=== PATIENT | female | born 1950 | race African-American/Black ===

== ENCOUNTER 2016-05-15 09:20 | Emergency (ER) | payer MEDICARE, MEDICAID ==
[~2016-05-15] VITALS: Ht 162.6 cm; Wt 104.8 kg
[~2016-05-15 09:20] MED LIST: ALBU0.084 IN; ASPI-231 PO; BRIM0.2S17 EACHEYE; BUDE160A3 IN; FER325T PO; FURO40TA PO; LEVEMIR SC; LOVA40TA46 PO; MET50T PO; METF500T PO; MORP15TA43 PO; NOR10T PO; PANT40TA2 PO; PREG50CA PO; RANI-185 PO; TIOTCAP IN; TRAV0.00 OP
[2016-05-15 10:11] LABS: Basophils # (auto) 0 uL; Basophils % (auto) 0.2 % (0.0-2.0); Eosinophils # (auto) 0.2 uL; Eosinophils % (auto) 2.7 % (0.0-7.0); Hematocrit 40.1 % (36.0-46.0); Hemoglobin 12.8 g/dL (12.2-16.2); Lymphocytes # (auto) 2.9 uL; Lymphocytes % (auto) 40.4 % (10.0-50.0); Mean Corpuscular Hemoglobin 28.2 pg (28.0-32.0); Mean Corpuscular Volume 87.9 fL (80.0-100.0); Mean Platelet Volume 8.5 fL (7.4-10.4); Monocytes # (auto) 0.4 uL; Monocytes % (auto) 6.2 % (0.0-12.0); Neutrophils # (auto) 3.6 uL; Neutrophils % (auto) 50.5 % (37.0-80.0); Platelet Count (auto) 276 10^3/uL (140-450); Red Cell Distribution Width 15.2 % (11.6-16.0); White Blood Cell 7.1 10^3/uL (4.4-10.8)
[2016-05-15 10:23] LABS: Albumin 3.6 g/dL (3.4-5.0); BUN/Creatinine Ratio 15.1; Bilirubin, Total 0.5 mg/dL (0.2-1.0); Calcium 9.2 mg/dL (8.5-10.1); Magnesium 1.9 mg/dL (1.6-2.6); Total Protein 7.8 g/dL (6.4-8.2)
[2016-05-15] MEDS ORDERED: SODIUM CHLORIDE 0.9% 500 ML IVB ONE (10:25)
[2016-05-15] MEDS ORDERED: PANTOPRAZOLE SODIUM 40 MG/10 ML VIAL IV STA (10:25)
[2016-05-15] MEDS ORDERED: MORPHINE SULFATE 4 MG/ML SYRG IV ONE (10:30)
[2016-05-15] MEDS ORDERED: ONDANSETRON HCL 4 MG/2 ML VIAL IV ONE (10:30)
[2016-05-15 11:16] LABS: Amylase 69 U/L (25-115)
[2016-05-15] MEDS ORDERED: HYDROmorphone HCL 2 MG/ML VL IV ONE (11:45)
[2016-05-15 12:20] LABS: Urine Bilirubin Negative (Negative); Urine Blood Negative /uL (Negative); Urine Color Yellow (Yellow); Urine Glucose Normal (Normal); Urine Mucus FEW (None Seen); Urine Nitrite Negative (Negative); Urine RBC 11 /hpf (0 - 4); Urine Squamous Epithelial Cell MOD /hpf (<5); Urine pH 6.5 (5.0-8.0)
[2016-05-15 12:21] LABS: Urine Ketone 1+ (Negative)
[2016-05-15 12:35] VITALS: BP 123/67
== END 2016-05-15 13:41 | disposition home or self-care (01) ==
LOC: ER 09:27
DX: R10.13 Epigastric pain (principal); I25.2 Old myocardial infarction; J44.9 Chronic obstructive pulmonary disease, unspecified; I50.9 Heart failure, unspecified; I11.0 Hypertensive heart disease with heart failure; I48.91 Unspecified atrial fibrillation; I25.10 Atherosclerotic heart disease of native coronary artery without angina pectoris; E11.9 Type 2 diabetes mellitus without complications; Z79.4 Long term (current) use of insulin; Z79.82 Long term (current) use of aspirin; Z88.0 Allergy status to penicillin; Z90.49 Acquired absence of other specified parts of digestive tract; Z87.891 Personal history of nicotine dependence; Z86.73 Personal history of transient ischemic attack (TIA), and cerebral infarction without residual deficits; Z88.6 Allergy status to analgesic agent; Z79.899 Other long term (current) drug therapy
CPT/HCPCS: 36415; 74176; 76705; 80053; 81001; 82150; 82962; 83690; 83735; 84484; 85025; 93005; 94761; 96361; 96374; 96375; 99285; C9113; J1170; J2270; J2405; J7030

== ENCOUNTER 2018-12-09 13:13 | Inpatient (IN) | payer MEDICARE, MEDICAID ==
[~2018-12-09] VITALS: Ht 167.6 cm; Wt 116.5 kg
[~2018-12-09 13:13] MED LIST changes: -ALBU0.084 IN; -BUDE160A3 IN; -FER325T PO; +FURO1TAB33 PO; -FURO40TA PO; -LEVEMIR SC; -MORP15TA43 PO; +MORP1TAB12 PO; -NOR10T PO; -TIOTCAP IN
[2018-12-09] MEDS ORDERED: ALBUTEROL SULF 2.5 MG/0.5ML(0.5%) NEB SOLN NEB ONE (14:15)
[2018-12-09] MEDS ORDERED: IPRATROPIUM BROM 0.5 MG/2.5ML INH SOL NEB ONE (14:15)
[2018-12-09 14:47] LABS: Hematocrit 32.9 % (36.0-46.0); Hemoglobin 10.7 g/dL (12.2-16.2); Mean Corpuscular Hemoglobin 27.4 pg (28.0-32.0); Mean Corpuscular Hgb Conc. 32.5 g/dL (32.0-36.0); Mean Corpuscular Volume 84.2 fL (80.0-100.0); Platelet Count (auto) 250 10^3/uL (140-450); Red Cell Distribution Width 17.7 % (11.8-14.3); White Blood Cell 6.7 10^3/uL (4.4-10.8)
[2018-12-09 14:54] LABS: Basophils % (manual) 0 (0.0-2.0); Blast Cells 0; INR 1.06 (0.9-1.15); Metamyelocytes % 0; Myelocytes % 0; Partial Thromboplastin Time 28.8 sec (23.64-32.05); Promyelocytes % 0; Reactive Lymphocytes 0
[2018-12-09 15:02] LABS: Alanine Aminotransferase 12 U/L (13-56); Anion Gap 10 (5-15); Aspartate Aminotransferase 8 U/L (15-37); BUN/Creatinine Ratio 10.1; Blood Urea Nitrogen 10 mg/dL (7-18); Calcium 9.1 mg/dL (8.5-10.1); Carbon Dioxide 23 mmol/L (21-32); Chloride 109 mmol/L (98-107); GFR African American 72 mL/min; GFR Non-African American 60 mL/min; Glucose 173 mg/dL (74-106); Magnesium 1.7 mg/dL (1.6-2.6); Sodium 142 mmol/L (136-145)
[2018-12-09 15:06] LABS: Alkaline Phosphatase 97 U/L (45-117); Bilirubin, Total 0.4 mg/dL (0.2-1.0); Total Protein 7.8 g/dL (6.4-8.2)
[2018-12-09] MEDS ORDERED: LEVOFLOXACIN 500MG 100 ML IV ONE (16:30)
[2018-12-09 18:37] LABS: Band Neutrophils % (manual) 1; Eosinophils % (manual) 19 (0-7); Lymphocytes % (manual) 21 (10.0-50.0); Monocytes % (manual) 7 (0-12)
[2018-12-09] MEDS ORDERED: DEXTROSE (50%) 50ML SYRG IV PRN (18:45)
[2018-12-09] MEDS ORDERED: MORPHINE SULF INJ 2 MG/ML SYRINGE 1ML IV PRN (18:45)
[2018-12-09] MEDS ORDERED: ACETAMINOPHEN 500 MG TAB PO PRN (18:45)
[2018-12-09] MEDS ORDERED: NITROGLYCERIN 0.4 MG SL TAB SL PRN (18:45)
[2018-12-09] MEDS ORDERED: ASPirin-EC 81 mg tab PO ONE (18:45)
[2018-12-09] MEDS ORDERED: methylPREDNISolone SOD SUCC 125 MG/2 ML VL IV ONE (18:45)
[2018-12-09 20:55] LABS: Urine Bacteria MOD /hpf (None Seen); Urine Blood TRACE /uL (Negative); Urine Budding Yeast FEW /hpf (None Seen); Urine Hyaline Cast FEW /lpf (0 - 2); Urine Mucus FEW (None Seen); Urine Specific Gravity 1.021 (1.001-1.035); Urine WBC 78 /hpf (0 - 5)
[2018-12-09] MEDS: MORPHINE SULF INJ 2 MG/ML SYRINGE 1ML IV PRN (20:59)
[2018-12-09] MEDS: ONDANSETRON HCL 4 MG/2 ML VIAL IV PRN (20:59)
[2018-12-09 21:45] VITALS: BP 146/79
--- NOTE | 2018-12-09 21:45 | NUR ---
Telemetry admit from ER ELZBIETA TAYLOR admitted to Telemetry unit after hand off tool received. Patient oriented to primary RN, unit, room, bed, and unit policies regarding patient care and visiting hours. Patient now on continuous telemetry monitoring, tele box # 40 and telemetry reading on arrival to unit is Sinus rhythm at 82 . Patient placed on bedside oxygen, weighed by bedscale and encouraged to call if they need something. All questions and concerns addressed, patient verbalized understanding.
[2018-12-09] MEDS: ACCU-CHEK COMFORT CURVE STRIP VI SCH (22:00)
[2018-12-09] MEDS: BRIMONIDINE 0.2% OPTH Soln 5ml EACHEYE SCH (22:00)
[2018-12-09] MEDS: InsuLIN REG 1unit/0.01ml Soln (100units/ml) SC SCH (22:00)
[2018-12-09] MEDS: METOPROLOL TARTRATE 50 MG TAB PO SCH (22:41)
[2018-12-09] MEDS: PREGABALIN 25 MG CAP PO SCH (22:42)
[2018-12-09 22:45] VITALS: BP 146/79
[2018-12-09] MEDS: BUDESONIDE (INHALATION) 0.5 MG/2 ML NEB NEB SCH (22:52)
[2018-12-10] MEDS ORDERED: NAP500T PO (00:38)
--- NOTE | 2018-12-10 00:44 | NUR ---
Patient assisted to bedside commode, stated will call nurse when done.
--- NOTE | 2018-12-10 00:50 | NUR ---
Pt unable to self transfer. Assisted pt back to bed. Patient with moderate amount of clear yellow urine with strong odor. will continue to monitor.
[2018-12-10 00:55] VITALS: BP 146/79
[2018-12-10] MEDS: MORPHINE SULF INJ 2 MG/ML SYRINGE 1ML IV PRN ×4 (01:00→20:02)
[2018-12-10] MEDS: ONDANSETRON HCL 4 MG/2 ML VIAL IV PRN ×2 (01:00→06:44)
[2018-12-10 05:00] VITALS: BP 115/57
[2018-12-10] MEDS: PREGABALIN 25 MG CAP PO SCH ×3 (05:22→21:37)
[2018-12-10 05:24] LABS: Eosinophils # (auto) 0.3 uL; Eosinophils % (auto) 4.4 % (0.0-7.0); Hemoglobin 10.3 g/dL (12.2-16.2); Monocytes # (auto) 0.1 uL; White Blood Cell 6.9 10^3/uL (4.4-10.8)
[2018-12-10 05:27] LABS: Basophils # (auto) 0 uL; Basophils % (auto) 0.5 % (0.0-2.0); Hematocrit 32.3 % (36.0-46.0); Lymphocytes # (auto) 0.9 uL; Lymphocytes % (auto) 13.4 % (10.0-50.0); Mean Corpuscular Hemoglobin 26.9 pg (28.0-32.0); Mean Corpuscular Volume 83.8 fL (80.0-100.0); Neutrophils # (auto) 5.5 uL; Neutrophils % (auto) 79.7 % (37.0-80.0); Nucleated Red Blood Cells % 0.1 %; Platelet Count (auto) 238 10^3/uL (140-450); Red Blood Cells 3.85 10^6/uL (4.0-5.20)
[2018-12-10 05:48] LABS: Cholesterol 137 mg/dL (< 200)
[2018-12-10 05:49] LABS: BUN/Creatinine Ratio 15.7; Calcium 8.9 mg/dL (8.5-10.1); Potassium 4.5 mmol/L (3.5-5.1)
[2018-12-10 05:50] LABS: HDL Cholesterol 53 mg/dL (40-59); LDL Cholesterol 72 mg/dL (< 100); Triglycerides 67 mg/dL (< 150)
[2018-12-10] MEDS: BRIMONIDINE 0.2% OPTH Soln 5ml EACHEYE SCH ×3 (06:00→21:38)
[2018-12-10] MEDS: IPRATROPIUM BROM 0.5 MG/2.5ML INH SOL NEB SCH ×3 (06:00→18:46)
[2018-12-10] MEDS: BUDESONIDE (INHALATION) 0.5 MG/2 ML NEB NEB SCH ×2 (06:00→18:46)
[2018-12-10] MEDS: ALBUTEROL SULF 2.5 MG/0.5ML(0.5%) NEB SOLN NEB SCH ×3 (06:00→18:46)
[2018-12-10] MEDS: ACCU-CHEK COMFORT CURVE STRIP VI SCH ×4 (06:43→21:48)
[2018-12-10] MEDS: InsuLIN REG 1unit/0.01ml Soln (100units/ml) SC SCH ×3 (06:44→17:22)
[2018-12-10] MEDS: HYDROcodone-ACET 5/325MG TAB PO PRN (08:39)
[2018-12-10 09:00] VITALS: BP 129/65
[2018-12-10] MEDS: TRAVATAN Z 0.004% OP SCH (10:00)
[2018-12-10] MEDS: LEVOFLOXACIN 750MG 150 ML IV SCH (10:02)
[2018-12-10] MEDS: METOPROLOL TARTRATE 50 MG TAB PO SCH ×2 (10:03→21:38)
[2018-12-10] MEDS: ATORVASTATIN 20 MG TAB PO SCH (10:03)
[2018-12-10] MEDS: PANTOPRAZOLE 40 MG TAB PO SCH (10:03)
[2018-12-10] MEDS: ASPirin-EC 81 mg tab PO SCH (10:03)
--- NOTE | 2018-12-10 11:46 | NUR ---
Received referral to provide pt with a Power of Grinder Set Up Operator Gear Tool. Pt was given an explanation and she accepted it.
--- NOTE | 2018-12-10 12:15 | NUR ---
pt seen and examined by Dr. Ramirez
--- NOTE | 2018-12-10 12:17 | NUR ---
PT SEEN BY DR. SHAH MADE AWARE PT'S BLOOD SUGAR HAS BEEN HIGH, HE ORDERED TO INCREASE INSULIN TO AGGRESSIVE SLIDING SCALE.
[2018-12-10] MEDS ORDERED: FUROSEMIDE 40 MG/4 ML VIAL IV ONE (12:30)
[2018-12-10 13:00] VITALS: BP 135/69
[2018-12-10] MEDS: methylPREDNISolone SOD SUCC 125 MG/2 ML VL IV SCH ×2 (14:12→21:38)
[2018-12-10] MEDS ORDERED: METH4TAB PO (16:08)
[2018-12-10] MEDS ORDERED: LORA-622 PO (16:08)
[2018-12-10] MEDS ORDERED: PANT20TA59 PO (16:08)
[2018-12-10] MEDS ORDERED: ATO40T PO (16:08)
[2018-12-10] MEDS ORDERED: BRIM0.159 OP (16:08)
[2018-12-10] MEDS ORDERED: HYDR-4833 PO (16:08)
[2018-12-10] MEDS ORDERED: PRED1SUS4 OP (16:08)
[2018-12-10] MEDS ORDERED: TRAV0.00 EACHEYE (16:08)
[2018-12-10 17:19] VITALS: BP 125/63
--- NOTE | 2018-12-10 18:46 | NUR ---
Respiratory note: AT BEDSIDE SIDE FOR MED NEB TX. PT UPSET BECAUSE SHE THOUGHT I WAS BRINGING HER A LUNCH TRAY. PT HAS ALLERGY TO TOMATOES. DINNER TRAY AT BEDSIDE PER PT IT IS FULL OF TOMATO. SHE STARTED EATING IT EARLIER AND STATES ALL AROUND HER MOUTH SHE FEELS ITCHY AND HER THROAT FEELS A LITTLE SORE. AUSCULTATED THROAT I HEAR FINE IRRITATION WITH AIR MOVEMENT BUT PATIENT STATED IT FEELS LIKE IT IS GETTING WORSE. MED NEB TX PROVIDED AT THIS TIME. CHEST BS ARE FINE WHEEZE HERD IN TAYLA DIMINISHED T/O. POX96% ON 2LPM NC. HR61. JAN OSUNA NOTIFIED MADE AWARE OF POSSIBLE ALLERGY REACTION.
--- NOTE | 2018-12-10 19:08 | NUR ---
pt complaining of itching in her throat after she ate pasta with tomato, pt is allergic to tomato, lakisha hospitalist, SALEEM Granger called back and ordered diphenhydramine 50mg iv now and 25mg iv q6hrs prn.
[2018-12-10] MEDS ORDERED: diphenhdrAMINE HCL 50 MG/1 ML VL IV ONE (19:15)
[2018-12-10] MEDS ORDERED: diphenhdrAMINE HCL 50 MG/1 ML VL IV PRN (19:15)
--- NOTE | 2018-12-10 19:30 | NUR ---
Opening Shift Note Assumed care of patient, awake and alert. No S/S of distress/SOB or pain. Patient c/o allergic reaction to food earlier but states she feels better after the benadryl that was given by dayshift RN. Bed locked in lowest position, side rails upx2, call light within reach. Instructed on POC and to call for assist PRN, will continue to monitor for changes Q1hr and PRN.
--- NOTE | 2018-12-10 21:40 | NUR ---
BLOOD SUGAR 422. GIVEN 10 UNITS ORDERED. WILL REASSESS. Addendum: 12/10/18 at 2242 by SHANELL HOUSTON RN REASSESSED BLOOD SUGAR AND IT'S NOW 436, WILL NOTIFY HOSPITALIST.
[2018-12-10 22:00] VITALS: BP 117/60
[2018-12-10] MEDS ORDERED: InsuLIN REG 1unit/0.01ml Soln (100units/ml) SC SCH (22:00)
--- NOTE | 2018-12-10 22:50 | NUR ---
Spoke to Dr. Salinas regarding patient's high blood sugar and informed him that patient is already on an aggressive scale and that patient is also taking solumedrol. states "I will talk to Dr. Ramirez tomorrow."
[2018-12-11] MEDS: MORPHINE SULF INJ 2 MG/ML SYRINGE 1ML IV PRN ×3 (01:43→21:34)
[2018-12-11 05:00] VITALS: BP 121/62
[2018-12-11] MEDS: BRIMONIDINE 0.2% OPTH Soln 5ml EACHEYE SCH ×3 (06:00→21:24)
[2018-12-11] MEDS: PREGABALIN 25 MG CAP PO SCH ×3 (06:10→21:23)
[2018-12-11] MEDS: methylPREDNISolone SOD SUCC 125 MG/2 ML VL IV SCH (06:10)
[2018-12-11] MEDS: InsuLIN REG 1unit/0.01ml Soln (100units/ml) SC SCH ×5 (06:24→23:51)
[2018-12-11] MEDS: ACCU-CHEK COMFORT CURVE STRIP VI SCH ×5 (06:24→23:52)
[2018-12-11] MEDS: BUDESONIDE (INHALATION) 0.5 MG/2 ML NEB NEB SCH ×2 (06:30→18:39)
[2018-12-11] MEDS: IPRATROPIUM BROM 0.5 MG/2.5ML INH SOL NEB SCH ×3 (06:30→18:39)
[2018-12-11] MEDS: ALBUTEROL SULF 2.5 MG/0.5ML(0.5%) NEB SOLN NEB SCH ×3 (06:30→18:39)
[2018-12-11 09:00] VITALS: BP 126/71
[2018-12-11] MEDS: LEVOFLOXACIN 750MG 150 ML IV SCH (09:43)
[2018-12-11] MEDS: ATORVASTATIN 20 MG TAB PO SCH (09:43)
[2018-12-11] MEDS: PANTOPRAZOLE 40 MG TAB PO SCH (09:43)
[2018-12-11] MEDS: ASPirin-EC 81 mg tab PO SCH (09:43)
[2018-12-11] MEDS: METOPROLOL TARTRATE 50 MG TAB PO SCH ×2 (09:44→21:24)
[2018-12-11] MEDS: FUROSEMIDE 40 MG/4 ML VIAL IV SCH (09:44)
[2018-12-11] MEDS: TRAVATAN Z 0.004% OP SCH (09:44)
--- NOTE | 2018-12-11 10:41 | NUR ---
DR. SHAH AT BEDSIDE MADE AWARE OF PT'S HIGH BLOOD SUGAR, PER DR. SHAH HE WILL DC SOLUMEDROL AND ORDERED TO CHANGE SLIDING SCALE TO Q4HRS AGGRESSIVE.
[2018-12-11] MEDS ORDERED: DEXTROSE (50%) 50ML SYRG IV PRN (11:15)
--- NOTE | 2018-12-11 11:49 | NUR ---
high blood sugar blood sugar 464mg/dl, re checked 420mg/dl, Dr. Ramirez at nurses station made aware, no further order, pt on q4hrs sliding scale.
[2018-12-11 13:00] VITALS: BP 122/59
[2018-12-11 17:34] VITALS: BP 102/53
--- NOTE | 2018-12-11 18:49 | NUR ---
Respiratory note: PT C/O DRY NOSE, PT SPO2 100% ON 2L. TITRATED FIO2 TO 1L NC POST MED NEB TX. PT SPO2 99% ON 1L, NO RESPIRATORY DISTRESS NOTED. HUMIDIFIER ADDED FOR PT COMFORT. WILL CONTINUE TO MONITOR.
--- NOTE | 2018-12-11 19:30 | NUR ---
Opening Shift Note Assumed care of patient, awake and alert. No S/S of distress/SOB or pain. Bed locked in lowest position, side rails upx2, call light within reach. Instructed on POC and to call for assist PRN, will continue to monitor for changes Q1hr and PRN.
[2018-12-11 22:00] VITALS: BP 117/67
[2018-12-11] MEDS ORDERED: TRAVATAN Z 0.004% OP SCH (22:00)
[2018-12-12] MEDS: InsuLIN REG 1unit/0.01ml Soln (100units/ml) SC SCH ×3 (04:00→12:00)
[2018-12-12] MEDS: ACCU-CHEK COMFORT CURVE STRIP VI SCH ×3 (04:05→12:00)
[2018-12-12] MEDS: MORPHINE SULF INJ 2 MG/ML SYRINGE 1ML IV PRN (04:38)
[2018-12-12 05:00] VITALS: BP 115/71
[2018-12-12] MEDS ORDERED: THROAT LOZENGES(CEPASTAT) MT ONE (05:15)
[2018-12-12] MEDS: BRIMONIDINE 0.2% OPTH Soln 5ml EACHEYE SCH (05:55)
[2018-12-12] MEDS: PREGABALIN 25 MG CAP PO SCH (05:56)
[2018-12-12] MEDS: ALBUTEROL SULF 2.5 MG/0.5ML(0.5%) NEB SOLN NEB SCH ×2 (06:28→11:48)
[2018-12-12] MEDS: IPRATROPIUM BROM 0.5 MG/2.5ML INH SOL NEB SCH ×2 (06:28→11:48)
[2018-12-12] MEDS: BUDESONIDE (INHALATION) 0.5 MG/2 ML NEB NEB SCH (06:29)
[2018-12-12 09:00] VITALS: BP 138/50
[2018-12-12] MEDS: ASPirin-EC 81 mg tab PO SCH (09:43)
[2018-12-12] MEDS: PANTOPRAZOLE 40 MG TAB PO SCH (09:43)
[2018-12-12] MEDS: FUROSEMIDE 40 MG/4 ML VIAL IV SCH (09:43)
[2018-12-12] MEDS: LEVOFLOXACIN 750MG 150 ML IV SCH (09:43)
[2018-12-12] MEDS: METOPROLOL TARTRATE 50 MG TAB PO SCH (09:44)
[2018-12-12] MEDS: ATORVASTATIN 20 MG TAB PO SCH (09:44)
--- NOTE | 2018-12-12 10:29 | NUR ---
PT SEEN BY DR. SHAH PER DR. SHAH PT CAN GO HOME WITH NEW PRESCRIPTION OF ANTIBIOTIC.
[2018-12-12 11:23] VITALS: BP 124/65
[2018-12-12] MEDS: HYDROcodone-ACET 5/325MG TAB PO PRN (11:51)
--- NOTE | 2018-12-12 13:23 | NUR ---
Discharge instructions given as ordered. Encourage to follow up with DR. KNOX ON DECEMBER 18 AT 1:15PM as instructed. All questions and concerns addressed. Patient verbalized understanding. Medication reconciliation form completed and copy given to patient. IV removed with catheter intact, pressure dressing applied. Telemetry unit returned to ICU. Patient taken to vehicle via wheelchair with all personal belongings, accompanied by staff and family member. No distress noted at time of departure.
== END 2018-12-12 13:23 | disposition home or self-care (01) | DRG 291 ==
LOC: EDBD 13:13 → ER 13:14 → TELE 13:15 → TELE-WESTW 21:44
PROVIDERS: ADMIT Nurse Practitioner Acute Care; ATTEND Family Medicine
DX: I11.0 Hypertensive heart disease with heart failure (principal); J18.1 Lobar pneumonia, unspecified organism; J96.20 Acute and chronic respiratory failure, unspecified whether with hypoxia or hypercapnia; R65.10 Systemic inflammatory response syndrome (SIRS) of non-infectious origin without acute organ dysfunction; J44.1 Chronic obstructive pulmonary disease with (acute) exacerbation; E44.0 Moderate protein-calorie malnutrition; J44.0 Chronic obstructive pulmonary disease with (acute) lower respiratory infection; J45.901 Unspecified asthma with (acute) exacerbation; Z68.41 Body mass index [BMI] 40.0-44.9, adult; I50.43 Acute on chronic combined systolic (congestive) and diastolic (congestive) heart failure; E66.01 Morbid (severe) obesity due to excess calories; D64.9 Anemia, unspecified; E11.40 Type 2 diabetes mellitus with diabetic neuropathy, unspecified; E11.65 Type 2 diabetes mellitus with hyperglycemia; E78.00 Pure hypercholesterolemia, unspecified; E78.5 Hyperlipidemia, unspecified; F17.200 Nicotine dependence, unspecified, uncomplicated; G40.909 Epilepsy, unspecified, not intractable, without status epilepticus; I25.10 Atherosclerotic heart disease of native coronary artery without angina pectoris; I48.91 Unspecified atrial fibrillation; F41.9 Anxiety disorder, unspecified; T38.0X5A Adverse effect of glucocorticoids and synthetic analogues, initial encounter; E11.21 Type 2 diabetes mellitus with diabetic nephropathy; Z79.4 Long term (current) use of insulin; Z79.82 Long term (current) use of aspirin; Z79.899 Other long term (current) drug therapy; Z80.7 Family history of other malignant neoplasms of lymphoid, hematopoietic and related tissues; Z82.0 Family history of epilepsy and other diseases of the nervous system; Z82.49 Family history of ischemic heart disease and other diseases of the circulatory system; Z83.3 Family history of diabetes mellitus; Z86.73 Personal history of transient ischemic attack (TIA), and cerebral infarction without residual deficits; Z87.01 Personal history of pneumonia (recurrent); Z88.0 Allergy status to penicillin; Z88.8 Allergy status to other drugs, medicaments and biological substances; Z91.018 Allergy to other foods; Z71.6 Tobacco abuse counseling
CPT/HCPCS: 36415; 71045; 80048; 80053; 80061; 81001; 82962; 83036; 83735; 83880; 84484; 85007; 85025; 85027; 85610; 85730; 87040; 94640; 94761; 96365; 96375; G0378; J1815; J1956; J2405

== ENCOUNTER 2021-11-28 14:43 | Inpatient (IN) | payer MEDICARE, MEDICAID ==
[~2021-11-28] VITALS: Ht 162.6 cm; Wt 101.7 kg
[~2021-11-28 14:43] MED LIST changes: -ASPI-231 PO; +ASPI1TAB20 PO; +ATO40T PO; +BRIM0.159 OP; -BRIM0.2S17 EACHEYE; +HYDR-4833 PO; +LORA-622 PO; +METH4TAB PO; +NAP500T PO; +PANT20TA59 PO; -PANT40TA2 PO; +PRED1SUS4 OP; +TRAV0.00 EACHEYE; -TRAV0.00 OP
[2021-11-28 15:29] LABS: Basophils # (auto) 0.1 10 ^3/uL (0-0.2); Basophils % (auto) 1.1 % (0.0-2.0); Eosinophils # (auto) 0.2 10 ^3/uL (0-0.8); Eosinophils % (auto) 2.6 % (0.0-7.0); Hematocrit 32.9 % (36.0-46.0); Hemoglobin 10.7 g/dL (12.2-16.2); Lymphocytes # (auto) 3.6 10 ^3/uL (0.4-5.4); Lymphocytes % (auto) 46.9 % (10.0-50.0); Mean Corpuscular Hemoglobin 29.3 pg (28.0-32.0); Mean Corpuscular Hgb Conc. 32.7 g/dL (32.0-36.0); Mean Corpuscular Volume 89.6 fL (80.0-100.0); Monocytes # (auto) 0.5 10 ^3/uL (0-1.3); Monocytes % (auto) 6.4 % (0.0-12.0); Neutrophils # (auto) 3.3 10 ^3/uL (1.6-8.6); Red Blood Cells 3.67 10^6/uL (4.0-5.20); Red Cell Distribution Width 14.7 % (11.8-14.3); White Blood Cell 7.6 10^3/uL (4.4-10.8)
[2021-11-28 15:42] LABS: Albumin 2.7 g/dL (3.4-5.0); Calcium 8.6 mg/dL (8.5-10.1); Potassium 4.1 mmol/L (3.5-5.1)
[2021-11-28 15:45] LABS: BUN/Creatinine Ratio 19.6; Bilirubin, Total 0.1 mg/dL (0.2-1.0); Total Protein 7.4 g/dL (6.4-8.2)
[2021-11-28] MEDS ORDERED: HYDROcodone-ACET 5/325MG TAB PO PRN (18:00)
[2021-11-28] MEDS ORDERED: FUROSEMIDE 40 MG/4 ML VIAL IV ONE (18:00)
[2021-11-28] MEDS ORDERED: NITROGLYCERIN 0.4 MG SL TAB SL ONE (18:00)
[2021-11-28] MEDS ORDERED: ASPirin 81 mg TAB PO ONE (18:00)
[2021-11-28] MEDS ORDERED: ACETAMINOPHEN 325 MG TAB PO PRN (19:00)
[2021-11-28] MEDS: MORPHINE SULFATE INJ 2 MG/ml SYRG IV PRN (21:45)
[2021-11-28] MEDS ORDERED: METOPROLOL TARTRATE 50 MG TAB PO SCH (22:00)
[2021-11-29] MEDS: MORPHINE SULFATE INJ 2 MG/ml SYRG IV PRN ×4 (01:58→20:39)
[2021-11-29 05:00] VITALS: BP 135/80
[2021-11-29 06:28] LABS: Albumin 2.6 g/dL (3.4-5.0); Calcium 8.7 mg/dL (8.5-10.1); Potassium 3.8 mmol/L (3.5-5.1)
[2021-11-29 06:29] LABS: Basophils # (auto) 0 10 ^3/uL (0-0.2); Basophils % (auto) 0.4 % (0.0-2.0); Eosinophils # (auto) 0.2 10 ^3/uL (0-0.8); Eosinophils % (auto) 2.3 % (0.0-7.0); Hematocrit 31.9 % (36.0-46.0); Hemoglobin 10.6 g/dL (12.2-16.2); Lymphocytes # (auto) 3.3 10 ^3/uL (0.4-5.4); Lymphocytes % (auto) 44.8 % (10.0-50.0); Mean Corpuscular Hemoglobin 29.8 pg (28.0-32.0); Mean Corpuscular Hgb Conc. 33.3 g/dL (32.0-36.0); Mean Corpuscular Volume 89.5 fL (80.0-100.0); Monocytes # (auto) 0.5 10 ^3/uL (0-1.3); Monocytes % (auto) 7.2 % (0.0-12.0); Neutrophils # (auto) 3.3 10 ^3/uL (1.6-8.6); Neutrophils % (auto) 45.3 % (37.0-80.0); Red Blood Cells 3.57 10^6/uL (4.0-5.20); Red Cell Distribution Width 14.7 % (11.8-14.3); White Blood Cell 7.3 10^3/uL (4.4-10.8)
[2021-11-29 06:32] LABS: BUN/Creatinine Ratio 20.5; Bilirubin, Total 0.4 mg/dL (0.2-1.0); Total Protein 6.8 g/dL (6.4-8.2)
[2021-11-29 08:57] VITALS: BP 98/65
[2021-11-29] MEDS ORDERED: DEXTROSE (50%) 50ML SYRG IV PRN (09:15)
[2021-11-29] MEDS ORDERED: ENOXAPARIN SOD 40 MG/0.4 ML SYRINGE SC SCH (10:00)
[2021-11-29] MEDS: ASPirin 81 mg TAB PO SCH (10:55)
[2021-11-29] MEDS: METOPROLOL TARTRATE 50 MG TAB PO SCH ×2 (10:56→22:29)
[2021-11-29] MEDS: POTASSIUM CHL 20 Meq TABLET PO SCH (10:56)
[2021-11-29] MEDS: PREGABALIN 25 MG CAP PO SCH ×2 (10:56→22:28)
[2021-11-29] MEDS: PANTOPRAZOLE 40 MG TAB PO SCH (10:57)
[2021-11-29] MEDS: FUROSEMIDE 40 MG TAB PO SCH (10:57)
[2021-11-29] MEDS: ACCU-CHEK COMFORT CURVE STRIP VI SCH ×3 (12:09→22:30)
[2021-11-29] MEDS: InsuLIN REG 1unit/0.01ml Soln (100units/ml) SC SCH ×3 (12:11→22:31)
[2021-11-29 13:00] VITALS: BP_SYST 131; BP_SYST 98; BP_DIAS 56; BP_DIAS 80
[2021-11-29 16:48] VITALS: BP 137/69
[2021-11-29 22:00] VITALS: BP 150/78
[2021-11-29] MEDS ORDERED: ATORVASTATIN 20 MG TAB PO SCH (22:00)
[2021-11-30 05:00] VITALS: BP 115/67
[2021-11-30] MEDS: ACCU-CHEK COMFORT CURVE STRIP VI SCH ×2 (05:57→11:30)
[2021-11-30] MEDS: InsuLIN REG 1unit/0.01ml Soln (100units/ml) SC SCH ×2 (06:04→11:29)
[2021-11-30] MEDS: MORPHINE SULFATE INJ 2 MG/ml SYRG IV PRN (06:06)
[2021-11-30 06:20] LABS: BUN/Creatinine Ratio 20.4; Potassium 3.9 mmol/L (3.5-5.1)
[2021-11-30 07:30] VITALS: BP 124/61
[2021-11-30 08:20] VITALS: BP 124/61
[2021-11-30] MEDS: METOPROLOL TARTRATE 50 MG TAB PO SCH (10:00)
[2021-11-30] MEDS: FUROSEMIDE 40 MG TAB PO SCH (10:00)
[2021-11-30] MEDS: ASPirin 81 mg TAB PO SCH (10:12)
[2021-11-30] MEDS: POTASSIUM CHL 20 Meq TABLET PO SCH (10:12)
[2021-11-30] MEDS: PANTOPRAZOLE 40 MG TAB PO SCH (10:13)
[2021-11-30] MEDS: PREGABALIN 25 MG CAP PO SCH (10:13)
[2021-11-30] MEDS ORDERED: ONDANSETRON HCL 4 MG/2 ML VIAL IV PRN (10:15)
[2021-11-30] MEDS ORDERED: POTA-220 PO (10:15)
[2021-11-30] MEDS ORDERED: FURO40TA4 PO (10:15)
[2021-11-30 12:37] VITALS: BP 117/60
[2021-11-30 14:33] VITALS: BP 154/76
== END 2021-11-30 15:45 | disposition home health service (06) | DRG 291 ==
LOC: ER 14:43 → EDBD 14:43 → TELE 18:00 → TELE-CENTR 21:20
PROVIDERS: ADMIT Internal Medicine; ATTEND Internal Medicine
DX: I11.0 Hypertensive heart disease with heart failure (principal); I50.33 Acute on chronic diastolic (congestive) heart failure; E11.65 Type 2 diabetes mellitus with hyperglycemia; E66.01 Morbid (severe) obesity due to excess calories; E78.5 Hyperlipidemia, unspecified; E88.09 Other disorders of plasma-protein metabolism, not elsewhere classified; I48.91 Unspecified atrial fibrillation; J43.9 Emphysema, unspecified; Z20.822 Contact with and (suspected) exposure to COVID-19; I25.10 Atherosclerotic heart disease of native coronary artery without angina pectoris; F41.9 Anxiety disorder, unspecified; R56.9 Unspecified convulsions; M19.90 Unspecified osteoarthritis, unspecified site; R00.0 Tachycardia, unspecified; R07.89 Other chest pain; Z79.899 Other long term (current) drug therapy; Z86.73 Personal history of transient ischemic attack (TIA), and cerebral infarction without residual deficits; Z72.0 Tobacco use; Z80.7 Family history of other malignant neoplasms of lymphoid, hematopoietic and related tissues; Z82.0 Family history of epilepsy and other diseases of the nervous system; Z79.82 Long term (current) use of aspirin; Z82.49 Family history of ischemic heart disease and other diseases of the circulatory system; Z90.49 Acquired absence of other specified parts of digestive tract; Z83.3 Family history of diabetes mellitus; Z88.0 Allergy status to penicillin; Z88.8 Allergy status to other drugs, medicaments and biological substances; Z91.018 Allergy to other foods; Z68.38 Body mass index [BMI] 38.0-38.9, adult
CPT/HCPCS: 36415; 71045; 80048; 80053; 82962; 83880; 84484; 85025; 93005; 93306; 96374; 99291; G0378; J1815; J2405

== ENCOUNTER 2022-02-01 16:44 | Inpatient (IN) | payer MEDICARE, MEDICAID ==
[~2022-02-01] VITALS: Ht 160 cm; Wt 104.6 kg
[~2022-02-01 16:44] MED LIST changes: +ALBUAER3 IN; +ASCO10003 PO; +ASPI-378 PO; +BUDE2SUS3 IN; +CHOL1CAP47 PO; +DEX4T PO; +DOXY-286 PO; +FAMO20TA10 PO; +FURO40TA4 PO; +POTA-220 PO; +ZINC220T6 PO
[2022-02-01 17:39] LABS: Basophils # (auto) 0.1 10 ^3/uL (0-0.2); Basophils % (auto) 1.1 % (0.0-2.0); Eosinophils # (auto) 0.3 10 ^3/uL (0-0.8); Eosinophils % (auto) 2.7 % (0.0-7.0); Hematocrit 34.7 % (36.0-46.0); Hemoglobin 11.4 g/dL (12.2-16.2); Lymphocytes # (auto) 3.8 10 ^3/uL (0.4-5.4); Lymphocytes % (auto) 37.2 % (10.0-50.0); Mean Corpuscular Hemoglobin 29.3 pg (28.0-32.0); Mean Corpuscular Hgb Conc. 32.7 g/dL (32.0-36.0); Mean Corpuscular Volume 89.4 fL (80.0-100.0); Monocytes # (auto) 0.5 10 ^3/uL (0-1.3); Monocytes % (auto) 5.2 % (0.0-12.0); Neutrophils # (auto) 5.4 10 ^3/uL (1.6-8.6); Neutrophils % (auto) 53.8 % (37.0-80.0); Red Blood Cells 3.88 10^6/uL (4.0-5.20); Red Cell Distribution Width 15.3 % (11.8-14.3); White Blood Cell 10.1 10^3/uL (4.4-10.8)
[2022-02-01 18:19] LABS: Albumin 2.7 g/dL (3.4-5.0); Calcium 8.8 mg/dL (8.5-10.1); Potassium 4.3 mmol/L (3.5-5.1)
[2022-02-01 18:22] LABS: Bilirubin, Total 0.1 mg/dL (0.2-1.0); Total Protein 6.9 g/dL (6.4-8.2)
[2022-02-01 21:08] LABS: Urine Bacteria NONE SEEN /hpf (None Seen); Urine Blood 2+ /uL (Negative); Urine Specific Gravity 1.018 (1.001-1.035); Urine WBC 747 /hpf (0 - 5); Urine WBC Clumps PRESENT /hpf (None Seen)
[2022-02-01] MEDS ORDERED: HYDROcodone-ACET 5/325MG TAB PO ONE (22:00)
[2022-02-01] MEDS ORDERED: NITROGLYCERIN 0.4 MG SL TAB SL ONE (22:15)
[2022-02-01] MEDS ORDERED: cefTRIAXone 1GM/50ML D5W 50 ML IV ONE (22:15)
[2022-02-01] MEDS ORDERED: ASPirin 81 mg TAB PO ONE ×2 (22:15→23:00)
[2022-02-01] MEDS ORDERED: CIPROFLOXACIN 400MG/200ML 200 ML IV ONE (22:15)
[2022-02-01] MEDS ORDERED: ONDANSETRON HCL 4 MG/2 ML VIAL IV PRN (23:15)
[2022-02-01] MEDS ORDERED: DEXTROSE (50%) 50ML SYRG IV PRN (23:15)
[2022-02-01] MEDS ORDERED: ACETAMINOPHEN 325 MG TAB PO PRN (23:15)
[2022-02-01] MEDS ORDERED: FUROSEMIDE 20 MG/2 ML VIAL IV ONE (23:15)
[2022-02-01] MEDS ORDERED: DOCUSATE SOD 100 MG CAP PO PRN (23:15)
[2022-02-01] MEDS ORDERED: NITROGLYCERIN 0.4 MG SL TAB SL PRN (23:45)
[2022-02-02] MEDS: ACCU-CHEK COMFORT CURVE STRIP VI SCH ×4 (00:32→17:51)
[2022-02-02] MEDS: InsuLIN REG 1unit/0.01ml Soln (100units/ml) SC SCH ×4 (00:45→18:04)
[2022-02-02] MEDS: HYDROcodone-ACET 5/325MG TAB PO PRN ×2 (03:58→08:43)
[2022-02-02 06:30] LABS: Basophils # (auto) 0.1 10 ^3/uL (0-0.2); Eosinophils # (auto) 0.2 10 ^3/uL (0-0.8); Eosinophils % (auto) 2.9 % (0.0-7.0); Hematocrit 32.4 % (36.0-46.0); Hemoglobin 10.7 g/dL (12.2-16.2); Lymphocytes # (auto) 4.2 10 ^3/uL (0.4-5.4); Lymphocytes % (auto) 50.8 % (10.0-50.0); Mean Corpuscular Hemoglobin 29.7 pg (28.0-32.0); Mean Corpuscular Volume 89.8 fL (80.0-100.0); Monocytes # (auto) 0.6 10 ^3/uL (0-1.3); Neutrophils # (auto) 3.2 10 ^3/uL (1.6-8.6); Neutrophils % (auto) 38.3 % (37.0-80.0); Red Blood Cells 3.61 10^6/uL (4.0-5.20); Red Cell Distribution Width 14.9 % (11.8-14.3); White Blood Cell 8.3 10^3/uL (4.4-10.8)
[2022-02-02 06:36] LABS: Albumin 2.7 g/dL (3.4-5.0); BUN/Creatinine Ratio 17.2; Calcium 8.5 mg/dL (8.5-10.1); Potassium 3.9 mmol/L (3.5-5.1)
[2022-02-02 06:39] LABS: Bilirubin, Total 0.4 mg/dL (0.2-1.0); Total Protein 6.4 g/dL (6.4-8.2)
[2022-02-02] MEDS: SODIUM CHLOR 0.9% PF (SALINE LOCK) 10ML VIAL/SYR IV SCH ×3 (06:52→21:58)
[2022-02-02] MEDS: FUROSEMIDE 20 MG/2 ML VIAL IV SCH (09:52)
[2022-02-02] MEDS: CIPROFLOXACIN 400MG/200ML 200 ML IV SCH ×2 (09:52→21:57)
[2022-02-02] MEDS: ASPirin 81 mg TAB PO SCH (09:52)
[2022-02-02] MEDS: FAMOTIDINE (10MG/ML) 2ML VL IV SCH (09:52)
[2022-02-02] MEDS: CARVEDILOL 3.125 MG TAB PO SCH ×2 (10:00→22:07)
[2022-02-02 16:45] LABS: % Iron Saturation 23.5 % (15-50)
[2022-02-02] MEDS: MORPHINE SULFATE INJ 2 MG/ml SYRG IV PRN (17:52)
[2022-02-02 17:57] VITALS: BP 138/51
[2022-02-02 20:00] VITALS: BP 140/70
[2022-02-02 22:12] VITALS: BP 146/70
[2022-02-03] VITALS (7 sets, daily range): BP systolic 103–150; BP diastolic 54–86
[2022-02-03] MEDS: InsuLIN REG 1unit/0.01ml Soln (100units/ml) SC SCH ×4 (00:18→17:51)
[2022-02-03] MEDS: ACCU-CHEK COMFORT CURVE STRIP VI SCH ×4 (00:19→17:50)
[2022-02-03] MEDS: HYDROcodone-ACET 5/325MG TAB PO PRN ×3 (02:08→19:58)
[2022-02-03] MEDS: SODIUM CHLOR 0.9% PF (SALINE LOCK) 10ML VIAL/SYR IV SCH ×3 (05:26→21:09)
[2022-02-03] MEDS: CIPROFLOXACIN 400MG/200ML 200 ML IV SCH (10:42)
[2022-02-03] MEDS: CARVEDILOL 3.125 MG TAB PO SCH (10:43)
[2022-02-03] MEDS: FUROSEMIDE 20 MG/2 ML VIAL IV SCH (10:43)
[2022-02-03] MEDS: FAMOTIDINE (10MG/ML) 2ML VL IV SCH (10:43)
[2022-02-03] MEDS: ASPirin 81 mg TAB PO SCH (10:43)
[2022-02-03] MEDS: MORPHINE SULFATE INJ 2 MG/ml SYRG IV PRN (13:36)
[2022-02-03] MEDS ORDERED: cefTRIAXone 1GM/50ML D5W 50 ML IV ONE (14:00)
[2022-02-03] MEDS: ATORVASTATIN 20 MG TAB PO SCH (21:10)
[2022-02-03] MEDS: METOPROLOL TARTRATE 50 MG TAB PO SCH (21:17)
[2022-02-04] MEDS: ACCU-CHEK COMFORT CURVE STRIP VI SCH ×4 (00:17→18:41)
[2022-02-04] MEDS: InsuLIN REG 1unit/0.01ml Soln (100units/ml) SC SCH ×4 (00:18→18:41)
[2022-02-04 05:00] VITALS: BP_SYST 112; BP_SYST 125; BP_DIAS 52; BP_DIAS 67
[2022-02-04] MEDS: SODIUM CHLOR 0.9% PF (SALINE LOCK) 10ML VIAL/SYR IV SCH ×3 (06:04→22:04)
[2022-02-04] MEDS: METOPROLOL TARTRATE 50 MG TAB PO SCH ×3 (06:05→22:00)
[2022-02-04 08:00] VITALS: BP 124/63
[2022-02-04 09:00] VITALS: BP 124/63
[2022-02-04] MEDS ORDERED: cefTRIAXone 1GM/50ML D5W 50 ML IV SCH (09:00)
[2022-02-04] MEDS ORDERED: methylPREDNISolone SOD SUCC 40 MG/ML VL IV ONE (09:30)
[2022-02-04] MEDS: FUROSEMIDE 20 MG/2 ML VIAL IV SCH (10:53)
[2022-02-04] MEDS: cefTRIAXone 1GM/50ML D5W 50 ML IV SCH (10:53)
[2022-02-04] MEDS: FAMOTIDINE (10MG/ML) 2ML VL IV SCH (10:54)
[2022-02-04] MEDS: HYDROcodone-ACET 5/325MG TAB PO PRN ×2 (10:54→22:05)
[2022-02-04] MEDS: ASPirin 81 mg TAB PO SCH (10:54)
[2022-02-04 13:01] VITALS: BP 143/75
[2022-02-04 17:00] VITALS: BP 120/59
[2022-02-04 20:00] VITALS: BP 121/52
[2022-02-04] MEDS: ATORVASTATIN 20 MG TAB PO SCH (21:59)
[2022-02-05] MEDS: ACCU-CHEK COMFORT CURVE STRIP VI SCH ×3 (01:04→12:16)
[2022-02-05 05:00] VITALS: BP 112/56
[2022-02-05] MEDS: SODIUM CHLOR 0.9% PF (SALINE LOCK) 10ML VIAL/SYR IV SCH ×2 (05:34→14:36)
[2022-02-05] MEDS: METOPROLOL TARTRATE 50 MG TAB PO SCH ×2 (05:40→14:41)
[2022-02-05] MEDS: InsuLIN REG 1unit/0.01ml Soln (100units/ml) SC SCH ×3 (05:40→12:19)
[2022-02-05] MEDS: HYDROcodone-ACET 5/325MG TAB PO PRN (05:41)
[2022-02-05 09:00] VITALS: BP 127/67
[2022-02-05] MEDS: ASPirin 81 mg TAB PO SCH (12:15)
[2022-02-05 12:26] VITALS: BP 127/67
[2022-02-05 13:00] VITALS: BP 131/74
[2022-02-05] MEDS: cefTRIAXone 1GM/50ML D5W 50 ML IV SCH (13:31)
[2022-02-05] MEDS: FUROSEMIDE 20 MG/2 ML VIAL IV SCH (13:31)
[2022-02-05] MEDS: FAMOTIDINE (10MG/ML) 2ML VL IV SCH (13:31)
[2022-02-05 17:00] VITALS: BP 148/76
== END 2022-02-05 18:31 | disposition home health service (06) | DRG 205 ==
LOC: ER 16:44 → EDBD 16:44 → TELE 23:45 → TELE-EAST 02-02 16:01
PROVIDERS: ADMIT Nurse Practitioner Family; ATTEND Nurse Practitioner Acute Care
PROC: 05HF33Z Insertion of Infusion Device into Left Cephalic Vein, Percutaneous Approach (ICD-10-PCS; principal; 2022-02-05)
DX: M94.0 Chondrocostal junction syndrome [Tietze] (principal); I50.33 Acute on chronic diastolic (congestive) heart failure; I13.0 Hypertensive heart and chronic kidney disease with heart failure and stage 1 through stage 4 chronic kidney disease, or unspecified chronic kidney disease; I16.1 Hypertensive emergency; N30.01 Acute cystitis with hematuria; Z68.41 Body mass index [BMI] 40.0-44.9, adult; E83.42 Hypomagnesemia; K42.9 Umbilical hernia without obstruction or gangrene; E11.65 Type 2 diabetes mellitus with hyperglycemia; E66.01 Morbid (severe) obesity due to excess calories; E78.5 Hyperlipidemia, unspecified; E86.0 Dehydration; J84.10 Pulmonary fibrosis, unspecified; E11.22 Type 2 diabetes mellitus with diabetic chronic kidney disease; N18.2 Chronic kidney disease, stage 2 (mild); G40.909 Epilepsy, unspecified, not intractable, without status epilepticus; F17.210 Nicotine dependence, cigarettes, uncomplicated; B96.20 Unspecified Escherichia coli [E. coli] as the cause of diseases classified elsewhere; Z20.822 Contact with and (suspected) exposure to COVID-19; I48.91 Unspecified atrial fibrillation; D64.9 Anemia, unspecified; F41.9 Anxiety disorder, unspecified; J44.9 Chronic obstructive pulmonary disease, unspecified; Z86.73 Personal history of transient ischemic attack (TIA), and cerebral infarction without residual deficits; Z88.0 Allergy status to penicillin; Z88.8 Allergy status to other drugs, medicaments and biological substances; Z91.018 Allergy to other foods; Z90.49 Acquired absence of other specified parts of digestive tract; Z90.89 Acquired absence of other organs; Z83.3 Family history of diabetes mellitus; Z82.0 Family history of epilepsy and other diseases of the nervous system; Z82.49 Family history of ischemic heart disease and other diseases of the circulatory system; Z88.2 Allergy status to sulfonamides
CPT/HCPCS: 36415; 71045; 71250; 74176; 80053; 81001; 82962; 83036; 83540; 83550; 83690; 83735; 84439; 84443; 84484; 85025; 87086; 87088; 87186; 93005; 96365; 96375; G0378; J0696; J1815; J3490

== ENCOUNTER 2022-02-22 22:38 | Inpatient (IN) | payer MEDICARE, MEDICAID ==
[~2022-02-22] VITALS: Ht 160 cm; Wt 100.9 kg
[2022-02-23] MEDS ORDERED: KETOROLAC TROMETH 30 MG/ML 1ML VIAL IV ONE (01:30)
[2022-02-23] MEDS ORDERED: METHOCARBAMOL 500 MG TAB PO ONE (01:30)
[2022-02-23] MEDS ORDERED: LIDOCAINE 5% TOPICAL PATCH TOP ONE (01:30)
[2022-02-23 01:33] LABS: Basophils # (auto) 0.1 10 ^3/uL (0-0.2); Basophils % (auto) 1.4 % (0.0-2.0); Eosinophils # (auto) 0.2 10 ^3/uL (0-0.8); Eosinophils % (auto) 1.9 % (0.0-7.0); Hematocrit 33.1 % (36.0-46.0); Hemoglobin 10.9 g/dL (12.2-16.2); Lymphocytes # (auto) 3.4 10 ^3/uL (0.4-5.4); Lymphocytes % (auto) 35.8 % (10.0-50.0); Mean Corpuscular Hemoglobin 30.1 pg (28.0-32.0); Mean Corpuscular Volume 91.2 fL (80.0-100.0); Monocytes # (auto) 0.6 10 ^3/uL (0-1.3); Neutrophils # (auto) 5.1 10 ^3/uL (1.6-8.6); Neutrophils % (auto) 54.9 % (37.0-80.0); Nucleated Red Blood Cells % 0.1 %; Red Blood Cells 3.62 10^6/uL (4.0-5.20); Red Cell Distribution Width 15.2 % (11.8-14.3); White Blood Cell 9.4 10^3/uL (4.4-10.8)
[2022-02-23 01:53] LABS: Albumin 2.8 g/dL (3.4-5.0); BUN/Creatinine Ratio 19.7; Calcium 8.4 mg/dL (8.5-10.1); Potassium 4.5 mmol/L (3.5-5.1)
[2022-02-23 01:55] LABS: Bilirubin, Total 0.3 mg/dL (0.2-1.0); Total Protein 6.9 g/dL (6.4-8.2)
[2022-02-23] MEDS ORDERED: diazePAM 5 MG TAB PO ONE (03:45)
[2022-02-23] MEDS ORDERED: diphenhdrAMINE HCL 25 MG CAP PO ONE (04:00)
[2022-02-23] MEDS ORDERED: DOCUSATE SOD 100 MG CAP PO PRN (06:15)
[2022-02-23] MEDS ORDERED: ACETAMINOPHEN 325 MG TAB PO PRN (06:15)
[2022-02-23] MEDS ORDERED: DEXTROSE (50%) 50ML SYRG IV PRN (06:15)
[2022-02-23] MEDS ORDERED: HYDROcodone-ACET 5/325MG TAB PO PRN (06:15)
[2022-02-23 06:38] LABS: Basophils # (auto) 0.1 10 ^3/uL (0-0.2); Basophils % (auto) 0.7 % (0.0-2.0); Eosinophils # (auto) 0.2 10 ^3/uL (0-0.8); Hematocrit 33.5 % (36.0-46.0); Hemoglobin 10.9 g/dL (12.2-16.2); Lymphocytes # (auto) 3.5 10 ^3/uL (0.4-5.4); Lymphocytes % (auto) 45.3 % (10.0-50.0); Mean Corpuscular Hemoglobin 29.7 pg (28.0-32.0); Mean Corpuscular Hgb Conc. 32.6 g/dL (32.0-36.0); Mean Corpuscular Volume 91.2 fL (80.0-100.0); Monocytes # (auto) 0.5 10 ^3/uL (0-1.3); Neutrophils # (auto) 3.5 10 ^3/uL (1.6-8.6); Red Blood Cells 3.67 10^6/uL (4.0-5.20); White Blood Cell 7.8 10^3/uL (4.4-10.8)
[2022-02-23 06:58] LABS: Albumin 2.9 g/dL (3.4-5.0); Calcium 8.7 mg/dL (8.5-10.1); Potassium 4.3 mmol/L (3.5-5.1)
[2022-02-23] MEDS ORDERED: NITROGLYCERIN 0.4 MG SL TAB SL PRN (07:00)
[2022-02-23] MEDS: InsuLIN REG 1unit/0.01ml Soln (100units/ml) SC SCH ×2 (07:00→23:51)
[2022-02-23] MEDS: ACCU-CHEK COMFORT CURVE STRIP VI SCH ×3 (07:00→23:37)
[2022-02-23] MEDS ORDERED: MORPHINE SULFATE INJ 2 MG/ml SYRG IV PRN (07:00)
[2022-02-23 07:03] LABS: BUN/Creatinine Ratio 19.8; Bilirubin, Total 0.3 mg/dL (0.2-1.0)
[2022-02-23] MEDS: ASPirin 81 mg TAB PO SCH (10:22)
[2022-02-23] MEDS: ONDANSETRON HCL 4 MG/2 ML VIAL IV PRN ×2 (11:30→23:39)
[2022-02-23] MEDS: FAMOTIDINE (10MG/ML) 2ML VL IV SCH (11:30)
[2022-02-23] MEDS: SODIUM CHLOR 0.9% PF (SALINE LOCK) 10ML VIAL/SYR IV SCH ×2 (14:00→23:43)
[2022-02-23] MEDS: ATORVASTATIN 20 MG TAB PO SCH (23:38)
[2022-02-23] MEDS: MORPHINE SULFATE INJ 2 MG/ml SYRG IV PRN (23:40)
[2022-02-23 23:56] VITALS: BP 141/54
[2022-02-24] VITALS (7 sets, daily range): BP systolic 121–142; BP diastolic 53–69
[2022-02-24] MEDS: ONDANSETRON HCL 4 MG/2 ML VIAL IV PRN ×2 (04:19→18:45)
[2022-02-24] MEDS: MORPHINE SULFATE INJ 2 MG/ml SYRG IV PRN ×2 (04:24→18:46)
[2022-02-24] MEDS: SODIUM CHLOR 0.9% PF (SALINE LOCK) 10ML VIAL/SYR IV SCH ×3 (05:56→22:13)
[2022-02-24] MEDS: ACCU-CHEK COMFORT CURVE STRIP VI SCH ×4 (05:57→22:14)
[2022-02-24] MEDS: InsuLIN REG 1unit/0.01ml Soln (100units/ml) SC SCH ×5 (06:00→22:17)
[2022-02-24 06:56] LABS: Basophils # (auto) 0.1 10 ^3/uL (0-0.2); Basophils % (auto) 0.8 % (0.0-2.0); Eosinophils # (auto) 0.3 10 ^3/uL (0-0.8); Eosinophils % (auto) 4.2 % (0.0-7.0); Hematocrit 30.4 % (36.0-46.0); Hemoglobin 10.3 g/dL (12.2-16.2); Lymphocytes # (auto) 2.8 10 ^3/uL (0.4-5.4); Lymphocytes % (auto) 40.5 % (10.0-50.0); Mean Corpuscular Hemoglobin 30.6 pg (28.0-32.0); Mean Corpuscular Hgb Conc. 33.9 g/dL (32.0-36.0); Mean Corpuscular Volume 90.3 fL (80.0-100.0); Monocytes # (auto) 0.5 10 ^3/uL (0-1.3); Monocytes % (auto) 7.3 % (0.0-12.0); Neutrophils # (auto) 3.3 10 ^3/uL (1.6-8.6); Neutrophils % (auto) 47.2 % (37.0-80.0); Red Blood Cells 3.37 10^6/uL (4.0-5.20); Red Cell Distribution Width 14.8 % (11.8-14.3); White Blood Cell 6.9 10^3/uL (4.4-10.8)
[2022-02-24 07:07] LABS: Potassium 4.1 mmol/L (3.5-5.1)
[2022-02-24 07:12] LABS: Albumin 2.6 g/dL (3.4-5.0); BUN/Creatinine Ratio 21.8; Calcium 8.4 mg/dL (8.5-10.1)
[2022-02-24 07:15] LABS: Bilirubin, Total 0.2 mg/dL (0.2-1.0); Total Protein 6.7 g/dL (6.4-8.2)
[2022-02-24] MEDS: FAMOTIDINE (10MG/ML) 2ML VL IV SCH (08:50)
[2022-02-24] MEDS: ASPirin 81 mg TAB PO SCH (08:50)
[2022-02-24 10:37] LABS: Urine Bacteria NONE SEEN /hpf (None Seen); Urine Blood TRACE /uL (Negative); Urine Budding Yeast MODERATE /hpf (None Seen); Urine Specific Gravity 1.018 (1.001-1.035); Urine WBC 486 /hpf (0 - 5); Urine WBC Clumps PRESENT /hpf (None Seen)
[2022-02-24] MEDS: MEROPENEM 1GM IVPB 100 ML IV SCH ×2 (13:43→22:13)
[2022-02-24] MEDS: ALBUTEROL SULF 2.5 MG/0.5ML(0.5%) NEB SOLN NEB PRN (18:38)
[2022-02-24] MEDS: IPRATROPIUM BROM 0.5 MG/2.5ML INH SOL NEB SCH (18:38)
[2022-02-24] MEDS: ATORVASTATIN 20 MG TAB PO SCH (22:14)
[2022-02-25] VITALS (7 sets, daily range): BP systolic 115–139; BP diastolic 41–80
[2022-02-25] MEDS: IPRATROPIUM BROM 0.5 MG/2.5ML INH SOL NEB SCH ×4 (00:12→19:32)
[2022-02-25] MEDS: ALBUTEROL SULF 2.5 MG/0.5ML(0.5%) NEB SOLN NEB PRN ×3 (00:12→19:32)
[2022-02-25] MEDS: MEROPENEM 1GM IVPB 100 ML IV SCH ×3 (05:53→21:47)
[2022-02-25] MEDS: SODIUM CHLOR 0.9% PF (SALINE LOCK) 10ML VIAL/SYR IV SCH ×3 (06:07→21:48)
[2022-02-25] MEDS: MORPHINE SULFATE INJ 2 MG/ml SYRG IV PRN ×2 (06:30→16:23)
[2022-02-25] MEDS: ACCU-CHEK COMFORT CURVE STRIP VI SCH ×4 (06:36→21:48)
[2022-02-25] MEDS: InsuLIN REG 1unit/0.01ml Soln (100units/ml) SC SCH ×4 (06:36→21:46)
[2022-02-25] MEDS: ASPirin 81 mg TAB PO SCH (10:45)
[2022-02-25] MEDS: FAMOTIDINE (10MG/ML) 2ML VL IV SCH (10:45)
[2022-02-25] MEDS ORDERED: ONDANSETRON HCL 4 MG/2 ML VIAL ONE (16:25)
[2022-02-25] MEDS: ONDANSETRON HCL 4 MG/2 ML VIAL IV PRN (16:25)
[2022-02-25] MEDS: ATORVASTATIN 20 MG TAB PO SCH (21:47)
[2022-02-26] MEDS: ALBUTEROL SULF 2.5 MG/0.5ML(0.5%) NEB SOLN NEB PRN ×4 (00:17→20:02)
[2022-02-26] MEDS: IPRATROPIUM BROM 0.5 MG/2.5ML INH SOL NEB SCH ×4 (00:17→20:02)
[2022-02-26 05:00] VITALS: BP 133/58
[2022-02-26] MEDS: MEROPENEM 1GM IVPB 100 ML IV SCH ×2 (05:19→13:38)
[2022-02-26] MEDS: MORPHINE SULFATE INJ 2 MG/ml SYRG IV PRN ×2 (05:19→13:35)
[2022-02-26] MEDS: SODIUM CHLOR 0.9% PF (SALINE LOCK) 10ML VIAL/SYR IV SCH ×3 (06:01→21:37)
[2022-02-26] MEDS: ACCU-CHEK COMFORT CURVE STRIP VI SCH ×4 (06:07→21:02)
[2022-02-26] MEDS: InsuLIN REG 1unit/0.01ml Soln (100units/ml) SC SCH ×4 (06:07→21:03)
[2022-02-26 09:00] VITALS: BP 152/59
[2022-02-26] MEDS: FAMOTIDINE (10MG/ML) 2ML VL IV SCH (10:06)
[2022-02-26] MEDS: ASPirin 81 mg TAB PO SCH (10:06)
[2022-02-26] MEDS: METOPROLOL TARTRATE 50 MG TAB PO SCH ×2 (10:07→21:38)
[2022-02-26 13:03] VITALS: BP 142/61
[2022-02-26 17:00] VITALS: BP 152/54
[2022-02-26] MEDS ORDERED: CEFD300C2 PO (20:37)
[2022-02-26 22:00] VITALS: BP 145/51
[2022-02-26] MEDS ORDERED: ATORVASTATIN 20 MG TAB PO SCH (22:00)
[2022-02-26] MEDS: hydrALAZINE HCL 20 MG/ML VL IV PRN (23:01)
[2022-02-27] MEDS: ALBUTEROL SULF 2.5 MG/0.5ML(0.5%) NEB SOLN NEB PRN ×2 (00:44→06:33)
[2022-02-27] MEDS: IPRATROPIUM BROM 0.5 MG/2.5ML INH SOL NEB SCH ×2 (00:44→06:33)
[2022-02-27] MEDS: MORPHINE SULFATE INJ 2 MG/ml SYRG IV PRN ×2 (01:47→10:53)
[2022-02-27 05:00] VITALS: BP 148/67
[2022-02-27] MEDS: SODIUM CHLOR 0.9% PF (SALINE LOCK) 10ML VIAL/SYR IV SCH ×2 (05:02→14:05)
[2022-02-27] MEDS: InsuLIN REG 1unit/0.01ml Soln (100units/ml) SC SCH ×2 (05:57→12:25)
[2022-02-27] MEDS: ACCU-CHEK COMFORT CURVE STRIP VI SCH ×2 (05:57→12:25)
[2022-02-27 07:13] LABS: Basophils # (auto) 0 10 ^3/uL (0-0.2); Basophils % (auto) 0.5 % (0.0-2.0); Eosinophils # (auto) 0.3 10 ^3/uL (0-0.8); Eosinophils % (auto) 4.3 % (0.0-7.0); Hematocrit 30.3 % (36.0-46.0); Hemoglobin 10.3 g/dL (12.2-16.2); Lymphocytes # (auto) 3.3 10 ^3/uL (0.4-5.4); Lymphocytes % (auto) 45.3 % (10.0-50.0); Mean Corpuscular Hemoglobin 30.7 pg (28.0-32.0); Mean Corpuscular Hgb Conc. 34.1 g/dL (32.0-36.0); Mean Corpuscular Volume 89.8 fL (80.0-100.0); Monocytes # (auto) 0.5 10 ^3/uL (0-1.3); Neutrophils # (auto) 3.2 10 ^3/uL (1.6-8.6); Neutrophils % (auto) 42.9 % (37.0-80.0); Nucleated Red Blood Cells % 0.4 %; Red Blood Cells 3.38 10^6/uL (4.0-5.20); Red Cell Distribution Width 14.9 % (11.8-14.3); White Blood Cell 7.4 10^3/uL (4.4-10.8)
[2022-02-27 07:14] LABS: BUN/Creatinine Ratio 14.5; Calcium 8.6 mg/dL (8.5-10.1); Potassium 4.6 mmol/L (3.5-5.1)
[2022-02-27] MEDS ORDERED: IPRATROPIUM BROM 0.5 MG/2.5ML INH SOL NEB SCH (07:45)
[2022-02-27] MEDS: METOPROLOL TARTRATE 50 MG TAB PO SCH ×2 (07:45→10:49)
[2022-02-27 08:00] VITALS: BP 130/37
[2022-02-27 08:57] VITALS: BP 130/37
[2022-02-27] MEDS ORDERED: cefTRIAXone 1GM/50ML D5W 50 ML IV SCH (09:00)
[2022-02-27] MEDS: ASPirin 81 mg TAB PO SCH (10:50)
[2022-02-27 12:43] VITALS: BP 168/66
[2022-02-27] MEDS: hydrALAZINE HCL 20 MG/ML VL IV PRN (12:54)
[2022-02-27 13:10] VITALS: BP 168/66
== END 2022-02-27 14:05 | disposition home or self-care (01) | DRG 551 ==
LOC: ER 22:38 → EDBD 22:38 → TELE 02-23 06:49 → TELE-WESTW 02-23 23:05
PROVIDERS: ADMIT Nurse Practitioner Family; ATTEND Internal Medicine Geriatric Medicine
DX: M43.6 Torticollis (principal); J18.9 Pneumonia, unspecified organism; N39.0 Urinary tract infection, site not specified; I13.0 Hypertensive heart and chronic kidney disease with heart failure and stage 1 through stage 4 chronic kidney disease, or unspecified chronic kidney disease; J47.0 Bronchiectasis with acute lower respiratory infection; E11.65 Type 2 diabetes mellitus with hyperglycemia; F41.9 Anxiety disorder, unspecified; I25.10 Atherosclerotic heart disease of native coronary artery without angina pectoris; I48.91 Unspecified atrial fibrillation; G47.33 Obstructive sleep apnea (adult) (pediatric); E11.22 Type 2 diabetes mellitus with diabetic chronic kidney disease; E66.9 Obesity, unspecified; D64.9 Anemia, unspecified; G40.909 Epilepsy, unspecified, not intractable, without status epilepticus; E78.5 Hyperlipidemia, unspecified; F17.210 Nicotine dependence, cigarettes, uncomplicated; J43.9 Emphysema, unspecified; M19.90 Unspecified osteoarthritis, unspecified site; M79.601 Pain in right arm; I50.9 Heart failure, unspecified; N18.9 Chronic kidney disease, unspecified; Z79.82 Long term (current) use of aspirin; Z79.899 Other long term (current) drug therapy; Z82.0 Family history of epilepsy and other diseases of the nervous system; Z68.35 Body mass index [BMI] 35.0-35.9, adult; Z80.7 Family history of other malignant neoplasms of lymphoid, hematopoietic and related tissues; Z82.49 Family history of ischemic heart disease and other diseases of the circulatory system; Z83.3 Family history of diabetes mellitus; Z86.73 Personal history of transient ischemic attack (TIA), and cerebral infarction without residual deficits; Z87.440 Personal history of urinary (tract) infections; Z90.49 Acquired absence of other specified parts of digestive tract; Z98.1 Arthrodesis status; Z88.0 Allergy status to penicillin; Z88.8 Allergy status to other drugs, medicaments and biological substances; Z91.018 Allergy to other foods
CPT/HCPCS: 36415; 71045; 72125; 74176; 80048; 80053; 81001; 82962; 83880; 84484; 85025; 87070; 87081; 87086; 87205; 87426; 93005; 94640; 96374; 96375; G0378; J0696; J1815; J1885; J2185; J2405; J3490

== ENCOUNTER 2022-05-11 17:03 | Inpatient (IN) | payer MEDICARE, MEDICAID ==
[~2022-05-11] VITALS: Ht 162.6 cm; Wt 104.6 kg
[~2022-05-11 17:03] MED LIST changes: +BRIM0.159 EACHEYE; -BRIM0.159 OP; +CEFD300C2 PO; -DEX4T PO; -DOXY-286 PO
[2022-05-11 18:37] LABS: Basophils # (auto) 0.1 10 ^3/uL (0-0.2); Eosinophils # (auto) 0.2 10 ^3/uL (0-0.8); Eosinophils % (auto) 2.7 % (0.0-7.0); Hematocrit 34.3 % (36.0-46.0); Hemoglobin 11.7 g/dL (12.2-16.2); Lymphocytes # (auto) 3.6 10 ^3/uL (0.4-5.4); Mean Corpuscular Hemoglobin 30.3 pg (28.0-32.0); Mean Corpuscular Hgb Conc. 34.1 g/dL (32.0-36.0); Mean Corpuscular Volume 88.8 fL (80.0-100.0); Monocytes # (auto) 0.5 10 ^3/uL (0-1.3); Monocytes % (auto) 5.8 % (0.0-12.0); Neutrophils # (auto) 4.7 10 ^3/uL (1.6-8.6); Neutrophils % (auto) 51.5 % (37.0-80.0); Red Blood Cells 3.87 10^6/uL (4.0-5.20); Red Cell Distribution Width 14.7 % (11.8-14.3); White Blood Cell 9.1 10^3/uL (4.4-10.8)
[2022-05-11 18:52] LABS: Albumin 3.1 g/dL (3.4-5.0); BUN/Creatinine Ratio 19.8; Calcium 9.4 mg/dL (8.5-10.1)
[2022-05-11 18:55] LABS: Bilirubin, Total 0.2 mg/dL (0.2-1.0)
[2022-05-11] MEDS ORDERED: hydrALAZINE HCL 20 MG/ML VL IV ONE (21:15)
[2022-05-11] MEDS ORDERED: FUROSEMIDE 40 MG/4 ML VIAL IV ONE (21:15)
[2022-05-11] MEDS ORDERED: LORazepam 0.5 MG TAB PO PRN (22:45)
[2022-05-11] MEDS ORDERED: TEMAZEPAM 15 MG CAP PO PRN (22:45)
[2022-05-11] MEDS ORDERED: DOCUSATE SOD 100 MG CAP PO PRN (22:45)
[2022-05-11] MEDS ORDERED: HYDROcodone-ACET 5/325MG TAB PO PRN (22:45)
[2022-05-11] MEDS ORDERED: hydrALAZINE HCL 20 MG/ML VL IV PRN (22:45)
[2022-05-11] MEDS ORDERED: ACETAMINOPHEN 325 MG TAB PO PRN (22:45)
[2022-05-11] MEDS ORDERED: SODIUM CHLORIDE 0.9% 1,000 ML IV SCH (22:45)
[2022-05-11] MEDS ORDERED: ALBUTEROL SULF 2.5 MG/0.5ML(0.5%) NEB SOLN NEB PRN (22:45)
[2022-05-11 23:06] VITALS: BP 184/96
[2022-05-12 01:26] LABS: Urine Bacteria FEW /hpf (None Seen); Urine Blood 3+ /uL (Negative); Urine Mucus FEW (None Seen); Urine Specific Gravity 1.023 (1.001-1.035); Urine WBC 465 /hpf (0 - 5); Urine WBC Clumps PRESENT /hpf (None Seen)
[2022-05-12] MEDS: AZITHROMYCIN 500MG/ 250ML 250 ML IV SCH ×2 (04:07→21:27)
[2022-05-12] MEDS: cefTRIAXone 1GM/50ML D5W 50 ML IV SCH ×2 (04:07→21:27)
[2022-05-12] MEDS ORDERED: ALBUTEROL MEDNEB 2.5 mg/3ml NEB ONE ×3 (05:32→21:51)
[2022-05-12] MEDS: IPRATROPIUM BROM 0.5 MG/2.5ML INH SOL NEB PRN ×4 (05:38→22:27)
[2022-05-12] MEDS: ALBUTEROL SULF 2.5 MG/0.5ML(0.5%) NEB SOLN NEB SCH ×5 (05:38→22:27)
[2022-05-12] MEDS: MORPHINE SULFATE INJ 2 MG/ml SYRG IV PRN (06:14)
[2022-05-12 06:24] LABS: Basophils # (auto) 0.1 10 ^3/uL (0-0.2); Basophils % (auto) 1.3 % (0.0-2.0); Eosinophils # (auto) 0.2 10 ^3/uL (0-0.8); Eosinophils % (auto) 2.8 % (0.0-7.0); Hematocrit 34.4 % (36.0-46.0); Hemoglobin 11.9 g/dL (12.2-16.2); Lymphocytes # (auto) 3.6 10 ^3/uL (0.4-5.4); Lymphocytes % (auto) 43.5 % (10.0-50.0); Mean Corpuscular Hemoglobin 30.8 pg (28.0-32.0); Mean Corpuscular Hgb Conc. 34.7 g/dL (32.0-36.0); Mean Corpuscular Volume 88.9 fL (80.0-100.0); Monocytes # (auto) 0.5 10 ^3/uL (0-1.3); Monocytes % (auto) 6.6 % (0.0-12.0); Neutrophils # (auto) 3.8 10 ^3/uL (1.6-8.6); Neutrophils % (auto) 45.8 % (37.0-80.0); Red Blood Cells 3.86 10^6/uL (4.0-5.20); Red Cell Distribution Width 14.9 % (11.8-14.3); White Blood Cell 8.3 10^3/uL (4.4-10.8)
[2022-05-12 06:42] LABS: BUN/Creatinine Ratio 16.8; Calcium 9.1 mg/dL (8.5-10.1); Potassium 4.1 mmol/L (3.5-5.1)
[2022-05-12] MEDS: METOPROLOL TARTRATE 50 MG TAB PO SCH ×2 (10:00→21:24)
[2022-05-12] MEDS: FUROSEMIDE 40 MG/4 ML VIAL IV SCH (10:00)
[2022-05-12] MEDS: ATORVASTATIN 20 MG TAB PO SCH (10:00)
[2022-05-12] MEDS ORDERED: HYDROcodone-ACET 10/325MG TAB PO PRN (10:45)
[2022-05-12] MEDS: ASPirin 81 mg TAB PO SCH (11:58)
[2022-05-12] MEDS: MORPHINE SULF 15mg ER tab PO SCH ×2 (11:59→21:25)
[2022-05-12] MEDS: PANTOPRAZOLE 40 MG TAB PO SCH (11:59)
[2022-05-12] MEDS: ONDANSETRON HCL 4 MG/2 ML VIAL IV PRN (16:30)
[2022-05-12] MEDS ORDERED: COLC1CAP PO (20:10)
[2022-05-12] MEDS ORDERED: INSU1INJ14 SC (20:10)
[2022-05-12] MEDS ORDERED: NETA0.02 EACHEYE (20:10)
[2022-05-12] MEDS ORDERED: LOS25T PO (20:10)
[2022-05-12] MEDS ORDERED: EZET-10 PO (20:10)
[2022-05-12] MEDS ORDERED: ATOR20TA50 PO (20:10)
[2022-05-12 22:00] VITALS: BP 105/51
[2022-05-13 05:00] VITALS: BP 115/51
[2022-05-13] MEDS ORDERED: ALBUTEROL MEDNEB 2.5 mg/3ml NEB ONE ×5 (05:58→21:49)
[2022-05-13] MEDS: IPRATROPIUM BROM 0.5 MG/2.5ML INH SOL NEB PRN ×5 (06:59→21:53)
[2022-05-13] MEDS: ALBUTEROL SULF 2.5 MG/0.5ML(0.5%) NEB SOLN NEB SCH ×5 (06:59→21:53)
[2022-05-13 09:00] VITALS: BP 124/68
[2022-05-13] MEDS: FUROSEMIDE 40 MG/4 ML VIAL IV SCH (10:15)
[2022-05-13] MEDS: ASPirin 81 mg TAB PO SCH (10:15)
[2022-05-13] MEDS: MORPHINE SULF 15mg ER tab PO SCH ×2 (10:15→23:58)
[2022-05-13] MEDS: ATORVASTATIN 20 MG TAB PO SCH (10:16)
[2022-05-13] MEDS: PANTOPRAZOLE 40 MG TAB PO SCH (10:16)
[2022-05-13] MEDS: METOPROLOL TARTRATE 50 MG TAB PO SCH (10:16)
[2022-05-13 13:00] VITALS: BP 117/54
[2022-05-13] MEDS ORDERED: PNEUMOCOCCAL VACC POLYS 25 MCG/0.5 ML VIAL IM ONE (14:45)
[2022-05-13] MEDS ORDERED: INFLUENZA QUAD 2022-2023 0.5 ML SYRG IM ONE (14:45)
[2022-05-13 17:00] VITALS: BP 103/44
[2022-05-13] MEDS: ONDANSETRON HCL 4 MG/2 ML VIAL IV PRN (21:26)
[2022-05-13] MEDS: AZITHROMYCIN 500MG/ 250ML 250 ML IV SCH (21:26)
[2022-05-13 22:00] VITALS: BP 114/49
[2022-05-13] MEDS: cefTRIAXone 1GM/50ML D5W 50 ML IV SCH (23:57)
[2022-05-14] VITALS (7 sets, daily range): BP systolic 116–124; BP diastolic 45–63
[2022-05-14 06:12] LABS: Calcium 9.1 mg/dL (8.5-10.1); Potassium 4.2 mmol/L (3.5-5.1)
[2022-05-14 06:14] LABS: BUN/Creatinine Ratio 20.6
[2022-05-14] MEDS: IPRATROPIUM BROM 0.5 MG/2.5ML INH SOL NEB PRN ×4 (06:24→21:47)
[2022-05-14] MEDS: ALBUTEROL SULF 2.5 MG/0.5ML(0.5%) NEB SOLN NEB SCH ×4 (06:24→21:47)
[2022-05-14] MEDS: FUROSEMIDE 40 MG/4 ML VIAL IV SCH (10:02)
[2022-05-14] MEDS: ASPirin 81 mg TAB PO SCH (10:07)
[2022-05-14] MEDS: MORPHINE SULF 15mg ER tab PO SCH ×2 (10:08→21:44)
[2022-05-14] MEDS: ATORVASTATIN 20 MG TAB PO SCH (10:08)
[2022-05-14] MEDS: PANTOPRAZOLE 40 MG TAB PO SCH (10:08)
[2022-05-14] MEDS: METOPROLOL TARTRATE 50 MG TAB PO SCH ×3 (10:09→21:44)
[2022-05-14] MEDS: ONDANSETRON HCL 4 MG/2 ML VIAL IV PRN (14:23)
[2022-05-14] MEDS: PROMETHAZINE HCL 25 MG/ML 1ML IV PRN (18:48)
[2022-05-14] MEDS: cefTRIAXone 1GM/50ML D5W 50 ML IV SCH (21:52)
[2022-05-14] MEDS: AZITHROMYCIN 500MG/ 250ML 250 ML IV SCH (22:24)
[2022-05-15 05:28] VITALS: BP 130/58
[2022-05-15] MEDS ORDERED: ALBUTEROL MEDNEB 2.5 mg/3ml NEB ONE ×4 (05:38→21:59)
[2022-05-15 06:23] LABS: BUN/Creatinine Ratio 20.7; Calcium 9.1 mg/dL (8.5-10.1); Potassium 4.4 mmol/L (3.5-5.1)
[2022-05-15] MEDS: ALBUTEROL SULF 2.5 MG/0.5ML(0.5%) NEB SOLN NEB SCH ×5 (06:35→23:29)
[2022-05-15] MEDS: IPRATROPIUM BROM 0.5 MG/2.5ML INH SOL NEB PRN ×5 (06:35→23:30)
[2022-05-15] MEDS: MORPHINE SULFATE INJ 2 MG/ml SYRG IV PRN (07:02)
[2022-05-15 09:00] VITALS: BP 114/53
[2022-05-15] MEDS: ASPirin 81 mg TAB PO SCH (10:06)
[2022-05-15] MEDS: ATORVASTATIN 20 MG TAB PO SCH (10:07)
[2022-05-15] MEDS: PANTOPRAZOLE 40 MG TAB PO SCH (10:07)
[2022-05-15] MEDS: MORPHINE SULF 15mg ER tab PO SCH ×2 (10:07→22:37)
[2022-05-15] MEDS: METOPROLOL TARTRATE 50 MG TAB PO SCH ×2 (10:08→22:36)
[2022-05-15] MEDS ORDERED: POLYETHYLENE GLYCOL 17 GM PWDR PO PRN (11:00)
[2022-05-15] MEDS ORDERED: DOCUSATE SOD 100 MG CAP PO ONE (11:00)
[2022-05-15 13:00] VITALS: BP 105/46
[2022-05-15 17:00] VITALS: BP 124/60
[2022-05-15] MEDS: cefTRIAXone 1GM/50ML D5W 50 ML IV SCH (21:19)
[2022-05-15 22:00] VITALS: BP 115/57
[2022-05-15] MEDS: AZITHROMYCIN 500MG/ 250ML 250 ML IV SCH (22:33)
[2022-05-15] MEDS: DOCUSATE SOD 100 MG CAP PO SCH (22:35)
[2022-05-16 05:00] VITALS: BP 131/69
[2022-05-16] MEDS ORDERED: ALBUTEROL MEDNEB 2.5 mg/3ml NEB ONE ×5 (05:52→22:02)
[2022-05-16] MEDS: IPRATROPIUM BROM 0.5 MG/2.5ML INH SOL NEB PRN ×5 (06:02→22:06)
[2022-05-16] MEDS: ALBUTEROL SULF 2.5 MG/0.5ML(0.5%) NEB SOLN NEB SCH ×5 (06:02→22:05)
[2022-05-16 06:46] LABS: BUN/Creatinine Ratio 24.2; Calcium 8.9 mg/dL (8.5-10.1); Potassium 4.1 mmol/L (3.5-5.1)
[2022-05-16 06:58] LABS: Basophils # (auto) 0 10 ^3/uL (0-0.2); Basophils % (auto) 0.3 % (0.0-2.0); Eosinophils # (auto) 0.3 10 ^3/uL (0-0.8); Eosinophils % (auto) 4.2 % (0.0-7.0); Hematocrit 29.6 % (36.0-46.0); Hemoglobin 10.3 g/dL (12.2-16.2); Lymphocytes # (auto) 2.6 10 ^3/uL (0.4-5.4); Lymphocytes % (auto) 33.9 % (10.0-50.0); Mean Corpuscular Hemoglobin 30.8 pg (28.0-32.0); Monocytes # (auto) 0.6 10 ^3/uL (0-1.3); Monocytes % (auto) 8.2 % (0.0-12.0); Neutrophils # (auto) 4.1 10 ^3/uL (1.6-8.6); Neutrophils % (auto) 53.4 % (37.0-80.0); Red Blood Cells 3.36 10^6/uL (4.0-5.20); Red Cell Distribution Width 14.5 % (11.8-14.3); White Blood Cell 7.6 10^3/uL (4.4-10.8)
[2022-05-16] MEDS: DOCUSATE SOD 100 MG CAP PO SCH ×2 (08:45→21:43)
[2022-05-16] MEDS: ATORVASTATIN 20 MG TAB PO SCH (08:45)
[2022-05-16] MEDS: MORPHINE SULF 15mg ER tab PO SCH ×2 (08:45→21:44)
[2022-05-16] MEDS: ASPirin 81 mg TAB PO SCH (08:46)
[2022-05-16] MEDS: PANTOPRAZOLE 40 MG TAB PO SCH (08:46)
[2022-05-16] MEDS: METOPROLOL TARTRATE 50 MG TAB PO SCH ×2 (08:46→22:00)
[2022-05-16 09:00] VITALS: BP 111/55
[2022-05-16] MEDS ORDERED: LACTULOSE 20Gm/30ML SOLN PO ONE (10:45)
[2022-05-16 13:00] VITALS: BP 114/50
[2022-05-16] MEDS: PROMETHAZINE HCL 25 MG/ML 1ML IV PRN (15:11)
[2022-05-16] MEDS: MORPHINE SULFATE INJ 2 MG/ml SYRG IV PRN (15:14)
[2022-05-16 16:55] VITALS: BP 129/57
[2022-05-16] MEDS: cefTRIAXone 1GM/50ML D5W 50 ML IV SCH (21:07)
[2022-05-16 22:00] VITALS: BP 98/66
[2022-05-16] MEDS: AZITHROMYCIN 500MG/ 250ML 250 ML IV SCH (22:29)
[2022-05-17 05:00] VITALS: BP 119/66
[2022-05-17] MEDS: ALBUTEROL SULF 2.5 MG/0.5ML(0.5%) NEB SOLN NEB SCH ×5 (05:59→22:09)
[2022-05-17] MEDS: ASPirin 81 mg TAB PO SCH (08:31)
[2022-05-17] MEDS: DOCUSATE SOD 100 MG CAP PO SCH ×2 (08:31→22:36)
[2022-05-17] MEDS: PANTOPRAZOLE 40 MG TAB PO SCH (08:32)
[2022-05-17] MEDS: MORPHINE SULF 15mg ER tab PO SCH ×2 (08:32→22:36)
[2022-05-17] MEDS: METOPROLOL TARTRATE 50 MG TAB PO SCH ×2 (08:33→22:36)
[2022-05-17] MEDS: ATORVASTATIN 20 MG TAB PO SCH (08:33)
[2022-05-17 08:54] VITALS: BP 121/69
[2022-05-17] MEDS ORDERED: ALBUTEROL MEDNEB 2.5 mg/3ml NEB ONE ×4 (09:56→21:45)
[2022-05-17] MEDS: IPRATROPIUM BROM 0.5 MG/2.5ML INH SOL NEB PRN ×4 (10:14→22:09)
[2022-05-17] MEDS ORDERED: LACTULOSE 20Gm/30ML SOLN PO ONE (10:30)
[2022-05-17] MEDS: PROMETHAZINE HCL 25 MG/ML 1ML IV PRN (12:22)
[2022-05-17 13:00] VITALS: BP 117/59
[2022-05-17 17:00] VITALS: BP 124/69
[2022-05-17] MEDS: cefTRIAXone 1GM/50ML D5W 50 ML IV SCH (21:19)
[2022-05-17 22:00] VITALS: BP 111/56
[2022-05-17] MEDS: AZITHROMYCIN 500MG/ 250ML 250 ML IV SCH (22:35)
[2022-05-18] MEDS: IPRATROPIUM BROM 0.5 MG/2.5ML INH SOL NEB PRN ×6 (02:11→21:53)
[2022-05-18 05:00] VITALS: BP 153/70
[2022-05-18] MEDS ORDERED: ALBUTEROL MEDNEB 2.5 mg/3ml NEB ONE ×5 (06:20→21:52)
[2022-05-18] MEDS: ALBUTEROL SULF 2.5 MG/0.5ML(0.5%) NEB SOLN NEB SCH ×5 (07:06→21:53)
[2022-05-18 08:30] VITALS: BP 115/64
[2022-05-18] MEDS: DOCUSATE SOD 100 MG CAP PO SCH ×2 (09:19→22:24)
[2022-05-18] MEDS: ASPirin 81 mg TAB PO SCH (09:19)
[2022-05-18] MEDS: ATORVASTATIN 20 MG TAB PO SCH (09:19)
[2022-05-18] MEDS: PANTOPRAZOLE 40 MG TAB PO SCH (09:20)
[2022-05-18] MEDS: METOPROLOL TARTRATE 50 MG TAB PO SCH ×2 (09:21→22:27)
[2022-05-18] MEDS: MORPHINE SULF 15mg ER tab PO SCH ×2 (09:21→20:54)
[2022-05-18 17:02] VITALS: BP 100/53
[2022-05-18] MEDS: MAALOX PLUS or MAALOX 30 ML PO PRN (20:32)
[2022-05-18] MEDS: cefTRIAXone 1GM/50ML D5W 50 ML IV SCH (21:06)
[2022-05-18 21:45] VITALS: BP 119/65
[2022-05-18 22:10] VITALS: BP 119/65
[2022-05-18] MEDS: AZITHROMYCIN 500MG/ 250ML 250 ML IV SCH (22:24)
[2022-05-19 05:00] VITALS: BP 124/46
[2022-05-19] MEDS: MAALOX PLUS or MAALOX 30 ML PO PRN ×2 (05:50→22:06)
[2022-05-19] MEDS ORDERED: ALBUTEROL MEDNEB 2.5 mg/3ml NEB ONE ×5 (06:07→22:21)
[2022-05-19] MEDS: IPRATROPIUM BROM 0.5 MG/2.5ML INH SOL NEB PRN ×5 (07:11→23:04)
[2022-05-19] MEDS: ALBUTEROL SULF 2.5 MG/0.5ML(0.5%) NEB SOLN NEB SCH ×5 (07:11→23:05)
[2022-05-19 08:47] LABS: Potassium 4.3 mmol/L (3.5-5.1)
[2022-05-19 09:08] LABS: BUN/Creatinine Ratio 21.1; Calcium 8.3 mg/dL (8.5-10.1)
[2022-05-19 09:13] VITALS: BP 122/60
[2022-05-19] MEDS ORDERED: methylPREDNISolone SOD SUCC 125 MG/2 ML VL IV ONE (09:30)
[2022-05-19] MEDS: ASPirin 81 mg TAB PO SCH (09:40)
[2022-05-19] MEDS: PANTOPRAZOLE 40 MG TAB PO SCH (09:40)
[2022-05-19] MEDS: DOCUSATE SOD 100 MG CAP PO SCH ×2 (09:41→22:03)
[2022-05-19] MEDS: ATORVASTATIN 20 MG TAB PO SCH (09:41)
[2022-05-19] MEDS: MORPHINE SULF 15mg ER tab PO SCH ×2 (09:42→22:05)
[2022-05-19] MEDS: METOPROLOL TARTRATE 50 MG TAB PO SCH ×2 (09:43→22:05)
[2022-05-19 09:55] LABS: Basophils # (auto) 0 10 ^3/uL (0-0.2); Basophils % (auto) 0.1 % (0.0-2.0); Eosinophils # (auto) 0.4 10 ^3/uL (0-0.8); Eosinophils % (auto) 4.9 % (0.0-7.0); Hematocrit 28.6 % (36.0-46.0); Hemoglobin 9.4 g/dL (12.2-16.2); Lymphocytes # (auto) 2.9 10 ^3/uL (0.4-5.4); Lymphocytes % (auto) 39.6 % (10.0-50.0); Mean Corpuscular Hemoglobin 29.7 pg (28.0-32.0); Mean Corpuscular Hgb Conc. 32.8 g/dL (32.0-36.0); Mean Corpuscular Volume 90.7 fL (80.0-100.0); Monocytes # (auto) 0.6 10 ^3/uL (0-1.3); Monocytes % (auto) 8.5 % (0.0-12.0); Neutrophils # (auto) 3.5 10 ^3/uL (1.6-8.6); Neutrophils % (auto) 46.9 % (37.0-80.0); Red Blood Cells 3.16 10^6/uL (4.0-5.20); Red Cell Distribution Width 14.6 % (11.8-14.3); White Blood Cell 7.4 10^3/uL (4.4-10.8)
[2022-05-19] MEDS: DOXYCYCLINE 100MG/250ML 250 ML IV SCH ×2 (10:01→21:30)
[2022-05-19] MEDS: FUROSEMIDE 40 MG/4 ML VIAL IV SCH (10:01)
[2022-05-19 13:09] VITALS: BP 131/61
[2022-05-19] MEDS: PROMETHAZINE HCL 25 MG/ML 1ML IV PRN (13:30)
[2022-05-19 16:55] VITALS: BP 135/52
[2022-05-19] MEDS: cefTRIAXone 1GM/50ML D5W 50 ML IV SCH (21:20)
[2022-05-19 22:00] VITALS: BP 123/57
[2022-05-19] MEDS: methylPREDNISolone SOD SUCC 40 MG/ML VL IV SCH (22:00)
[2022-05-19] MEDS: guaiFENesin-DM 100/10mg/5ml SYR PO PRN (22:06)
[2022-05-20] VITALS (7 sets, daily range): BP systolic 102–146; BP diastolic 53–67
[2022-05-20] MEDS: guaiFENesin-DM 100/10mg/5ml SYR PO PRN ×3 (04:17→22:25)
[2022-05-20] MEDS ORDERED: ALBUTEROL MEDNEB 2.5 mg/3ml NEB ONE ×5 (05:56→21:53)
[2022-05-20] MEDS: MAALOX PLUS or MAALOX 30 ML PO PRN ×3 (06:27→22:24)
[2022-05-20 06:48] LABS: Calcium 9.2 mg/dL (8.5-10.1); Potassium 5.1 mmol/L (3.5-5.1)
[2022-05-20] MEDS: ALBUTEROL SULF 2.5 MG/0.5ML(0.5%) NEB SOLN NEB SCH ×5 (07:00→21:54)
[2022-05-20] MEDS: IPRATROPIUM BROM 0.5 MG/2.5ML INH SOL NEB PRN ×5 (07:00→21:54)
[2022-05-20] MEDS: DOXYCYCLINE 100MG/250ML 250 ML IV SCH ×2 (09:14→21:30)
[2022-05-20] MEDS: methylPREDNISolone SOD SUCC 40 MG/ML VL IV SCH ×2 (09:18→21:45)
[2022-05-20] MEDS: DOCUSATE SOD 100 MG CAP PO SCH ×2 (09:19→21:46)
[2022-05-20] MEDS: METOPROLOL TARTRATE 50 MG TAB PO SCH ×2 (09:19→21:47)
[2022-05-20] MEDS: FUROSEMIDE 40 MG/4 ML VIAL IV SCH (09:19)
[2022-05-20] MEDS: MORPHINE SULF 15mg ER tab PO SCH ×2 (09:19→21:46)
[2022-05-20] MEDS: PANTOPRAZOLE 40 MG TAB PO SCH (09:20)
[2022-05-20] MEDS: ATORVASTATIN 20 MG TAB PO SCH (09:20)
[2022-05-20] MEDS: ASPirin 81 mg TAB PO SCH (09:20)
[2022-05-20] MEDS: cefTRIAXone 1GM/50ML D5W 50 ML IV SCH (21:45)
[2022-05-21] MEDS: MAALOX PLUS or MAALOX 30 ML PO PRN (05:30)
[2022-05-21] MEDS: guaiFENesin-DM 100/10mg/5ml SYR PO PRN ×3 (05:30→22:17)
[2022-05-21 06:00] VITALS: BP 128/53
[2022-05-21] MEDS ORDERED: ALBUTEROL MEDNEB 2.5 mg/3ml NEB ONE ×5 (06:18→21:59)
[2022-05-21 08:30] VITALS: BP 144/57
[2022-05-21] MEDS: IPRATROPIUM BROM 0.5 MG/2.5ML INH SOL NEB PRN ×5 (08:43→22:58)
[2022-05-21] MEDS: ALBUTEROL SULF 2.5 MG/0.5ML(0.5%) NEB SOLN NEB SCH ×5 (08:43→22:58)
[2022-05-21] MEDS: DOXYCYCLINE 100MG/250ML 250 ML IV SCH (09:30)
[2022-05-21] MEDS: DOCUSATE SOD 100 MG CAP PO SCH ×2 (09:31→22:02)
[2022-05-21] MEDS: PANTOPRAZOLE 40 MG TAB PO SCH (09:31)
[2022-05-21] MEDS: ASPirin 81 mg TAB PO SCH (09:31)
[2022-05-21] MEDS: ATORVASTATIN 20 MG TAB PO SCH (09:31)
[2022-05-21] MEDS: MORPHINE SULF 15mg ER tab PO SCH ×2 (09:32→22:03)
[2022-05-21] MEDS: METOPROLOL TARTRATE 50 MG TAB PO SCH ×2 (09:32→22:03)
[2022-05-21] MEDS: FUROSEMIDE 40 MG/4 ML VIAL IV SCH (09:37)
[2022-05-21] MEDS: methylPREDNISolone SOD SUCC 40 MG/ML VL IV SCH (09:38)
[2022-05-21 11:06] LABS: Basophils # (auto) 0 10 ^3/uL (0-0.2); Basophils % (auto) 0.2 % (0.0-2.0); Eosinophils # (auto) 0 10 ^3/uL (0-0.8); Hematocrit 30.8 % (36.0-46.0); Hemoglobin 9.8 g/dL (12.2-16.2); Lymphocytes # (auto) 1.6 10 ^3/uL (0.4-5.4); Mean Corpuscular Hemoglobin 29.7 pg (28.0-32.0); Mean Corpuscular Hgb Conc. 31.9 g/dL (32.0-36.0); Mean Corpuscular Volume 93.1 fL (80.0-100.0); Monocytes # (auto) 0.7 10 ^3/uL (0-1.3); Monocytes % (auto) 6.3 % (0.0-12.0); Neutrophils # (auto) 8.6 10 ^3/uL (1.6-8.6); Neutrophils % (auto) 78.5 % (37.0-80.0); Red Blood Cells 3.31 10^6/uL (4.0-5.20); Red Cell Distribution Width 15.2 % (11.8-14.3); White Blood Cell 10.9 10^3/uL (4.4-10.8)
[2022-05-21 11:24] LABS: Calcium 9.2 mg/dL (8.5-10.1); Potassium 5.5 mmol/L (3.5-5.1)
[2022-05-21 12:30] VITALS: BP 117/51
[2022-05-21] MEDS: predniSONE 20 MG TAB PO SCH (12:46)
[2022-05-21] MEDS: FUROSEMIDE 20 MG TAB PO SCH (12:50)
[2022-05-21] MEDS: DOXYCYCLINE 100 MG TAB/CAP PO SCH ×2 (12:50→22:03)
[2022-05-21] MEDS ORDERED: DEXTROSE (50%) 50ML SYRG IV PRN (14:00)
[2022-05-21] MEDS ORDERED: INSULIN LANTUS (GLARGINE) 1 /0.01ml (100units/ml) SC ONE (14:00)
[2022-05-21 16:30] VITALS: BP 104/65
[2022-05-21] MEDS: ACCU-CHEK COMFORT CURVE STRIP VI SCH ×2 (16:49→22:03)
[2022-05-21] MEDS: InsuLIN REG 1unit/0.01ml Soln (100units/ml) SC SCH (16:58)
[2022-05-21] MEDS ORDERED: InsuLIN REG 1unit/0.01ml Soln (100units/ml) SC SCH (22:00)
[2022-05-21] MEDS: INSULIN LANTUS (GLARGINE) 1 /0.01ml (100units/ml) SC SCH (22:16)
[2022-05-21 22:35] VITALS: BP 138/57
[2022-05-22 05:05] VITALS: BP 152/66
[2022-05-22] MEDS ORDERED: ALBUTEROL MEDNEB 2.5 mg/3ml NEB ONE ×4 (05:47→17:54)
[2022-05-22 06:12] LABS: Basophils # (auto) 0 10 ^3/uL (0-0.2); Basophils % (auto) 0.1 % (0.0-2.0); Eosinophils # (auto) 0 10 ^3/uL (0-0.8); Eosinophils % (auto) 0.1 % (0.0-7.0); Hemoglobin 9.5 g/dL (12.2-16.2); Lymphocytes # (auto) 2.6 10 ^3/uL (0.4-5.4); Lymphocytes % (auto) 25.3 % (10.0-50.0); Mean Corpuscular Hemoglobin 29.2 pg (28.0-32.0); Mean Corpuscular Hgb Conc. 32.7 g/dL (32.0-36.0); Mean Corpuscular Volume 89.5 fL (80.0-100.0); Monocytes # (auto) 0.6 10 ^3/uL (0-1.3); Monocytes % (auto) 5.9 % (0.0-12.0); Neutrophils # (auto) 7.1 10 ^3/uL (1.6-8.6); Neutrophils % (auto) 68.6 % (37.0-80.0); Nucleated Red Blood Cells % 0.1 %; Red Blood Cells 3.24 10^6/uL (4.0-5.20); Red Cell Distribution Width 14.8 % (11.8-14.3); White Blood Cell 10.4 10^3/uL (4.4-10.8)
[2022-05-22] MEDS ORDERED: diphenhdrAMINE HCL 25 MG CAP PO PRN (06:15)
[2022-05-22] MEDS ORDERED: diphenhdrAMINE HCL 25 MG CAP PO ONE (06:15)
[2022-05-22] MEDS: ALBUTEROL SULF 2.5 MG/0.5ML(0.5%) NEB SOLN NEB SCH ×3 (06:33→13:51)
[2022-05-22] MEDS: IPRATROPIUM BROM 0.5 MG/2.5ML INH SOL NEB PRN ×3 (06:33→13:51)
[2022-05-22 06:35] LABS: Potassium 4.7 mmol/L (3.5-5.1)
[2022-05-22 06:43] LABS: Albumin 2.9 g/dL (3.4-5.0); BUN/Creatinine Ratio 31.2; Bilirubin, Total 0.2 mg/dL (0.2-1.0); Calcium 9.4 mg/dL (8.5-10.1); Total Protein 6.9 g/dL (6.4-8.2)
[2022-05-22] MEDS: ACCU-CHEK COMFORT CURVE STRIP VI SCH ×2 (06:57→11:32)
[2022-05-22] MEDS: INSULIN LANTUS (GLARGINE) 1 /0.01ml (100units/ml) SC SCH (07:01)
[2022-05-22] MEDS: InsuLIN REG 1unit/0.01ml Soln (100units/ml) SC SCH ×2 (07:01→11:30)
[2022-05-22 08:51] VITALS: BP 131/43
[2022-05-22] MEDS: DOCUSATE SOD 100 MG CAP PO SCH (09:09)
[2022-05-22] MEDS: predniSONE 20 MG TAB PO SCH (09:09)
[2022-05-22] MEDS: FUROSEMIDE 20 MG TAB PO SCH (09:09)
[2022-05-22] MEDS: ASPirin 81 mg TAB PO SCH (09:09)
[2022-05-22] MEDS: PANTOPRAZOLE 40 MG TAB PO SCH (09:10)
[2022-05-22] MEDS: ATORVASTATIN 20 MG TAB PO SCH (09:10)
[2022-05-22] MEDS: MORPHINE SULF 15mg ER tab PO SCH (09:10)
[2022-05-22] MEDS: METOPROLOL TARTRATE 50 MG TAB PO SCH (09:13)
[2022-05-22] MEDS: guaiFENesin-DM 100/10mg/5ml SYR PO PRN (09:27)
[2022-05-22] MEDS ORDERED: METH4PAK PO (10:32)
[2022-05-22] MEDS ORDERED: LEVO-28 PO (10:32)
[2022-05-22 13:00] VITALS: BP 138/62
[2022-05-22 17:21] VITALS: BP 150/72
== END 2022-05-22 17:45 | disposition home or self-care (01) | DRG 194 ==
LOC: EDBD 17:03 → ER 17:03 → OVERFLOW 22:44 → TELE-WESTW 05-12 18:38
PROVIDERS: ADMIT Hospitalist; ATTEND Internal Medicine Geriatric Medicine
PROC: 5A09357 Assistance with Respiratory Ventilation, Less than 24 Consecutive Hours, Continuous Positive Airway Pressure (ICD-10-PCS; principal; 2022-05-12)
PROC: 5A09357 Assistance with Respiratory Ventilation, Less than 24 Consecutive Hours, Continuous Positive Airway Pressure (ICD-10-PCS; 2022-05-13)
PROC: 5A09357 Assistance with Respiratory Ventilation, Less than 24 Consecutive Hours, Continuous Positive Airway Pressure (ICD-10-PCS; 2022-05-16)
PROC: 5A09357 Assistance with Respiratory Ventilation, Less than 24 Consecutive Hours, Continuous Positive Airway Pressure (ICD-10-PCS; 2022-05-17)
PROC: 5A09357 Assistance with Respiratory Ventilation, Less than 24 Consecutive Hours, Continuous Positive Airway Pressure (ICD-10-PCS; 2022-05-18)
PROC: 5A09357 Assistance with Respiratory Ventilation, Less than 24 Consecutive Hours, Continuous Positive Airway Pressure (ICD-10-PCS; 2022-05-19)
PROC: 5A09357 Assistance with Respiratory Ventilation, Less than 24 Consecutive Hours, Continuous Positive Airway Pressure (ICD-10-PCS; 2022-05-20)
PROC: 5A09357 Assistance with Respiratory Ventilation, Less than 24 Consecutive Hours, Continuous Positive Airway Pressure (ICD-10-PCS; 2022-05-21)
DX: J18.9 Pneumonia, unspecified organism (principal); E44.1 Mild protein-calorie malnutrition; J44.0 Chronic obstructive pulmonary disease with (acute) lower respiratory infection; N17.9 Acute kidney failure, unspecified; N39.0 Urinary tract infection, site not specified; I13.0 Hypertensive heart and chronic kidney disease with heart failure and stage 1 through stage 4 chronic kidney disease, or unspecified chronic kidney disease; R09.02 Hypoxemia; D64.9 Anemia, unspecified; E78.5 Hyperlipidemia, unspecified; F41.9 Anxiety disorder, unspecified; N18.9 Chronic kidney disease, unspecified; I50.9 Heart failure, unspecified; I25.10 Atherosclerotic heart disease of native coronary artery without angina pectoris; R56.9 Unspecified convulsions; G89.4 Chronic pain syndrome; I48.91 Unspecified atrial fibrillation; E11.22 Type 2 diabetes mellitus with diabetic chronic kidney disease; E66.01 Morbid (severe) obesity due to excess calories; K59.00 Constipation, unspecified; Z68.39 Body mass index [BMI] 39.0-39.9, adult; Z79.899 Other long term (current) drug therapy; Z80.7 Family history of other malignant neoplasms of lymphoid, hematopoietic and related tissues; Z82.0 Family history of epilepsy and other diseases of the nervous system; Z88.0 Allergy status to penicillin; Z88.8 Allergy status to other drugs, medicaments and biological substances; Z91.018 Allergy to other foods; Z82.49 Family history of ischemic heart disease and other diseases of the circulatory system; Z83.3 Family history of diabetes mellitus; Z86.73 Personal history of transient ischemic attack (TIA), and cerebral infarction without residual deficits; Z90.49 Acquired absence of other specified parts of digestive tract
CPT/HCPCS: 36415; 71045; 80048; 80053; 81001; 82962; 83880; 84484; 85025; 87040; 87086; 87426; 93005; 93306; 94640; 94660; 96374; 96375; 97110; 97116; 97163; G0378; J0696; J1815; J2405; J3490

== ENCOUNTER 2023-04-22 13:05 | Inpatient (IN) | payer MEDICARE, MEDICAID ==
[~2023-04-22] VITALS: Ht 162.6 cm; Wt 94.6 kg
[~2023-04-22 13:05] MED LIST changes: +ALBU0.084 IN; -ASPI1TAB20 PO; -ATO40T PO; +ATOR20TA50 PO; +ATOR40TA52 PO; +AZIT-74 PO; +BRIM0.2S17 OP; -CEFD300C2 PO; +COLC1CAP PO; +EZET-10 PO; +EZET10TA22 PO; +FER325T PO; +FERR324T4 PO; +HYDR-4072 PO; +HYDR-4798 PO; -HYDR-4833 PO; +INSLISPI SC; +INSU100I2 SC; +INSU100I33 SC; +INSU1INJ14 SC; +LOS25T PO; -METH4TAB PO; +METO1TAB77 PO; +MORP-109 PO; +MORP15TA PO; -NAP500T PO; +NETA0.02 EACHEYE; +NITR-87 PO; -PANT20TA59 PO; +PANT40TA2 PO; +SUCR1TAB22 PO; +TIOTCAP IN; +TRAV0.00 OP
[2023-04-22] MEDS ORDERED: FUROSEMIDE 40 MG/4 ML VIAL IV ONE (13:30)
[2023-04-22 13:50] LABS: Basophils # (auto) 0 10 ^3/uL (0-0.2); Basophils % (auto) 0.5 % (0.0-2.0); Eosinophils # (auto) 0 10 ^3/uL (0-0.8); Eosinophils % (auto) 1.1 % (0.0-7.0); Hemoglobin 10.5 g/dL (12.2-16.2); Lymphocytes # (auto) 2.2 10 ^3/uL (0.4-5.4); Lymphocytes % (auto) 51.2 % (10.0-50.0); Mean Corpuscular Hemoglobin 29.4 pg (28.0-32.0); Mean Corpuscular Hgb Conc. 32.7 g/dL (32.0-36.0); Mean Corpuscular Volume 89.8 fL (80.0-100.0); Monocytes # (auto) 0.6 10 ^3/uL (0-1.3); Monocytes % (auto) 14.4 % (0.0-12.0); Neutrophils # (auto) 1.4 10 ^3/uL (1.6-8.6); Neutrophils % (auto) 32.8 % (37.0-80.0); Nucleated Red Blood Cells % 0.1 %; Red Blood Cells 3.56 10^6/uL (4.0-5.20); Red Cell Distribution Width 15.2 % (11.8-14.3); White Blood Cell 4.2 10^3/uL (4.4-10.8)
[2023-04-22 14:09] LABS: Albumin 4.2 g/dL (3.2-4.8); Alkaline Phosphatase 81 U/L (46-116); Anion Gap 10 (5-15); Aspartate Aminotransferase 15 U/L (13-40); BUN/Creatinine Ratio 11.2 (10.0-20.0); Bilirubin, Total 0.2 mg/dL (0.2-1.0); Blood Urea Nitrogen 17 mg/dL (9-23); Calcium 9.5 mg/dL (8.5-10.1); Carbon Dioxide 21 mmol/L (20-30); Chloride 108 mmol/L (98-107); Glucose 157 mg/dL (74-106); Potassium 3.8 mmol/L (3.5-5.1); Sodium 139 mmol/L (136-145); Total Protein 7.2 g/dL (5.7-8.2)
[2023-04-22 14:10] LABS: Alanine Aminotransferase < 9 U/L (7-40); INR 1.02 (0.9-1.15); Partial Thromboplastin Time 30.9 SEC (24.5-34.5); Prothrombin Time 10.7 sec (9.3-11.8)
[2023-04-22 14:51] LABS: COVID19 ANTIGEN SOFIA FIA NEGATIVE (NEGATIVE)
[2023-04-22 14:53] LABS: Rapid Influenza A Negative (Negative); Rapid Influenza B Negative (Negative)
[2023-04-22] MEDS ORDERED: DEXTROSE (50%) 50ML SYRG IV PRN (15:15)
[2023-04-22] MEDS ORDERED: MORPHINE SULFATE INJ 2 MG/ml SYRG IV PRN (15:15)
[2023-04-22] MEDS ORDERED: NITROGLYCERIN 0.4 MG SL TAB SL PRN (15:15)
[2023-04-22] MEDS ORDERED: ACETAMINOPHEN 325 MG TAB PO PRN (15:15)
[2023-04-22] MEDS ORDERED: ALBUTEROL SULF 2.5 MG/0.5ML(0.5%) NEB SOLN NEB PRN (15:15)
[2023-04-22] MEDS ORDERED: ATOR20TA50 PO (16:38)
[2023-04-22] MEDS ORDERED: FURO20TA3 PO (16:42)
[2023-04-22] MEDS ORDERED: METF-371 PO (16:49)
[2023-04-22] MEDS: ACCU-CHEK COMFORT CURVE STRIP VI SCH ×2 (20:24→22:50)
[2023-04-22] MEDS: InsuLIN REG 1unit/0.01ml Soln (100units/ml) SC SCH ×2 (20:25→22:50)
[2023-04-22] MEDS ORDERED: METOPROLOL TARTRATE 50 MG TAB PO SCH (22:00)
[2023-04-22] MEDS: METOPROLOL TARTRATE 50 MG TAB PO SCH (22:56)
[2023-04-22] MEDS: HEPARIN SODIUM (PORCINE) 5000 UNITS/ML 1ML VIAL SC SCH (22:57)
[2023-04-22 23:40] VITALS: RESP 20; O2SAT 98
[2023-04-23] VITALS (11 sets, daily range): BP systolic 127–148; BP diastolic 66–80; PULSE 61–81; RESP 16–20; TEMP 97.7–98.4; O2SAT 94–100
[2023-04-23] MEDS: HYDROcodone-ACET 7.5/325MG TAB PO PRN ×2 (01:12→10:55)
[2023-04-23 02:06] LABS: Urine Bacteria FEW /hpf (None Seen); Urine Blood 1+ /uL (Negative); Urine Clarity HAZY (Clear); Urine Color Colorless (Yellow); Urine Hyaline Cast FEW /lpf (0 - 2); Urine Protein, UAD Negative (Negative); Urine Specific Gravity 1.008 (1.001-1.035); Urine Urobilinogen Normal (Negative); Urine WBC 154 /hpf (0 - 5); Urine WBC Clumps PRESENT /hpf (None Seen)
[2023-04-23] MEDS: ONDANSETRON HCL 4 MG/2 ML VIAL IV PRN ×2 (04:20→16:22)
[2023-04-23] MEDS: METOPROLOL TARTRATE 50 MG TAB PO SCH ×3 (06:17→21:43)
[2023-04-23 06:22] LABS: Hematocrit 30.3 % (36.0-46.0); Mean Corpuscular Hemoglobin 29.5 pg (28.0-32.0); Mean Corpuscular Volume 89.5 fL (80.0-100.0); Red Blood Cells 3.39 10^6/uL (4.0-5.20)
[2023-04-23 06:36] LABS: Albumin 4.1 g/dL (3.2-4.8); Alkaline Phosphatase 78 U/L (46-116); Anion Gap 9 (5-15); Aspartate Aminotransferase 15 U/L (13-40); BUN/Creatinine Ratio 13.1 (10.0-20.0); Blood Urea Nitrogen 21 mg/dL (9-23); Calcium 9.3 mg/dL (8.5-10.1); Carbon Dioxide 23 mmol/L (20-30); Chloride 107 mmol/L (98-107); Glucose 117 mg/dL (74-106); Sodium 139 mmol/L (136-145)
[2023-04-23 06:37] LABS: Bilirubin, Total 0.2 mg/dL (0.2-1.0); Total Protein 6.9 g/dL (5.7-8.2)
[2023-04-23 06:38] LABS: Band Neutrophils % (manual) 0; Basophils % (manual) 0 (0.0-2.0); Blast Cells 0; Metamyelocytes % 0; Myelocytes % 0; Promyelocytes % 0; Reactive Lymphocytes 0
[2023-04-23 06:41] LABS: Alanine Aminotransferase < 9 U/L (7-40)
[2023-04-23] MEDS: ACCU-CHEK COMFORT CURVE STRIP VI SCH ×4 (06:50→21:47)
[2023-04-23] MEDS: InsuLIN REG 1unit/0.01ml Soln (100units/ml) SC SCH ×4 (06:50→21:51)
[2023-04-23 08:26] LABS: Eosinophils % (manual) 1 (0-7); Lymphocytes % (manual) 62 (10.0-50.0); Monocytes % (manual) 8 (0-12); Platelet Estimate Adequate
[2023-04-23] MEDS ORDERED: METOPROLOL TARTRATE 50 MG TAB PO SCH (10:00)
[2023-04-23] MEDS ORDERED: ASPirin-EC 81 mg tab PO SCH (10:00)
[2023-04-23] MEDS ORDERED: FUROSEMIDE 20 MG/2 ML VIAL IV SCH (10:00)
[2023-04-23] MEDS: ATORVASTATIN 20 MG TAB PO SCH (10:55)
[2023-04-23] MEDS: FERROUS SULFATE 325mg EC TAB PO SCH (10:55)
[2023-04-23] MEDS: PANTOPRAZOLE 40 MG TAB PO SCH (10:55)
[2023-04-23] MEDS: LOSARTAN POTASSIUM 25 MG TAB PO SCH (10:56)
[2023-04-23] MEDS: COLCHICINE 0.6 MG CAP PO SCH (10:58)
[2023-04-23] MEDS: HEPARIN SODIUM (PORCINE) 5000 UNITS/ML 1ML VIAL SC SCH ×2 (10:58→21:47)
[2023-04-23] MEDS ORDERED: HEPARIN SODIUM (PORCINE) 5000 UNITS/ML 1ML VIAL ONE (21:37)
[2023-04-24] VITALS (12 sets, daily range): BP systolic 116–139; BP diastolic 54–66; PULSE 64–75; RESP 16–18; TEMP 96.8–98.6; O2SAT 95–100
[2023-04-24] MEDS: HYDROcodone-ACET 7.5/325MG TAB PO PRN (04:45)
[2023-04-24] MEDS: METOPROLOL TARTRATE 50 MG TAB PO SCH ×4 (05:06→22:02)
[2023-04-24] MEDS: InsuLIN REG 1unit/0.01ml Soln (100units/ml) SC SCH ×4 (06:30→22:12)
[2023-04-24] MEDS: ACCU-CHEK COMFORT CURVE STRIP VI SCH ×4 (06:31→22:02)
[2023-04-24] MEDS ORDERED: OPTISON 3ml Vial for INJ IV ONE (09:15)
[2023-04-24] MEDS: PANTOPRAZOLE 40 MG TAB PO SCH (09:28)
[2023-04-24] MEDS: COLCHICINE 0.6 MG CAP PO SCH (09:28)
[2023-04-24] MEDS: ATORVASTATIN 20 MG TAB PO SCH (09:29)
[2023-04-24] MEDS: FERROUS SULFATE 325mg EC TAB PO SCH (09:29)
[2023-04-24] MEDS: APIXABAN 5 MG TAB PO SCH ×2 (09:29→22:02)
[2023-04-24] MEDS: LOSARTAN POTASSIUM 25 MG TAB PO SCH (09:31)
[2023-04-24] MEDS: HEPARIN SODIUM (PORCINE) 5000 UNITS/ML 1ML VIAL SC SCH ×2 (09:36→22:13)
[2023-04-24] MEDS: levoFLOXacin 500MG 100 ML IV SCH (10:45)
[2023-04-24] MEDS: DOCUSATE SOD 100 MG CAP PO SCH ×2 (10:45→22:01)
[2023-04-24] MEDS ORDERED: methylPREDNISolone SOD SUCC 40 MG/ML VL IV ONE (16:30)
[2023-04-24] MEDS: FUROSEMIDE 40 MG/4 ML VIAL IV SCH (17:12)
[2023-04-25] VITALS (9 sets, daily range): BP systolic 128–151; BP diastolic 58–75; PULSE 49–75; RESP 16–19; TEMP 98–98.2; O2SAT 97–100
[2023-04-25] MEDS: ACCU-CHEK COMFORT CURVE STRIP VI SCH ×4 (05:51→22:00)
[2023-04-25] MEDS: METOPROLOL TARTRATE 50 MG TAB PO SCH ×3 (05:51→22:00)
[2023-04-25] MEDS: FUROSEMIDE 40 MG/4 ML VIAL IV SCH ×2 (05:51→17:31)
[2023-04-25] MEDS: InsuLIN REG 1unit/0.01ml Soln (100units/ml) SC SCH ×4 (05:52→22:06)
[2023-04-25] MEDS: PANTOPRAZOLE 40 MG TAB PO SCH (10:09)
[2023-04-25] MEDS: FERROUS SULFATE 325mg EC TAB PO SCH (10:09)
[2023-04-25] MEDS: ATORVASTATIN 20 MG TAB PO SCH (10:09)
[2023-04-25] MEDS: DOCUSATE SOD 100 MG CAP PO SCH ×2 (10:09→22:00)
[2023-04-25] MEDS: COLCHICINE 0.6 MG CAP PO SCH (10:09)
[2023-04-25] MEDS: APIXABAN 5 MG TAB PO SCH ×2 (10:09→22:00)
[2023-04-25] MEDS: methylPREDNISolone SOD SUCC 40 MG/ML VL IV SCH (10:10)
[2023-04-25] MEDS: levoFLOXacin 500MG 100 ML IV SCH (10:10)
[2023-04-25] MEDS: LOSARTAN POTASSIUM 25 MG TAB PO SCH (10:10)
[2023-04-25] MEDS: HEPARIN SODIUM (PORCINE) 5000 UNITS/ML 1ML VIAL SC SCH ×2 (10:21→22:05)
[2023-04-25 19:43] LABS: Albumin 4.3 g/dL (3.2-4.8); Alkaline Phosphatase 83 U/L (46-116); Anion Gap 11 (5-15); Aspartate Aminotransferase 14 U/L (13-40); Blood Urea Nitrogen 27 mg/dL (9-23); Carbon Dioxide 22 mmol/L (20-30); Chloride 104 mmol/L (98-107); Glucose 249 mg/dL (74-106); Magnesium 1.7 mg/dL (1.6-2.6); Sodium 137 mmol/L (136-145)
[2023-04-25 19:45] LABS: Bilirubin, Total 0.2 mg/dL (0.2-1.0); Total Protein 7.4 g/dL (5.7-8.2)
[2023-04-25] MEDS: HYDROcodone-ACET 7.5/325MG TAB PO PRN (20:42)
[2023-04-25 20:47] LABS: Alanine Aminotransferase < 9 U/L (7-40)
[2023-04-26] VITALS (9 sets, daily range): BP systolic 100–137; BP diastolic 54–69; PULSE 58–75; RESP 16–18; TEMP 97.6–98; O2SAT 96–100
[2023-04-26] MEDS: FUROSEMIDE 40 MG/4 ML VIAL IV SCH (05:56)
[2023-04-26] MEDS: InsuLIN REG 1unit/0.01ml Soln (100units/ml) SC SCH ×2 (05:57→11:30)
[2023-04-26] MEDS: METOPROLOL TARTRATE 50 MG TAB PO SCH ×2 (05:58→14:00)
[2023-04-26] MEDS: ACCU-CHEK COMFORT CURVE STRIP VI SCH ×2 (05:59→14:28)
[2023-04-26] MEDS ORDERED: APIX5TAB PO (09:36)
[2023-04-26] MEDS ORDERED: LEVO500T91 PO (09:36)
[2023-04-26] MEDS ORDERED: METO-158 PO (09:36)
[2023-04-26] MEDS: LOSARTAN POTASSIUM 25 MG TAB PO SCH (10:00)
[2023-04-26] MEDS: HEPARIN SODIUM (PORCINE) 5000 UNITS/ML 1ML VIAL SC SCH (10:00)
[2023-04-26] MEDS: levoFLOXacin 500MG 100 ML IV SCH (10:25)
[2023-04-26] MEDS: FERROUS SULFATE 325mg EC TAB PO SCH (10:26)
[2023-04-26] MEDS: ATORVASTATIN 20 MG TAB PO SCH (10:26)
[2023-04-26] MEDS: COLCHICINE 0.6 MG CAP PO SCH (10:26)
[2023-04-26] MEDS: APIXABAN 5 MG TAB PO SCH (10:26)
[2023-04-26] MEDS: PANTOPRAZOLE 40 MG TAB PO SCH (10:26)
[2023-04-26] MEDS: DOCUSATE SOD 100 MG CAP PO SCH (10:26)
[2023-04-26] MEDS: methylPREDNISolone SOD SUCC 40 MG/ML VL IV SCH (10:27)
== END 2023-04-26 15:44 | disposition home health service (06) | DRG 291 ==
LOC: ER 13:05 → TELE 15:30 → TELE-WESTW 04-23 08:17
PROVIDERS: ADMIT Nurse Practitioner Family; ATTEND Family Medicine
DX: I13.0 Hypertensive heart and chronic kidney disease with heart failure and stage 1 through stage 4 chronic kidney disease, or unspecified chronic kidney disease (principal); I50.43 Acute on chronic combined systolic (congestive) and diastolic (congestive) heart failure; J96.21 Acute and chronic respiratory failure with hypoxia; I48.20 Chronic atrial fibrillation, unspecified; N39.0 Urinary tract infection, site not specified; J98.11 Atelectasis; E66.01 Morbid (severe) obesity due to excess calories; E11.22 Type 2 diabetes mellitus with diabetic chronic kidney disease; N18.32 Chronic kidney disease, stage 3b; D63.8 Anemia in other chronic diseases classified elsewhere; E78.00 Pure hypercholesterolemia, unspecified; I25.10 Atherosclerotic heart disease of native coronary artery without angina pectoris; F41.9 Anxiety disorder, unspecified; F17.210 Nicotine dependence, cigarettes, uncomplicated; G40.909 Epilepsy, unspecified, not intractable, without status epilepticus; J43.9 Emphysema, unspecified; R19.7 Diarrhea, unspecified; Z20.822 Contact with and (suspected) exposure to COVID-19; Z79.899 Other long term (current) drug therapy; Z79.01 Long term (current) use of anticoagulants; Z79.82 Long term (current) use of aspirin; Z80.7 Family history of other malignant neoplasms of lymphoid, hematopoietic and related tissues; Z82.0 Family history of epilepsy and other diseases of the nervous system; Z82.49 Family history of ischemic heart disease and other diseases of the circulatory system; Z83.3 Family history of diabetes mellitus; Z86.73 Personal history of transient ischemic attack (TIA), and cerebral infarction without residual deficits; Z88.0 Allergy status to penicillin; Z88.3 Allergy status to other anti-infective agents; Z90.49 Acquired absence of other specified parts of digestive tract; Z71.3 Dietary counseling and surveillance
CPT/HCPCS: 36415; 71045; 78582; 80053; 81001; 82962; 83036; 83735; 83880; 84443; 84484; 85007; 85025; 85027; 85379; 85610; 85730; 87086; 87426; 87804; 93005; 93306; 93970; 94640; 99291; G0378; J1815; J1956; J2405; Q9956

== ENCOUNTER 2024-06-29 15:16 | Inpatient (IN) | payer MEDICARE, MEDICAID ==
[~2024-06-29] VITALS: Ht 167.6 cm; Wt 119.7 kg
[2024-06-29] MEDS: CEFEPIME 1GM/ 50ML 50 ML IV SCH (03:45)
[~2024-06-29 15:16] MED LIST changes: +ALBU0.084 NEB; +AML5T PO; +APIX5TAB PO; -ASCO10003 PO; +ATOR-507 PO; -ATOR40TA52 PO; -AZIT-74 PO; +AZIT500T66 PO; +BACL10TA PO; -BRIM0.159 EACHEYE; +BRIM0.2S17 EACHEYE; -BUDE2SUS3 IN; +CEFP200T15 PO; -CHOL1CAP47 PO; +DEXT1SYP9 PO; -EZET10TA22 PO; -FAMO20TA10 PO; +FERR-7 PO; -FERR324T4 PO; +FLEC100T PO; +FLUC200T PO; -FURO1TAB33 PO; +FURO20TA3 PO; +GLIP5TAB21 PO; -HYDR-4072 PO; -INSLISPI SC; -INSU100I33 SC; +LACT10SO3 PO; +LEVO500T91 PO; -LOVA40TA46 PO; +METF-371 PO; -METF500T PO; +METO-158 PO; -MORP1TAB12 PO; +NALO1TAB PO; -NITR-87 PO; +POLY335015 PO; -POTA-220 PO; -PRED1SUS4 OP; +PRED20TA2 PO; -RANI-185 PO; +SUCR1SUS26 PO; -SUCR1TAB22 PO; +SUCR1TAB31 PO; +TIOTCAP INH; +TRAZ-227 PO; -ZINC220T6 PO
--- NOTE | 2024-06-29 15:29 | ECG ---
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
[2024-06-29] MEDS: ALBUTEROL SULF 2.5 MG/0.5ML(0.5%) NEB SOLN NEB ONE (15:30)
[2024-06-29] MEDS: IPRATROPIUM BROM 0.5 MG/2.5ML INH SOL NEB ONE (15:30)
[2024-06-29 16:15] VITALS: PULSE 90; RESP 32; O2SAT 95
--- NOTE | 2024-06-29 16:48 | DVH ---
CHEST RADIOGRAPH Indication: sob Technique: Single frontal view of the chest was obtained Comparison: XY CHEST PORTABLE on DOS: 04/22/23, XY CHEST PORTABLE on DOS: 08/03/22, CXR1 on DOS: , CHEST XRAY 1 VIEW on DOS: 05/19/22, CXRP on DOS: 05/11/22 FINDINGS: Lines and Tubes: Right chest port tip in the cavoatrial junction Lungs: Extensive multifocal airspace disease. Metastases can not be excluded. CT recommended. Pleura: No effusion. No pneumothorax. Cardiomediastinal contours: Unremarkable Bones: No acute osseous abnormality. IMPRESSION: Extensive multifocal airspace disease. Metastases can not be excluded. CT recommended.
[2024-06-29] MEDS: methylPREDNISolone SOD SUCC 125 MG/2 ML VL IV ONE (16:50)
[2024-06-29 16:58] LABS: Basophils # (auto) 0.1 10 ^3/uL (0-0.2); Basophils % (auto) 0.8 % (0.0-2.0); Chloride 104 mmol/L (98-107); Eosinophils # (auto) 0.4 10 ^3/uL (0-0.8); Eosinophils % (auto) 2.5 % (0.0-7.0); Lymphocytes # (auto) 2.4 10 ^3/uL (0.4-5.4); Monocytes # (auto) 0.6 10 ^3/uL (0-1.3); Sodium 140 mmol/L (136-145); White Blood Cell 15.7 10^3/uL (4.4-10.8)
[2024-06-29 16:59] LABS: Anion Gap 9 (5-15); Carbon Dioxide 27 mmol/L (20-31)
[2024-06-29 17:00] LABS: Hematocrit 21.5 % (36.0-46.0); Lymphocytes % (auto) 15.5 % (10.0-50.0); Mean Corpuscular Hemoglobin 28.7 pg (28.0-32.0); Mean Corpuscular Hgb Conc. 31.9 g/dL (32.0-36.0); Mean Corpuscular Volume 90.1 fL (80.0-100.0); Monocytes % (auto) 3.5 % (0.0-12.0); Neutrophils # (auto) 12.2 10 ^3/uL (1.6-8.6); Neutrophils % (auto) 77.7 % (37.0-80.0); Platelet Count (auto) 213 10^3/uL (140-450); Red Blood Cells 2.39 10^6/uL (4.0-5.20); Red Cell Distribution Width 18.7 % (11.8-14.3)
[2024-06-29] MEDS: DOXYCYCLINE 100MG/100ML 100 ML IV ONE (17:00)
[2024-06-29 17:05] LABS: BUN/Creatinine Ratio 30.3 (10.0-20.0)
[2024-06-29 17:09] LABS: Rapid Influenza A Negative (Negative); Rapid Influenza B Negative (Negative)
[2024-06-29 17:10] LABS: COVID19 ANTIGEN SOFIA FIA NEGATIVE (NEGATIVE)
[2024-06-29 17:10] LABS: Blood Urea Nitrogen 53 mg/dL (9-23); Calcium 8.3 mg/dL (8.7-10.4)
[2024-06-29 17:11] LABS: Glucose 456 mg/dL (74-106)
[2024-06-29 17:31] LABS: Hemoglobin 6.9 g/dL (12.2-16.2)
--- NOTE | 2024-06-29 19:32 | ED.PDOC ---
SOB-HPI HPI Comments 74-year-old female with a history of AFib, anemia, CAD, COPD on home O2, hypertension, diabetes, CHF and breast cancer in remission brought in by EMS from home for evaluation of shortness of breath since 10:00 a.m.. Patient is on 2 L of oxygen at home for COPD. Family reports they have been giving her home nebulizer treatments every 4 hours, however the patient did not experience any relief. Patient denies any chest pain or fever. She was reportedly diagnosed with pneumonia on 06/24/2024 and is currently on Zithromax. History is limited, as patient is extremely short of breath and can only speak 2-3 word sentences. Chief Complaint: Shortness of Breath Time Seen by MD: 15:21 Primary Care Provider: unknown Reviewed notes: Nurses Notes, Overcoiler Notes Mode of Arrival: EMS Past Medical History PAST MEDICAL HISTORY: AFIB, Anemia, Anxiety, CAD, CHF, COPD, CVA, DM, High Lipids, HTN, Seizures Past Medical History (Other): Breast cancer in remission Surgical History: Cholecystectomy, , Tonsillectomy Surgical History (Other): Lymph node dissection and mastectomy INFORMATION SERVICES ASSISTANT History: No Pertinent INFORMATION SERVICES ASSISTANT History Family History Family History: No family hx of DM, No family hx of Heart lor, No family hx of HTN Social History Smoker: Non-Smoker Alcohol: Denies ETOH Use Drugs: Denies Drug Use Lives In: Home All Other Systems: Reviewed and Negative (Comprehensive systems review obtained and negative except for what is stated in the HPI.) Physical Exam General Appearance: Mild Distress, Obese HEENT: Other (Pupils and face symmetric. Moist mucous membranes.) Neck: Full Range of Motion, Normal Inspection Respiratory: Chest Non-Tender, Lungs Clear, No Accessory Muscle Use, Normal Breath Sounds, Respiratory Distress Cardiovascular: No Edema, No JVD, Regular Rate/Rhythm Breast Exam: Deferred Gastrointestinal: Non Tender, Soft Genitalia: Deferred Pelvic: Deferred Rectal: Deferred Extremities: Normal inspection, Normal range of motion, Non-tender, No pedal edema Neurologic: Alert (Oriented x4), Normal Affect, Normal Mood, Other (Moves all extremities. No gross focal deficit.) Cerebellar Function: NOT DONE Reflexes: NOT DONE Skin: Dry, Pallor, Warm Lymphatic: NOT DONE EKG EKG : Comments Sinus rhythm, rate 94, normal intervals, left axis deviation, normal QRS, lateral T inversion Was a procedure done? Was a procedure done?: No Differential Dx Differential Diagnosis: Asthma, Bronchitis, CHF, COPD, Hyperventilation, Myocardial infarction, Pneumonia, Pulmonary Embolism, URI, Other (anemia) X-Ray, Labs, Meds, VS Vital Signs Date Time Temp Pulse Resp B/P (MAP) Pulse Ox O2 Delivery O2 Flow Rate FiO2 06/29/24 20:00 86 06/29/24 19:50 86 24 96 Nasal Cannula* 4 36 06/29/24 19:50 98.1 85 24 149/64 (92) 96 98.1 06/29/24 18:40 Nasal Cannula* 5 40 06/29/24 18:13 85 34 156/64 (94) 97 06/29/24 16:15 94 32 122/48 (72) 91 06/29/24 16:15 90 32 95 Nasal Cannula* 5 40 06/29/24 16:10 96 06/29/24 15:45 20 94 Nasal Cannula* 4 36 06/29/24 15:26 100 Nasal Cannula* 4 36 06/29/24 15:25 26 100 Nasal Cannula* 4 36 06/29/24 15:22 100.4 100 26 121/70 (87) 100 06/29/24 15:22 94 Lab Test 06/29/24 17:29 06/29/24 16:02 06/29/24 15:30 Range/Units Magnesium Level 2.0 1.6-2.6 mg/dL Troponin I High Sensitivity 34 27 </=34 ng/L Beta-Hydroxybutyric Acid 0.123 < 0.4 mmol/L Thyroid Stimulating Hormone (TSH) 0.28 L 0.55-4.78 uIU/mL White Blood Count 15.7 H 4.4-10.8 10^3/uL Red Blood Count 2.39 L 4.0-5.20 10^6/uL Hemoglobin 6.9 *L 12.2-16.2 g/dL Hematocrit 21.5 L 36.0-46.0 % Mean Corpuscular Volume 90.1 80.0-100.0 fL Mean Corpuscular Hemoglobin 28.7 28.0-32.0 pg Mean Corpuscular Hemoglobin Concent 31.9 L 32.0-36.0 g/dL Red Cell Distribution Width 18.7 H 11.8-14.3 % Platelet Count 213 140-450 10^3/uL Mean Platelet Volume 7.3 6.9-10.8 fL Neutrophils (%) (Auto) 77.7 37.0-80.0 % Lymphocytes (%) (Auto) 15.5 10.0-50.0 % Monocytes (%) (Auto) 3.5 0.0-12.0 % Eosinophils (%) (Auto) 2.5 0.0-7.0 % Basophils (%) (Auto) 0.8 0.0-2.0 % Neutrophils # (Auto) 12.2 H 1.6-8.6 10 ^3/uL Lymphocytes # (Auto) 2.4 0.4-5.4 10 ^3/uL Monocytes # (Auto) 0.6 0-1.3 10 ^3/uL Eosinophils # (Auto) 0.4 0-0.8 10 ^3/uL Basophils # (Auto) 0.1 0-0.2 10 ^3/uL Nucleated Red Blood Cells 0.0 % Sodium Level 140 136-145 mmol/L Potassium Level 4.0 3.5-5.1 mmol/L Chloride Level 104 98-107 mmol/L Carbon Dioxide Level 27 20-31 mmol/L Anion Gap 9 5-15 Blood Urea Nitrogen 53 H 9-23 mg/dL Creatinine 1.75 H 0.550-1.02 mg/dL Glomerular Filtration Rate Calc 31 >90 mL/min BUN/Creatinine Ratio 30.3 H 10.0-20.0 Serum Glucose 456 *H 74-106 mg/dL Lactic Acid Level 1.8 0.4-2.0 mmol/L Calcium Level 8.3 L 8.7-10.4 mg/dL Iron Level 17 L 50-170 ug/dL Total Iron Binding Capacity 170 L 250-425 ug/dL Percent Iron Saturation 10.0 L 15-50 % Ferritin 610.9 H 10-291 ng/mL Lactate Dehydrogenase 436 H 120-246 U/L B-Type Natriuretic Peptide 308.32 0-100 pg/mL Vitamin B12 Level 739 211-911 pg/mL Folic Acid 13.86 >5.38 ng/mL Influenza Type A Antigen Negative Negative Influenza Type B Antigen Negative Negative SARS-CoV-2 Antigen (Rapid) Negative NEGATIVE Current Medications Medications (Trade) Dose Ordered Sig/Theresa Route Start Time Stop Time Status Last Admin Doxycycline Hyclate 100 ml @ 50 mls/hr ONCE ONCE IV 06/29/24 15:30 06/29/24 17:29 DC 06/29/24 17:00 Methylprednisolone Sodium Succinate (Solu Medrol) 125 mg ONCE ONCE IV 06/29/24 15:30 06/29/24 15:31 DC 06/29/24 16:50 Insulin Human Regular (InsuLIN R) 4 units ONCE ONCE IV 06/29/24 20:00 06/29/24 20:01 DC 06/29/24 21:53 PROCEDURE(s): CXRP - CHEST PORTABLE REASON: sob ORDER NUMBER(s): [id number], ACCESSION NUMBER(s): [id number] CHEST RADIOGRAPH Indication: sob Technique: Single frontal view of the chest was obtained Comparison: XY CHEST PORTABLE on DOS: 04/22/23, XY CHEST PORTABLE on DOS: 08/03/22, CXR1 on DOS: 05/19/22, CHEST XRAY 1 VIEW on DOS: 05/19/22, CXRP on DOS: 05/11/22 FINDINGS: Lines and Tubes: Right chest port tip in the cavoatrial junction Lungs: Extensive multifocal airspace disease. Metastases can not be excluded. CT recommended. Pleura: No effusion. No pneumothorax. Cardiomediastinal contours: Unremarkable Bones: No acute osseous abnormality. IMPRESSION: Extensive multifocal airspace disease. Metastases can not be excluded. CT recommended. X-Ray, Labs, Meds, VS Comment 74-year-old female with a history of AFib, anemia, CAD, COPD on home O2, hypertension, diabetes, CHF and breast cancer in remission brought in by EMS from home for evaluation of shortness of breath Vitals remarkable for respiratory rate 32, oxygen saturation 91% on 5 L nasal cannula Exam remarkable for diminished breath sounds, tachypnea and mild respiratory distress Rhythm strip independently interpreted by me: Sinus rhythm, rate 94, no ectopy. Chest x-ray IMPRESSION: Extensive multifocal airspace disease. Metastases can not be excluded. CT recommended. CT chest without contrast pending CBC remarkable for WBC 15.7, hemoglobin 6.9, hematocrit 21.5, metabolic panel remarkable for BUN 53, creatinine 1.75, glucose 456, calcium 8.3, normal anion gap, BNP 308.32, lactate normal, troponin negative x2, influenza and COVID negative Patient treated with the following in the ED: Albuterol 5 mg/Atrovent 0.5 mg nebulized, Solu-Medrol 125 mg IV, doxycycline 100 mg IV, regular insulin 4 units IV, typed and crossed for 2 units of packed red cells and transfusion ordered. On re-evaluation, patient is resting comfortably with stable vitals on 6 L nasal cannula. She is not in respiratory distress. Plan is to admit the patient for blood transfusion and respiratory support as needed. Time of 1ST Reevaluation: 19:30 Reevaluation 1ST: Improved Patient Education/Counseling: Diagnosis, Treatment, Need For Follow Up Family Education/Counseling: No Family Present Departure 1 Departure Time of Disposition: 19:30 Impression: Primary Impression: [id number] respiratory failure Qualified Codes: J96.20 - Acute and chronic respiratory failure, unspecified whether with hypoxia or hypercapnia Additional Impressions: Pneumonia Qualified Codes: J18.9 - Pneumonia, unspecified organism Severe anemia Hyperglycemia Disposition: ADMITTED INPATIENT Admit to: Tele Condition: Serious Critical Care Note Critical Care Time?: Yes (45 min-critical care time only) Critical care comment: Critical care time including multiple bedside re-evaluations, review of lab and imaging studies, and discussion of the case with the admitting provider. Patient is high risk for respiratory, hemodynamic and/or metabolic decompensation. Stability Stability form required: No Heart Score Heart Score: Heart Score Response (Comments) Value History N/A 0 EKG N/A 0 Age N/A 0 Risk Factors N/A 0 Troponin N/A 0 Total 0 MELINDA LAYNE MD Jun 29, 2024 19:32
[2024-06-29 19:50] VITALS: PULSE 86; RESP 24; O2SAT 96
--- NOTE | 2024-06-29 21:26 | DVH ---
Procedure: CT CHEST WITHOUT CONTRAST Reason for study/Clinical History: sob Comparison Study: August 05, 2022 Exam Date: 06/29/2024 08:53 PM TECHNIQUE: Multidetector CT of the chest was performed from the lung apices to the upper abdomen with out the use of intravenous contract. Axial, coronal and sagittal multiplanar reformats were performed . Radiation Dose Information: CT Dose: CTDI volume is 27.7 mGy. Dose-length product is 1125.46 mGy*cm The dose indicators for CT are the volume Computed Tomography (CT) Dose Index (CTDIvol) and the Dose Length Product (DLP), and are measured in units of mGy and mGy-cm, respectively. These indicators are not patient dose, but values generated from the CT scanner acquisition factors. The report includes radiation exposure data for exposures received during this examination. FINDINGS: Lower neck: Normal thyroid. Lungs: Multifocal pneumonia throughout both lungs, most prominent in the right upper lobe. Diffuse pe ripheral reticulation , traction bronchiectasis, and honeycombing in the bilateral upper lobes, sugge stive of chronic interstitial pulmonary fibrosis Heart/Vascular Structures: Normal heart size. No pericardial effusion. Lymph Nodes: Mediastinal lymphadenopathy, for example a right paratracheal lymph node measuring up to 2 cm in short dimension. Pleura: No pleural effusion or significant pneumothorax. Musculoskeletal: No acute osseous abnormality. Soft tissues: Normal. Upper abdomen: Limited portions of the upper abdomen are unremarkable. IMPRESSION: Multifocal pneumonia superimposed on chronic interstitial pulmonary fibrosis. Mediastinal lymphadenopathy, likely reactive Radiation optimization: All CT scans at this facility use at least one of these dose optimization prashant hniques: automated exposure control mA and/or kV adjustment per patient size (includes targeted exam s where dose is matched to clinical indication) or iterative reconstruction.
[2024-06-29] MEDS ORDERED: NITROGLYCERIN 0.4 MG SL TAB SL PRN (21:30)
[2024-06-29] MEDS ORDERED: ACETAMINOPHEN 325 MG TAB PO PRN (21:30)
[2024-06-29] MEDS: SODIUM CHLORIDE 0.9% 1,000 ML IV ONE (21:30)
[2024-06-29] MEDS: InsuLIN REG 1unit/0.01ml Soln (100units/ml) IV ONE (21:53)
[2024-06-29] MEDS ORDERED: DEXTROSE (50%) 50ML SYRG IV PRN (22:00)
[2024-06-29] MEDS ORDERED: METOPROLOL TARTRATE 50 MG TAB PO SCH (22:00)
[2024-06-29 22:04] LABS: Ferritin 610.9 ng/mL (10-291)
[2024-06-29] MEDS: SODIUM CHLOR 0.9% PF (SALINE LOCK) 10ML VIAL/SYR IV SCH (22:04)
[2024-06-29 22:05] LABS: Folate (Folic Acid) 13.86 ng/mL (>5.38)
[2024-06-29] MEDS ORDERED: VANCOMYCIN PER PHARMACY 0 MG IV SCH (22:15)
[2024-06-29] MEDS ORDERED: VANCOMYCIN 1GM/250ML KIT 250 ML IV SCH (22:30)
[2024-06-29] MEDS: ACCU-CHEK COMFORT CURVE STRIP VI SCH (22:58)
[2024-06-29] MEDS: InsuLIN REG 1unit/0.01ml Soln (100units/ml) SC SCH ×2 (23:12)
[2024-06-29] MEDS: INSULIN LANTUS (GLARGINE) 1 /0.01ml (100units/ml) SC SCH (23:13)
[2024-06-29] MEDS: VANCOMYCIN 1GM/250ML KIT 250 ML IV SCH (23:20)
[2024-06-29] MEDS: LOSARTAN POTASSIUM 25 MG TAB PO ONE (23:27)
[2024-06-29] MEDS: METOPROLOL TARTRATE 50 MG TAB PO SCH (23:27)
[2024-06-30] VITALS (28 sets, daily range): BP systolic 109–165; BP diastolic 46–62; PULSE 51–93; RESP 18–28; TEMP 97.6–98.4; O2SAT 90–100
[2024-06-30] MEDS ORDERED: INSULIN DRIP 100 UNIT/100ML 100 ML IV SCH (00:30)
[2024-06-30] MEDS ORDERED: DEXTROSE (50%) 50ML SYRG IV PRN ×3 (00:30→06:45)
--- NOTE | 2024-06-30 00:43 | DVHHPRES ---
History of Present Illness Resident Creating Document: SAAD MARTINEZ RESIDENT History of Present Illness ELZBIETA TAYLOR is a 74-year-old female with a PMH of AFib, anemia, CAD, COPD on home oxygen 2 L, HTN, type 2 DM, CHF, breast cancer in remission presented to the ED with the chief complaints of worsening of shortness of breath since morning. Patient reported she has been on home oxygen 2 L but today morning she felt severely shortness of breath, thought of asthma exacerbation, family given nebulizer treatment for 4 hours but did not give any relief, prompted him to visit ED. patient reported she has recently treated for acute respiratory distress due to pneumonia, discharged from this facility on 06/24/2024 with another MRN number and currently taking azithromycin. On my assessment patient is on 6 L O2 at [place], severely short of breath and speaks only few words but no use of accessory muscles noted. Patient denies fever, nausea, vomiting, chest pain, abdominal pain, diaphoresis, and other acute associated symptoms PMH: AFIB, Anemia, Anxiety, CAD, CHF, COPD, CVA, DM, High Lipids, HTN, Seizures, Breast cancer in remission PSH: Cholecystectomy, , Tonsillectomy,Lymph node dissection and mastectomy Family history: Reviewed, noncontributory Social history: Lives with family. Denies smoking, alcohol and other drug abuse Allergies: Lisinopril, penicillins, pentazocine, pineapple, strawberry, TMP SMX, [place], tomato Review of Systems Constitutional: Yes: Weakness, Malaise Eyes: No: Pain, Vision change, Conjunctivae inflammation, Eyelid inflammation, Other, Redness ENT: No: Ear pain, Ear discharge, Nose pain, Nose discharge, Nose congestion, Mouth pain, Mouth swelling, Throat pain, Throat swelling, Other Respiratory: Cough, Shortness of breath, SOB with excertion Cardiovascular: No: Chest Pain, Palpitations, Orthopnea, Paroxysmal Noc. Dyspnea, Edema, Lt Headedness, Other Gastrointestinal: No: Nausea, Vomiting, Abdominal Pain, Diarrhea, Constipation, Melena, Hematochezia, Other Genitourinary: No Dysuria, No Frequency, No Incontinence, No Hematuria, No Retention, No Other Musculoskeletal: No: other, neck pain, shoulder pain, arm pain, back pain, hand pain, leg pain, foot pain Skin: No: Rash, Lesions, Jaundice, Bruising, Other Neurological: No: Weakness, Numbness, Incoordination, Change in speech, Confusion, Seizures, Other Allergies: Coded Allergies: Penicillins (Verified Allergy, Intermediate, HIVES, 04/22/23) Pineapple (Verified Allergy, Intermediate, 04/22/23) [place] (Verified Allergy, Intermediate, 04/22/23) Tomato (Verified Allergy, Intermediate, 04/22/23) Lisinopril (Verified Allergy, Unknown, 04/22/23) Pentazocine (Verified Allergy, Unknown, 04/22/23) FROM TALWIN Sulfamethoxazole w/Trimethoprim (Verified Allergy, Unknown, 04/22/23) Uncoded Allergies: TALWIN (Allergy, Unknown, 03/06/23) Medications Current Medications Medications Dose Ordered Sig/Theresa Route Start Time Stop Time Status Last Admin Dose Admin Sodium Chloride 10 ml Q8HR IV 06/29/24 22:00 06/29/24 22:04 10 ML Acetaminophen 650 mg Q6HP PRN PO 06/29/24 21:30 Nitroglycerin 0.4 mg Q5MINP PRN SL 06/29/24 21:30 Morphine Sulfate 2 mg Q30M PRN IV 06/29/24 21:30 Diagnostic Test (Pha) 1 strip ACHS 06/29/24 22:00 06/29/24 22:58 1 STRIP Insulin Human Regular AC SC 06/29/24 22:00 Insulin Human Regular HS SC 06/29/24 22:00 06/29/24 23:12 10 UNITS Dextrose 50 ml UD PRN IV 06/29/24 22:00 Aspirin 81 mg DAILY PO 06/30/24 10:00 Atorvastatin Calcium 20 mg DAILY PO 06/30/24 10:00 Insulin Glargine 25 units QAM SC 06/29/24 22:15 06/29/24 23:13 25 UNITS Vancomycin HCl 0 ml @ 0 mls/hr UD IV 06/29/24 22:15 UNV Cefepime HCl 50 ml @ 12.5 mls/hr DAILY IV 06/29/24 22:15 Metoprolol Tartrate 25 mg BID PO 06/29/24 22:30 06/29/24 23:27 25 MG Losartan Potassium 25 mg DAILY PO 06/30/24 10:00 Vancomycin HCl 250 ml @ 150 mls/hr Q2H IV 06/29/24 23:00 06/30/24 02:39 06/29/24 23:20 150 MLS/HR Insulin Human (Reg)/Sodium Chloride 100 ml @ 0.5 mls/hr Q24H IV 06/30/24 00:30 Diagnostic Test (Pha) 1 strip Q90MIN 06/30/24 01:30 Dextrose 50 ml PRN PRN IV 06/30/24 00:30 Methylprednisolone Sodium Succinate 40 mg BID IV 06/30/24 10:00 UNV Ipratropium [place] 0.5 mg Q6HR NEB 06/30/24 00:45 UNV Levalbuterol HCl 1.25 mg Q6HR NEB 06/30/24 06:00 UNV Exam Vital Signs Vital Signs Date Time Temp Pulse Resp B/P (MAP) Pulse Ox O2 Delivery O2 Flow Rate FiO2 06/30/24 00:15 98.2 67 20 165/62 98.2 06/29/24 22:41 93 06/29/24 19:50 Nasal Cannula* 4 36 Exam Pt is lying on bed General Appearance: Alert, Oriented X3, Cooperative, severe distress HEENT: Atraumatic, Mucous membranes moist/pink Respiratory: Bilateral crackles, wheezing Clear to auscultation, Normal air movement Cardiovascular: Regular rate, Normal S1, Normal S2 Abdominal: Active bowel sounds, Soft, no distention, no tenderness Extremities: Trace edema BLE, Normal pulses, Skin: No Significant rash, except past surgical scars Neuro: Normal speech, Psych/Mental Status: Mental status NL, Mood NL Nurse was there as sharperone during examination Labs/Xrays Labs Test 06/29/24 23:21 06/29/24 23:03 06/29/24 22:26 06/29/24 17:29 Range/Units D-Dimer, Quantitative 0.80 H 0.0-0.49 mg/L FEU POC Glucose 545 *H 70-106 mg/dl Reticulocyte Count (auto) 3.37 H 0.5-1.5 % Serum Osmolality 330 H 278-298 mOsm/kg Lactic Acid Level 1.8 0.4-2.0 mmol/L Magnesium Level 2.0 1.6-2.6 mg/dL Troponin I High Sensitivity 34 </=34 ng/L Beta-Hydroxybutyric Acid 0.123 < 0.4 mmol/L Thyroid Stimulating Hormone (TSH) 0.28 L 0.55-4.78 uIU/mL Test 06/29/24 16:02 06/29/24 15:30 Range/Units White Blood Count 15.7 H 4.4-10.8 10^3/uL Red Blood Count 2.39 L 4.0-5.20 10^6/uL Hemoglobin 6.9 *L 12.2-16.2 g/dL Hematocrit 21.5 L 36.0-46.0 % Mean Corpuscular Volume 90.1 80.0-100.0 fL Mean Corpuscular Hemoglobin 28.7 28.0-32.0 pg Mean Corpuscular Hemoglobin Concent 31.9 L 32.0-36.0 g/dL Red Cell Distribution Width 18.7 H 11.8-14.3 % Platelet Count 213 140-450 10^3/uL Mean Platelet Volume 7.3 6.9-10.8 fL Neutrophils (%) (Auto) 77.7 37.0-80.0 % Lymphocytes (%) (Auto) 15.5 10.0-50.0 % Monocytes (%) (Auto) 3.5 0.0-12.0 % Eosinophils (%) (Auto) 2.5 0.0-7.0 % Basophils (%) (Auto) 0.8 0.0-2.0 % Neutrophils # (Auto) 12.2 H 1.6-8.6 10 ^3/uL Lymphocytes # (Auto) 2.4 0.4-5.4 10 ^3/uL Monocytes # (Auto) 0.6 0-1.3 10 ^3/uL Eosinophils # (Auto) 0.4 0-0.8 10 ^3/uL Basophils # (Auto) 0.1 0-0.2 10 ^3/uL Nucleated Red Blood Cells 0.0 % Sodium Level 140 136-145 mmol/L Potassium Level 4.0 3.5-5.1 mmol/L Chloride Level 104 98-107 mmol/L Carbon Dioxide Level 27 20-31 mmol/L Anion Gap 9 5-15 Blood Urea Nitrogen 53 H 9-23 mg/dL Creatinine 1.75 H 0.550-1.02 mg/dL Glomerular Filtration Rate Calc 31 >90 mL/min BUN/Creatinine Ratio 30.3 H 10.0-20.0 Serum Glucose 456 *H 74-106 mg/dL Calcium Level 8.3 L 8.7-10.4 mg/dL Iron Level 17 L 50-170 ug/dL Total Iron Binding Capacity 170 L 250-425 ug/dL Percent Iron Saturation 10.0 L 15-50 % Ferritin 610.9 H 10-291 ng/mL Lactate Dehydrogenase 436 H 120-246 U/L B-Type Natriuretic Peptide 308.32 0-100 pg/mL Vitamin B12 Level 739 211-911 pg/mL Folic Acid 13.86 >5.38 ng/mL Influenza Type A Antigen Negative Negative Influenza Type B Antigen Negative Negative SARS-CoV-2 Antigen (Rapid) Negative NEGATIVE Assessment/Plan Assessment/Plan # acute on chronic hypoxic or hypercapnic respiratory failure # multifocal pneumonia likely Gram-positive/negative # COPD exacerbation # ? Asthma exacerbation -CXR and chest CT showed multifocal pneumonia -currently giving vancomycin and cefepime -ordered pancultures -currently on NC 6 L -added breathing treatments -currently giving methylprednisolone 40 mg IV b.i.d. # ? HHS # uncontrolled type 2 DM with the hyperglycemia -insulin drip per protocol -closely monitor # history of AFib -metoprolol -hold Eliquis # ? Acute on chronic HFpEF -GDMT as tolerated -elevated BNP # severe chronic iron-deficiency anemia -transfusing 1 pack RBC # Uncontrolled hypertension -closely monitor -resume home meds PUD PPX: Protonix VTE PPX: Hold Diet: Swallow eval Goals of care discussed with the patient for more than 29 minutes: Full code status Case discussed with Dr. Thomas, patient and nurse. Plan discussed with: Patient My Orders Orders - SAAD MARTINEZ RESIDENT Procedure Category Date Status Time Admit ADMIT 06/29/24 Transmitted 21:25 Allergies PHILLIP 06/29/24 In Process 21:25 Code Status CODE 06/29/24 Transmitted 21:25 Sodium Chloride Lock PHA 06/29/24 In Process (Saline Lock Ns) 22:00 Oxygen Per Hour RT 06/29/24 Transmitted 21:25 Complete Blood Count LAB 06/30/24 Logged 04:00 Comprehensive LAB 06/30/24 Logged Metabolic Panel 04:00 Npo (Nothing By DIET 06/30/24 Transmitted Mouth) Diet Breakfast Condition: Unstable PHILLIP 06/29/24 In Process 21:25 Acetaminophen Tablet PHA 06/29/24 In Process (Tylenol Tablet) 21:30 Nitroglycerin PHA 06/29/24 In Process Sublingual (Ntrostat 21:30 Morphine Sulfate PHA 06/29/24 In Process Injection 21:30 Oxygen By Nasal RT 06/29/24 Transmitted Cannula 21:25 Stat Ekg For Chest PHILLIP 06/29/24 In Process Pain 21:25 Notify Of Changes PHILLIP 06/29/24 In Process From Base 21:25 Radiologic Tech For PHILLIP 06/29/24 In Process 24 Hours 21:25 Emergency Dysrhythmia PHILLIP 06/29/24 In Process Protocol 21:25 Rhythm Strips Once PHILLIP 06/29/24 In Process Every Shift 21:25 Sodium Chloride 0.9% PHA 06/29/24 In Process 21:30 Administer Blood PHILLIP 06/29/24 In Process Products 21:25 Urinalysis LAB 06/29/24 Logged 21:30 Glucose Blood PHA 06/29/24 In Process (Accu-Chek Comfort 22:00 Insulin R (Human) PHA 06/29/24 In Process (Insulin R) 22:00 Insulin R (Human) PHA 06/29/24 In Process (Insulin R) 22:00 Dextrose 50% Syringe PHA 06/29/24 In Process 22:00 Aspirin Enteric PHA 06/30/24 In Process Coated Tablet 10:00 Atorvastatin (Lipitor) PHA 06/30/24 In Process 10:00 Insulin Lantus PHA 06/29/24 In Process (Glargine) (Lantus) 22:15 Vancomycin Per PHA 06/29/24 Pending Pharmacy 22:15 Cefepime 1gm/ 50ml PHA 06/29/24 In Process (Maxipime 1gm/50ml) 22:15 Metoprolol Tartrate PHA 06/29/24 In Process Tablet (Lopressor Ta 22:30 Losartan Tablet PHA 06/30/24 In Process (Cozaar Tablet) 10:00 Vancomycin 1gm/250ml PHA 06/29/24 In Process Kit 23:00 Hemoglobin A1c LAB 06/30/24 Logged 00:33 Methylprednisolone PHA 06/30/24 Logged Sod Succ (Solu Medrol 10:00 Ipratropium Medneb PHA 06/30/24 Logged (Atrovent Medneb) 00:45 Levalbuterol Hcl PHA 06/30/24 Logged (Xopenex Medneb) 06:00 Stool Occult Blood LAB 06/30/24 Transmitted 00:38 Date of Service: Jun 29, 2024 Billing Provider: CODY THOMAS MD Common Visit Codes: [id number] INP/OBS CARE (HIGH) Secondary Visit Codes: [id number] CARE PLAN 30 MINUTES SAAD MARTINEZ RESIDENT Jun 30, 2024 00:43 CODY THOMAS MD Jun 30, 2024 19:57
[2024-06-30] MEDS: IPRATROPIUM BROM 0.5 MG/2.5ML INH SOL NEB SCH ×2 (00:53→13:10)
[2024-06-30] MEDS ORDERED: ACCU-CHEK COMFORT CURVE STRIP VI SCH (01:30)
[2024-06-30] MEDS: INSULIN DRIP 100 UNIT/100ML 100 ML IV SCH (02:56)
[2024-06-30 03:06] LABS: Base Excess -0.4 mmol/L (-2.0-3.0)
[2024-06-30] MEDS: ACCU-CHEK COMFORT CURVE STRIP VI SCH ×2 (03:06→07:47)
--- NOTE | 2024-06-30 03:49 | DVH ---
Bilateral lower extremity venous duplex Clinical History: VTE r/o Comparison: US BILAT LOWER DVT on DOS: 04/23/23, US BILAT LOWER DVT on DOS: 08/05/22 Technique: Duplex Doppler evaluation of the deep venous systems of both lower extremities from the common femora l veins to the popliteal veins including color Doppler and spectral/pulsed waveform analysis was perf ormed. Findings: RIGHT SIDE: The common femoral vein demonstrates appropriate compressibility and waveform variability. There is compressibility/patency of the great saphenous vein at the proximal thigh. The femoral vein demonstrates appropriate compressibility and waveform variability. The deep femoral vein demonstrates appropriate compressibility and waveform variability. The popliteal vein demonstrates appropriate compressibility and waveform variability. There is normal compressibility at the tibioperoneal trunk. LEFT SIDE: The common femoral vein demonstrates appropriate compressibility and waveform variability. There is compressibility/patency of the great saphenous vein at the proximal thigh. The femoral vein demonstrates appropriate compressibility and waveform variability. The deep femoral vein demonstrates appropriate compressibility and waveform variability. The popliteal vein demonstrates appropriate compressibility and waveform variability. There is normal compressibility at the tibioperoneal trunk. Impression: 1. No right or left femoropopliteal venous thrombosis.
[2024-06-30] MEDS: MORPHINE SULFATE INJ 2 MG/ml SYRG IV PRN (03:59)
[2024-06-30] MEDS: LEVALBUTEROL HCL 1.25 MG/3 ML NEB NEB SCH ×2 (06:01→13:10)
[2024-06-30 07:10] LABS: Eosinophils # (auto) 0 10 ^3/uL (0-0.8); Monocytes # (auto) 0.3 10 ^3/uL (0-1.3); Neutrophils # (auto) 7.6 10 ^3/uL (1.6-8.6)
[2024-06-30 07:13] LABS: Basophils # (auto) 0.1 10 ^3/uL (0-0.2); Basophils % (auto) 1.3 % (0.0-2.0); Hematocrit 23.9 % (36.0-46.0); Lymphocytes # (auto) 0.8 10 ^3/uL (0.4-5.4); Lymphocytes % (auto) 9.4 % (10.0-50.0); Mean Corpuscular Hgb Conc. 33.4 g/dL (32.0-36.0); Mean Corpuscular Volume 89.7 fL (80.0-100.0); Monocytes % (auto) 3.7 % (0.0-12.0); Neutrophils % (auto) 85.6 % (37.0-80.0); Nucleated Red Blood Cells % 0.1 %; Platelet Count (auto) 181 10^3/uL (140-450); Red Blood Cells 2.66 10^6/uL (4.0-5.20); Red Cell Distribution Width 17.3 % (11.8-14.3); White Blood Cell 8.8 10^3/uL (4.4-10.8)
[2024-06-30 07:14] LABS: Urine Bacteria None Seen /hpf (None Seen)
[2024-06-30 07:21] LABS: Alanine Aminotransferase 20 U/L (7-40); Alkaline Phosphatase 71 U/L (46-116); Anion Gap 12 (5-15); BUN/Creatinine Ratio 24.7 (10.0-20.0); Carbon Dioxide 23 mmol/L (20-31); Chloride 103 mmol/L (98-107); Magnesium 2.1 mg/dL (1.6-2.6); Potassium 3.8 mmol/L (3.5-5.1); Sodium 138 mmol/L (136-145)
[2024-06-30 07:22] LABS: Albumin 3.5 g/dL (3.2-4.8)
[2024-06-30 07:23] LABS: Bilirubin, Total 0.5 mg/dL (0.2-1.0); Total Protein 6.3 g/dL (5.7-8.2)
[2024-06-30 07:34] LABS: Urine Blood TRACE /uL (Negative); Urine Budding Yeast MANY /hpf (None Seen); Urine Clarity Turbid (Clear); Urine Color Colorless (Yellow); Urine Protein, UAD 1+ (Negative); Urine Specific Gravity 1.021 (1.001-1.035); Urine Squamous Epithelial Cell FEW /hpf (<5); Urine Urobilinogen Normal (Negative); Urine WBC 88 /HPF (0-5); Urine pH 5.5 (5.0-9.0)
[2024-06-30 07:36] LABS: Aspartate Aminotransferase 10 U/L (13-40); Blood Urea Nitrogen 44 mg/dL (9-23); Glucose 309 mg/dL (74-106); Phosphorus 2.3 mg/dL (2.4-5.1)
[2024-06-30 07:43] LABS: Opiate Scree,Urine Neg (NEGATIVE)
[2024-06-30 07:51] LABS: INR 1.05 (0.9-1.15); Prothrombin Time 11.1 sec (9.3-11.8)
[2024-06-30 07:55] LABS: Amphetamine Screen, Urine Neg (NEGATIVE); Barbiturate Scree,Urine Neg (NEGATIVE); Benzodiazephine Screen, Urine Neg (NEGATIVE); Cannabinoid Screen, Urine Neg (NEGATIVE); Cocaine Screen, Urine Neg (NEGATIVE); Phencyclidine Screen, Urine Neg (NEGATIVE)
[2024-06-30] MEDS: INSULIN LANTUS (GLARGINE) 1 /0.01ml (100units/ml) SC SCH (08:05)
[2024-06-30] MEDS: InsuLIN REG 1unit/0.01ml Soln (100units/ml) SC SCH (08:19)
[2024-06-30] MEDS ORDERED: ENOXAPARIN SOD 40 MG/0.4 ML SYRINGE SC SCH (10:00)
[2024-06-30] MEDS ORDERED: ASPirin-EC 81 mg tab PO SCH (10:00)
[2024-06-30] MEDS: LOSARTAN POTASSIUM 25 MG TAB PO SCH (10:25)
[2024-06-30] MEDS: ATORVASTATIN 20 MG TAB PO SCH (10:25)
[2024-06-30] MEDS: methylPREDNISolone SOD SUCC 40 MG/ML VL IV SCH (10:26)
--- NOTE | 2024-06-30 12:11 | DVH ---
INDICATION: ruq tenderness TECHNIQUE: Multiple real-time sonographic images were obtained of the right upper quadrant. COMPARISON: None FINDINGS: The liver demonstrates homogenous echotexture without focal mass lesions. The liver measure s 13 cm. There is no intrahepatic or extrahepatic ductal dilatation. The common duct measures 4 mm . Gallbladder is surgically absent. The right kidney measures 10 cm. The right kidney is normal in contour, size, and shape. The echog enicity is normal. There is no hydronephrosis. The pancreas is not well visualized due to overlying bowel gas. IMPRESSION: Gallbladder is surgically absent.
--- NOTE | 2024-06-30 16:22 | DVHPNRES ---
Progress Note Date Seen: Jun 30, 2024 Resident Creating Document: DRE HILL RESIDENT Medical Necessity Reason Pt with a Central, PICC or Fol: Yes The following are medically ne: Stallworth Catheter Reason for stallworth catheter: Total Immobilization Subjective Review of Systems Patient is a 74-year-old female with past medical history of COPD on home O2 2 L, history of pulmonary fibrosis with UIP pattern,, CHF, chronic atrial fibrillation, breast cancer s/p lumpectomy, diabetes with diabetic nephropathy, hypothyroidism, dyslipidemia, morbid obesity came to the ED due to shortness of breath. According to the patient, yesterday around 5:30 a.m. she started feeling severe shortness of breaths with coughing spells which she thought was her asthma attack, per patient she took her nebulizer treatment and her home oxygen, however symptoms progressively got worse which is what prompted this visit to the hospital. Of note, patient was admitted in the hospital for pneumonia from 06/20/2024 to 06/24/2024 and 4 respiratory failure from 05/17/2024 to 05/26/2024. Per patient she has been having multiple episodes of cough productive of phlegm with specks of blood. Past surgical history: Breast surgery , C3-7 fusion, L2-S1 fusion, Right kidney biopsy, Left lumpectomy Past Hospitalization: Discharged on 06/24/2024 for pneumonia Social & Personal history: Wheelchair-bound since 1998, quit smoking in April 2024, prior to that 2 cigarettes per day for the last 60 years. Denies using alcohol. Allergies: Lisinopril causes hives, penicillin causes angioedema, TMP SMX Patient seen and examined at bedside. Patient is alert and oriented to time, place person and responding to all questions. General: Fatigue, chills Eyes: No Pain, No Vision change, No Conjunctivae inflammation, No Eyelid inflammation, No Other, No Redness ENT: No Ear pain, No Ear discharge, No Nose pain, No Nose discharge, No Nose congestion, No Mouth pain, No Mouth swelling, No Throat pain, No Throat swelling, No Other Cardiovascular: No Chest Pain, Palpitations, No Orthopnea, No Paroxysmal No Dyspnea, No Edema, No Lt Headedness, No Other Respiratory: Cough, No Dry, Shortness of breath, SOB with exertion, No Wheezing, No Hemoptysis, No Pleuritic Pain, No Sputum, No Other Gastrointestinal: Nausea, No Vomiting, No Abdominal Pain, No Diarrhea, No Constipation, No Melena, No Hematochezia, No Other Genitourinary: No Dysuria, No Frequency, No Incontinence, No Hematuria, No Retention, No Other Musculoskeletal: No other, No neck pain, No shoulder pain, No arm pain, No back pain, No hand pain, No leg pain, No foot pain Skin: No Rash, No Lesions, No Jaundice, No Bruising, No Other Objective vital signs Vital Sign Date Time Temp Pulse Resp B/P (MAP) Pulse Ox O2 Delivery O2 Flow Rate FiO2 06/30/24 16:20 98.0 79 18 119/50 98.0 06/30/24 14:28 96 Nasal Cannula* 4 36 Total Intake and Output 06/29/24 06/29/24 06/30/24 15:00 23:00 07:00 Intake Total 125 ml 862 ml Balance 125 ml 862 ml medications Current Medications Medications Dose Ordered Sig/Theresa Route Start Time Stop Time Status Last Admin Dose Admin Sodium Chloride 10 ml Q8HR IV 06/29/24 22:00 06/30/24 12:15 10 ML Acetaminophen 650 mg Q6HP PRN PO 06/29/24 21:30 Nitroglycerin 0.4 mg Q5MINP PRN SL 06/29/24 21:30 Morphine Sulfate 2 mg Q30M PRN IV 06/29/24 21:30 06/30/24 03:59 2 MG Atorvastatin Calcium 20 mg DAILY PO 06/30/24 10:00 06/30/24 10:25 20 MG Vancomycin HCl 0 ml @ 0 mls/hr UD IV 06/29/24 22:15 Cefepime HCl 50 ml @ 12.5 mls/hr DAILY IV 06/29/24 22:15 06/30/24 10:24 12.5 MLS/HR Metoprolol Tartrate 25 mg BID PO 06/29/24 22:30 06/30/24 10:25 25 MG Losartan Potassium 25 mg DAILY PO 06/30/24 10:00 06/30/24 10:25 25 MG Methylprednisolone Sodium Succinate 40 mg BID IV 06/30/24 10:00 06/30/24 10:26 40 MG Insulin Glargine 30 units QAM SC 06/30/24 07:00 06/30/24 08:05 30 UNITS Diagnostic Test (Pha) 1 strip IQ4HR 06/30/24 08:00 06/30/24 16:11 1 STRIP Insulin Human Regular IQ4HR SC 06/30/24 08:00 06/30/24 16:15 16 UNITS Dextrose 50 ml UD PRN IV 06/30/24 06:45 Ipratropium [place] 0.5 mg Q4HR NEB 06/30/24 14:00 06/30/24 13:10 0.5 MG Levalbuterol HCl 1.25 mg Q4H NEB 06/30/24 11:15 06/30/24 13:10 1.25 MG Acetaminophen/ Hydrocodone Bitart 1 tab Q8HPRN PO 06/30/24 22:00 UNV Morphine Sulfate 15 mg BID PO 06/30/24 22:00 UNV Examination General Appearance: Cooperative. Well developed. Well nourished. In moderate distress, is able to only communicate in half sentences due to shortness of breaths Head Exam: Normal inspection Neck Exam: Normal inspection. Non-tender. Normal alignment Pulmonary/Respiratory: Chest non-tender. Clear bilateral breath sounds, no crackles, bilateral wheezing Cardiovascular/Chest: Regular rate and rhythm. No murmurs. No JVD. Peripheral Pulses: 2+ Radial (R). 2+ Radial (L). 2+ Pedal (R). 2+ Pedal (L) Abdominal Exam: Normal bowel sounds. Soft. normal abdomen, no visible veins, Nontender. No hepatospenomegaly. No masses Ankle Exam: 1+ ankle edema Lower extremities: Negative lower extremity edema Neuro/Mental Status: A&O x4. Coherent. Thoughts/Psych: Normal thought pattern. Appropriate mood and affect. Good judgement and insight Skin Exam: Normal inspection. Normal color. Warm. Dry laboratory and microbiology Laboratory Tests 06/30/24 06:11 Test 06/30/24 06:11 Range/Units Serum Glucose 309 H 74-106 mg/dL Labs and/or images reviewed: Labs reviewed by me, Image(s) reviewed by me Problem List/Assessment/Plan Problem List/Assessment/Plan Acute on chronic hypoxic respiratory failure Acute COPD exacerbation Acute asthma exacerbation Chronic interstitial pulmonary fibrosis - CXR: Extensive multifocal airspace disease. Metastasis can not be excluded. CT recommended - chest CT: Multifocal pneumonia superimposed on chronic interstitial pulmonary fibrosis. Mediastinal lymphadenopathy, likely reactive. - lower extremity Doppler: No right or left femoropopliteal venous thrombosis - IV cefepime, IV vancomycin - pulmonology consulted - ipratropium and levalbuterol med nebs - IV methylprednisolone 40 mg b.i.d. - Pulmicort 0.5 mg b.i.d. - throat lozenges WESLY, likely hemodynamically mediated/VMN on CKD 3b - monitor Chronic normocytic anemia - monitor Type 2 diabetes Diabetic nephropathy, biopsy-proven - insulin Lantus 30 units q.a.m. - aggressive sliding scale insulin Chronic systolic heart failure - metoprolol 25 mg b.i.d. - losartan 25 mg p.o. daily - atorvastatin 20 mg p.o. daily - holding aspirin as patient anemic, s/p 1 PRBC Chronic pain - acetaminophen 650 mg for mild pain - [place] 10 mg Q 8 as needed - morphine extended release 15 mg p.o. b.i.d. Morbid obesity Obstructive sleep apnea on CPAP - CPAP at night Myeloperoxidase antibody positive - patient follows with Rheumatology in the outpatient Moderate gastritis - IV Protonix 40 mg daily Goals of care: Full code, discussed for >16 minutes on 06/30/2024 Plan discussed with patient Plan discussed with Dr. Garcia Plan discussed with: Patient, Other (RN) My Orders My Orders Orders - DRE HILL Procedure Category Date Status Time Ipratropium Medneb PHA 06/30/24 In Process (Atrovent Medneb) 14:00 Levalbuterol Hcl PHA 06/30/24 In Process (Xopenex Medneb) 11:15 Abdomen Limited US 06/30/24 Resulted 11:14 BIPAP RT 06/30/24 Logged 14:29 CC Plasma Assessment Blood Product Administration S: 1400 Date of Service: Jun 30, 2024 Billing Provider: QUETA GARCIA MD Common Visit Codes: [id number] INP/OBS CARE(HIGH) DRE HILL Jun 30, 2024 16:22 QUETA GARCIA MD Jul 06, 2024 12:50
[2024-06-30] MEDS: HYDROcodone-ACET 10/325MG TAB PO PRN (17:59)
[2024-06-30] MEDS: MORPHINE SULF 15mg ER tab PO SCH (21:05)
--- NOTE | 2024-06-30 22:27 | DVHINCON2 ---
Date of service: Jun 30, 2024 Referring Physician Crystal Nick MD Reason for Consultation Acute on chronic hypoxic respiratory failure, multifocal pneumonia, COPD exacerbation History of Present Illness A 74-year-old woman with PMHx including COPD on home oxygen 2 L, AFib, anemia, CAD, hypertension, type 2 DM, CHF, and breast cancer in remission who presented to ED on 06/29/24 with the chief complaint of worsening shortness of breath since AM of presentation. Patient reported she has been on home oxygen 2 L but today morning she felt severely short of breath, thought she was having asthma exacerbation and family gave nebulizer treatment for 4 hours without relief, prompting visit to ED. Pt was recently treated for acute respiratory distress due to pneumonia, discharged from this facility on 06/24/2024 - currently taking azithromycin. On evaluation in ED, patient was on 6 L O2 at [place], severely short of breath and speaking only few words but no use of accessory muscles noted. Patient denied fever, nausea, vomiting, chest pain, abdominal pain, diaphoresis, or other acute complaints. Patient was admitted for further care and pulmonary consultation is requested for evaluation and management due to the above findings. Review of Systems: 14-point review of systems negative unless otherwise noted above. Past Medical History: AFIB, Anemia, Anxiety, CAD, CHF, COPD, CVA, diabetes mellitus, HLD, HTN, Seizures, Breast cancer in remission Past Surgical History: Cholecystectomy, , Tonsillectomy,Lymph node dissection and mastectomy Medications: Reviewed. Allergies: Lisinopril, penicillins, pentazocine, pineapple, strawberry, TMP SMX, Talwin, tomato. Family History: DM, Hodgkin's disease, heart disease, seizures Social History: Nonsmoker. No alcohol or illicit drug use. Family History: Diabetes mellitus G8 MOTHER G8 FATHER G8 FATHER Diabetes mellitus G8 MOTHER G8 FATHER G8 FATHER FH: Hodgkins disease G8 FATHER G8 FATHER FH: Hodgkins disease G8 FATHER G8 FATHER FH: heart disease G8 MOTHER G8 FATHER FHx: Hodgkin's disease G8 FATHER Family history: Cardiovascular disease G8 MOTHER G8 FATHER Family history: Diabetes mellitus G8 MOTHER G8 FATHER Seizure disorder (situation) G8 SISTER Allergies: Coded Allergies: Penicillins (Verified Allergy, Intermediate, HIVES, 04/22/23) Pineapple (Verified Allergy, Intermediate, 04/22/23) Gobler (Verified Allergy, Intermediate, 04/22/23) Tomato (Verified Allergy, Intermediate, 04/22/23) Lisinopril (Verified Allergy, Unknown, 04/22/23) Pentazocine (Verified Allergy, Unknown, 04/22/23) FROM [place]WIN Sulfamethoxazole w/Trimethoprim (Verified Allergy, Unknown, 04/22/23) Uncoded Allergies: TALWIN (Allergy, Unknown, 03/06/23) Home Meds Active Scripts Levofloxacin Hemihydrate (LEVAQUIN 500 MG) 500 Mg Tab, 1 TAB PO DAILY, #7 TAB Prov:MARA SHAH MD 04/26/23 Apixaban Base (ELIQUIS) 5 Mg Tab, 5 MG PO BID, #180 TAB Prov:MARA SHAH MD 04/26/23 Metoprolol Tartrate (Metoprolol Tartrate) 50 Mg Tab, 50 MG PO TID, #180 TAB Prov:MARA SHAH MD 04/26/23 Sucralfate (CARAFATE) 1 Gm Tab, 1 GM PO QID, #120 TAB 5 Refills Prov:CARINA HDEZ MD 01/30/23 Pantoprazole Sodium Sesquihydr (Protonix) 40 Mg Tab, 40 MG PO DAILY, #30 TAB 5 Refills Prov:CARINA HDEZ MD 01/30/23 Metoprolol Tartrate (LOPRESSOR TABLET) 50 Mg Tb, 50 MG PO TID, #90 TAB 5 Refills Prov:CARINA HDEZ MD 08/06/22 Aspirin (CLIF ASPIRIN EC LOW DOSE) 81 Mg Tab, 1 TAB PO DAILY, #30 TAB Prov:HOMER SAMUELS MD 05/25/20 Reported Medications Metformin Hydrochloride (Metformin Hcl) 850 Mg Tab, 850 MG PO BID 04/22/23 Furosemide (Furosemide) 20 Mg Tab, 20 MG PO DAILY, TAB 04/22/23 Atorvastatin Calcium (ATORVASTATIN CALCIUM) 20 Mg Tab, 20 MG PO DAILY, TAB 04/22/23 Hydrocodone-Acetaminophen (Hydrocodone Bitartrate/AC 10-325 mg) 1 Tab Tab, 1 TAB PO Q8HPRN 01/25/23 Insulin Lispro (Human) (Humalog) 100 Unit/Ml Inj, 10 UNIT SC DAILY, INJ Inject 10 units max subcutaneously daily per sliding scale 01/24/23 Ferrous Sulfate (FERROUS SULFATE) 325 Mg Tb, 325 MG PO DAILY, TAB 01/24/23 Brimonidine Tartrate (Brimonidine Tartrate) 0.2 % Rosaura, 1 DROP OP BID, ML 01/24/23 Albuterol Sulfate (Albuterol Sulfate) 0.083 % Neb, 0.083 % IN TID, INH 01/24/23 Pregabalin (Lyrica) 50 Mg Cap, 50 MG PO, CAP 01/24/23 Insulin Degludec (Tresiba Flextouch) 100 Unit/Ml Inj, 50 UNITS SC QPM 01/24/23 Travoprost (Travatan Z) 0.004 % Pelon, 0.004 % OP QPM, DROP Instill 1 drop to both eyes every evening 01/24/23 Tiotropium [place] Monohydrate (Spiriva Handihaler) 18 Mcg Cap, 18 MCG IN BID, CAP 01/24/23 Morphine Sulfate (Ms Contin) 15 Mg Tab, 1 TAB PO BID, #60 TAB 01/24/23 Colchicine (Colchicine) 0.6 Mg Cap, 1 CAP PO DAILY 05/12/22 Ezetimibe (Ezetimibe) 10 Mg Tab, 1 TAB PO DAILY 05/12/22 Losartan Potassium (Losartan Potassium) 25 Mg Tab, 0.5 TAB PO DAILY 05/12/22 Loratadine (Claritin) 10 Mg Tab, 1 TAB PO DAILY, #30 TAB 5 Refills 12/10/18 Current Medications Current Medications Medications (Trade) Dose Ordered Sig/Theresa Route PRN Reason Start Time Stop Time Status Last Admin Enoxaparin Sodium (Lovenox) 40 mg DAILY SC 06/30/24 10:00 06/29/24 22:21 DC Aspirin (Ecotrin Enteric Coated Tablet) 81 mg DAILY PO 06/30/24 10:00 06/30/24 06:44 DC Atorvastatin Calcium (Lipitor) 20 mg DAILY PO 06/30/24 10:00 06/30/24 10:25 Metoprolol Tartrate (Lopressor Tablet) 25 mg BID PO 06/29/24 22:30 06/30/24 21:05 Losartan Potassium (Cozaar Tablet) 25 mg DAILY PO 06/30/24 10:00 06/30/24 10:25 Vancomycin HCl 250 ml @ 150 mls/hr Q2H IV 06/29/24 22:30 06/29/24 22:28 DC Vancomycin HCl 250 ml @ 150 mls/hr Q2H IV 06/29/24 23:00 06/30/24 02:39 DC 06/30/24 02:56 Insulin Human (Reg)/Sodium Chloride 100 ml @ 0.5 mls/hr Q24H IV 06/30/24 00:30 06/30/24 00:41 DC Diagnostic Test (Pha) (Accu-Chek Comfort Curve T) 1 strip Q90MIN 06/30/24 01:30 06/30/24 02:17 DC Dextrose 50 ml PRN PRN IV BG LESS Than 70 AND CALL MD 06/30/24 00:30 06/30/24 02:12 DC Methylprednisolone Sodium Succinate (Solu Medrol) 40 mg BID IV 06/30/24 10:00 06/30/24 21:04 Ipratropium [place] (Atrovent Medneb) 0.5 mg Q6HR NEB 06/30/24 00:45 06/30/24 11:53 DC 06/30/24 06:01 Levalbuterol HCl (Xopenex Medneb) 1.25 mg Q6HR NEB 06/30/24 06:00 06/30/24 11:51 DC 06/30/24 06:01 Insulin Human (Reg)/Sodium Chloride 100 ml @ 0.5 mls/hr Q24H IV 06/30/24 02:15 06/30/24 06:25 DC 06/30/24 02:56 Diagnostic Test (Pha) (Accu-Chek Comfort Curve T) 1 strip Q90MIN 06/30/24 03:00 06/30/24 06:25 DC 06/30/24 06:05 Dextrose 50 ml PRN PRN IV BG LESS Than 70 AND CALL 06/30/24 02:15 06/30/24 06:25 DC Insulin Glargine (Lantus) 30 units QAM SC 06/30/24 07:00 06/30/24 08:05 Diagnostic Test (Pha) (Accu-Chek Comfort Curve T) 1 strip IQ4HR 06/30/24 08:00 06/30/24 19:54 Insulin Human Regular (InsuLIN R) IQ4HR SC 06/30/24 08:00 06/30/24 19:53 Dextrose 50 ml UD PRN IV Blood Sugar LESS THAN 60 06/30/24 06:45 Ipratropium [place] (Atrovent Medneb) 0.5 mg Q4HR NEB 06/30/24 14:00 06/30/24 19:06 Levalbuterol HCl (Xopenex Medneb) 1.25 mg Q4H NEB 06/30/24 11:15 06/30/24 19:06 Acetaminophen/ Hydrocodone Bitart (Falcon 10/325MG Tab) 1 tab Q8HPRN PRN PO 06/30/24 22:00 06/30/24 17:59 Morphine Sulfate (Oramorph Sustained Release Tab) 15 mg BID PO 06/30/24 22:00 06/30/24 21:05 Throat Lozenges (Cepastat Lozenges) 1 venkat Q2HP PRN MT FOR SORE THROAT 06/30/24 17:30 Pantoprazole Sodium (Protonix) 40 mg DAILY IV 07/01/24 10:00 Budesonide (Pulmicort) 0.5 mg BID NEB 06/30/24 22:00 Vital Signs Vital Signs Date Time Temp Pulse Resp B/P (MAP) Pulse Ox O2 Delivery O2 Flow Rate FiO2 06/30/24 21:05 81 135/46 06/30/24 20:00 97.9 19 91 97.9 06/30/24 18:50 Nasal Cannula 4.0 06/30/24 18:50 36 Physical Exam Gen.: Patient lying in bed in no apparent distress. On supplemental oxygen. Head: Normocephalic, atraumatic. Eyes: EOMI/PERRLA. Ears: Normal hearing. Normal anatomy. Neck/trachea: Trachea midline, supple. Nose: Normal external anatomy. Mouth: Moist mucous membranes. Chest: Decreased air entry bilaterally. No wheezing or rhonchi. Cardiovascular: Positive S1, positive S2. Regular rate and rhythm. Abdomen: Positive bowel sounds in all 4 quadrants. Soft, non-tender, non- distended. : Deferred. Rectal: Deferred. Skin: Warm, dry. Intact. Extremities: 2+ radial pulses bilaterally. No lower extremity edema. Neuro: Awake, alert, oriented x3. No gross motor or sensory deficits. Cranial nerves II through XII intact. Gait not assessed. Labs/Diagnostic Data Labs Test 06/30/24 19:41 06/30/24 08:40 06/30/24 06:45 06/30/24 06:11 Range/Units POC Glucose 270 H 70-106 mg/dl Ammonia < 10 L 11-32 umol/L Urine Color Colorless Yellow Urine Clarity Turbid H Clear Urine pH 5.5 5.0-9.0 Urine Specific Yoder 1.021 1.001-1.035 Urine Protein 1+ H Negative Urine Ketones Negative Negative Urine Blood Trace H Negative /uL Urine Nitrite Negative Negative Urine Bilirubin Negative Negative Urine Urobilinogen Normal Negative mg/dL Urine Leukocyte Esterase 2+ Negative /uL Urine RBC 11 0 - 4 /hpf Urine Microscopic WBC 88 H 0-5 /HPF Urine Squamous Epithelial Cells Few <5 /hpf Urine Bacteria None seen None Seen /hpf Urine Yeast (Budding) Many None Seen /hpf Urine Glucose 4+ H Normal mg/dL Urine Opiates Screen Neg NEGATIVE Urine Fentanyl Screen Neg NEGATIVE Urine Barbiturates Screen Neg NEGATIVE Urine Phencyclidine Screen Neg NEGATIVE Urine Amphetamines Screen Neg NEGATIVE Urine Benzodiazepines Screen Neg NEGATIVE Urine Cocaine Screen Neg NEGATIVE Urine Cannabinoids Screen Neg NEGATIVE White Blood Count 8.8 # 4.4-10.8 10^3/uL Red Blood Count 2.66 L 4.0-5.20 10^6/uL Hemoglobin 8.0 #L 12.2-16.2 g/dL Hematocrit 23.9 #L 36.0-46.0 % Mean Corpuscular Volume 89.7 80.0-100.0 fL Mean Corpuscular Hemoglobin 30.0 28.0-32.0 pg Mean Corpuscular Hemoglobin Concent 33.4 32.0-36.0 g/dL Red Cell Distribution Width 17.3 H 11.8-14.3 % Platelet Count 181 140-450 10^3/uL Mean Platelet Volume 7.2 6.9-10.8 fL Neutrophils (%) (Auto) 85.6 H 37.0-80.0 % Lymphocytes (%) (Auto) 9.4 L 10.0-50.0 % Monocytes (%) (Auto) 3.7 0.0-12.0 % Eosinophils (%) (Auto) 0.0 0.0-7.0 % Basophils (%) (Auto) 1.3 0.0-2.0 % Neutrophils # (Auto) 7.6 1.6-8.6 10 ^3/uL Lymphocytes # (Auto) 0.8 0.4-5.4 10 ^3/uL Monocytes # (Auto) 0.3 0-1.3 10 ^3/uL Eosinophils # (Auto) 0 0-0.8 10 ^3/uL Basophils # (Auto) 0.1 0-0.2 10 ^3/uL Nucleated Red Blood Cells 0.1 % Prothrombin Time 11.1 9.3-11.8 sec Prothrombin Time INR 1.05 0.9-1.15 Activated Partial Thromboplast Time 29.0 24.5-34.5 SEC Sodium Level 138 136-145 mmol/L Potassium Level 3.8 3.5-5.1 mmol/L Chloride Level 103 98-107 mmol/L Carbon Dioxide Level 23 20-31 mmol/L Anion Gap 12 5-15 Blood Urea Nitrogen 44 H 9-23 mg/dL Creatinine 1.78 H 0.550-1.02 mg/dL Glomerular Filtration Rate Calc 30 >90 mL/min BUN/Creatinine Ratio 24.7 H 10.0-20.0 Serum Glucose 309 H 74-106 mg/dL Hemoglobin A1c 7.7 H <5.7 % A1C Calcium Level 9.0 8.7-10.4 mg/dL Phosphorus Level 2.3 L 2.4-5.1 mg/dL Magnesium Level 2.1 1.6-2.6 mg/dL Total Bilirubin 0.5 0.2-1.0 mg/dL Aspartate Amino Transferase (AST) 10 L 13-40 U/L Alanine Aminotransferase (ALT) 20 7-40 U/L Alkaline Phosphatase 71 46-116 U/L Total Protein 6.3 5.7-8.2 g/dL Albumin 3.5 3.2-4.8 g/dL Random Vancomycin Level 24.9 H 5-10 ug/mL Test 06/30/24 02:47 06/29/24 23:21 06/29/24 22:26 06/29/24 17:29 Range/Units Blood Gas Specimen Type Arterial Blood Gas Sample Site Right radial Blood Gas Patient Temperature 37.0 Arterial Blood Date Drawn [id number] Arterial Blood pH 7.463 H 7.350-7.450 Arterial Blood Partial Pressure CO2 32.9 32.0-45.0 mmHg Arterial Blood Partial Pressure O2 60.8 L 83.0-108.0 mmHg Arterial Blood HCO3 23.0 21.0-28.0 mmol/L Arterial Blood Oxygen Saturation 90.9 L 94.0-98.0 % Arterial Blood Base Excess -0.4 -2.0-3.0 mmol/L Arterial Blood Oxyhemoglobin 89.4 L 94.0-98.0 % Arterial Blood Carboxyhemoglobin 1.1 0.5-1.5 % Arterial Blood Methemoglobin 0.6 0.0-1.5 % Juan Test Yes Blood Gas Total Hemoglobin 9.10 L 12.0-16.0 g/dL Blood Gas Liter Flow 4.00 Blood Gas Modality Nasal cannula Blood Gas Spontaneous Rate 22 FiO2 % 36.0 D-Dimer, Quantitative 0.80 H 0.0-0.49 mg/L FEU Reticulocyte Count (auto) 3.37 H 0.5-1.5 % Serum Osmolality 330 H 278-298 mOsm/kg Lactic Acid Level 1.8 0.4-2.0 mmol/L Troponin I High Sensitivity 34 </=34 ng/L Beta-Hydroxybutyric Acid 0.123 < 0.4 mmol/L Thyroid Stimulating Hormone (TSH) 0.28 L 0.55-4.78 uIU/mL Test 06/29/24 16:02 06/29/24 15:30 Range/Units Iron Level 17 L 50-170 ug/dL Total Iron Binding Capacity 170 L 250-425 ug/dL Percent Iron Saturation 10.0 L 15-50 % Ferritin 610.9 H 10-291 ng/mL Lactate Dehydrogenase 436 H 120-246 U/L B-Type Natriuretic Peptide 308.32 0-100 pg/mL Vitamin B12 Level 739 211-911 pg/mL Folic Acid 13.86 >5.38 ng/mL Influenza Type A Antigen Negative Negative Influenza Type B Antigen Negative Negative SARS-CoV-2 Antigen (Rapid) Negative NEGATIVE Microbiology Date/Time Source Procedure Growth Status 06/29/24 16:02 Blood Blood Culture - Preliminary NO GROWTH AFTER 24 HOURS OF INCUBATION. Resulted Assessment Impression: Acute on chronic hypoxic respiratory failure Dependence on supplemental oxygen Multifocal pneumonia, likely gram negative AE COPD Chronic interstitial lung disease Atrial fibrillation Anemia Morbid obesity Plan: Supplemental oxygen Titrate to keep O2 sats above 92%. Continue bronchodilators. Continue IV steroids Continue antibiotics Monitor hemoglobin S/p 2 units PRBC Monitor renal function. Monitor electrolytes. Supplement as necessary. Monitor ins and outs. Diet and lifestyle modifications for weight reduction Morbid obesity - complicates all care DVT prophylaxis. Prognosis: Poor given patient's multiple co-morbidities. Rest of plan per hospitalist and other consultants. Thank you Dr. Nick for allowing me to participate in this patient's care. Further recommendations will depend on the patient's clinical course. Please do not hesitate to contact me if you have any questions or concerns. This medical document was created using an electronic medical record system with [employer] dictation system. Although these documentations are being carefully reviewed, there may still be some phonetic and typographical changes. The errors are purely typographical, due to imperfection on the software program, and do not reflect any compromise in the patient's medical care. Plan discussed with: Patient, Other (RN/Dr. Nick) NICOLE EVANS MD Jun 30, 2024 22:27
[2024-06-30] MEDS: BUDESONIDE (INHALATION) 0.5 MG/2 ML NEB NEB SCH (22:43)
[2024-07-01] VITALS (19 sets, daily range): BP systolic 125–166; BP diastolic 59–84; PULSE 61–103; RESP 14–19; TEMP 97–98.3; O2SAT 82–100
[2024-07-01 07:13] LABS: Basophils # (auto) 0 10 ^3/uL (0-0.2); Basophils % (auto) 0.1 % (0.0-2.0); Eosinophils # (auto) 0 10 ^3/uL (0-0.8); Hematocrit 31.5 % (36.0-46.0); Hemoglobin 10.2 g/dL (12.2-16.2); Lymphocytes # (auto) 0.7 10 ^3/uL (0.4-5.4); Lymphocytes % (auto) 3.1 % (10.0-50.0); Mean Corpuscular Hemoglobin 28.7 pg (28.0-32.0); Mean Corpuscular Hgb Conc. 32.3 g/dL (32.0-36.0); Mean Corpuscular Volume 88.9 fL (80.0-100.0); Monocytes # (auto) 0.5 10 ^3/uL (0-1.3); Neutrophils # (auto) 21.6 10 ^3/uL (1.6-8.6); Neutrophils % (auto) 94.8 % (37.0-80.0); Platelet Count (auto) 189 10^3/uL (140-450); Red Blood Cells 3.55 10^6/uL (4.0-5.20); Red Cell Distribution Width 17.2 % (11.8-14.3); White Blood Cell 22.7 10^3/uL (4.4-10.8)
[2024-07-01 07:19] LABS: Anion Gap 14 (5-15); Carbon Dioxide 23 mmol/L (20-31); Chloride 103 mmol/L (98-107); Potassium 3.7 mmol/L (3.5-5.1); Sodium 140 mmol/L (136-145)
[2024-07-01 07:25] LABS: BUN/Creatinine Ratio 29.9 (10.0-20.0)
[2024-07-01 07:27] LABS: Blood Urea Nitrogen 53 mg/dL (9-23); Glucose 177 mg/dL (74-106)
[2024-07-01] MEDS: PANTOPRAZOLE 40 MG/10 ML VIAL INJ IV SCH (09:16)
[2024-07-01] MEDS: ACETYLCYSTEINE 10 %(100MG/ML) SOL 4ML NEB ONE (10:31)
[2024-07-01] MEDS: VANCOMYCIN 1GM/250ML KIT 250 ML IV ONE (13:18)
[2024-07-01] MEDS: methylPREDNISolone SOD SUCC 40 MG/ML VL IV SCH (17:34)
--- NOTE | 2024-07-01 19:10 | DVHPNRES ---
Progress Note Date Seen: Jul 01, 2024 Resident Creating Document: [facility]RE [facility] RESIDENT Medical Necessity Reason Pt with a Central, PICC or Fol: Yes The following are medically ne: Stallworth Catheter Reason for stallworth catheter: Total Immobilization Subjective Review of Systems Patient is a 74-year-old female with past medical history of COPD on home O2 2 L, history of pulmonary fibrosis with UIP pattern,, CHF, chronic atrial fibrillation, breast cancer s/p lumpectomy, diabetes with diabetic nephropathy, hypothyroidism, dyslipidemia, morbid obesity came to the ED due to shortness of breath. According to the patient, yesterday around 5:30 a.m. she started feeling severe shortness of breaths with coughing spells which she thought was her asthma attack, per patient she took her nebulizer treatment and her home oxygen, however symptoms progressively got worse which is what prompted this visit to the hospital. Of note, patient was admitted in the hospital for pneumonia from 06/20/2024 to 06/24/2024 and 4 respiratory failure from 05/17/2024 to 05/26/2024. Per patient she has been having multiple episodes of cough productive of phlegm with specks of blood. Past surgical history: Breast surgery , C3-7 fusion, L2-S1 fusion, Right kidney biopsy, Left lumpectomy Past Hospitalization: Discharged on 06/24/2024 for pneumonia Social & Personal history: Wheelchair-bound since 1998, quit smoking in April 2024, prior to that 2 cigarettes per day for the last 60 years. Denies using alcohol. Allergies: Lisinopril causes hives, penicillin causes angioedema, TMP SMX Patient seen and examined at bedside. Patient is alert and oriented to time, place person. improved sob, however, increased o2 requirement from 4L to 6L o2 via ns 44%fio2 Objective vital signs Vital Sign Date Time Temp Pulse Resp B/P (MAP) Pulse Ox O2 Delivery O2 Flow Rate FiO2 07/01/24 16:40 97.0 68 18 139/68 (91) 95 97.0 07/01/24 14:06 Nasal Cannula* 6 44 Total Intake and Output 06/30/24 06/30/24 07/01/24 15:00 23:00 07:00 Intake Total 600 ml 0 ml Output Total 600 ml 800 ml Balance 0 ml -800 ml medications Current Medications Medications Dose Ordered Sig/Theresa Route Start Time Stop Time Status Last Admin Dose Admin Sodium Chloride 10 ml Q8HR IV 06/29/24 22:00 07/01/24 14:00 10 ML Acetaminophen 650 mg Q6HP PRN PO 06/29/24 21:30 Nitroglycerin 0.4 mg Q5MINP PRN SL 06/29/24 21:30 Morphine Sulfate 2 mg Q30M PRN IV 06/29/24 21:30 06/30/24 03:59 2 MG Atorvastatin Calcium 20 mg DAILY PO 06/30/24 10:00 07/01/24 09:17 20 MG Vancomycin HCl 0 ml @ 0 mls/hr UD IV 06/29/24 22:15 Metoprolol Tartrate 25 mg BID PO 06/29/24 22:30 07/01/24 09:17 25 MG Losartan Potassium 25 mg DAILY PO 06/30/24 10:00 07/01/24 09:17 25 MG Insulin Glargine 30 units QAM SC 06/30/24 07:00 07/01/24 06:10 30 UNITS Diagnostic Test (Pha) 1 strip IQ4HR 06/30/24 08:00 07/01/24 17:33 1 STRIP Insulin Human Regular IQ4HR SC 06/30/24 08:00 07/01/24 17:54 2 UNITS Dextrose 50 ml UD PRN IV 06/30/24 06:45 Ipratropium Gould 0.5 mg Q4HR NEB 06/30/24 14:00 07/01/24 14:06 0.5 MG Levalbuterol HCl 1.25 mg Q4H NEB 06/30/24 11:15 07/01/24 14:06 1.25 MG Acetaminophen/ Hydrocodone Bitart 1 tab Q8HPRN PRN PO 06/30/24 22:00 06/30/24 17:59 1 TAB Morphine Sulfate 15 mg BID PO 06/30/24 22:00 07/01/24 09:18 15 MG Throat Lozenges 1 venkat Q2HP PRN MT 06/30/24 17:30 Pantoprazole Sodium 40 mg DAILY IV 07/01/24 10:00 07/01/24 09:16 40 MG Budesonide 0.5 mg BID NEB 06/30/24 22:00 07/01/24 06:46 0.5 MG Cefepime HCl 50 ml @ 12.5 mls/hr Q12HR IV 07/01/24 22:00 Diphenhydramine HCl 25 mg Q6HP PRN PO 07/01/24 15:45 Methylprednisolone Sodium Succinate 40 mg Q6HR IV 07/01/24 18:00 07/01/24 17:34 40 MG Mupirocin 1 applic BID EACHNOSTRI 07/01/24 22:00 07/06/24 21:59 Examination General Appearance: Cooperative. Well developed. Well nourished. In moderate distress, is able to only communicate in half sentences due to shortness of breaths Head Exam: Normal inspection Neck Exam: Normal inspection. Non-tender. Normal alignment Pulmonary/Respiratory: Chest non-tender. Clear bilateral breath sounds, no crackles, bilateral wheezing Cardiovascular/Chest: Regular rate and rhythm. No murmurs. No JVD. Peripheral Pulses: 2+ Radial (R). 2+ Radial (L). 2+ Pedal (R). 2+ Pedal (L) Abdominal Exam: Normal bowel sounds. Soft. normal abdomen, no visible veins, Nontender. No hepatospenomegaly. No masses Ankle Exam: 1+ ankle edema Lower extremities: Negative lower extremity edema Neuro/Mental Status: A&O x4. Coherent. Thoughts/Psych: Normal thought pattern. Appropriate mood and affect. Good judgement and insight Skin Exam: Normal inspection. Normal color. Warm. Dry laboratory and microbiology Laboratory Tests 07/01/24 05:53 Test 07/01/24 05:53 Range/Units Serum Glucose 177 H 74-106 mg/dL Microbiology Date/Time Source Procedure Growth Status 06/30/24 11:08 Nose MRSA Screen - Final Methicillin Resistant S.aureus Complete 06/29/24 16:02 Blood Blood Culture - Preliminary NO GROWTH AFTER 48 HOURS OF INCUBATION. Resulted Labs and/or images reviewed: Labs reviewed by me, Image(s) reviewed by me Problem List/Assessment/Plan Problem List/Assessment/Plan Acute on chronic hypoxic respiratory failure Acute COPD exacerbation Acute asthma exacerbation Chronic interstitial pulmonary fibrosis MRSA nares + - CXR: Extensive multifocal airspace disease. Metastasis can not be excluded. CT recommended - chest CT: Multifocal pneumonia superimposed on chronic interstitial pulmonary fibrosis. Mediastinal lymphadenopathy, likely reactive. - lower extremity Doppler: No right or left femoropopliteal venous thrombosis - IV cefepime, IV vancomycin - pulmonology consulted - ipratropium and levalbuterol med nebs - IV methylprednisolone 40 mg increased to q6hr - Pulmicort 0.5 mg b.i.d. - throat lozenges - mupirocin ointment nares WESLY, likely hemodynamically mediated/VMN on CKD 3b - monitor Chronic normocytic anemia - monitor Type 2 diabetes Diabetic nephropathy, biopsy-proven - insulin Lantus 30 units q.a.m. - aggressive sliding scale insulin Chronic systolic heart failure - metoprolol 25 mg b.i.d. - losartan 25 mg p.o. daily - atorvastatin 20 mg p.o. daily - holding aspirin as patient anemic, s/p 1 PRBC Chronic pain - acetaminophen 650 mg for mild pain - Gardner 10 mg Q 8 as needed - morphine extended release 15 mg p.o. b.i.d. Morbid obesity Obstructive sleep apnea on CPAP - CPAP at night Myeloperoxidase antibody positive - patient follows with Rheumatology in the outpatient Moderate gastritis - IV Protonix 40 mg daily Goals of care: Full code, discussed for >16 minutes on 06/30/2024 Plan discussed with patient Plan discussed with Dr. Garcia Plan discussed with: Patient, Other (RN) My Orders My Orders Orders - [facility] RESIDENT Procedure Category Date Status Time Consistent DIET 07/01/24 Transmitted Carb(Ccho)Diabetes Breakfast Diphenhdramine Liquid PHA 07/01/24 In Process (Benadryl Liquid) 15:45 Methylprednisolone PHA 07/01/24 In Process Sod Succ (Solu Medrol 18:00 Mupirocin 2% Oint PHA 07/01/24 In Process Mrsa Nares (Bactroban 22:00 Precautions: Contact PHILLIP 07/01/24 In Process 16:07 CC Plasma Assessment Blood Product Administration S: 1400 Date of Service: Jul 01, 2024 Billing Provider: QUETA GARCIA MD Common Visit Codes: [id number] INP/OBS CARE(HIGH) [facility] RESIDENT Jul 01, 2024 19:10 QUETA GARCIA MD Jul 06, 2024 12:54
[2024-07-01] MEDS: CEFEPIME 1GM/ 50ML 50 ML IV SCH (21:10)
[2024-07-01] MEDS: diphenhdrAMINE HCL 12.5 MG/5 ML UD PO PRN (22:05)
[2024-07-01] MEDS: MUPIROCIN 2% OINT 15gm or 22gm FOR MRSA NARES EACHNOSTRI SCH (22:05)
--- NOTE | 2024-07-01 22:56 | DVHPN2 ---
Progress Note - Dictate Date Seen: Jul 01, 2024 Medical Necessity Reason Pt with a Central, PICC or Fol: Yes The following are medically ne: Stallworth Catheter Reason for stallworth catheter: Strict I&O, Total Immobilization Subjective Patient seen and examined at bedside. Remains on supplemental oxygen Overnight events reviewed. vital signs Vital Sign Date Time Temp Pulse Resp B/P (MAP) Pulse Ox O2 Delivery O2 Flow Rate FiO2 07/01/24 22:30 92 16 98 07/01/24 22:20 Oxymizer 8.0 07/01/24 22:20 N/A 07/01/24 21:01 97.9 166/84 (111) 97.9 Total Intake and Output 06/30/24 06/30/24 07/01/24 15:00 23:00 07:00 Intake Total 600 ml 0 ml Output Total 600 ml 800 ml Balance 0 ml -800 ml medications Current Medications Medications Dose Ordered Sig/Theresa Route Start Time Stop Time Status Last Admin Dose Admin Sodium Chloride 10 ml Q8HR IV 06/29/24 22:00 07/01/24 22:05 10 ML Acetaminophen 650 mg Q6HP PRN PO 06/29/24 21:30 Nitroglycerin 0.4 mg Q5MINP PRN SL 06/29/24 21:30 Morphine Sulfate 2 mg Q30M PRN IV 06/29/24 21:30 06/30/24 03:59 2 MG Atorvastatin Calcium 20 mg DAILY PO 06/30/24 10:00 07/01/24 09:17 20 MG Vancomycin HCl 0 ml @ 0 mls/hr UD IV 06/29/24 22:15 Metoprolol Tartrate 25 mg BID PO 06/29/24 22:30 07/01/24 20:56 25 MG Losartan Potassium 25 mg DAILY PO 06/30/24 10:00 07/01/24 09:17 25 MG Insulin Glargine 30 units QAM SC 06/30/24 07:00 07/01/24 06:10 30 UNITS Diagnostic Test (Pha) 1 strip IQ4HR 06/30/24 08:00 07/01/24 19:50 1 STRIP Insulin Human Regular IQ4HR SC 06/30/24 08:00 07/01/24 19:52 2 UNITS Dextrose 50 ml UD PRN IV 06/30/24 06:45 Ipratropium [place] 0.5 mg Q4HR NEB 06/30/24 14:00 07/01/24 22:20 0.5 MG Levalbuterol HCl 1.25 mg Q4H NEB 06/30/24 11:15 07/01/24 22:21 1.25 MG Acetaminophen/ Hydrocodone Bitart 1 tab Q8HPRN PRN PO 06/30/24 22:00 06/30/24 17:59 1 TAB Morphine Sulfate 15 mg BID PO 06/30/24 22:00 07/01/24 09:18 15 MG Throat Lozenges 1 venkat Q2HP PRN MT 06/30/24 17:30 Pantoprazole Sodium 40 mg DAILY IV 07/01/24 10:00 07/01/24 09:16 40 MG Budesonide 0.5 mg BID NEB 06/30/24 22:00 07/01/24 22:20 0.5 MG Cefepime HCl 50 ml @ 12.5 mls/hr Q12HR IV 07/01/24 22:00 07/01/24 21:10 12.5 MLS/HR Diphenhydramine HCl 25 mg Q6HP PRN PO 07/01/24 15:45 07/01/24 22:05 25 MG Methylprednisolone Sodium Succinate 40 mg Q6HR IV 07/01/24 18:00 07/01/24 17:34 40 MG Mupirocin 1 applic BID EACHNOSTRI 07/01/24 22:00 07/06/24 21:59 07/01/24 22:05 1 APPLIC objective Gen.: Patient lying in bed in no apparent distress. On supplemental oxygen. Head: Normocephalic, atraumatic. Eyes: EOMI/PERRLA. Ears: Normal hearing. Normal anatomy. Neck/trachea: Trachea midline, supple. Nose: Normal external anatomy. Mouth: Moist mucous membranes. Chest: Decreased air entry bilaterally. No wheezing or rhonchi. Cardiovascular: Positive S1, positive S2. Regular rate and rhythm. Abdomen: Positive bowel sounds in all 4 quadrants. Soft, non-tender, non- distended. : Deferred. Rectal: Deferred. Skin: Warm, dry. Intact. Extremities: 2+ radial pulses bilaterally. No lower extremity edema. Neuro: Awake, alert, oriented x3. No gross motor or sensory deficits. Cranial nerves II through XII intact. Gait not assessed. laboratory and microbiology Laboratory Tests 07/01/24 05:53 Test 07/01/24 05:53 Range/Units Serum Glucose 177 H 74-106 mg/dL Assessment/Plan Impression: Acute on chronic hypoxic respiratory failure Dependence on supplemental oxygen Multifocal pneumonia, likely gram negative AE COPD Chronic interstitial lung disease Atrial fibrillation Anemia Morbid obesity Events: Remains on supplemental oxygen, 8 LPM Oxymizer Taper O2 as tolerated Increased O2 requirements Continue steroids - increased frequency to q.6 hours Continue antibiotics - started vancomycin Increased WBC, possibly reactive MRSA positive Labs and imaging reviewed. Rest of plan as noted below. Plan: Supplemental oxygen Titrate to keep O2 sats above 92%. Continue bronchodilators. Continue IV steroids Continue antibiotics Monitor hemoglobin Transfuse if less than 7.0 g/dL. Monitor renal function. Monitor electrolytes. Supplement as necessary. Monitor ins and outs. Diet and lifestyle modifications for weight reduction Morbid obesity - complicates all care DVT prophylaxis. Prognosis: Poor given patient's multiple co-morbidities. Rest of plan per hospitalist and other consultants. Thank you Dr. Nick for allowing me to participate in this patient's care. Further recommendations will depend on the patient's clinical course. Please do not hesitate to contact me if you have any questions or concerns. This medical document was created using an electronic medical record system with [employer] computerized dictation system. Although these documentations are being carefully reviewed, there may still be some phonetic and typographical changes. The errors are purely typographical, due to imperfection on the software program, and do not reflect any compromise in the patient's medical care. Plan discussed with: Patient, Other (JAN Torres) CC Plasma Assessment Blood Product Administration S: 1400 NICOLE EVANS MD Jul 01, 2024 22:56
[2024-07-02] VITALS (21 sets, daily range): BP systolic 123–146; BP diastolic 55–70; PULSE 67–98; RESP 14–21; TEMP 97.5–98.5; O2SAT 90–100
[2024-07-02 07:07] LABS: Hematocrit 32.5 % (36.0-46.0); Hemoglobin 10.4 g/dL (12.2-16.2); Mean Corpuscular Hemoglobin 28.6 pg (28.0-32.0); Mean Corpuscular Volume 89.3 fL (80.0-100.0); Platelet Count (auto) 197 10^3/uL (140-450); Red Blood Cells 3.64 10^6/uL (4.0-5.20); Red Cell Distribution Width 17.5 % (11.8-14.3); White Blood Cell 25.6 10^3/uL (4.4-10.8)
[2024-07-02 07:09] LABS: Basophils % (manual) 0 (0.0-2.0); Blast Cells 0; Eosinophils % (manual) 0 (0-7); Metamyelocytes % 0; Monocytes % (manual) 0 (0-12); Myelocytes % 0; Promyelocytes % 0; Reactive Lymphocytes 0
[2024-07-02 08:02] LABS: Anion Gap 12 (5-15); Carbon Dioxide 23 mmol/L (20-31)
[2024-07-02 08:03] LABS: Calcium 8.9 mg/dL (8.7-10.4)
[2024-07-02 08:08] LABS: BUN/Creatinine Ratio 30.1 (10.0-20.0)
[2024-07-02 08:11] LABS: Blood Urea Nitrogen 53 mg/dL (9-23); Chloride 102 mmol/L (98-107); Glucose 126 mg/dL (74-106); Potassium 4.3 mmol/L (3.5-5.1); Sodium 137 mmol/L (136-145)
[2024-07-02 08:59] LABS: Band Neutrophils % (manual) 1; Lymphocytes % (manual) 3 (10.0-50.0); Platelet Estimate Adequate
--- NOTE | 2024-07-02 09:18 | ECG ---
[facility] Test Date: 2024-07-01 Test Time: 21:28:14 Pat Name: ELZBIETA TAYLOR Department: Respiratoy Room: [facility] B Gender: F [employer] Supervisor: TAYLOR : 1950 Requested By: DRE HILL Order Number: [id number] Reading MD: Henok Alonso Measurements Intervals [place] Rate: 89 P: 63 ME: 139 QRS: -11 QRSD: 88 T: 68 QT: 329 QTc: 401 Interpretive Statements Sinus rhythm Ventricular premature complex Probable left atrial enlargement Minimal ST depression, lateral leads Minimal ST elevation, lateral leads Electronically Signed On 07-04-2024 15:58:21 PST by Henok Alonso Please click the below link to view image of tracing.
[2024-07-02] MEDS: THROAT LOZENGES(CEPASTAT) MT PRN (09:47)
--- NOTE | 2024-07-02 09:50 | DVHPNRES ---
Progress Note Date Seen: Jul 02, 2024 Resident Creating Document: DRE HILL RESIDENT Medical Necessity Reason Pt with a Central, PICC or Fol: Yes The following are medically ne: Stallworth Catheter Reason for stallworth catheter: Strict I&O, Total Immobilization Subjective Review of Systems Patient is a 74-year-old female with past medical history of COPD on home O2 2 L, history of pulmonary fibrosis with UIP pattern,, CHF, chronic atrial fibrillation, breast cancer s/p lumpectomy, diabetes with diabetic nephropathy, hypothyroidism, dyslipidemia, morbid obesity came to the ED due to shortness of breath. According to the patient, yesterday around 5:30 a.m. she started feeling severe shortness of breaths with coughing spells which she thought was her asthma attack, per patient she took her nebulizer treatment and her home oxygen, however symptoms progressively got worse which is what prompted this visit to the hospital. Of note, patient was admitted in the hospital for pneumonia from 06/20/2024 to 06/24/2024 and 4 respiratory failure from 05/17/2024 to 05/26/2024. Per patient she has been having multiple episodes of cough productive of phlegm with specks of blood. Past surgical history: Breast surgery , C3-7 fusion, L2-S1 fusion, Right kidney biopsy, Left lumpectomy Past Hospitalization: Discharged on 06/24/2024 for pneumonia Social & Personal history: Wheelchair-bound since 1998, quit smoking in April 2024, prior to that 2 cigarettes per day for the last 60 years. Denies using alcohol. Allergies: Lisinopril causes hives, penicillin causes angioedema, TMP SMX Patient seen and examined at bedside. Patient is alert and oriented to time, place person. improved sob, however, increased o2 requirement from 6L o2 via nc 44%fio2 to 8l oxymizer Objective vital signs Vital Sign Date Time Temp Pulse Resp B/P (MAP) Pulse Ox O2 Delivery O2 Flow Rate FiO2 07/02/24 09:46 130/64 07/02/24 09:46 90 07/02/24 09:00 98.4 21 90 98.4 07/02/24 06:45 Oxymizer 10 N/A Total Intake and Output 07/01/24 07/01/24 07/02/24 15:00 23:00 07:00 Intake Total 300 ml 1600 ml 1650 ml Output Total 800 ml 900 ml Balance 300 ml 800 ml 750 ml medications Current Medications Medications Dose Ordered Sig/Theresa Route Start Time Stop Time Status Last Admin Dose Admin Sodium Chloride 10 ml Q8HR IV 06/29/24 22:00 07/02/24 05:37 10 ML Acetaminophen 650 mg Q6HP PRN PO 06/29/24 21:30 Nitroglycerin 0.4 mg Q5MINP PRN SL 06/29/24 21:30 Morphine Sulfate 2 mg Q30M PRN IV 06/29/24 21:30 06/30/24 03:59 2 MG Atorvastatin Calcium 20 mg DAILY PO 06/30/24 10:00 07/02/24 09:46 20 MG Vancomycin HCl 0 ml @ 0 mls/hr UD IV 06/29/24 22:15 Metoprolol Tartrate 25 mg BID PO 06/29/24 22:30 07/02/24 09:46 25 MG Losartan Potassium 25 mg DAILY PO 06/30/24 10:00 07/02/24 09:46 25 MG Insulin Glargine 30 units QAM SC 06/30/24 07:00 07/02/24 06:52 30 UNITS Diagnostic Test (Pha) 1 strip IQ4HR 06/30/24 08:00 07/02/24 08:00 1 STRIP Insulin Human Regular IQ4HR SC 06/30/24 08:00 07/02/24 04:17 2 UNITS Dextrose 50 ml UD PRN IV 06/30/24 06:45 Ipratropium [place] 0.5 mg Q4HR NEB 06/30/24 14:00 07/02/24 06:45 0.5 MG Levalbuterol HCl 1.25 mg Q4H NEB 06/30/24 11:15 07/02/24 06:45 1.25 MG Acetaminophen/ Hydrocodone Bitart 1 tab Q8HPRN PRN PO 06/30/24 22:00 06/30/24 17:59 1 TAB Morphine Sulfate 15 mg BID PO 06/30/24 22:00 07/01/24 09:18 15 MG Throat Lozenges 1 emelina Q2HP PRN MT 06/30/24 17:30 07/02/24 09:47 1 EMELINA Pantoprazole Sodium 40 mg DAILY IV 07/01/24 10:00 07/02/24 09:46 40 MG Budesonide 0.5 mg BID NEB 06/30/24 22:00 07/02/24 06:45 0.5 MG Cefepime HCl 50 ml @ 12.5 mls/hr Q12HR IV 07/01/24 22:00 07/01/24 21:10 12.5 MLS/HR Diphenhydramine HCl 25 mg Q6HP PRN PO 07/01/24 15:45 07/01/24 22:05 25 MG Methylprednisolone Sodium Succinate 40 mg Q6HR IV 07/01/24 18:00 07/02/24 05:37 40 MG Mupirocin 1 applic BID EACHNOSTRI 07/01/24 22:00 07/06/24 21:59 07/01/24 22:05 1 APPLIC Examination General Appearance: Cooperative. Well developed. Well nourished. In moderate distress, is able to only communicate in half sentences due to shortness of breaths Head Exam: Normal inspection Neck Exam: Normal inspection. Non-tender. Normal alignment Pulmonary/Respiratory: Chest non-tender. Clear bilateral breath sounds, no crackles, bilateral wheezing Cardiovascular/Chest: Regular rate and rhythm. No murmurs. No JVD. Peripheral Pulses: 2+ Radial (R). 2+ Radial (L). 2+ Pedal (R). 2+ Pedal (L) Abdominal Exam: Normal bowel sounds. Soft. normal abdomen, no visible veins, Nontender. No hepatospenomegaly. No masses Ankle Exam: 1+ ankle edema Lower extremities: Negative lower extremity edema Neuro/Mental Status: A&O x4. Coherent. Thoughts/Psych: Normal thought pattern. Appropriate mood and affect. Good judgement and insight Skin Exam: Normal inspection. Normal color. Warm. Dry laboratory and microbiology Laboratory Tests 07/02/24 05:53 Test 07/02/24 05:53 Range/Units Serum Glucose 126 H 74-106 mg/dL Microbiology Date/Time Source Procedure Growth Status 06/30/24 11:08 Nose MRSA Screen - Final Methicillin Resistant S.aureus Complete 06/29/24 16:02 Blood Blood Culture - Preliminary NO GROWTH AFTER 48 HOURS OF INCUBATION. Resulted Labs and/or images reviewed: Labs reviewed by me, Image(s) reviewed by me Problem List/Assessment/Plan Problem List/Assessment/Plan Acute on chronic hypoxic respiratory failure Acute COPD exacerbation Acute asthma exacerbation Chronic interstitial pulmonary fibrosis MRSA nares + - CXR: Extensive multifocal airspace disease. Metastasis can not be excluded. CT recommended - chest CT: Multifocal pneumonia superimposed on chronic interstitial pulmonary fibrosis. Mediastinal lymphadenopathy, likely reactive. - lower extremity Doppler: No right or left femoropopliteal venous thrombosis - IV cefepime, IV vancomycin - pulmonology consulted - ipratropium and levalbuterol med nebs - IV methylprednisolone 40 mg increased to q6hr - Pulmicort 0.5 mg b.i.d. - throat lozenges - mupirocin ointment nares - ordered CTAP WESLY, likely hemodynamically mediated/VMN on CKD 3b - monitor Chronic normocytic anemia - monitor Type 2 diabetes Diabetic nephropathy, biopsy-proven - insulin Lantus 30 units q.a.m. - aggressive sliding scale insulin Chronic systolic heart failure - metoprolol 25 mg b.i.d. - losartan 25 mg p.o. daily - atorvastatin 20 mg p.o. daily - holding aspirin as patient anemic, s/p 1 PRBC Chronic pain - acetaminophen 650 mg for mild pain - [place] 10 mg Q 8 as needed - morphine extended release 15 mg p.o. b.i.d. Morbid obesity Obstructive sleep apnea on CPAP - CPAP at night Myeloperoxidase antibody positive - patient follows with Rheumatology in the outpatient Moderate gastritis - IV Protonix 40 mg daily Goals of care: Full code, discussed for >16 minutes on 06/30/2024 Plan discussed with patient Plan discussed with Dr. Garcia Plan discussed with: Patient, Other (RN) My Orders My Orders Orders - DRE HILL Procedure Category Date Status Time Diphenhdramine Liquid PHA 07/01/24 In Process (Benadryl Liquid) 15:45 Methylprednisolone PHA 07/01/24 In Process Sod Succ (Solu Medrol 18:00 Mupirocin 2% Oint PHA 07/01/24 In Process Mrsa Nares (Bactroban 22:00 Precautions: Contact PHILLIP 07/01/24 In Process 16:07 CC Plasma Assessment Blood Product Administration S: 1400 Date of Service: Jul 02, 2024 Billing Provider: QUETA GARCIA MD Common Visit Codes: [id number] INP/OBS CARE(HIGH) DRE HILL Jul 02, 2024 09:50 QUETA GARCIA MD Jul 06, 2024 12:55
--- NOTE | 2024-07-02 12:31 | DVH ---
CHEST RADIOGRAPH Indication: Increased SOB Technique: Single frontal view of the chest was obtained Comparison: XY CHEST PORTABLE on DOS: 06/29/24, XY CHEST PORTABLE on DOS: 04/22/23, XY CHEST PORTABLE on DOS: 08/03/22, CXR1 on DOS: 05/19/22, CHEST XRAY 1 VIEW on DOS: 05/19/22, XY CHEST PORTABLE on DOS: FINDINGS: Lines and Tubes: Right chest port tip in the cavoatrial junction Lungs: Extensive multifocal airspace disease. Pleura: No effusion. No pneumothorax. Cardiomediastinal contours: Unremarkable Bones: No acute osseous abnormality. IMPRESSION: Extensive multifocal airspace disease.
--- NOTE | 2024-07-02 17:16 | DVH ---
Exam: CT CT AB PEL WO CON-NO ORAL OR IV History: right sided abdominal pain Comparison Study: CT CT AB PEL WO CON-NO ORAL OR IV on DOS: 08/03/22, ECIDC on DOS: 05/21/22, CT ABD PE LVIS WO CONTRAST on DOS: 02/22/22 TECHNIQUE: Multidetector CT of the abdomen and pelvis was performed from lung bases to pubic symphysi s. Imaging was performed without IV contrast. Axial, coronal, and sagittal multiplanar reformats were obtained from the axial data set by the technologist. RADIATION DOSE: DLP 1256.11 mGy.cm; CTDI vol 25.44 mGy. Findings: Limited evaluation given noncontrast technique. Lungs: Centrilobular emphysema with multifocal consolidations. Heart: No cardiomegaly or pericardial effusion. Liver: Unremarkable. Gallbladder: Unremarkable. Spleen: Unremarkable Pancreas: Unremarkable Adrenals: Unremarkable Kidneys: Unremarkable GI tract: Unremarkable : The urinary bladder is decompressed via Acevedo catheter. Vasculature: Moderate aortoiliac atherosclerosis. Lymphadenopathy: Absent Peritoneum: No ascites Musculoskeletal: Severe multilevel degenerative changes of the thoracolumbar spine. Posterior fusion of L4 and L5. Soft tissues: Mild anasarca Impression: 1. Limited evaluation given noncontrast technique. 2. No definite acute abdominopelvic abnormalities. 3. Centrilobular emphysema with multifocal consolidations, favored an infectious/inflammatory etiolog y.
[2024-07-02] MEDS: LACTULOSE 20Gm/30ML SOLN PO ONE (18:50)
[2024-07-02] MEDS: VANCOMYCIN 750MG KIT 100 ML IV ONE (18:51)
--- NOTE | 2024-07-02 22:45 | DVHPN2 ---
Progress Note - Dictate Date Seen: Jul 02, 2024 Medical Necessity Reason Pt with a Central, PICC or Fol: Yes The following are medically ne: Stallworth Catheter Reason for stallworth catheter: Strict I&O, Total Immobilization Subjective Patient seen and examined at bedside. Remains on supplemental oxygen Overnight events reviewed. vital signs Vital Sign Date Time Temp Pulse Resp B/P (MAP) Pulse Ox O2 Delivery O2 Flow Rate FiO2 07/02/24 22:15 85 16 97 07/02/24 22:09 Oxymizer 8 N/A 07/02/24 21:53 123/60 07/02/24 21:00 97.5 97.5 Total Intake and Output 07/01/24 07/01/24 07/02/24 15:00 23:00 07:00 Intake Total 300 ml 1600 ml 1650 ml Output Total 800 ml 900 ml Balance 300 ml 800 ml 750 ml medications Current Medications Medications Dose Ordered Sig/Theresa Route Start Time Stop Time Status Last Admin Dose Admin Sodium Chloride 10 ml Q8HR IV 06/29/24 22:00 07/02/24 21:53 10 ML Acetaminophen 650 mg Q6HP PRN PO 06/29/24 21:30 Nitroglycerin 0.4 mg Q5MINP PRN SL 06/29/24 21:30 Morphine Sulfate 2 mg Q30M PRN IV 06/29/24 21:30 06/30/24 03:59 2 MG Atorvastatin Calcium 20 mg DAILY PO 06/30/24 10:00 07/02/24 09:46 20 MG Vancomycin HCl 0 ml @ 0 mls/hr UD IV 06/29/24 22:15 Metoprolol Tartrate 25 mg BID PO 06/29/24 22:30 07/02/24 21:53 25 MG Losartan Potassium 25 mg DAILY PO 06/30/24 10:00 07/02/24 09:46 25 MG Insulin Glargine 30 units QAM SC 06/30/24 07:00 07/02/24 06:52 30 UNITS Diagnostic Test (Pha) 1 strip IQ4HR 06/30/24 08:00 07/02/24 20:00 1 STRIP Insulin Human Regular IQ4HR SC 06/30/24 08:00 07/02/24 20:31 4 UNITS Dextrose 50 ml UD PRN IV 06/30/24 06:45 Ipratropium [place] 0.5 mg Q4HR NEB 06/30/24 14:00 07/02/24 22:09 0.5 MG Levalbuterol HCl 1.25 mg Q4H NEB 06/30/24 11:15 07/02/24 22:09 1.25 MG Acetaminophen/ Hydrocodone Bitart 1 tab Q8HPRN PRN PO 06/30/24 22:00 06/30/24 17:59 1 TAB Morphine Sulfate 15 mg BID PO 06/30/24 22:00 07/02/24 21:53 15 MG Pantoprazole Sodium 40 mg DAILY IV 07/01/24 10:00 07/02/24 09:46 40 MG Budesonide 0.5 mg BID NEB 06/30/24 22:00 07/02/24 19:28 0.5 MG Cefepime HCl 50 ml @ 12.5 mls/hr Q12HR IV 07/01/24 22:00 07/02/24 21:52 12.5 MLS/HR Diphenhydramine HCl 25 mg Q6HP PRN PO 07/01/24 15:45 07/02/24 21:52 25 MG Methylprednisolone Sodium Succinate 40 mg Q6HR IV 07/01/24 18:00 07/02/24 18:51 40 MG Mupirocin 1 applic BID EACHNOSTRI 07/01/24 22:00 07/06/24 21:59 07/02/24 21:51 1 APPLIC Throat Lozenges 1 venkat Q2HP PRN MT 07/02/24 12:00 objective Gen.: Patient lying in bed in no apparent distress. On supplemental oxygen. Head: Normocephalic, atraumatic. Eyes: EOMI/PERRLA. Ears: Normal hearing. Normal anatomy. Neck/trachea: Trachea midline, supple. Nose: Normal external anatomy. Mouth: Moist mucous membranes. Chest: Decreased air entry bilaterally. No wheezing or rhonchi. Cardiovascular: Positive S1, positive S2. Regular rate and rhythm. Abdomen: Positive bowel sounds in all 4 quadrants. Soft, non-tender, non- distended. : Deferred. Rectal: Deferred. Skin: Warm, dry. Intact. Extremities: 2+ radial pulses bilaterally. No lower extremity edema. Neuro: Awake, alert, oriented x3. No gross motor or sensory deficits. Cranial nerves II through XII intact. Gait not assessed. laboratory and microbiology Laboratory Tests 07/02/24 11:23 07/02/24 05:53 Test 07/02/24 05:53 Range/Units Serum Glucose 126 H 74-106 mg/dL Assessment/Plan Impression: Acute on chronic hypoxic respiratory failure Dependence on supplemental oxygen Multifocal pneumonia, likely gram negative AE COPD Chronic interstitial lung disease Atrial fibrillation Anemia Morbid obesity Events: Patient developed increased work of breathing/SOB during towel bath. Improved now on 8 LPM Oxymizer Taper O2 as tolerated Continue bronchodilators Continue steroids Continue antibiotics Increased WBC - 25.6 K, possibly reactive CXR reviewed, notable for extensive multifocal opacities and emphysema CT abdomen and pelvis shows multifocal consolidation Labs and imaging reviewed. Rest of plan as noted below. Plan: Supplemental oxygen Titrate to keep O2 sats above 92%. Continue bronchodilators. Continue IV steroids Continue antibiotics MRSA positive Monitor hemoglobin Transfuse if less than 7.0 g/dL. Monitor renal function. Monitor electrolytes. Supplement as necessary. Monitor ins and outs. Diet and lifestyle modifications for weight reduction Morbid obesity - complicates all care DVT prophylaxis. Prognosis: Guarded given patient's multiple co-morbidities. Rest of plan per hospitalist and other consultants. Thank you Dr. Nick for allowing me to participate in this patient's care. Further recommendations will depend on the patient's clinical course. Please do not hesitate to contact me if you have any questions or concerns. This medical document was created using an electronic medical record system with [employer] dictation system. Although these documentations are being carefully reviewed, there may still be some phonetic and typographical changes. The errors are purely typographical, due to imperfection on the software program, and do not reflect any compromise in the patient's medical care. Plan discussed with: Patient, Other (JAN Amaya) CC Plasma Assessment Blood Product Administration S: 1400 NICOLE EVANS MD Jul 02, 2024 22:45
[2024-07-03] VITALS (20 sets, daily range): BP systolic 110–146; BP diastolic 56–66; PULSE 67–101; RESP 16–30; TEMP 97.1–97.9; O2SAT 88–100
[2024-07-03 06:44] LABS: Hematocrit 30.9 % (36.0-46.0); Hemoglobin 9.9 g/dL (12.2-16.2); Mean Corpuscular Hemoglobin 28.5 pg (28.0-32.0); Mean Corpuscular Volume 89.2 fL (80.0-100.0); Platelet Count (auto) 154 10^3/uL (140-450); Red Blood Cells 3.47 10^6/uL (4.0-5.20); Red Cell Distribution Width 17.6 % (11.8-14.3); White Blood Cell 18.9 10^3/uL (4.4-10.8)
[2024-07-03 07:05] LABS: Band Neutrophils % (manual) 0; Basophils % (manual) 0 (0.0-2.0); Blast Cells 0; Eosinophils % (manual) 0 (0-7); Metamyelocytes % 0; Myelocytes % 0; Promyelocytes % 0; Reactive Lymphocytes 0
[2024-07-03 07:21] LABS: Anion Gap 11 (5-15); Calcium 8.9 mg/dL (8.7-10.4); Carbon Dioxide 24 mmol/L (20-31); Chloride 102 mmol/L (98-107); Potassium 4.4 mmol/L (3.5-5.1); Sodium 137 mmol/L (136-145)
[2024-07-03 07:27] LABS: BUN/Creatinine Ratio 31.9 (10.0-20.0); Glucose 105 mg/dL (74-106)
[2024-07-03 07:31] LABS: Blood Urea Nitrogen 58 mg/dL (9-23)
[2024-07-03 08:26] LABS: Lymphocytes % (manual) 2 (10.0-50.0); Monocytes % (manual) 2 (0-12); Platelet Estimate Adequate
[2024-07-03] MEDS: THROAT LOZENGES(CEPASTAT) MT PRN (12:28)
[2024-07-03] MEDS: ENOXAPARIN SOD 100 MG/1 ML SYRINGE SC ONE (13:34)
--- NOTE | 2024-07-03 13:51 | DVH ---
INDICATION: RESPIRATORY DISTRESS TECHNIQUE: Single frontal view of the chest was obtained COMPARISON: XY CHEST XRAY 1 VIEW on DOS: 07/02/24, XY CHEST PORTABLE on DOS: 06/29/24, XY CHEST PORTABL E on DOS: 04/22/23, XY CHEST PORTABLE on DOS: 08/03/22, CXR1 on DOS: 05/19/22, XY CHEST XRAY 1 VIEW on DOS: 07/02/24 FINDINGS: Lines and Tubes: Right chest port tip in the cavoatrial junction Lungs: Extensive multifocal airspace disease. Pleura: No effusion. No pneumothorax. Cardiomediastinal contours: Unremarkable Bones: No acute osseous abnormality. IMPRESSION: Extensive multifocal airspace disease.
--- NOTE | 2024-07-03 18:04 | DVHPNRES ---
Progress Note Date Seen: Jul 05, 2024 Resident Creating Document: DRE HILL RESIDENT Medical Necessity Reason Pt with a Central, PICC or Fol: Yes The following are medically ne: Stallworth Catheter Reason for stallworth catheter: Strict I&O, Total Immobilization Subjective Review of Systems Patient is a 74-year-old female with past medical history of COPD on home O2 2 L, history of pulmonary fibrosis with UIP pattern,, CHF, chronic atrial fibrillation, breast cancer s/p lumpectomy, diabetes with diabetic nephropathy, hypothyroidism, dyslipidemia, morbid obesity came to the ED due to shortness of breath. According to the patient, yesterday around 5:30 a.m. she started feeling severe shortness of breaths with coughing spells which she thought was her asthma attack, per patient she took her nebulizer treatment and her home oxygen, however symptoms progressively got worse which is what prompted this visit to the hospital. Of note, patient was admitted in the hospital for pneumonia from 06/20/2024 to 06/24/2024 and 4 respiratory failure from 05/17/2024 to 05/26/2024. Per patient she has been having multiple episodes of cough productive of phlegm with specks of blood. Past surgical history: Breast surgery , C3-7 fusion, L2-S1 fusion, Right kidney biopsy, Left lumpectomy Past Hospitalization: Discharged on 06/24/2024 for pneumonia Social & Personal history: Wheelchair-bound since 1998, quit smoking in April 2024, prior to that 2 cigarettes per day for the last 60 years. Denies using alcohol. Allergies: Lisinopril causes hives, penicillin causes angioedema, TMP SMX Patient seen and examined at bedside. Patient is alert and oriented to time, place person. improved sob, however, increased o2 requirement from 6L o2 via nc 44%fio2 to 8l oxymizer. Patient had a choking episode while eating rice, a code assist was called, however, patient recovered shortly thereafter. Objective vital signs Vital Sign Date Time Temp Pulse Resp B/P (MAP) Pulse Ox O2 Delivery O2 Flow Rate FiO2 07/03/24 17:00 97.1 78 24 110/56 (74) 90 97.1 07/03/24 14:03 Oxymizer 8 N/A Total Intake and Output 07/02/24 07/02/24 07/03/24 15:00 23:00 07:00 Intake Total 50 ml 520 ml 950 ml Output Total 550 ml 550 ml Balance 50 ml -30 ml 400 ml medications Current Medications Medications Dose Ordered Sig/Theresa Route Start Time Stop Time Status Last Admin Dose Admin Sodium Chloride 10 ml Q8HR IV 06/29/24 22:00 07/03/24 12:27 10 ML Acetaminophen 650 mg Q6HP PRN PO 06/29/24 21:30 Nitroglycerin 0.4 mg Q5MINP PRN SL 06/29/24 21:30 Morphine Sulfate 2 mg Q30M PRN IV 06/29/24 21:30 06/30/24 03:59 2 MG Atorvastatin Calcium 20 mg DAILY PO 06/30/24 10:00 07/03/24 09:39 20 MG Vancomycin HCl 0 ml @ 0 mls/hr UD IV 06/29/24 22:15 Metoprolol Tartrate 25 mg BID PO 06/29/24 22:30 07/03/24 09:40 25 MG Losartan Potassium 25 mg DAILY PO 06/30/24 10:00 07/03/24 09:39 25 MG Insulin Glargine 30 units QAM SC 06/30/24 07:00 07/03/24 06:07 30 UNITS Diagnostic Test (Pha) 1 strip IQ4HR 06/30/24 08:00 07/03/24 16:43 1 STRIP Insulin Human Regular IQ4HR SC 06/30/24 08:00 07/03/24 08:40 2 UNITS Dextrose 50 ml UD PRN IV 06/30/24 06:45 Ipratropium [place] 0.5 mg Q4HR NEB 06/30/24 14:00 07/03/24 14:03 0.5 MG Levalbuterol HCl 1.25 mg Q4H NEB 06/30/24 11:15 07/03/24 14:03 1.25 MG Acetaminophen/ Hydrocodone Bitart 1 tab Q8HPRN PRN PO 06/30/24 22:00 06/30/24 17:59 1 TAB Morphine Sulfate 15 mg BID PO 06/30/24 22:00 07/03/24 09:39 15 MG Pantoprazole Sodium 40 mg DAILY IV 07/01/24 10:00 07/03/24 09:38 40 MG Budesonide 0.5 mg BID NEB 06/30/24 22:00 07/03/24 06:54 0.5 MG Cefepime HCl 50 ml @ 12.5 mls/hr Q12HR IV 07/01/24 22:00 07/03/24 09:38 12.5 MLS/HR Diphenhydramine HCl 25 mg Q6HP PRN PO 07/01/24 15:45 07/03/24 09:46 25 MG Mupirocin 1 applic BID EACHNOSTRI 07/01/24 22:00 07/06/24 21:59 07/03/24 09:40 1 APPLIC Throat Lozenges 1 emelina Q2HP PRN MT 07/02/24 12:00 07/03/24 12:28 1 EMELINA Methylprednisolone Sodium Succinate 40 mg Q8HR IV 07/03/24 19:00 UNV Examination General Appearance: Cooperative. Well developed. Well nourished. In moderate distress, is able to only communicate in half sentences due to shortness of breaths Head Exam: Normal inspection Neck Exam: Normal inspection. Non-tender. Normal alignment Pulmonary/Respiratory: Chest non-tender. Clear bilateral breath sounds, no crackles, bilateral wheezing Cardiovascular/Chest: Regular rate and rhythm. No murmurs. No JVD. Peripheral Pulses: 2+ Radial (R). 2+ Radial (L). 2+ Pedal (R). 2+ Pedal (L) Abdominal Exam: Normal bowel sounds. Soft. normal abdomen, no visible veins, Nontender. No hepatospenomegaly. No masses Ankle Exam: 1+ ankle edema Lower extremities: Negative lower extremity edema Neuro/Mental Status: A&O x4. Coherent. Thoughts/Psych: Normal thought pattern. Appropriate mood and affect. Good judgement and insight Skin Exam: Normal inspection. Normal color. Warm. Dry laboratory and microbiology Laboratory Tests 07/03/24 06:15 Test 07/03/24 06:15 Range/Units Serum Glucose 105 74-106 mg/dL Microbiology Date/Time Source Procedure Growth Status 06/30/24 11:08 Nose MRSA Screen - Final Methicillin Resistant S.aureus Complete 06/29/24 16:02 Blood Blood Culture - Preliminary NO GROWTH AFTER 72 HOURS OF INCUBATION. Resulted Labs and/or images reviewed: Labs reviewed by me, Image(s) reviewed by me Problem List/Assessment/Plan Problem List/Assessment/Plan Acute on chronic hypoxic respiratory failure Acute COPD exacerbation Acute asthma exacerbation Chronic interstitial pulmonary fibrosis MRSA nares + - CXR: Extensive multifocal airspace disease. Metastasis can not be excluded. CT recommended - chest CT: Multifocal pneumonia superimposed on chronic interstitial pulmonary fibrosis. Mediastinal lymphadenopathy, likely reactive. - lower extremity Doppler: No right or left femoropopliteal venous thrombosis - IV cefepime, IV vancomycin - pulmonology consulted - ipratropium and levalbuterol med nebs - IV methylprednisolone 40 mg decreased to Q 8 hours - Pulmicort 0.5 mg b.i.d. - throat lozenges - mupirocin ointment nares - ordered CTAP WESLY, likely hemodynamically mediated/VMN on CKD 3b - monitor Chronic normocytic anemia - monitor Type 2 diabetes Diabetic nephropathy, biopsy-proven - insulin Lantus 30 units q.a.m. - aggressive sliding scale insulin Chronic systolic heart failure - metoprolol 25 mg b.i.d. - losartan 25 mg p.o. daily - atorvastatin 20 mg p.o. daily - holding aspirin as patient anemic, s/p 1 PRBC Chronic pain - acetaminophen 650 mg for mild pain - [place] 10 mg Q 8 as needed - morphine extended release 15 mg p.o. b.i.d. Morbid obesity Obstructive sleep apnea on CPAP - CPAP at night Myeloperoxidase antibody positive - patient follows with Rheumatology in the outpatient Moderate gastritis - IV Protonix 40 mg daily Goals of care: Full code, discussed for >16 minutes on 06/30/2024 Plan discussed with patient Plan discussed with Dr. Garcia Plan discussed with: Patient, Other (RN) My Orders My Orders Orders - DRE HILL RESIDENT Procedure Category Date Status Time Chest Portable XY 07/03/24 Resulted 12:45 Full Liq Diet DIET 07/03/24 Transmitted Dinner Methylprednisolone PHA 07/03/24 Logged Sod Succ (Solu Medrol 19:00 CC Plasma Assessment Blood Product Administration S: 1400 Date of Service: Jul 04, 2024 Billing Provider: QUETA GARCIA MD Common Visit Codes: [id number] INP/OBS CARE(HIGH) DRE HILL Jul 03, 2024 18:04 QUETA GARCIA MD Jul 06, 2024 12:58
[2024-07-03] MEDS ORDERED: methylPREDNISolone SOD SUCC 40 MG/ML VL IV SCH (19:00)
[2024-07-03] MEDS: methylPREDNISolone SOD SUCC 40 MG/ML VL IV SCH (20:07)
--- NOTE | 2024-07-03 23:14 | DVHPN2 ---
Progress Note - Dictate Date Seen: Jul 03, 2024 Medical Necessity Reason Pt with a Central, PICC or Fol: Yes The following are medically ne: Stallworth Catheter Reason for stallworth catheter: Strict I&O, Total Immobilization Subjective Patient seen and examined at bedside. Remains on supplemental oxygen Overnight events reviewed. vital signs Vital Sign Date Time Temp Pulse Resp B/P (MAP) Pulse Ox O2 Delivery O2 Flow Rate FiO2 07/03/24 22:32 95 18 89 07/03/24 22:22 Oxymizer 8 N/A 07/03/24 21:16 138/60 07/03/24 17:00 97.1 97.1 Total Intake and Output 07/02/24 07/02/24 07/03/24 15:00 23:00 07:00 Intake Total 50 ml 520 ml 950 ml Output Total 550 ml 550 ml Balance 50 ml -30 ml 400 ml medications Current Medications Medications Dose Ordered Sig/Theresa Route Start Time Stop Time Status Last Admin Dose Admin Sodium Chloride 10 ml Q8HR IV 06/29/24 22:00 07/03/24 21:16 10 ML Acetaminophen 650 mg Q6HP PRN PO 06/29/24 21:30 Nitroglycerin 0.4 mg Q5MINP PRN SL 06/29/24 21:30 Morphine Sulfate 2 mg Q30M PRN IV 06/29/24 21:30 06/30/24 03:59 2 MG Atorvastatin Calcium 20 mg DAILY PO 06/30/24 10:00 07/03/24 09:39 20 MG Vancomycin HCl 0 ml @ 0 mls/hr UD IV 06/29/24 22:15 Metoprolol Tartrate 25 mg BID PO 06/29/24 22:30 07/03/24 21:16 25 MG Losartan Potassium 25 mg DAILY PO 06/30/24 10:00 07/03/24 09:39 25 MG Insulin Glargine 30 units QAM SC 06/30/24 07:00 07/03/24 06:07 30 UNITS Diagnostic Test (Pha) 1 strip IQ4HR 06/30/24 08:00 07/03/24 20:08 1 STRIP Insulin Human Regular IQ4HR SC 06/30/24 08:00 07/03/24 20:07 2 UNITS Dextrose 50 ml UD PRN IV 06/30/24 06:45 Ipratropium [place] 0.5 mg Q4HR NEB 06/30/24 14:00 07/03/24 22:22 0.5 MG Levalbuterol HCl 1.25 mg Q4H NEB 06/30/24 11:15 07/03/24 22:22 1.25 MG Acetaminophen/ Hydrocodone Bitart 1 tab Q8HPRN PRN PO 06/30/24 22:00 06/30/24 17:59 1 TAB Morphine Sulfate 15 mg BID PO 06/30/24 22:00 07/03/24 21:15 15 MG Pantoprazole Sodium 40 mg DAILY IV 07/01/24 10:00 07/03/24 09:38 40 MG Budesonide 0.5 mg BID NEB 06/30/24 22:00 07/03/24 22:22 0.5 MG Cefepime HCl 50 ml @ 12.5 mls/hr Q12HR IV 07/01/24 22:00 07/03/24 21:16 12.5 MLS/HR Diphenhydramine HCl 25 mg Q6HP PRN PO 07/01/24 15:45 07/03/24 21:33 25 MG Mupirocin 1 applic BID EACHNOSTRI 07/01/24 22:00 07/06/24 21:59 07/03/24 21:16 1 APPLIC Throat Lozenges 1 emelina Q2HP PRN MT 07/02/24 12:00 07/03/24 12:28 1 EMELINA Methylprednisolone Sodium Succinate 40 mg Q8H IV 07/03/24 20:00 07/03/24 20:07 40 MG objective Gen.: Patient lying in bed in no apparent distress. On supplemental oxygen. Head: Normocephalic, atraumatic. Eyes: EOMI/PERRLA. Ears: Normal hearing. Normal anatomy. Neck/trachea: Trachea midline, supple. Nose: Normal external anatomy. Mouth: Moist mucous membranes. Chest: Decreased air entry bilaterally. No wheezing or rhonchi. Cardiovascular: Positive S1, positive S2. Regular rate and rhythm. Abdomen: Positive bowel sounds in all 4 quadrants. Soft, non-tender, non- distended. : Deferred. Rectal: Deferred. Skin: Warm, dry. Intact. Extremities: 2+ radial pulses bilaterally. No lower extremity edema. Neuro: Awake, alert, oriented x3. No gross motor or sensory deficits. Cranial nerves II through XII intact. Gait not assessed. laboratory and microbiology Laboratory Tests 07/03/24 06:15 Test 07/03/24 06:15 Range/Units Serum Glucose 105 74-106 mg/dL Assessment/Plan Impression: Acute on chronic hypoxic respiratory failure Dependence on supplemental oxygen Multifocal pneumonia, likely gram negative AE COPD Chronic interstitial lung disease Atrial fibrillation Anemia Morbid obesity Events: Remains on supplemental oxygen On 8 LPM Oxymizer Taper O2 as tolerated Continue bronchodilators Continue IV steroids Continue antibiotics WBC improved to 18.9 K Pain control Avoid oversedation Accu-Cheks, ISS PRN DVT prophylaxis Labs and imaging reviewed. Rest of plan as noted below. Plan: Supplemental oxygen Titrate to keep O2 sats above 92%. Continue bronchodilators. Continue IV steroids Continue antibiotics MRSA positive Monitor hemoglobin Transfuse if less than 7.0 g/dL. Monitor renal function. Monitor electrolytes. Supplement as necessary. Monitor ins and outs. Diet and lifestyle modifications for weight reduction Morbid obesity - complicates all care DVT prophylaxis. Prognosis: Guarded given patient's multiple co-morbidities. Rest of plan per hospitalist and other consultants. Thank you Dr. Nick for allowing me to participate in this patient's care. Further recommendations will depend on the patient's clinical course. Please do not hesitate to contact me if you have any questions or concerns. This medical document was created using an electronic medical record system with [employer] dictation system. Although these documentations are being carefully reviewed, there may still be some phonetic and typographical changes. The errors are purely typographical, due to imperfection on the software program, and do not reflect any compromise in the patient's medical care. Plan discussed with: Patient, Other (JAN Harkins) CC Plasma Assessment Blood Product Administration S: 1400 NICOLE EVANS MD Jul 03, 2024 23:14
[2024-07-04] VITALS (19 sets, daily range): BP systolic 127–157; BP diastolic 50–79; PULSE 80–108; RESP 18–30; TEMP 97.2–97.8; O2SAT 83–100
[2024-07-04] MEDS: LACTULOSE 20Gm/30ML SOLN PO PRN (03:25)
[2024-07-04 06:25] LABS: Basophils # (auto) 0.1 10 ^3/uL (0-0.2); Basophils % (auto) 0.2 % (0.0-2.0); Eosinophils # (auto) 0 10 ^3/uL (0-0.8); Hematocrit 30.2 % (36.0-46.0); Hemoglobin 10.1 g/dL (12.2-16.2); Lymphocytes # (auto) 0.5 10 ^3/uL (0.4-5.4); Mean Corpuscular Hemoglobin 29.5 pg (28.0-32.0); Mean Corpuscular Hgb Conc. 33.5 g/dL (32.0-36.0); Monocytes # (auto) 0.9 10 ^3/uL (0-1.3); Monocytes % (auto) 3.7 % (0.0-12.0); Neutrophils # (auto) 22.2 10 ^3/uL (1.6-8.6); Neutrophils % (auto) 94.1 % (37.0-80.0); Platelet Count (auto) 165 10^3/uL (140-450); Red Blood Cells 3.43 10^6/uL (4.0-5.20); Red Cell Distribution Width 17.9 % (11.8-14.3); White Blood Cell 23.6 10^3/uL (4.4-10.8)
[2024-07-04 06:41] LABS: Chloride 102 mmol/L (98-107); Potassium 4.4 mmol/L (3.5-5.1); Sodium 138 mmol/L (136-145)
[2024-07-04 06:42] LABS: Anion Gap 12 (5-15); Calcium 9.2 mg/dL (8.7-10.4); Carbon Dioxide 24 mmol/L (20-31)
[2024-07-04 06:47] LABS: BUN/Creatinine Ratio 26.5 (10.0-20.0)
[2024-07-04 06:51] LABS: Blood Urea Nitrogen 57 mg/dL (9-23); Glucose 73 mg/dL (74-106)
[2024-07-04] MEDS: FUROSEMIDE 40 MG/4 ML VIAL IV ONE (12:41)
[2024-07-04] MEDS: VANCOMYCIN 750mg/150ml 150 ML IV ONE (16:36)
--- NOTE | 2024-07-04 21:22 | DVHPNRES ---
Progress Note Date Seen: Jul 04, 2024 Resident Creating Document: DA MONTES RESIDENT Medical Necessity Reason Pt with a Central, PICC or Fol: Yes The following are medically ne: Stallworth Catheter Reason for stallworth catheter: Strict I&O, Total Immobilization Subjective Review of Systems Patient seen and examined at bedside. Patient currently feels better, can complete sentences without becoming short of breath. Continues with Oxymizer treatment at 6 liters/minute Objective vital signs Vital Sign Date Time Temp Pulse Resp B/P (MAP) Pulse Ox O2 Delivery O2 Flow Rate FiO2 07/04/24 15:01 88 20 100 07/04/24 14:53 Oxymizer 6.0 07/04/24 14:53 N/A 07/04/24 12:41 148/72 07/04/24 09:00 97.8 97.8 Total Intake and Output 07/03/24 07/03/24 07/04/24 15:00 23:00 07:00 Intake Total 300.0 ml 250 ml 684 ml Output Total 450 ml 300 ml Balance 300.0 ml -200 ml 384 ml medications Current Medications Medications Dose Ordered Sig/Theresa Route Start Time Stop Time Status Last Admin Dose Admin Sodium Chloride 10 ml Q8HR IV 06/29/24 22:00 07/04/24 13:56 10 ML Acetaminophen 650 mg Q6HP PRN PO 06/29/24 21:30 Nitroglycerin 0.4 mg Q5MINP PRN SL 06/29/24 21:30 Morphine Sulfate 2 mg Q30M PRN IV 06/29/24 21:30 06/30/24 03:59 2 MG Atorvastatin Calcium 20 mg DAILY PO 06/30/24 10:00 07/04/24 09:33 20 MG Vancomycin HCl 0 ml @ 0 mls/hr UD IV 06/29/24 22:15 Metoprolol Tartrate 25 mg BID PO 06/29/24 22:30 07/04/24 09:35 25 MG Losartan Potassium 25 mg DAILY PO 06/30/24 10:00 07/04/24 09:35 25 MG Insulin Glargine 30 units QAM SC 06/30/24 07:00 07/03/24 06:07 30 UNITS Diagnostic Test (Pha) 1 strip IQ4HR 06/30/24 08:00 07/04/24 20:17 1 STRIP Insulin Human Regular IQ4HR SC 06/30/24 08:00 07/04/24 20:17 4 UNITS Dextrose 50 ml UD PRN IV 06/30/24 06:45 Ipratropium [place] 0.5 mg Q4HR NEB 06/30/24 14:00 07/04/24 14:53 0.5 MG Levalbuterol HCl 1.25 mg Q4H NEB 06/30/24 11:15 07/04/24 14:53 1.25 MG Acetaminophen/ Hydrocodone Bitart 1 tab Q8HPRN PRN PO 06/30/24 22:00 06/30/24 17:59 1 TAB Morphine Sulfate 15 mg BID PO 06/30/24 22:00 07/03/24 21:15 15 MG Pantoprazole Sodium 40 mg DAILY IV 07/01/24 10:00 07/04/24 09:33 40 MG Budesonide 0.5 mg BID NEB 06/30/24 22:00 07/04/24 05:44 0.5 MG Cefepime HCl 50 ml @ 12.5 mls/hr Q12HR IV 07/01/24 22:00 07/04/24 10:00 12.5 MLS/HR Diphenhydramine HCl 25 mg Q6HP PRN PO 07/01/24 15:45 07/04/24 10:00 25 MG Mupirocin 1 applic BID EACHNOSTRI 07/01/24 22:00 07/06/24 21:59 07/04/24 09:33 1 APPLIC Throat Lozenges 1 emelina Q2HP PRN MT 07/02/24 12:00 07/03/24 12:28 1 EMELINA Methylprednisolone Sodium Succinate 40 mg Q8H IV 07/03/24 20:00 07/04/24 20:16 40 MG Lactulose 30 ml Q8HPRN PRN PO 07/04/24 03:00 07/04/24 03:25 30 ML Examination Patient lying in bed, in no acute distress General: Lucid, afebrile, mucosae are moist Cardiovascular: Normal S1 and S2. No murmurs, gallops or rubs Respiratory: Normal ventilation mechanics. Bilateral Velcro predominantly in basis, rest of lung auscultation is clear. On Oxymizer at 6 liters/minute Abdomen: Soft, nontender, no organomegaly, normal bowel sounds MSK/skin: Mobilizes 4 limbs. Skin is dry and warm. Bilateral perimalleolar pitting edema. Neurological: Oriented in 3 spheres. No motor no sensitive deficits. Pupils are isocoric and reactive laboratory and microbiology Laboratory Tests 07/04/24 05:51 Test 07/04/24 05:51 Range/Units Serum Glucose 73 L 74-106 mg/dL Microbiology Date/Time Source Procedure Growth Status 06/30/24 11:08 Nose MRSA Screen - Final Methicillin Resistant S.aureus Complete 06/29/24 16:02 Blood Blood Culture - Final NO GROWTH AFTER 5 DAYS OF INCUBATION. Complete Problem List/Assessment/Plan Problem List/Assessment/Plan Assessment: Acute on chronic hypoxic respiratory failure Multifocal pneumonia superimposed on chronic interstitial pulmonary fibrosis Acute COPD exacerbation Acute asthma exacerbation Chronic interstitial pulmonary fibrosis with UIP pattern MRSA nares + WESLY, likely hemodynamically mediated/VMN on CKD 3b Chronic normocytic anemia 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, LVEF 40-45%) Type 2 diabetes Diabetic nephropathy, biopsy-proven Paroxysmal atrial fibrillation (chads Vasc 6/has bled 3) secondary hypercoagulability state Hypothyroidism Chronic pain Morbid obesity Obstructive sleep apnea on CPAP Moderate gastritis Myeloperoxidase antibody positive Ruled out DVT Ruled out acute abdomen/pelvis pathology History of breast cancer status post lumpectomy Plan: Currently under empiric IV antibiotic (cefepime and vancomycin). Titrating down IV steroids. Is on oxygen therapy with Oxymizer 6 liters/minute (home oxygen is 2 liters/minute) Pulmonology consulted: Optimize medical treatment. Ipratropium and levalbuterol med nebs. IV methylprednisolone 40 mg increased to q8hr. Pulmicort 0.5 mg b.i.d., throat lozenges Mupirocin ointment nares Indicated one dose of IV furosemide Optimize pain management CPAP at night Continue diabetic treatment (Lantus 30 units and aggressive insulin sliding scale) Continue home medication except aspirin and apixaban (patient is anemic, status post one PRBC) Goals of care discussed with patient for over 18 minutes: Full code status Discussed plan with Dr. Garcia, patient and nurses: Patient responding to medical treatment for pneumonia versus COPD exacerbation versus CHF exacerbation. We will titrate down steroids tomorrow to Q 12 (may switch from IV to p.o.), gave one dose of IV diuretics today, and we will try to titrate down oxygen therapy. Patient has poor prognosis Plan discussed with: Patient, Other (Nurses) CC Plasma Assessment Blood Product Administration S: 1400 Date of Service: Jul 04, 2024 Billing Provider: QUETA GARCIA MD Common Visit Codes: [id number] INP/OBS CARE(HIGH) DA MONTES RESIDENT Jul 04, 2024 21:22 QUETA GARCIA MD Jul 06, 2024 12:56
--- NOTE | 2024-07-04 23:29 | DVHPN2 ---
Progress Note - Dictate Date Seen: Jul 04, 2024 Medical Necessity Reason Pt with a Central, PICC or Fol: Yes The following are medically ne: Stallworth Catheter Reason for stallworth catheter: Strict I&O, Total Immobilization Subjective Patient seen and examined at bedside. Remains on supplemental oxygen Overnight events reviewed. vital signs Vital Sign Date Time Temp Pulse Resp B/P (MAP) Pulse Ox O2 Delivery O2 Flow Rate FiO2 07/04/24 22:33 104 157/79 07/04/24 22:14 92 Oxymizer 8.0 07/04/24 22:14 22 07/04/24 22:14 N/A 07/04/24 09:00 97.8 97.8 Total Intake and Output 07/03/24 07/03/24 07/04/24 15:00 23:00 07:00 Intake Total 300.0 ml 250 ml 684 ml Output Total 450 ml 300 ml Balance 300.0 ml -200 ml 384 ml medications Current Medications Medications Dose Ordered Sig/Theresa Route Start Time Stop Time Status Last Admin Dose Admin Sodium Chloride 10 ml Q8HR IV 06/29/24 22:00 07/04/24 22:00 10 ML Acetaminophen 650 mg Q6HP PRN PO 06/29/24 21:30 Nitroglycerin 0.4 mg Q5MINP PRN SL 06/29/24 21:30 Morphine Sulfate 2 mg Q30M PRN IV 06/29/24 21:30 06/30/24 03:59 2 MG Atorvastatin Calcium 20 mg DAILY PO 06/30/24 10:00 07/04/24 09:33 20 MG Vancomycin HCl 0 ml @ 0 mls/hr UD IV 06/29/24 22:15 Metoprolol Tartrate 25 mg BID PO 06/29/24 22:30 07/04/24 22:33 25 MG Losartan Potassium 25 mg DAILY PO 06/30/24 10:00 07/04/24 09:35 25 MG Insulin Glargine 30 units QAM SC 06/30/24 07:00 07/03/24 06:07 30 UNITS Diagnostic Test (Pha) 1 strip IQ4HR 06/30/24 08:00 07/04/24 20:17 1 STRIP Insulin Human Regular IQ4HR SC 06/30/24 08:00 07/04/24 20:17 4 UNITS Dextrose 50 ml UD PRN IV 06/30/24 06:45 Ipratropium [place] 0.5 mg Q4HR NEB 06/30/24 14:00 07/04/24 22:14 0.5 MG Levalbuterol HCl 1.25 mg Q4H NEB 06/30/24 11:15 07/04/24 22:14 1.25 MG Acetaminophen/ Hydrocodone Bitart 1 tab Q8HPRN PRN PO 06/30/24 22:00 06/30/24 17:59 1 TAB Morphine Sulfate 15 mg BID PO 06/30/24 22:00 07/03/24 21:15 15 MG Pantoprazole Sodium 40 mg DAILY IV 07/01/24 10:00 07/04/24 09:33 40 MG Budesonide 0.5 mg BID NEB 06/30/24 22:00 07/04/24 22:14 0.5 MG Cefepime HCl 50 ml @ 12.5 mls/hr Q12HR IV 07/01/24 22:00 07/04/24 22:33 12.5 MLS/HR Diphenhydramine HCl 25 mg Q6HP PRN PO 07/01/24 15:45 07/04/24 23:06 25 MG Mupirocin 1 applic BID EACHNOSTRI 07/01/24 22:00 07/06/24 21:59 07/04/24 22:00 1 APPLIC Throat Lozenges 1 emelina Q2HP PRN MT 07/02/24 12:00 07/03/24 12:28 1 EMELINA Methylprednisolone Sodium Succinate 40 mg Q8H IV 07/03/24 20:00 07/04/24 20:16 40 MG Lactulose 30 ml Q8HPRN PRN PO 07/04/24 03:00 07/04/24 22:46 30 ML objective Gen.: Patient lying in bed in no apparent distress. On supplemental oxygen. Head: Normocephalic, atraumatic. Eyes: EOMI/PERRLA. Ears: Normal hearing. Normal anatomy. Neck/trachea: Trachea midline, supple. Nose: Normal external anatomy. Mouth: Moist mucous membranes. Chest: Decreased air entry bilaterally. No wheezing or rhonchi. Cardiovascular: Positive S1, positive S2. Regular rate and rhythm. Abdomen: Positive bowel sounds in all 4 quadrants. Soft, non-tender, non- distended. : Deferred. Rectal: Deferred. Skin: Warm, dry. Intact. Extremities: 2+ radial pulses bilaterally. No lower extremity edema. Neuro: Awake, alert, oriented x3. No gross motor or sensory deficits. Cranial nerves II through XII intact. Gait not assessed. laboratory and microbiology Laboratory Tests 07/04/24 05:51 Test 07/04/24 05:51 Range/Units Serum Glucose 73 L 74-106 mg/dL Assessment/Plan Impression: Acute on chronic hypoxic respiratory failure Dependence on supplemental oxygen Multifocal pneumonia, likely gram negative AE COPD Chronic interstitial lung disease Atrial fibrillation Anemia Morbid obesity Events: Remains on supplemental oxygen On 8 LPM Oxymizer Taper O2 as tolerated Continue bronchodilators Continue IV steroids Continue antibiotics WBC trending up to 23.6 K Diurese w/ Lasix Monitor renal function. Monitor electrolytes. Supplement as necessary. Accu-Cheks, ISS PRN DVT prophylaxis Labs and imaging reviewed. Rest of plan as noted below. Plan: Supplemental oxygen Titrate to keep O2 sats above 92%. Continue bronchodilators. Continue IV steroids Continue antibiotics MRSA positive Monitor hemoglobin Transfuse if less than 7.0 g/dL. Monitor renal function. Monitor electrolytes. Supplement as necessary. Monitor ins and outs. Diet and lifestyle modifications for weight reduction Morbid obesity - complicates all care DVT prophylaxis. Prognosis: Guarded given patient's multiple co-morbidities. Rest of plan per hospitalist and other consultants. Thank you Dr. Nick for allowing me to participate in this patient's care. Further recommendations will depend on the patient's clinical course. Please do not hesitate to contact me if you have any questions or concerns. This medical document was created using an electronic medical record system with [employer] dictation system. Although these documentations are being carefully reviewed, there may still be some phonetic and typographical changes. The errors are purely typographical, due to imperfection on the software program, and do not reflect any compromise in the patient's medical care. Plan discussed with: Patient, Other (JAN Stark) CC Plasma Assessment Blood Product Administration S: 1400 NICOLE EVANS MD Jul 04, 2024 23:29
[2024-07-05] VITALS (103 sets, daily range): BP systolic 83–222; BP diastolic 41–97; PULSE 75–124; RESP 8–50; TEMP 96.8–98.7; O2SAT 74–100
[2024-07-05] MEDS: LORazepam 2MG/ML-1ML VIAL ONE (02:41)
[2024-07-05] MEDS: LORazepam 2MG/ML-1ML VIAL IV PRN (02:45)
[2024-07-05] MEDS: ETOMIDATE (2MG/ML) 20ML VIAL IV ONE ×4 (02:50→03:31)
[2024-07-05] MEDS: ROCURONIUM 10MG/ML 10ML VIAL IV ONE ×6 (02:51→10:33)
--- NOTE | 2024-07-05 03:12 | DVH ---
CHEST RADIOGRAPH Indication: SOB Technique: Single frontal view of the chest was obtained COMPARISON: XY CHEST PORTABLE on DOS: 07/03/24, XY CHEST XRAY 1 VIEW on DOS: 07/02/24, XY CHEST PORTABL E on DOS: 06/29/24, XY CHEST PORTABLE on DOS: 04/22/23, XY CHEST PORTABLE on DOS: 08/03/22 FINDINGS: Lines and Tubes: Unchanged right internal jugular [id number]-P-[id number] catheter. Lungs: Unchanged diffuse lung disease, suggestive of pulmonary edema or multifocal pneumonia. Pleura: No effusion. No pneumothorax. Cardiomediastinal contours: Unchanged Bones: Unremarkable IMPRESSION: 1. Unchanged diffuse lung disease since July 03, 2024, suggestive of pulmonary edema or multifoca l pneumonia.
[2024-07-05] MEDS: MIDAZOLAM DRIP 50 mg/50mL 50 ML IV ONE (03:30)
[2024-07-05] MEDS: PROPOFOL 100 ML IV SCH (03:30)
[2024-07-05] MEDS: fentaNYL Drip 2500mCg/250mlNS 250 ML IV ONE (03:30)
[2024-07-05] MEDS: fentaNYL Drip 2500mCg/250mlNS 250 ML IV SCH (03:40)
[2024-07-05] MEDS: MIDAZOLAM DRIP 50 mg/50mL 50 ML IV SCH (03:40)
--- NOTE | 2024-07-05 03:43 | ED.PDOC ---
Was a procedure done? Was a procedure done?: Yes Sedation Sedation?: No Central Line Recorder of insertion practice: Guide Delegate Occupation of pet feeder: Attending Physician, Name of pet feeder (Hyun Dunn MD) Indication: CVP monitoring, Inability to obtain IV Room prepared for procedure: Yes Guide Delegate performed hand hygien: Yes Maximal sterile barrier precau: Mask/Eye shield, Sterlie gloves, Large sterlie drape Skin Preparation: Chlorhexidine gluconate Skin preparation completely dr: Yes Insertion site: Right, Femoral Central line catheter type: Lbx-[id number] dialysis Number of lumens: 3 Central line exchanged over a: Yes Antiseptic ointment applied to: Yes Post Assessment: Proper placement Informed consent obtained: No Risks/benefits/alt described: No Intubation Indication: Respiratory Insufficiency, Altered Mental Status Prep: Preoxygenation Pretreated with: Other (Etomidate) Medicated with: Other (Rocuronium) Intubation Approach: Orotracheal Intubation size: cm (8) Informed consent obtained: No Risks/benefits/alt described: No HYUN DUNN MD Jul 05, 2024 03:42
--- NOTE | 2024-07-05 03:46 | DVH ---
CHEST RADIOGRAPH Indication: S/p intubation Technique: Single frontal view of the chest was obtained COMPARISON: XY CHEST PORTABLE on DOS: 07/05/24, XY CHEST PORTABLE on DOS: 07/03/24, XY CHEST XRAY 1 VIEW on DOS: 07/02/24, XY CHEST PORTABLE on DOS: 06/29/24, XY CHEST PORTABLE on DOS: 04/22/23 FINDINGS: Lines and Tubes: Endotracheal tube is positioned above the daniel. The right internal jugular infuse- A-Port catheter is unchanged. Lungs: Diffuse lung disease is unchanged, suggestive of pulmonary edema or multifocal pneumonia. Pleura: No effusion. No pneumothorax. Cardiomediastinal contours: Unremarkable Bones: Unremarkable IMPRESSION: 1. Endotracheal tube in satisfactory position.
[2024-07-05 04:02] LABS: Base Excess -3.6 mmol/L (-2.0-3.0)
[2024-07-05 04:11] LABS: Basophils # (auto) 0 10 ^3/uL (0-0.2); Basophils % (auto) 0.1 % (0.0-2.0); Eosinophils # (auto) 0 10 ^3/uL (0-0.8); Hematocrit 29.8 % (36.0-46.0); Hemoglobin 9.7 g/dL (12.2-16.2); Lymphocytes # (auto) 0.1 10 ^3/uL (0.4-5.4); Lymphocytes % (auto) 0.6 % (10.0-50.0); Mean Corpuscular Hgb Conc. 32.4 g/dL (32.0-36.0); Mean Corpuscular Volume 89.7 fL (80.0-100.0); Monocytes # (auto) 0.5 10 ^3/uL (0-1.3); Monocytes % (auto) 2.4 % (0.0-12.0); Neutrophils # (auto) 19.3 10 ^3/uL (1.6-8.6); Neutrophils % (auto) 96.9 % (37.0-80.0); Platelet Count (auto) 147 10^3/uL (140-450); Red Blood Cells 3.33 10^6/uL (4.0-5.20); Red Cell Distribution Width 18.2 % (11.8-14.3); White Blood Cell 19.9 10^3/uL (4.4-10.8)
[2024-07-05 05:08] LABS: Base Excess -5.9 mmol/L (-2.0-3.0)
[2024-07-05 05:11] LABS: Chloride 102 mmol/L (98-107); Potassium 4.3 mmol/L (3.5-5.1); Sodium 136 mmol/L (136-145)
[2024-07-05 05:12] LABS: Anion Gap 12 (5-15); Calcium 8.8 mg/dL (8.7-10.4); Carbon Dioxide 22 mmol/L (20-31)
[2024-07-05 05:46] LABS: Blood Urea Nitrogen 63 mg/dL (9-23); Glucose 292 mg/dL (74-106)
[2024-07-05 08:43] LABS: Base Excess -5.9 mmol/L (-2.0-3.0)
--- NOTE | 2024-07-05 10:03 | DVHPN2 ---
Assessment/Plan Assessment/Plan 74 F with morbid obesity, COPD group E on home O2 and ILD admitted for exacerbation. had episode of aspiration from the rice she was eating. overnight after respiratory status worsens and she was intubated for hypoxic respiratory failure. 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 + WESLY, likely hemodynamically mediated/VMN on CKD 3b Chronic normocytic anemia 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, 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%) Type 2 diabetes Diabetic nephropathy, biopsy-proven Paroxysmal atrial fibrillation (chads Vasc 6/has bled 3) secondary hypercoagulability state Hypothyroidism Chronic pain Morbid obesity Obstructive sleep apnea on CPAP Moderate gastritis Myeloperoxidase antibody positive Ruled out DVT Ruled out acute abdomen/pelvis pathology History of breast cancer status post lumpectomy c/w mechanical ventilation PC, adequate lung protection ventilation c/w empiric abx c/w iv steroid c/w pressor maintain MAP > 65 plan for bornch follow culture pulm consult appreciated lantus ISS resume home meds dvt ppx hold gi ppx protonix diet tube feed condition critical prognosis poor full code 98 minutes critical care time Plan discussed with: Daughter Date of Service: Jul 05, 2024 Billing Provider: QUETA DORADO MD Common Visit Codes: 95121-[id number] CARE 30-74 MIN, 72132-[id number] CARE-EACH +30MIN QUETA DORADO MD Jul 05, 2024 10:03
[2024-07-05 10:35] LABS: Base Excess -5.1 mmol/L (-2.0-3.0)
--- NOTE | 2024-07-05 11:34 | DVHNC2 ---
Procedure - Bronchoscopy procedure note: Indications:bilateral opacities on imaging, Possible mucous plugging. Medicines: See FIXED ROUTE BUS OPERATOR notes. Complications: None Procedure: Patient medications and allergies reviewed. The risks and benefits of the procedure and the sedation options and risk were discussed with the patient's healthcare proxy. All questions were answered and informed consent was ob tained. Patient identification and proposed procedure were verified prior to the procedure by the physician, and a nurse, and the respiratory therapist in ICU room. The heart rate, respiratory rate, oxygen saturations, blood pressure, adequacy of pulmonary ventilation, and response to care were monitored throughout the procedure. The physical status of the patient was reassessed after the procedure. After obtaining informed consent, the bronchoscope was introduced through the endotracheal tube and advanced into the trachea bronchial tree of both lungs. The procedure was accomplished without difficulty. The patient tolerated the procedure well. Findings: The trachea is in normal caliber. The daniel is sharp. The tracheobronchial tree of the right lung was examined to at least the first subsegmental level. The bronchial mucosa and anatomy in the right lung are normal. There are no endobronchial lesions. There was copious whitish secretions from right main stem bronchus onward throughout R4-R10. The left upper lobe, lingula, and left lower lobe were examined to at least the first subsegmental level. Bronchial mucosa and anatomy in the left upper lobe and lingula are normal. There were no endobronchial lesions. There was copious thin whitish secretions from left main stem bronchus onward throughout L1-L10. Mucous plugging removed from L1-L10 utilizing 20 mL normal saline. Left lower lobe (LLL) Bronchoalveolar lavage (BAL) obtained. LLL BAL sent for gram stain and culture, viral culture, fungal culture, and AFB smear and culture. There was no active bleeding at the completion of the procedure. Estimated blood loss: Less than 5 mL. Impression: Left lower lobe atelectasis due to mucous plugging Mucous plugging from L1-L10 LLL BAL performed Recommendation: Follow-up RML BAL results. Procedure codes: 02231, bronchoscopy, rigid and flexible, including fluoroscopic guidance, one performed; with bronchial endobronchial broncho-alveolar lavage, single or multiple sites NICOLE EVANS MD Jul 05, 2024 11:34
--- NOTE | 2024-07-05 12:09 | DVH ---
CHEST RADIOGRAPH Indication: s/p bronchoscopy and NGT placement Technique: Single frontal view of the chest was obtained COMPARISON: XY CHEST PORTABLE on DOS: 07/05/24 FINDINGS: Lines and Tubes: Endotracheal tube terminates 4.5 cm from the daniel. Right-sided Port-A-Cath termina alex near the superior cavoatrial junction. Interval placement of an enteric tube with the tip over th e plane of the stomach. Lungs: Diffuse mixed interstitial/ airspace opacities are similar from prior. Pleura: No definite effusion. No pneumothorax. Cardiomediastinal contours: Mild enlargement of the cardiac silhouette is stable from prior. Bones: Unremarkable IMPRESSION: 1. Enteric tube terminates over the plane of the stomach. Endotracheal tube and port-A-Cath are stabl e. 2. Diffuse pulmonary edema versus multifocal pneumonia is similar from prior.
[2024-07-05 14:11] LABS: INR 1.03 (0.9-1.15); Partial Thromboplastin Time 30.2 SEC (24.5-34.5); Prothrombin Time 10.9 sec (9.3-11.8)
[2024-07-05] MEDS: NOREPINEPHRINE 8 MG/250ML KIT 250 ML IV SCH (14:24)
[2024-07-05] MEDS: FUROSEMIDE 20 MG TAB PO ONE (14:37)
[2024-07-05 16:38] LABS: Base Excess -4.6 mmol/L (-2.0-3.0)
[2024-07-05] MEDS: FUROSEMIDE 40 MG/4 ML VIAL IV ONE (16:56)
--- NOTE | 2024-07-05 19:50 | DVHPN2 ---
Progress Note - Dictate Date Seen: Jul 05, 2024 Medical Necessity Reason Pt with a Central, PICC or Fol: Yes The following are medically ne: Stallworth Catheter Reason for stallworth catheter: Strict I&O, Total Immobilization Subjective Patient seen and examined at bedside. Sedated, intubated on mechanical ventilator. Overnight events reviewed. vital signs Vital Sign Date Time Temp Pulse Resp B/P (MAP) Pulse Ox O2 Delivery O2 Flow Rate FiO2 07/05/24 18:37 80 30 108/55 (72) 100 60 07/05/24 18:24 97.0 206.6 07/05/24 18:00 Mechanical Ventilator+ 07/05/24 02:23 12 Total Intake and Output 07/04/24 07/04/24 07/05/24 15:00 23:00 07:00 Intake Total 200 ml 33.5 ml Output Total 550 ml Balance 200 ml -516.5 ml medications Current Medications Medications Dose Ordered Sig/Theresa Route Start Time Stop Time Status Last Admin Dose Admin Sodium Chloride 10 ml Q8HR IV 06/29/24 22:00 07/05/24 13:45 10 ML Atorvastatin Calcium 20 mg DAILY PO 06/30/24 10:00 07/05/24 10:31 20 MG Vancomycin HCl 0 ml @ 0 mls/hr UD IV 06/29/24 22:15 Metoprolol Tartrate 25 mg BID PO 06/29/24 22:30 07/04/24 22:33 25 MG Losartan Potassium 25 mg DAILY PO 06/30/24 10:00 07/04/24 09:35 25 MG Insulin Glargine 30 units QAM SC 06/30/24 07:00 07/05/24 07:30 30 UNITS Diagnostic Test (Pha) 1 strip IQ4HR 06/30/24 08:00 07/05/24 16:15 1 STRIP Insulin Human Regular IQ4HR SC 06/30/24 08:00 07/05/24 16:50 2 UNITS Dextrose 50 ml UD PRN IV 06/30/24 06:45 Ipratropium [place] 0.5 mg Q4HR NEB 06/30/24 14:00 07/05/24 18:37 0.5 MG Levalbuterol HCl 1.25 mg Q4H NEB 06/30/24 11:15 07/05/24 18:37 1.25 MG Pantoprazole Sodium 40 mg DAILY IV 07/01/24 10:00 07/05/24 10:27 40 MG Budesonide 0.5 mg BID NEB 06/30/24 22:00 07/05/24 06:54 0.5 MG Cefepime HCl 50 ml @ 12.5 mls/hr Q12HR IV 07/01/24 22:00 07/05/24 10:26 12.5 MLS/HR Mupirocin 1 applic BID EACHNOSTRI 07/01/24 22:00 07/06/24 21:59 07/04/24 22:00 1 APPLIC Methylprednisolone Sodium Succinate 40 mg Q8H IV 07/03/24 20:00 07/05/24 13:42 40 MG Propofol 100 ml @ 3.6 mls/hr Q24H IV 07/05/24 03:30 07/05/24 16:56 10.8 MLS/HR Midazolam HCl 50 ml @ 1 mls/hr Q24H IV 07/05/24 03:30 07/05/24 13:40 4 MLS/HR Fentanyl Citrate 250 ml @ 2.5 mls/hr Q24H IV 07/05/24 03:30 07/05/24 03:40 2.5 MLS/HR Norepinephrine Bitartrate 250 ml @ 3.75 mls/hr Q24H IV 07/05/24 14:15 07/05/24 14:24 3.75 MLS/HR objective Gen.: Patient lying in bed in medical ICU. Sedated, intubated on mechanical ventilator. Head: Normocephalic, atraumatic. Eyes: PERRLA. Ears: Normal external anatomy. Throat: Endotracheal tube and orogastric tube in place. Neck: Supple, trachea midline. Chest: Transmitted breath sounds bilaterally. Decreased air entry bilaterally. No wheezing. Bibasilar crackles. Cardiovascular: Positive S1, positive S2. Regular rate and rhythm. Abdomen: Positive bowel sounds in all 4 quadrants. Soft, nontender, nondistended. : Stallworth in place. Normal external genitalia. Rectal: Deferred. Skin: Warm, dry. Intact. Extremities: 2+ radial pulses bilaterally. No lower extremity edema. Neuro: Sedated. laboratory and microbiology Laboratory Tests 07/05/24 03:45 Test 07/05/24 03:45 Range/Units Serum Glucose 292 H 74-106 mg/dL Assessment/Plan Impression: Acute on chronic hypoxic respiratory failure On mechanical ventilator Multifocal pneumonia, likely gram negative AE COPD Chronic interstitial lung disease Atrial fibrillation Anemia Morbid obesity Events: Patient was emergently intubated today d/t worsening respiratory status Vent settings changed to PC mode: RR 20; I-Pressure 22; I-time 0.8, PEEP 5, FiO2 80% Obtain ABG in [address] PICC line Remove femoral central line. Sedated on Versed/Fentanyl On pressors (Levophed) for hemodynamic support Titrate to keep mean arterial pressure greater than 65 mmHg. S/p bronchoscopy today with clearing of secretions from L1-L10 LLL BAL sent for gram stain and culture, viral culture, fungal culture, and AFB smear and culture Continue bronchodilators Continue IV steroids Continue antibiotics WBC trending down to 19.9 K Diurese w/ Lasix Monitor renal function. Monitor electrolytes. Supplement as necessary. Accu-Cheks, ISS PRN DVT prophylaxis Labs and imaging reviewed. Rest of plan as noted below. Plan: S/p intubation, placement on mechanical ventilator Vent settings: PC mode: RR 20; I-Pressure 22; I-time 0.8, PEEP 5, FiO2 80% Titrate FIO2 to keep O2 saturation above 90%. VAP bundle. Daily ABG and CXR while intubated Sedate for ventilator synchrony On pressors (Levophed) for hemodynamic support Titrate to keep mean arterial pressure greater than 65 mmHg. Continue bronchodilators. Continue IV steroids Continue antibiotics MRSA positive Monitor hemoglobin Transfuse if less than 7.0 g/dL. Monitor renal function. Monitor electrolytes. Supplement as necessary. Monitor ins and outs. Diet and lifestyle modifications for weight reduction Morbid obesity - complicates all care DVT prophylaxis. Prognosis: Guarded given patient's multiple co-morbidities. Condition: Critical Rest of plan per hospitalist and other consultants. A total of 35 minutes of critical care time was spent reviewing the patient record, examining the patient, making a diagnostic and therapeutic plan, discussing this plan with the medical personnel, following up on diagnostic studies and following the patient for clinical stability excluding any and all procedures. At least 50% of this time was spent in direct, [id number] contact. Thank you Dr. Nick for allowing me to participate in this patient's care. Further recommendations will depend on the patient's clinical course. Please do not hesitate to contact me if you have any questions or concerns. This medical document was created using an electronic medical record system with [email or web address] computerized dictation system. Although these documentations are being carefully reviewed, there may still be some phonetic and typographical changes. The errors are purely typographical, due to imperfection on the software program, and do not reflect any compromise in the patient's medical care. Dietary Evaluation Review Comments: 1) If patient remains NPO for more than 7 days, consider TPN to meet at least 75% of estimated needs. 2) If GI route is preferred, consider Glucerna 1.2 @ 45 mL/hr goal rate as tolerated. Flush with 200 mL Q6. Goal rate will provide 1296 kcals, 65g Pro, and 1669 mL free H2O (including flushes) per day. TF regimen will meet 100% of estimated daily energy and protein needs. 3) Advance patient diet to 60g CCHO cardiac diet when medically feasible, pending PRODUCTION MACHINE OPERATOR approval. 4) Continue to monitor I&O, labs, weight, and skin integrity Expected Outcomes/Goals: 1) patient to receive nutrition within 7 days 2) diet to advance 3) labs to improve 4) f/u in 3 days Plan discussed with: Other (JAN Enriquez) Critical Care Time(min): 35 CC Plasma Assessment Blood Product Administration S: 1400 NICOLE EVANS MD Jul 05, 2024 19:50
[2024-07-06] VITALS (120 sets, daily range): BP systolic 96–149; BP diastolic 45–80; PULSE 77–107; RESP 0–36; TEMP 97.3–99; O2SAT 90–100
[2024-07-06 03:52] LABS: Eosinophils # (auto) 0 10 ^3/uL (0-0.8); Hemoglobin 7.9 g/dL (12.2-16.2); Lymphocytes # (auto) 0.2 10 ^3/uL (0.4-5.4); Monocytes # (auto) 0.2 10 ^3/uL (0-1.3); Monocytes % (auto) 1.4 % (0.0-12.0)
[2024-07-06 03:55] LABS: Basophils # (auto) 0.1 10 ^3/uL (0-0.2); Basophils % (auto) 0.4 % (0.0-2.0); Hematocrit 24.5 % (36.0-46.0); Lymphocytes % (auto) 1.4 % (10.0-50.0); Mean Corpuscular Hemoglobin 29.3 pg (28.0-32.0); Mean Corpuscular Hgb Conc. 32.4 g/dL (32.0-36.0); Mean Corpuscular Volume 90.3 fL (80.0-100.0); Neutrophils # (auto) 15.3 10 ^3/uL (1.6-8.6); Neutrophils % (auto) 96.8 % (37.0-80.0); Platelet Count (auto) 122 10^3/uL (140-450); Red Blood Cells 2.71 10^6/uL (4.0-5.20); Red Cell Distribution Width 17.9 % (11.8-14.3); White Blood Cell 15.8 10^3/uL (4.4-10.8)
[2024-07-06 04:35] LABS: Chloride 104 mmol/L (98-107); Potassium 4.7 mmol/L (3.5-5.1); Sodium 137 mmol/L (136-145)
[2024-07-06 04:36] LABS: Anion Gap 12 (5-15); Carbon Dioxide 21 mmol/L (20-31)
[2024-07-06 04:41] LABS: BUN/Creatinine Ratio 22.4 (10.0-20.0)
[2024-07-06 04:42] LABS: Magnesium 2.4 mg/dL (1.6-2.6)
[2024-07-06 04:43] LABS: Blood Urea Nitrogen 74 mg/dL (9-23); Calcium 8.1 mg/dL (8.7-10.4); Glucose 171 mg/dL (74-106)
[2024-07-06 04:55] LABS: Phosphorus 6.6 mg/dL (2.4-5.1)
[2024-07-06 07:58] LABS: Base Excess -4.5 mmol/L (-2.0-3.0)
--- NOTE | 2024-07-06 11:20 | DVHPNRES ---
Progress Note Date Seen: Jul 06, 2024 Resident Creating Document: TUSHAR AGUILERA RESIDENT Medical Necessity Reason Pt with a Central, PICC or Fol: Yes The following are medically ne: Stallworth Catheter Reason for stallworth catheter: Strict I&O, Total Immobilization Subjective Review of Systems Patient remains in the ICU, sedated intubated and vented. Objective vital signs Vital Sign Date Time Temp Pulse Resp B/P (MAP) Pulse Ox O2 Delivery O2 Flow Rate FiO2 07/06/24 08:00 84 30 100 Mechanical Ventilator+ 60 60 07/06/24 08:00 123/53 (76) 07/06/24 07:39 98.4 209.1 07/05/24 02:23 12 Total Intake and Output 07/05/24 07/05/24 07/06/24 15:00 23:00 07:00 Intake Total 200.55 ml 305.90 ml 267.35 ml Output Total 375 ml 275 ml Balance 200.55 ml -69.10 ml -7.65 ml medications Current Medications Medications Dose Ordered Sig/Theresa Route Start Time Stop Time Status Last Admin Dose Admin Sodium Chloride 10 ml Q8HR IV 06/29/24 22:00 07/06/24 06:17 10 ML Atorvastatin Calcium 20 mg DAILY PO 06/30/24 10:00 07/05/24 10:31 20 MG Vancomycin HCl 0 ml @ 0 mls/hr UD IV 06/29/24 22:15 Metoprolol Tartrate 25 mg BID PO 06/29/24 22:30 07/04/24 22:33 25 MG Losartan Potassium 25 mg DAILY PO 06/30/24 10:00 07/04/24 09:35 25 MG Insulin Glargine 30 units QAM SC 06/30/24 07:00 07/06/24 07:24 30 UNITS Diagnostic Test (Pha) 1 strip IQ4HR 06/30/24 08:00 07/06/24 08:27 1 STRIP Insulin Human Regular IQ4HR SC 06/30/24 08:00 07/06/24 08:27 4 UNITS Dextrose 50 ml UD PRN IV 06/30/24 06:45 Ipratropium Bishop 0.5 mg Q4HR NEB 06/30/24 14:00 07/06/24 09:52 0.5 MG Levalbuterol HCl 1.25 mg Q4H NEB 06/30/24 11:15 3/3/25 09:52 1.25 MG Pantoprazole Sodium 40 mg DAILY IV 07/01/24 10:00 07/06/24 09:43 40 MG Budesonide 0.5 mg BID NEB 06/30/24 22:00 07/06/24 06:10 0.5 MG Cefepime HCl 50 ml @ 12.5 mls/hr Q12HR IV 07/01/24 22:00 07/06/24 09:43 12.5 MLS/HR Mupirocin 1 applic BID EACHNOSTRI 07/01/24 22:00 07/06/24 21:59 07/04/24 22:00 1 APPLIC Methylprednisolone Sodium Succinate 40 mg Q8H IV 07/03/24 20:00 07/06/24 04:14 40 MG Propofol 100 ml @ 3.6 mls/hr Q24H IV 07/05/24 03:30 07/06/24 04:18 10.8 MLS/HR Midazolam HCl 50 ml @ 1 mls/hr Q24H IV 07/05/24 03:30 07/06/24 03:13 4 MLS/HR Fentanyl Citrate 250 ml @ 2.5 mls/hr Q24H IV 07/05/24 03:30 07/06/24 03:13 12.5 MLS/HR Norepinephrine Bitartrate 250 ml @ 3.75 mls/hr Q24H IV 07/05/24 14:15 07/05/24 14:24 3.75 MLS/HR Examination: GENERAL:Normal (Overall looks sick), HEENT:Normal, NECK:Normal (On ET tube,), LUNGS:Normal, CVS:Normal, ABDOMEN:Normal, MSK:Normal, SKIN:Normal, NEURO:Normal, :Normal laboratory and microbiology Laboratory Tests 07/06/24 03:24 Test 07/06/24 03:24 Range/Units Serum Glucose 171 H 74-106 mg/dL Microbiology Date/Time Source Procedure Growth Status 07/05/24 11:30 Lung Pending Resulted 07/05/24 11:30 Lung Pending Resulted 07/05/24 11:30 Lung Pending Resulted 07/05/24 11:30 Lung Pending Resulted 07/05/24 11:30 Lung - Final See Separate Report... Resulted 06/29/24 16:02 Blood Blood Culture - Final NO GROWTH AFTER 5 DAYS OF INCUBATION. Complete Labs and/or images reviewed: Labs reviewed by me, Image(s) reviewed by me Problem List/Assessment/Plan Problem List/Assessment/Plan ICU Course: A 74-year-old female with a complex medical history, including chronic AFIB, anemia, anxiety, CAD, HFpEF, COPD, chronic hypoxic respiratory failure, idiopathic pulmonary fibrosis, stroke, diabetes, diabetic nephropathy, hypothyroidism, dyslipidemia, hypertension, seizures, and breast cancer in remission, presented to the ED with malaise, cough, shortness of breath, weakness, and palpitations. She was found to have acute on chronic hypoxic respiratory failure, COPD exacerbation, chronic interstitial pulmonary fibrosis, WESLY, and acute on chronic CHF, requiring intubation likely due to aspiration while eating rice. She was recently discharged on 06/24/2024 for pneumonia. She lives with her family, has been wheelchair-bound since 1998, quit smoking in April 2024 after smoking two cigarettes per day for 60 years, and denies alcohol use. Her surgical history includes cholecystectomy, , tonsillectomy, lymph node dissection, lumpectomy, and mastectomy. Hospitalization day: 7 A. Neurology: # sedated for ventilation Synchronicity: Versed , fentanyl and propofol. RASS-2- 3 # history of seizures: Not on any antiseizure medications. # history of insomnia, anxiety disorder: Trazodone 50 mg at bedtime, not needed. # multimodal pain management: Follows with Dr. Dominguez at home patient is on morphine 50 mg tablet b.i.d., baclofen 10 mg b.i.d., Hume 10 mg t.i.d. Lyrica/pregabalin 50 mg p.o.. # previous history of stroke: Patient on aspirin 81 and atorvastatin 20 mg at home. Holding presumably B. Cardiology: # chronic atrial fibrillation: Patient on Eliquis 5 mg b.i.d. no beta mara? Or amiodarone in home medications noted. In-hospital metoprolol tartrate 25 mg p.o. b.i.d.. At home noted metoprolol 50 mg p.o. t.i.d. tartrate, held as patient is hypotensive and on vasopressor support. # primary hypertension: At home 5 mg daily of amlodipine, losartan 25 mg p.o. daily held as patient is still on Levophed. Hold losartan 25 mg and metoprolol tartrate # hypotension likely due to septic shock: Off of antihypertensives, continue Levophed titrated as needed to keep the map over 65. # dyslipidemia: Atorvastatin 20 mg daily, can be held presumably # heart failure with preserved ejection fraction (HFpEF/HFrec EF): HFmrEF (40- 45%), last checked in 2022>>> improved to 50% ejection fraction in May 18 2024. 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 Respiratory: # known COPD: Recently got azithromycin 500 for 10 days, prednisone 20 for 10 days, at home takes Spiriva [place] cap 80 mcg b.i.d., tiotropium bromide, previous history of 60 years of smoking, more than 4 hospitalization in past 2 months # history of pulmonary fibrosis: Likely due to underlying COPD versus other secondary causes # COPD exacerbation, in-hospital patient on budesonide nebulization b.i.d., ipratropium 0.5 q.4 and levalbuterol q.4 nebs. Methylprednisolone 40 mg Q 8 t.i.d. # acute on chronic hypoxic respiratory failure: At home baseline is 2 L of nasal cannula oxygen round the clock. Now patient is intubated and and ventilated, with 60 FiO2, peep of 5, tidal volume of 450, SpO2 of 100, we will try to go down on FiO2 to 50 perhaps. At intubation PC mode: RR 20; I-Pressure 22; I-time 0.8, PEEP 5, FiO2 80%, this morning pH 7.279, pCO2 49, PO2 of 60.6, base excess-4.5, likely non anion gap metabolic acidosis, primary respiratory acidosis chronic with secondary metabolic acidosis # multifocal pneumonia: Likely aspiration pneumonia superimposed on community- acquired pneumonia, MRSA positive, blood culture unremarkable, bronch culture pending, diffuse pulmonary edema, status post IV Lasix urine output not improve. # seasonal allergy: On Claritin loaded in as needed. # history of tonsillectomy # history of lymph node dissection and lumpectomy # history of allergy to multiple medications and food products Lisinopril, penicillins, pentazocine, pineapple, strawberry, TMP SMX, Tyelonol, tomato # thick white secretions, hypoactive cough and gag, S/p bronchoscopy 3/2 with clearing of secretions from L1-L10, LLL BAL sent for gram stain and culture, viral culture, fungal culture, and AFB smear and culture. D. Gastrointestinal: # history of GERD/gastritis: IV PPI prophylaxis continue. At home patient takes Carafate q.i.d. # secondary constipation likely due to high dose of opioids: At home patient is on polyethylene glycol daily dose, and lactulose. # history of cholecystectomy # chronic constipation: Start the patient on lactulose 30 mg b.i.d. at home patient has Colace, MiraLax E. Genitourinary: # distant history of # on Stallworth's catheter: Past 24 hour lower urine output 650 cc output 0.1 mL/kg per hour, increasing BUN with rising creatinine 3.30 with calculated GFR of 14. Nephrology consulted Dr. Bacon'S group called and updated as well waiting for input. F. Infectious Disease: # MRSA nares positive: Mupirocin ointment x5 days repeat MRSA # aspiration pneumonia super sided on atypical community-acquired pneumonia: Multifocal pneumonia cefepime with vancomycin: Change to meropenem and vancomycin G. Hematology & Oncology: # anemia of chronic disease likely due to CKD # breast cancer in remission # possible UTI on presentation leukocyte esterase 2+, urine culture not present. H. Nephrology: # known CKD stage 3b # WESLY due to VMN due to prerenal causes. # likely acute renal failure: Close input output to check, IV Lasix not improve, nephrology consulted waiting for input. I. Endocrine: # diabetes mellitus HbA1c 7.7 well-controlled: At home glipizide 5 mg daily, metformin 850 p.o. b.i.d. in-hospital aggressive insulin protocol less insulin glargine Lantus daily. # elevated BG likely due to on board steroid: 4 SSI HS # grade 2 obesity 39.3 # previously known thyroid nodule J. MSK: # chronic back pain, pain control with multiple opioids # osteoarthritis: No recent fracture K. Prophylaxis: PPI: IV PPI DVT: scd off of Eliquis L. Lines & Drains (with insertion date): IV : Left forearm x2 Central : Right femoral 07/05/2024 Arterial line: Not needed Stallworth's catheter since 07/05/2024. ETT 07/23/2024 M. Drips: Propofol, fentanyl, Versed, Levophed N. Disposition: Remains in ICU O. Vent Settings: Pressure control, AC, respiratory rate change to , peep 528, I:E: 1: 2 The plan was discussed with the ICU attending Dr. Teague. The patient care consists of total 83 minutes of critical care time excluding the procedures. Updated Daughter Sandy over phone. Dictated by Tushar Aguilera MD with 3M MModal Fluency. Plan discussed with: Patient, Daughter, Other (Primary team, RN.) My Orders My Orders Orders - TUSHAR AGUILERA RESIDENT Procedure Category Date Status Time *Dr. Bacon Group CONS 07/06/24 Transmitted -[place] 10:39 Echo 2d Mode Cardiac US 07/06/24 Logged DOP 10:49 Sequential PHILLIP 07/06/24 In Process Compression Device 10:55 Comprehensive LAB 07/06/24 Logged Metabolic Panel 10:55 Furosemide Injection PHA 07/06/24 Logged (Lasix Injection) 11:15 Dietary Evaluation Review Comments: 1) If patient remains NPO for more than 7 days, consider TPN to meet at least 75% of estimated needs. 2) If GI route is preferred, consider Glucerna 1.2 @ 45 mL/hr goal rate as tolerated. Flush with 200 mL Q6. Goal rate will provide 1296 kcals, 65g Pro, and 1669 mL free H2O (including flushes) per day. TF regimen will meet 100% of estimated daily energy and protein needs. 3) Advance patient diet to [facility]g [facility] cardiac diet when medically feasible, pending [facility] approval. 4) Continue to monitor I&O, labs, weight, and skin integrity Expected Outcomes/Goals: 1) patient to receive nutrition within 7 days 2) diet to advance 3) labs to improve 4) f/u in 3 days CC Plasma Assessment Blood Product Administration S: 1400 Labs/Diagnostic Data Labs/Diagnostic Data Laboratory Tests Test 07/06/24 08:22 07/06/24 07:15 07/06/24 07:14 07/06/24 04:15 Range/Units POC Glucose 182 H 200 H 184 H 70-106 mg/dl Blood Gas Specimen Type Arterial Blood Gas Sample Site Right radial Blood Gas Patient Temperature 37.0 Arterial Blood Date Drawn [id number] Arterial Blood pH 7.279 L 7.350-7.450 Arterial Blood Partial Pressure CO2 49.0 H 32.0-45.0 mmHg Arterial Blood Partial Pressure O2 60.6 L 83.0-108.0 mmHg Arterial Blood HCO3 22.5 21.0-28.0 mmol/L Arterial Blood Oxygen Saturation 88.1 L 94.0-98.0 % Arterial Blood Base Excess -4.5 L -2.0-3.0 mmol/L Arterial Blood Oxyhemoglobin 87.7 L 94.0-98.0 % Arterial Blood Carboxyhemoglobin 0.1 L 0.5-1.5 % Arterial Blood Methemoglobin 0.3 0.0-1.5 % Juan Test Modified Blood Gas Total Hemoglobin 12.60 12.0-16.0 g/dL Blood Gas Set Respiration Rate 28.0 Blood Gas Modality Vent - p/c FiO2 % 60.0 Blood Gas Inspiratory Pressure 30.0 Blood Gas PEEP or CPAP 5.0 Blood Gas Critical Value Read Back Yes Test 07/06/24 03:24 07/05/24 23:53 07/05/24 19:59 07/05/24 16:20 Range/Units White Blood Count 15.8 H 4.4-10.8 10^3/uL Red Blood Count 2.71 L 4.0-5.20 10^6/uL Hemoglobin 7.9 #L 12.2-16.2 g/dL Hematocrit 24.5 #L 36.0-46.0 % Mean Corpuscular Volume 90.3 80.0-100.0 fL Mean Corpuscular Hemoglobin 29.3 28.0-32.0 pg Mean Corpuscular Hemoglobin Concent 32.4 32.0-36.0 g/dL Red Cell Distribution Width 17.9 H 11.8-14.3 % Platelet Count 122 L 140-450 10^3/uL Mean Platelet Volume 8.0 6.9-10.8 fL Neutrophils (%) (Auto) 96.8 H 37.0-80.0 % Lymphocytes (%) (Auto) 1.4 L 10.0-50.0 % Monocytes (%) (Auto) 1.4 0.0-12.0 % Eosinophils (%) (Auto) 0.0 0.0-7.0 % Basophils (%) (Auto) 0.4 0.0-2.0 % Neutrophils # (Auto) 15.3 H 1.6-8.6 10 ^3/uL Lymphocytes # (Auto) 0.2 L 0.4-5.4 10 ^3/uL Monocytes # (Auto) 0.2 0-1.3 10 ^3/uL Eosinophils # (Auto) 0 0-0.8 10 ^3/uL Basophils # (Auto) 0.1 0-0.2 10 ^3/uL Nucleated Red Blood Cells 0.0 % Sodium Level 137 136-145 mmol/L Potassium Level 4.7 3.5-5.1 mmol/L Chloride Level 104 98-107 mmol/L Carbon Dioxide Level 21 20-31 mmol/L Anion Gap 12 5-15 Blood Urea Nitrogen 74 #H 9-23 mg/dL Creatinine 3.30 H 0.550-1.02 mg/dL Glomerular Filtration Rate Calc 14 >90 mL/min BUN/Creatinine Ratio 22.4 H 10.0-20.0 Serum Glucose 171 H 74-106 mg/dL Calcium Level 8.1 L 8.7-10.4 mg/dL Phosphorus Level 6.6 H 2.4-5.1 mg/dL Magnesium Level 2.4 1.6-2.6 mg/dL Random Vancomycin Level 20.2 H 5-10 ug/mL POC Glucose 152 H 137 H 70-106 mg/dl Blood Gas Specimen Type Arterial Blood Gas Sample Site Right radial Blood Gas Patient Temperature 37.0 Arterial Blood Date Drawn [id number] Arterial Blood pH 7.271 L 7.350-7.450 Arterial Blood Partial Pressure CO2 49.5 H 32.0-45.0 mmHg Arterial Blood Partial Pressure O2 65.1 L 83.0-108.0 mmHg Arterial Blood HCO3 22.3 21.0-28.0 mmol/L Arterial Blood Oxygen Saturation 90.0 L 94.0-98.0 % Arterial Blood Base Excess -4.6 L -2.0-3.0 mmol/L Arterial Blood Oxyhemoglobin 89.0 L 94.0-98.0 % Arterial Blood Carboxyhemoglobin 0.8 0.5-1.5 % Arterial Blood Methemoglobin 0.3 0.0-1.5 % Juan Test Modified Blood Gas Total Hemoglobin 9.50 L 12.0-16.0 g/dL Blood Gas Set Respiration Rate 30.0 Blood Gas Modality Vent - p/c FiO2 % 60.0 Blood Gas Inspiratory Pressure 28.0 Blood Gas PEEP or CPAP 5.0 Blood Gas Comments Test 07/05/24 16:14 07/05/24 13:21 07/05/24 12:59 07/05/24 11:52 Range/Units POC Glucose 148 H 246 H 70-106 mg/dl Prothrombin Time 10.9 9.3-11.8 sec Prothrombin Time INR 1.03 0.9-1.15 Activated Partial Thromboplast Time 30.2 24.5-34.5 SEC Blood Gas Specimen Type Arterial Blood Gas Sample Site Right radial Blood Gas Patient Temperature 37.0 Arterial Blood Date Drawn [id number] Arterial Blood pH 7.136 *L 7.350-7.450 Arterial Blood Partial Pressure CO2 75.1 *H 32.0-45.0 mmHg Arterial Blood Partial Pressure O2 62.0 L 83.0-108.0 mmHg Arterial Blood HCO3 24.8 21.0-28.0 mmol/L Arterial Blood Oxygen Saturation 84.7 *L 94.0-98.0 % Arterial Blood Base Excess -5.0 L -2.0-3.0 mmol/L Arterial Blood Oxyhemoglobin 83.9 L 94.0-98.0 % Arterial Blood Carboxyhemoglobin 0.6 0.5-1.5 % Arterial Blood Methemoglobin 0.3 0.0-1.5 % Juan Test Modified Blood Gas Total Hemoglobin 10.00 L 12.0-16.0 g/dL Blood Gas Set Respiration Rate 20.0 Blood Gas Modality Vent - p/c FiO2 % 60.0 Blood Gas Inspiratory Pressure 28.0 Blood Gas PEEP or CPAP 5.0 Specimen Drawn By Warren bernal Blood Gas Critical Value Read Back Yes Blood Gas Notified Whom Dr. kruse Blood Gas Notified Time [id number] Blood Gas Notified By Warren bernal Microbiology Date/Time Source Procedure Growth Status 07/05/24 11:30 Lung Pending Resulted 07/05/24 11:30 Lung Pending Resulted 07/05/24 11:30 Lung Pending Resulted 07/05/24 11:30 Lung Pending Resulted 07/05/24 11:30 Lung - Final See Separate Report... Resulted 06/29/24 16:02 Blood Blood Culture - Final NO GROWTH AFTER 5 DAYS OF INCUBATION. Complete vital signs Vital Sign Date Time Temp Pulse Resp B/P (MAP) Pulse Ox O2 Delivery O2 Flow Rate FiO2 07/06/24 08:00 84 30 100 Mechanical Ventilator+ 60 60 07/06/24 08:00 123/53 (76) 07/06/24 07:39 98.4 209.1 07/05/24 02:23 12 Total Intake and Output 07/05/24 07/05/24 07/06/24 15:00 23:00 07:00 Intake Total 200.55 ml 305.90 ml 267.35 ml Output Total 375 ml 275 ml Balance 200.55 ml -69.10 ml -7.65 ml medications Current Medications Medications Dose Ordered Sig/Theresa Route Start Time Stop Time Status Last Admin Dose Admin Sodium Chloride 10 ml Q8HR IV 06/29/24 22:00 07/06/24 06:17 10 ML Atorvastatin Calcium 20 mg DAILY PO 06/30/24 10:00 07/05/24 10:31 20 MG Vancomycin HCl 0 ml @ 0 mls/hr UD IV 06/29/24 22:15 Metoprolol Tartrate 25 mg BID PO 06/29/24 22:30 07/04/24 22:33 25 MG Losartan Potassium 25 mg DAILY PO 06/30/24 10:00 07/04/24 09:35 25 MG Insulin Glargine 30 units QAM SC 06/30/24 07:00 07/06/24 07:24 30 UNITS Diagnostic Test (Pha) 1 strip IQ4HR 06/30/24 08:00 07/06/24 08:27 1 STRIP Insulin Human Regular IQ4HR SC 06/30/24 08:00 07/06/24 08:27 4 UNITS Dextrose 50 ml UD PRN IV 06/30/24 06:45 Ipratropium Bishop 0.5 mg Q4HR NEB 06/30/24 14:00 07/06/24 09:52 0.5 MG Levalbuterol HCl 1.25 mg Q4H NEB 06/30/24 11:15 07/06/24 09:52 1.25 MG Pantoprazole Sodium 40 mg DAILY IV 07/01/24 10:00 07/06/24 09:43 40 MG Budesonide 0.5 mg BID NEB 06/30/24 22:00 07/06/24 06:10 0.5 MG Cefepime HCl 50 ml @ 12.5 mls/hr Q12HR IV 07/01/24 22:00 07/06/24 09:43 12.5 MLS/HR Mupirocin 1 applic BID EACHNOSTRI 07/01/24 22:00 07/06/24 21:59 07/04/24 22:00 1 APPLIC Methylprednisolone Sodium Succinate 40 mg Q8H IV 07/03/24 20:00 07/06/24 04:14 40 MG Propofol 100 ml @ 3.6 mls/hr Q24H IV 07/05/24 03:30 07/06/24 04:18 10.8 MLS/HR Midazolam HCl 50 ml @ 1 mls/hr Q24H IV 07/05/24 03:30 07/06/24 03:13 4 MLS/HR Fentanyl Citrate 250 ml @ 2.5 mls/hr Q24H IV 07/05/24 03:30 07/06/24 03:13 12.5 MLS/HR Norepinephrine Bitartrate 250 ml @ 3.75 mls/hr Q24H IV 07/05/24 14:15 07/05/24 14:24 3.75 MLS/HR laboratory and microbiology Laboratory Tests 07/06/24 03:24 Test 07/06/24 03:24 Range/Units Serum Glucose 171 H 74-106 mg/dL Date of Service: Jul 06, 2024 Billing Provider: KARISSA TEAGUE MD Common Visit Codes: [id number] CARE 30-74 MIN, [id number] CARE-EACH +30MIN TUSHAR AGUILERA RESIDENT Jul 06, 2024 11:20 KARISSA TEAGUE MD Jul 07, 2024 14:35
[2024-07-06 12:09] LABS: Bilirubin, Direct 0.1 mg/dL (<0.3); Total Protein 5.7 g/dL (5.7-8.2)
[2024-07-06] MEDS: FUROSEMIDE 40 MG/4 ML VIAL IV ONE (12:09)
[2024-07-06 12:18] LABS: Bilirubin, Total 0.2 mg/dL (0.2-1.0)
[2024-07-06] MEDS ORDERED: DEXTROSE (50%) 50ML SYRG IV PRN (16:30)
[2024-07-06] MEDS: LACTULOSE 20Gm/30ML SOLN PO SCH (17:47)
[2024-07-06 17:50] LABS: Base Excess -6.2 mmol/L (-2.0-3.0)
[2024-07-06 19:30] LABS: Base Excess -5.4 mmol/L (-2.0-3.0)
[2024-07-06] MEDS: ACCU-CHEK COMFORT CURVE STRIP VI SCH (20:00)
[2024-07-06] MEDS: InsuLIN REG 1unit/0.01ml Soln (100units/ml) SC SCH (20:21)
[2024-07-06] MEDS: MEROPENEM 1GM IVPB 50 ML IV ONE (20:41)
[2024-07-06] MEDS: BUMETANIDE 2.5mg/10ml (0.25 mg/ml) INJ IV ONE (20:43)
[2024-07-06] MEDS: methylPREDNISolone SOD SUCC 40 MG/ML VL IV SCH (21:43)
[2024-07-07] VITALS (113 sets, daily range): BP systolic 87–155; BP diastolic 21–70; PULSE 72–117; RESP 0–51; TEMP 97–99; O2SAT 93–100
[2024-07-07 03:50] LABS: Hematocrit 26.9 % (36.0-46.0); Hemoglobin 8.7 g/dL (12.2-16.2); Mean Corpuscular Hemoglobin 29.8 pg (28.0-32.0); Mean Corpuscular Hgb Conc. 32.2 g/dL (32.0-36.0); Mean Corpuscular Volume 92.4 fL (80.0-100.0); Platelet Count (auto) 155 10^3/uL (140-450); Red Blood Cells 2.91 10^6/uL (4.0-5.20); Red Cell Distribution Width 17.8 % (11.8-14.3); White Blood Cell 23.8 10^3/uL (4.4-10.8)
[2024-07-07 03:56] LABS: Band Neutrophils % (manual) 0; Basophils % (manual) 0 (0.0-2.0); Blast Cells 0; Eosinophils % (manual) 0 (0-7); Metamyelocytes % 0; Myelocytes % 0; Promyelocytes % 0; Reactive Lymphocytes 0
[2024-07-07 04:08] LABS: Alanine Aminotransferase 19 U/L (7-40); Albumin 3.3 g/dL (3.2-4.8); Alkaline Phosphatase 71 U/L (46-116); Anion Gap 13 (5-15); BUN/Creatinine Ratio 19.2 (10.0-20.0); Carbon Dioxide 22 mmol/L (20-31); Chloride 102 mmol/L (98-107); Sodium 137 mmol/L (136-145); Total Protein 6.1 g/dL (5.7-8.2)
[2024-07-07 04:20] LABS: Aspartate Aminotransferase 10 U/L (13-40); Bilirubin, Total 0.3 mg/dL (0.2-1.0); Calcium 8.5 mg/dL (8.7-10.4); Glucose 187 mg/dL (74-106)
[2024-07-07 04:22] LABS: Blood Urea Nitrogen 86 mg/dL (9-23)
--- NOTE | 2024-07-07 05:03 | DVH ---
CHEST RADIOGRAPH Indication: ETT Technique: Single frontal view of the chest was obtained COMPARISON: XY CHEST XRAY 1 VIEW on DOS: 07/05/24, XY CHEST PORTABLE on DOS: 07/05/24, XY CHEST PORTABLE on DOS: 07/05/24, XY CHEST PORTABLE on DOS: 07/03/24, XY CHEST XRAY 1 VIEW on DOS: 07/02/24 FINDINGS: Lines and Tubes: Endotracheal tube, enteric catheter and right chest port in satisfactory position. Lungs: Multifocal airspace disease. Pleura: No effusion. No pneumothorax. Cardiomediastinal contours: Cardiomegaly Bones: Unremarkable IMPRESSION: Lines and tubes in satisfactory position. No significant interval change.
[2024-07-07 05:43] LABS: Lymphocytes % (manual) 1 (10.0-50.0); Monocytes % (manual) 2 (0-12); Platelet Estimate Adequate
[2024-07-07] MEDS: INSULIN LANTUS (GLARGINE) 1 /0.01ml (100units/ml) SC SCH (07:12)
[2024-07-07 07:23] LABS: Base Excess -8.6 mmol/L (-2.0-3.0)
[2024-07-07] MEDS: MEROPENEM 1GM IVPB 50 ML IV SCH (08:29)
[2024-07-07] MEDS ORDERED: BUMETANIDE INJECTION 25 MG in GIVE UN-DILUTED 0 ML IV SCH (08:30)
--- NOTE | 2024-07-07 09:48 | DVHPNRES ---
Progress Note Date Seen: Jul 07, 2024 Resident Creating Document: TUSHAR AGUILERA RESIDENT Medical Necessity Reason Pt with a Central, PICC or Fol: Yes The following are medically ne: Stallworht Catheter Reason for stallworth catheter: Strict I&O, Total Immobilization Subjective Review of Systems -overnight patient is afebrile, remains intubated and sedated, blood pressure keeping a map over 65 with vasopressor support. -CBC bauman worsening white count 23.8 versus 15.8, predominant neutrophilia, H and H more or less stable 8.7 versus 7.9, platelet count improved 122-155 -CMP 86 versus 74,, creatinine 3.30> 4.47 -no new growth in culture -chest x-ray repeat this morning shows no major interval change, ET tube 4 cm above the daniel, lines and tubes are in place. -last 24 hours only 60 mL of urine output despite Bumex and Lasix. Remains on Stallworth's catheter. Bladder negative. Objective vital signs Vital Sign Date Time Temp Pulse Resp B/P (MAP) Pulse Ox O2 Delivery O2 Flow Rate FiO2 07/07/24 08:29 101/31 07/07/24 08:01 88 28 97 60 07/07/24 06:00 Mechanical Ventilator+ 07/07/24 05:10 98.1 208.6 Total Intake and Output 07/06/24 07/06/24 07/07/24 15:00 23:00 07:00 Intake Total 294.70 ml 467.90 ml 513.70 ml Output Total 60 ml 0 ml Balance 294.70 ml 407.90 ml 513.70 ml medications Current Medications Medications Dose Ordered Sig/Theresa Route Start Time Stop Time Status Last Admin Dose Admin Sodium Chloride 10 ml Q8HR IV 06/29/24 22:00 07/07/24 06:05 10 ML Vancomycin HCl 0 ml @ 0 mls/hr UD IV 06/29/24 22:15 Ipratropium Ironside 0.5 mg Q4HR NEB 06/30/24 14:00 07/07/24 09:43 0.5 MG Levalbuterol HCl 1.25 mg Q4H NEB 06/30/24 11:15 07/07/24 09:44 1.25 MG Pantoprazole Sodium 40 mg DAILY IV 07/01/24 10:00 07/06/24 09:43 40 MG Budesonide 0.5 mg BID NEB 06/30/24 22:00 07/07/24 05:57 0.5 MG Propofol 100 ml @ 3.6 mls/hr Q24H IV 07/05/24 03:30 07/07/24 04:02 18 MLS/HR Midazolam HCl 50 ml @ 1 mls/hr Q24H IV 07/05/24 03:30 07/07/24 04:01 6 MLS/HR Fentanyl Citrate 250 ml @ 2.5 mls/hr Q24H IV 07/05/24 03:30 07/07/24 08:29 20 MLS/HR Norepinephrine Bitartrate 250 ml @ 3.75 mls/hr Q24H IV 07/05/24 14:15 07/06/24 16:41 3.75 MLS/HR Insulin Glargine 20 units QAM SC 07/07/24 07:00 07/07/24 07:12 20 UNITS Methylprednisolone Sodium Succinate 40 mg BID IV 07/06/24 22:00 07/06/24 21:43 40 MG Diagnostic Test (Pha) 1 strip IQ4HR 07/06/24 20:00 07/07/24 08:56 1 STRIP Insulin Human Regular IQ4HR SC 07/06/24 20:00 07/07/24 08:55 3 UNITS Dextrose 50 ml UD PRN IV 07/06/24 16:30 Meropenem 50 ml @ 17 mls/hr Q12HR@0800,2000 IV 07/07/24 08:00 07/07/24 08:29 17 MLS/HR Lactulose 30 ml Q6HR PO 07/06/24 18:00 07/07/24 06:03 30 ML Bumetanide 25 mg/ Miscellaneous 100 ml @ 4 mls/hr Q24H IV 07/07/24 08:30 Examination Examination: GENERAL:Normal (Overall looks sick), HEENT:Normal, NECK:Normal (On ET tube,), LUNGS:Normal, CVS:Normal, ABDOMEN:Normal, MSK:Normal, SKIN:Normal, NEURO:Normal, :Normal laboratory and microbiology Laboratory Tests 07/07/24 03:00 Test 07/07/24 03:00 Range/Units Serum Glucose 187 H 74-106 mg/dL Microbiology Date/Time Source Procedure Growth Status 07/06/24 04:06 Nose MRSA Screen - Final Complete 07/05/24 11:30 Bronchial Washings Gram Stain - Final Resulted 07/05/24 11:30 Bronchial Washings Respiratory Culture - Preliminary Resulted 06/29/24 16:02 Blood Blood Culture - Final NO GROWTH AFTER 5 DAYS OF INCUBATION. Complete Labs and/or images reviewed: Labs reviewed by me, Image(s) reviewed by me Problem List/Assessment/Plan Problem List/Assessment/Plan ICU Course: A 74-year-old female with a complex medical history, including chronic AFIB, anemia, anxiety, CAD, HFpEF, COPD, chronic hypoxic respiratory failure, idiopathic pulmonary fibrosis, stroke, diabetes, diabetic nephropathy, hypothyroidism, dyslipidemia, hypertension, seizures, and breast cancer in remission, presented to the ED with malaise, cough, shortness of breath, weakness, and palpitations. She was found to have acute on chronic hypoxic respiratory failure, COPD exacerbation, chronic interstitial pulmonary fibrosis, WESLY, and acute on chronic CHF, requiring intubation likely due to aspiration while eating rice. She was recently discharged on 06/24/2024 for pneumonia. She lives with her family, has been wheelchair-bound since 1998, quit smoking in April 2024 after smoking two cigarettes per day for 60 years, and denies alcohol use. Her surgical history includes cholecystectomy, , tonsillectomy, lymph node dissection, lumpectomy, and mastectomy. Hospitalization day: 8 A. Neurology: # sedated for ventilation Synchronicity: Versed , fentanyl and propofol. RASS-2- 3 # history of seizures: Not on any antiseizure medications. # history of insomnia, anxiety disorder: Trazodone 50 mg at bedtime, not needed. # multimodal pain management: Follows with Dr. Dominguez at home patient is on morphine 50 mg tablet b.i.d., baclofen 10 mg b.i.d., [place] 10 mg t.i.d. Lyrica/pregabalin 50 mg p.o.. # previous history of stroke: Patient on aspirin 81 and atorvastatin 20 mg at home. Holding presumably B. Cardiology: # chronic atrial fibrillation: Patient on Eliquis 5 mg b.i.d. no beta mara? Or amiodarone in home medications noted. In-hospital metoprolol tartrate 25 mg p.o. b.i.d.. At home noted metoprolol 50 mg p.o. t.i.d. tartrate, held as patient is hypotensive and on vasopressor support. # H/O primary hypertension: At home 5 mg daily of amlodipine, losartan 25 mg p.o. daily held as patient is still on Levophed. Hold losartan 25 mg and metoprolol tartrate # hypotension likely due to septic shock: Off of antihypertensives, continue Levophed titrated as needed to keep the map over 65. # dyslipidemia: Atorvastatin 20 mg daily, can be held presumably # heart failure with preserved ejection fraction (HFpEF/HFrec EF): HFmrEF (40- 45%), last checked in 2022>>> improved to 50% ejection fraction in May 18 2024. 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 Respiratory: # known COPD: Recently got azithromycin 500 for 10 days, prednisone 20 for 10 days, at home takes Spiriva Rota cap 80 mcg b.i.d., tiotropium bromide, previous history of 60 years of smoking, more than 4 hospitalization in past 2 months # history of pulmonary fibrosis: Likely due to underlying COPD versus other secondary causes # COPD exacerbation, in-hospital patient on budesonide nebulization b.i.d., ipratropium 0.5 q.4 and levalbuterol q.4 nebs. Methylprednisolone 40 mg Q 8 t.i.d. # acute on chronic hypoxic respiratory failure: At home baseline is 2 L of nasal cannula oxygen round the clock. Now patient is intubated and and ventilated, with 60 FiO2, peep of 5, tidal volume of 450, SpO2 of 100, we will try to go down on FiO2 to 50 perhaps. At intubation PC mode: RR 20; I-Pressure 22; I-time 0.8, PEEP 5, FiO2 80%, this morning pH 7.279, pCO2 49, PO2 of 60.6, base excess-4.5, likely non anion gap metabolic acidosis, primary respiratory acidosis chronic with secondary metabolic acidosis # multifocal pneumonia: Likely aspiration pneumonia superimposed on community- acquired pneumonia, MRSA positive, blood culture unremarkable, bronch culture pending, diffuse pulmonary edema, status post IV Lasix urine output not improve. # seasonal allergy: On Claritin loaded in as needed. # history of tonsillectomy # history of lymph node dissection and lumpectomy # history of allergy to multiple medications and food products Lisinopril, penicillins, pentazocine, pineapple, strawberry, TMP SMX, Tyelonol, tomato # thick white secretions, hypoactive cough and gag, S/p bronchoscopy 3/2 with clearing of secretions from L1-L10, LLL BAL sent for gram stain and culture, viral culture, fungal culture, and AFB smear and culture. D. Gastrointestinal: # history of GERD/gastritis: IV PPI prophylaxis continue. At home patient takes Carafate q.i.d. # secondary constipation likely due to high dose of opioids: At home patient is on polyethylene glycol daily dose, and lactulose. # history of cholecystectomy # chronic constipation: Start the patient on lactulose 30 mg b.i.d. at home patient has Colace, MiraLax E. Genitourinary: # distant history of # on Stallworth's catheter: Past 24 hour lower urine output 650 cc output 0.1 mL/kg per hour, increasing BUN with rising creatinine 3.30 with calculated GFR of 14. Nephrology consulted Dr. Bacon'S group called and updated as well waiting for input. F. Infectious Disease: # MRSA nares positive: Mupirocin ointment x5 days repeat MRSA # aspiration pneumonia super sided on atypical community-acquired pneumonia: Multifocal pneumonia cefepime with vancomycin: Change to meropenem and vancomycin G. Hematology & Oncology: # anemia of chronic disease likely due to CKD # breast cancer in remission # possible UTI on presentation leukocyte esterase 2+, urine culture not present. H. Nephrology: # known CKD stage 3b # WESLY due to VMN # likely acute renal failure: Close input output to check, IV Lasix not improve, nephrology consulted waiting for input. 60 cc urine output in 24 hours despite lasix and acetazolamide. S/p Blade catheter in RIJ, needing urgent initiation of hemodialysis. I. Endocrine: # diabetes mellitus HbA1c 7.7 well-controlled: At home glipizide 5 mg daily, metformin 850 p.o. b.i.d. in-hospital aggressive insulin protocol less insulin glargine Lantus daily. # elevated BG likely due to on board steroid: 4 SSI HS # grade 2 obesity 39.3 # previously known thyroid nodule J. MSK: # chronic back pain, pain control with multiple opioids # osteoarthritis: No recent fracture K. Prophylaxis: PPI: IV PPI DVT: scd off of Eliquis L. Lines & Drains (with insertion date): IV : Left forearm x2 Central : Right femoral 07/05/2024 Arterial line: 07/07/2024 Stallworth's catheter since 07/05/2024. ETT 07/23/2024 Blade RIJ: 07/07/2024 M. Drips: Propofol, fentanyl, Versed, Levophed N. Disposition: Remains in ICU O. Vent Settings: Pressure control, AC, respiratory rate change to , peep 528, I:E: 1: 2 The plan was discussed with the ICU attending Dr. Teague. The patient care consists of total 87 minutes of critical care time excluding the procedures. Updated Daughter Sandy over phone. I updated the daughter regarding the overall multiorgan failure and updates of the patient that needs urgent dialysis, blood transfusion, A-line and patient remains extremely sick. Daughter understands and also I mentioned like we will do aggressive management but if patient continues to decline then we have to have another goals of care discussion. Dictated by Tushar Aguilera MD with 3M MModal Fluency. Plan discussed with: Patient, Daughter, Other My Orders My Orders Orders - TUSHAR AGUILERA RESIDENT Procedure Category Date Status Time Sequential PHILLIP 07/06/24 In Process Compression Device 10:55 Abg W/ Co-Ox RT 07/06/24 Logged 19:11 *Dr. Bacon Group CONS 07/06/24 Transmitted -[place] 19:15 Chest Xray 1 View XY 07/07/24 Resulted 04:00 Ventilator Orders RT 07/06/24 Transmitted 19:53 Echo 2d Mode Cardiac US 07/07/24 Logged DOP 10:49 Dietary Evaluation Review Comments: 1) If patient remains NPO for more than 7 days, consider TPN to meet at least 75% of estimated needs. 2) If GI route is preferred, consider Glucerna 1.2 @ 45 mL/hr goal rate as tolerated. Flush with 200 mL Q6. Goal rate will provide 1296 kcals, 65g Pro, and 1669 mL free H2O (including flushes) per day. TF regimen will meet 100% of estimated daily energy and protein needs. 3) Advance patient diet to 60g CCHO cardiac diet when medically feasible, pending [employer] approval. 4) Continue to monitor I&O, labs, weight, and skin integrity Expected Outcomes/Goals: 1) patient to receive nutrition within 7 days 2) diet to advance 3) labs to improve 4) f/u in 3 days CC Plasma Assessment Blood Product Administration S: 1400 Date of Service: Jul 07, 2024 Billing Provider: KARISSA TEAGUE MD Common Visit Codes: 10132-[id number] CARE 30-74 MIN, [id number] CARE-EACH +30MIN TUSHAR AGUILERA RESIDENT Jul 07, 2024 09:48 KARISSA TEAGUE MD Jul 08, 2024 15:24
[2024-07-07] MEDS ORDERED: CEFEPIME 1GM/ 50ML 50 ML IV SCH (10:00)
[2024-07-07] MEDS: HEPARIN 1,000 UNITS/ml 1ML VIAL IV ONE (11:40)
--- NOTE | 2024-07-07 13:17 | DVH ---
CHEST RADIOGRAPH Indication: HD CATH PLACEMENT Technique: Single frontal view of the chest was obtained COMPARISON: XY CHEST XRAY 1 VIEW on DOS: 07/07/24, XY CHEST XRAY 1 VIEW on DOS: 07/05/24, XY CHEST PORTAB LE on DOS: 07/05/24, XY CHEST PORTABLE on DOS: 07/05/24, XY CHEST PORTABLE on DOS: 07/03/24 FINDINGS: Lines and Tubes: Endotracheal tube, enteric catheter, right chest port and right central venous slim ter in satisfactory position. Lungs: Multifocal airspace disease. Pleura: No effusion. No pneumothorax. Cardiomediastinal contours: Unremarkable Bones: Unremarkable IMPRESSION: Lines and tubes in satisfactory position. No significant interval change.
[2024-07-07 13:40] LABS: Base Excess -8.3 mmol/L (-2.0-3.0)
[2024-07-07 16:13] LABS: Base Excess -7.6 mmol/L (-2.0-3.0)
--- NOTE | 2024-07-07 16:25 | DVHINCON2 ---
Date of service: Jul 07, 2024 Referring Physician Reason for Consultation edgar History of Present Illness 74 years old female with past medical history of AFib, anemia, coronary artery disease, congestive heart failure with preserved ejection fraction, COPD, chronic hypoxic respiratory failure, ckd3b ,pulmonary fibrosis, CVA, diabetes, hypothyroidism, hypertension, dyslipidemia, breast cancer in remission , seizu res presented with chief complaints of shortness of breath and palpitations Eventually patient is intubated and sedated today patient seen and examined in ICU patient is on Levophed drip for shock Nephrology consulted acute kidney injury and oliguria with no response to Bumex Past Medical History As per HPI Past Surgical History As per HPI Allergies: Coded Allergies: Penicillins (Verified Allergy, Intermediate, HIVES, 04/22/23) Pineapple (Verified Allergy, Intermediate, 04/22/23) [place] (Verified Allergy, Intermediate, 04/22/23) Tomato (Verified Allergy, Intermediate, 04/22/23) Lisinopril (Verified Allergy, Unknown, 04/22/23) Pentazocine (Verified Allergy, Unknown, 04/22/23) FROM [facility] Sulfamethoxazole w/Trimethoprim (Verified Allergy, Unknown, 04/22/23) Uncoded Allergies: [facility]WIN (Allergy, Unknown, 03/06/23) Home Meds Active Scripts Ferrous Sulfate (Iron) 325 Mg Tab, 325 MG PO BID, #60 TAB Prov:MARA SHAH MD 06/24/24 Fluconazole (Diflucan) 200 Mg Tab, 1 TAB PO DAILY, #10 TAB Prov:MARA SHAH MD 06/24/24 Prednisone (Prednisone) 20 Mg Tab, 20 MG PO DAILY, #10 MG Prov:MARA SHAH MD 06/24/24 Azithromycin (Azithromycin) 500 Mg Tab, 1 TAB PO DAILY, #10 TAB Prov:MARA SHAH MD 06/24/24 Sucralfate (CARAFATE SUSP) 1 Gm/10 Ml Ss, 10 ML PO QID for 30 Days, #1200 ML 3 Refills Prov:AURORA WILL RESIDENT 05/26/24 Polyethylene Glycol 3350 (Miralax) 17 Gm Pow, 17 GM PO DAILY for 30 Days, #1 POW Prov:AURORA WILL RESIDENT 05/26/24 Dextromethorphan-Guaifenesin (Robitussin-Dm) 10 Ml Sr, 10 ML PO Q4HP PRN for 30 Days, #1 SYP Prov:AURORA WILL RESIDENT 05/26/24 Amlodipine Besylate (NORVASC TABLET) 5 Mg Tb, 5 MG PO DAILY for 30 Days, #30 TAB Prov:AURORA WILL RESIDENT 05/26/24 Cefpodoxime Proxetil (Cefpodoxime Proxetil) 200 Mg Tab, 1 TAB PO BID for 5 Days, #10 TAB Prov:[facility] 03/18/24 Levofloxacin Hemihydrate (LEVAQUIN 500 MG) 500 Mg Tab, 1 TAB PO DAILY, #7 TAB Prov:MARA SHAH MD 04/26/23 Apixaban Base (ELIQUIS) 5 Mg Tab, 5 MG PO BID, #180 TAB Prov:MARA SHAH MD 04/26/23 Metoprolol Tartrate (Metoprolol Tartrate) 50 Mg Tab, 50 MG PO TID, #180 TAB Prov:MARA SHAH MD 04/26/23 Sucralfate (CARAFATE) 1 Gm Tab, 1 GM PO QID, #120 TAB 5 Refills Prov:CARINA HDEZ MD 01/30/23 Pantoprazole Sodium Sesquihydr (Protonix) 40 Mg Tab, 40 MG PO DAILY, #30 TAB 5 Refills Prov:CARINA HDEZ MD 01/30/23 Metoprolol Tartrate (LOPRESSOR TABLET) 50 Mg Tb, 50 MG PO TID, #90 TAB 5 Refills Prov:CARINA HDEZ MD 08/06/22 Aspirin (CLIF ASPIRIN EC LOW DOSE) 81 Mg Tab, 1 TAB PO DAILY, #30 TAB Prov:HOMER SAMUELS MD 05/25/20 Reported Medications Netarsudil Dimesylate (Rhopressa) 0.02 % Rosaura, 1 DROP EACHEYE QPM for 22 Days, #2.5 06/22/24 Trazodone Hcl (Trazodone Hcl) 50 Mg Tab, 1 TAB PO HS for 30 Days, #30 06/22/24 Brimonidine Tartrate (Brimonidine Tartrate) 0.2 % Rosaura, 1 DROP EACHEYE TID for 67 Days, #20 06/22/24 Furosemide (Furosemide) 40 Mg Tab, 1 TAB PO BID for 30 Days, #60 06/22/24 Lactulose (Lactulose) 10 Gm/15 Ml Rosaura, 1 TBS PO DAILY for 30 Days, #450 03/18/24 Apixaban Base (ELIQUIS) 5 Mg Tab, 5 MG PO BID for 30 Days, #60 03/18/24 Flecainide Acetate (Flecainide Acetate) 100 Mg Tab, 1 TAB PO BID, #60 TAB 5 Refills 03/18/24 Atorvastatin Calcium (Lipitor) 40 Mg Tab, 1 TAB PO QPM, #90 TAB 1 Refill 03/18/24 Albuterol Sulfate (VENTOLIN MDI) 90 Mcg Ih, 90 MCG IN, INH 03/18/24 Albuterol Sulfate (Albuterol Sulfate) 0.083 % Neb, 1 VIAL NEB Q4HPRN, #50 VIAL 03/18/24 Metoprolol Tartrate (Lopressor) 50 Mg Tab, 1 TAB PO BID, #60 TAB 5 Refills 03/18/24 Travoprost (Travatan Z) 0.004 % Pelon, 1 DROP EACHEYE QPM for 40 Days, #5 03/18/24 Tiotropium Delta Monohydrate (Spiriva Handihaler) 18 Mcg Cap, 1 CAP INH DAILY for 30 Days, #30 03/18/24 Hydrocodone-Acetaminophen (Hydrocodone Bitartrate/AC 10-325 mg) 1 Tab Tab, 1 TAB PO Q8HR for 90 Days, #90 11/28/23 Glipizide (Glipizide) 5 Mg Tab, 1 TAB PO DAILY for 90 Days, #90 11/28/23 Naloxegol Oxalate (Movantik) 12.5 Mg Tab, 1 TAB PO DAILY 11/28/23 Baclofen (Baclofen) 10 Mg Tab, 1 TAB PO Q12HR for 30 Days, #60 11/28/23 Morphine Sulfate (Morphine Sulfate) 15 Mg Tab, 1 TAB PO Q12HR for 30 Days, #60 11/28/23 Metformin Hydrochloride (Metformin Hcl) 850 Mg Tab, 850 MG PO BID 04/22/23 Furosemide (Furosemide) 20 Mg Tab, 20 MG PO DAILY, TAB 04/22/23 Atorvastatin Calcium (ATORVASTATIN CALCIUM) 20 Mg Tab, 20 MG PO DAILY, TAB 04/22/23 Hydrocodone-Acetaminophen (Hydrocodone Bitartrate/AC 10-325 mg) 1 Tab Tab, 1 TAB PO Q8HPRN 01/25/23 Insulin Lispro (Human) (Humalog) 100 Unit/Ml Inj, 10 UNIT SC DAILY, INJ Inject 10 units max subcutaneously daily per sliding scale 01/24/23 Ferrous Sulfate (FERROUS SULFATE) 325 Mg Tb, 325 MG PO DAILY, TAB 01/24/23 Brimonidine Tartrate (Brimonidine Tartrate) 0.2 % Rosaura, 1 DROP OP BID, ML 01/24/23 Albuterol Sulfate (Albuterol Sulfate) 0.083 % Neb, 0.083 % IN TID, INH 01/24/23 Pregabalin (Lyrica) 50 Mg Cap, 50 MG PO, CAP 01/24/23 Insulin Degludec (Tresiba Flextouch) 100 Unit/Ml Inj, 50 UNITS SC QPM 01/24/23 Travoprost (Travatan Z) 0.004 % Pelon, 0.004 % OP QPM, DROP Instill 1 drop to both eyes every evening 01/24/23 Tiotropium Delta Monohydrate (Spiriva Handihaler) 18 Mcg Cap, 18 MCG IN BID, CAP 01/24/23 Morphine Sulfate (Ms Contin) 15 Mg Tab, 1 TAB PO BID, #60 TAB 01/24/23 Colchicine (Colchicine) 0.6 Mg Cap, 1 CAP PO DAILY 05/12/22 Ezetimibe (Ezetimibe) 10 Mg Tab, 1 TAB PO DAILY 05/12/22 Losartan Potassium (Losartan Potassium) 25 Mg Tab, 0.5 TAB PO DAILY 05/12/22 Loratadine (Claritin) 10 Mg Tab, 1 TAB PO DAILY, #30 TAB 5 Refills 12/10/18 Current Medications Current Medications Medications (Trade) Dose Ordered Sig/Theresa Route PRN Reason Start Time Stop Time Status Last Admin Cefepime HCl 50 ml @ 12.5 mls/hr DAILY IV 07/07/24 10:00 07/06/24 16:31 DC Insulin Glargine (Lantus) 20 units QAM SC 07/07/24 07:00 07/07/24 14:32 DC 07/07/24 07:12 Methylprednisolone Sodium Succinate (Solu Medrol) 40 mg BID IV 07/06/24 22:00 07/07/24 14:32 DC 07/07/24 11:29 Diagnostic Test (Pha) (Accu-Chek Comfort Curve T) 1 strip IQ4HR 07/06/24 20:00 07/07/24 13:34 Insulin Human Regular (InsuLIN R) IQ4HR SC 07/06/24 20:00 07/07/24 08:55 Dextrose 50 ml UD PRN IV Blood Sugar LESS THAN 60 07/06/24 16:30 Meropenem 50 ml @ 17 mls/hr Q12HR@0800,2000 IV 07/07/24 08:00 07/07/24 08:29 Lactulose 30 ml Q6HR PO 07/06/24 18:00 07/07/24 06:03 Bumetanide 25 mg/ Miscellaneous 100 ml @ 4 mls/hr Q24H IV 07/07/24 08:30 07/07/24 10:49 DC Methylprednisolone Sodium Succinate (Solu Medrol) 20 mg BID IV 07/07/24 22:00 Family History: Cardiovascular disease G8 MOTHER G8 FATHER Diabetes mellitus G8 MOTHER G8 FATHER G8 FATHER G8 MOTHER G8 FATHER Diabetes mellitus G8 MOTHER G8 FATHER G8 FATHER G8 MOTHER G8 FATHER Diabetes mellitus G8 MOTHER G8 FATHER G8 FATHER G8 MOTHER G8 FATHER FH: Hodgkin's disease G8 FATHER FH: Hodgkins disease G8 FATHER G8 FATHER FH: Hodgkins disease G8 FATHER G8 FATHER FH: heart disease G8 MOTHER G8 FATHER FHx: Hodgkin's disease G8 FATHER Family history: Cardiovascular disease G8 MOTHER G8 FATHER Family history: Diabetes mellitus G8 MOTHER G8 FATHER Seizure disorder (situation) G8 SISTER Review of Systems Unable to obtain H&P Exam Vital Signs/I&O Vital Sign Date Time Temp Pulse Resp B/P (MAP) Pulse Ox O2 Delivery O2 Flow Rate FiO2 07/07/24 16:03 79 30 113/39 (63) 99 55 07/07/24 14:55 98.1 208.6 07/07/24 14:00 Mechanical Ventilator+ Intake and Output 07/06/24 07/07/24 19:00 07:00 Intake Total 577.10 ml 699.20 ml Output Total 60 ml 0 ml Balance 517.10 ml 699.20 ml Intake Oral 120 ml 90 ml IV Total 457.10 ml 609.20 ml Output Urine Total 60 ml 0 ml Physical Exam General-intubated HEENT-normocephalic, Respiratory-fair air entry bilateral,+ rhonchi [id number] heard, Abdominal-soft, nontender, nondistended Musculoskeletal-+pedal edema, no calf tenderness Labs/Diagnostic Data Labs/Diagnostic Data Laboratory Tests Test 07/07/24 15:47 07/07/24 13:28 07/07/24 13:04 07/07/24 08:34 Range/Units Blood Gas Specimen Type Arterial Arterial Blood Gas Sample Site Arterial line Arterial line Blood Gas Patient Temperature 37.0 37.0 Arterial Blood Date Drawn [id number] Arterial Blood pH 7.157 *L 7.147 *L 7.350-7.450 Arterial Blood Partial Pressure CO2 61.6 *H 61.1 *H 32.0-45.0 mmHg Arterial Blood Partial Pressure O2 73.3 L 63.7 L 83.0-108.0 mmHg Arterial Blood HCO3 21.3 20.7 L 21.0-28.0 mmol/L Arterial Blood Oxygen Saturation 91.9 L 88.2 L 94.0-98.0 % Arterial Blood Base Excess -7.6 L -8.3 L -2.0-3.0 mmol/L Arterial Blood Oxyhemoglobin 91.0 L 87.6 L 94.0-98.0 % Arterial Blood Carboxyhemoglobin 0.3 L 0.3 L 0.5-1.5 % Arterial Blood Methemoglobin 0.7 0.4 0.0-1.5 % Juan Test N/a N/a Blood Gas Total Hemoglobin 10.10 L 9.90 L 12.0-16.0 g/dL Blood Gas Set Respiration Rate 26.0 Blood Gas Modality Vent - ac Vent - p/c FiO2 % 55.0 50.0 Blood Gas Tidal Volume 450.0 Blood Gas PEEP or CPAP 10.0 Blood Gas Critical Value Read Back yes yes Blood Gas Notified Whom md santiago stewart md Blood Gas Notified Time [id number] Blood Gas Notified By kasia lim rrt POC Glucose 126 H 162 H 70-106 mg/dl Test 07/07/24 07:15 07/07/24 07:09 07/07/24 04:02 07/07/24 03:00 Range/Units Blood Gas Specimen Type Arterial Blood Gas Sample Site Right radial Blood Gas Patient Temperature 37.0 Arterial Blood Date Drawn [id number] Arterial Blood pH 7.107 *L 7.350-7.450 Arterial Blood Partial Pressure CO2 68.5 *H 32.0-45.0 mmHg Arterial Blood Partial Pressure O2 48.6 *L 83.0-108.0 mmHg Arterial Blood HCO3 21.1 21.0-28.0 mmol/L Arterial Blood Oxygen Saturation 77.3 *L 94.0-98.0 % Arterial Blood Base Excess -8.6 L -2.0-3.0 mmol/L Arterial Blood Oxyhemoglobin 76.9 L 94.0-98.0 % Arterial Blood Carboxyhemoglobin 0.2 L 0.5-1.5 % Arterial Blood Methemoglobin 0.3 0.0-1.5 % Juan Test Modified Blood Gas Total Hemoglobin 9.70 L 12.0-16.0 g/dL Blood Gas Set Respiration Rate 28.0 Blood Gas Modality Vent - p/c FiO2 % 60.0 Blood Gas PEEP or CPAP 10.0 Blood Gas Critical Value Read Back yes Blood Gas Notified Whom henrry kruse md Blood Gas Notified Time [id number] Blood Gas Notified By kasia lim insulation power unit tender POC Glucose 158 H 173 H 70-106 mg/dl White Blood Count 23.8 #H 4.4-10.8 10^3/uL Red Blood Count 2.91 L 4.0-5.20 10^6/uL Hemoglobin 8.7 L 12.2-16.2 g/dL Hematocrit 26.9 L 36.0-46.0 % Mean Corpuscular Volume 92.4 80.0-100.0 fL Mean Corpuscular Hemoglobin 29.8 28.0-32.0 pg Mean Corpuscular Hemoglobin Concent 32.2 32.0-36.0 g/dL Red Cell Distribution Width 17.8 H 11.8-14.3 % Platelet Count 155 140-450 10^3/uL Mean Platelet Volume 8.1 6.9-10.8 fL Neutrophils (%) (Auto) 37.0-80.0 % Lymphocytes (%) (Auto) 10.0-50.0 % Monocytes (%) (Auto) 0.0-12.0 % Basophils (%) (Auto) 0.0-2.0 % Neutrophils # (Auto) 1.6-8.6 10 ^3/uL Lymphocytes # (Auto) 0.4-5.4 10 ^3/uL Monocytes # (Auto) 0-1.3 10 ^3/uL Differential Total Cells Counted 100.0 100 Neutrophils % (Manual) 97 H 37.0-80.0 Band Neutrophils % (Manual) 0 Lymphocytes % (Manual) 1 L 10.0-50.0 Monocytes % (Manual) 2 0-12 Eosinophils % (Manual) 0 0-7 Basophils % (Manual) 0 0.0-2.0 Metamyelocytes % (manual) 0 Myelocytes % (Manual) 0 Promyelocytes % (Manual) 0 Blast Cells % (Manual) 0 Reactive Lymphocytes 0 Platelet Estimate Adequate Sodium Level 137 136-145 mmol/L Potassium Level 5.0 3.5-5.1 mmol/L Chloride Level 102 98-107 mmol/L Carbon Dioxide Level 22 20-31 mmol/L Anion Gap 13 5-15 Blood Urea Nitrogen 86 #*H 9-23 mg/dL Creatinine 4.47 #H 0.550-1.02 mg/dL Glomerular Filtration Rate Calc 10 >90 mL/min BUN/Creatinine Ratio 19.2 10.0-20.0 Serum Glucose 187 H 74-106 mg/dL Calcium Level 8.5 L 8.7-10.4 mg/dL Total Bilirubin 0.3 0.2-1.0 mg/dL Aspartate Amino Transferase (AST) 10 L 13-40 U/L Alanine Aminotransferase (ALT) 19 7-40 U/L Alkaline Phosphatase 71 46-116 U/L Total Protein 6.1 5.7-8.2 g/dL Albumin 3.3 3.2-4.8 g/dL Test 07/07/24 00:00 07/06/24 20:13 07/06/24 19:20 07/06/24 17:41 Range/Units POC Glucose 204 H 201 H 70-106 mg/dl Blood Gas Specimen Type Arterial Arterial Blood Gas Sample Site Left radial Left radial Blood Gas Patient Temperature 37.0 37.0 Arterial Blood Date Drawn [id number] Arterial Blood pH 7.258 L 7.273 L 7.350-7.450 Arterial Blood Partial Pressure CO2 49.4 H 44.7 32.0-45.0 mmHg Arterial Blood Partial Pressure O2 55.4 L 67.8 L 83.0-108.0 mmHg Arterial Blood HCO3 21.6 20.2 L 21.0-28.0 mmol/L Arterial Blood Oxygen Saturation 84.1 *L 89.7 L 94.0-98.0 % Arterial Blood Base Excess -5.4 L -6.2 L -2.0-3.0 mmol/L Arterial Blood Oxyhemoglobin 83.3 L 88.4 L 94.0-98.0 % Arterial Blood Carboxyhemoglobin 0.6 1.2 0.5-1.5 % Arterial Blood Methemoglobin 0.4 0.3 0.0-1.5 % Juan Test Modified Modified Blood Gas Total Hemoglobin 9.50 L 7.90 L 12.0-16.0 g/dL Blood Gas Set Respiration Rate 28.0 28.0 Blood Gas Modality Vent - p/c Vent - p/c FiO2 % 60.0 60.0 Blood Gas Inspiratory Pressure 28.0 28.0 Blood Gas PEEP or CPAP 8.0 8.0 Blood Gas Critical Value Read Back Yes Blood Gas Notified Whom Md shelbi carrion Blood Gas Notified Time [id number] Blood Gas Notified By Rt petar Harvey 07/06/24 11:10 07/06/24 08:22 07/06/24 07:15 07/06/24 07:14 Range/Units POC Glucose 144 H 182 H 200 H 70-106 mg/dl Blood Gas Specimen Type Arterial Blood Gas Sample Site Right radial Blood Gas Patient Temperature 37.0 Arterial Blood Date Drawn [id number] Arterial Blood pH 7.279 L 7.350-7.450 Arterial Blood Partial Pressure CO2 49.0 H 32.0-45.0 mmHg Arterial Blood Partial Pressure O2 60.6 L 83.0-108.0 mmHg Arterial Blood HCO3 22.5 21.0-28.0 mmol/L Arterial Blood Oxygen Saturation 88.1 L 94.0-98.0 % Arterial Blood Base Excess -4.5 L -2.0-3.0 mmol/L Arterial Blood Oxyhemoglobin 87.7 L 94.0-98.0 % Arterial Blood Carboxyhemoglobin 0.1 L 0.5-1.5 % Arterial Blood Methemoglobin 0.3 0.0-1.5 % Juan Test Modified Blood Gas Total Hemoglobin 12.60 12.0-16.0 g/dL Blood Gas Set Respiration Rate 28.0 Blood Gas Modality Vent - p/c FiO2 % 60.0 Blood Gas Inspiratory Pressure 30.0 Blood Gas PEEP or CPAP 5.0 Blood Gas Critical Value Read Back Yes Test 07/06/24 04:15 07/06/24 03:24 07/05/24 23:53 07/05/24 19:59 Range/Units POC Glucose 184 H 152 H 137 H 70-106 mg/dl White Blood Count 15.8 H 4.4-10.8 10^3/uL Red Blood Count 2.71 L 4.0-5.20 10^6/uL Hemoglobin 7.9 #L 12.2-16.2 g/dL Hematocrit 24.5 #L 36.0-46.0 % Mean Corpuscular Volume 90.3 80.0-100.0 fL Mean Corpuscular Hemoglobin 29.3 28.0-32.0 pg Mean Corpuscular Hemoglobin Concent 32.4 32.0-36.0 g/dL Red Cell Distribution Width 17.9 H 11.8-14.3 % Platelet Count 122 L 140-450 10^3/uL Mean Platelet Volume 8.0 6.9-10.8 fL Neutrophils (%) (Auto) 96.8 H 37.0-80.0 % Lymphocytes (%) (Auto) 1.4 L 10.0-50.0 % Monocytes (%) (Auto) 1.4 0.0-12.0 % Eosinophils (%) (Auto) 0.0 0.0-7.0 % Basophils (%) (Auto) 0.4 0.0-2.0 % Neutrophils # (Auto) 15.3 H 1.6-8.6 10 ^3/uL Lymphocytes # (Auto) 0.2 L 0.4-5.4 10 ^3/uL Monocytes # (Auto) 0.2 0-1.3 10 ^3/uL Eosinophils # (Auto) 0 0-0.8 10 ^3/uL Basophils # (Auto) 0.1 0-0.2 10 ^3/uL Nucleated Red Blood Cells 0.0 % Sodium Level 137 136-145 mmol/L Potassium Level 4.7 3.5-5.1 mmol/L Chloride Level 104 98-107 mmol/L Carbon Dioxide Level 21 20-31 mmol/L Anion Gap 12 5-15 Blood Urea Nitrogen 74 #H 9-23 mg/dL Creatinine 3.30 H 0.550-1.02 mg/dL Glomerular Filtration Rate Calc 14 >90 mL/min BUN/Creatinine Ratio 22.4 H 10.0-20.0 Serum Glucose 171 H 74-106 mg/dL Calcium Level 8.1 L 8.7-10.4 mg/dL Phosphorus Level 6.6 H 2.4-5.1 mg/dL Magnesium Level 2.4 1.6-2.6 mg/dL Total Bilirubin 0.2 0.2-1.0 mg/dL Direct Bilirubin 0.1 <0.3 mg/dL Aspartate Amino Transferase (AST) 14 13-40 U/L Alanine Aminotransferase (ALT) 25 7-40 U/L Alkaline Phosphatase 72 46-116 U/L Total Protein 5.7 5.7-8.2 g/dL Albumin 3.0 L 3.2-4.8 g/dL Random Vancomycin Level 20.2 H 5-10 ug/mL Test 07/05/24 16:20 07/05/24 16:14 07/05/24 13:21 07/05/24 12:59 Range/Units Blood Gas Specimen Type Arterial Arterial Blood Gas Sample Site Right radial Right radial Blood Gas Patient Temperature 37.0 37.0 Arterial Blood Date Drawn [id number] Arterial Blood pH 7.271 L 7.136 *L 7.350-7.450 Arterial Blood Partial Pressure CO2 49.5 H 75.1 *H 32.0-45.0 mmHg Arterial Blood Partial Pressure O2 65.1 L 62.0 L 83.0-108.0 mmHg Arterial Blood HCO3 22.3 24.8 21.0-28.0 mmol/L Arterial Blood Oxygen Saturation 90.0 L 84.7 *L 94.0-98.0 % Arterial Blood Base Excess -4.6 L -5.0 L -2.0-3.0 mmol/L Arterial Blood Oxyhemoglobin 89.0 L 83.9 L 94.0-98.0 % Arterial Blood Carboxyhemoglobin 0.8 0.6 0.5-1.5 % Arterial Blood Methemoglobin 0.3 0.3 0.0-1.5 % Juan Test Modified Modified Blood Gas Total Hemoglobin 9.50 L 10.00 L 12.0-16.0 g/dL Blood Gas Set Respiration Rate 30.0 20.0 Blood Gas Modality Vent - p/c Vent - p/c FiO2 % 60.0 60.0 Blood Gas Inspiratory Pressure 28.0 28.0 Blood Gas PEEP or CPAP 5.0 5.0 Blood Gas Comments POC Glucose 148 H 70-106 mg/dl Prothrombin Time 10.9 9.3-11.8 sec Prothrombin Time INR 1.03 0.9-1.15 Activated Partial Thromboplast Time 30.2 24.5-34.5 SEC Specimen Drawn By Warren architecture professor Blood Gas Critical Value Read Back Yes Blood Gas Notified Whom Dr. kruse Blood Gas Notified Time [id number] Blood Gas Notified By Warren bernal Test 07/05/24 11:52 07/05/24 09:40 07/05/24 08:26 07/05/24 07:43 Range/Units POC Glucose 246 H 282 H 70-106 mg/dl Blood Gas Specimen Type Arterial Arterial Blood Gas Sample Site Left radial Left radial Blood Gas Patient Temperature 37.0 37.0 Arterial Blood Date Drawn [id number] Arterial Blood pH 7.117 *L 7.180 *L 7.350-7.450 Arterial Blood Partial Pressure CO2 80.0 *H 64.1 *H 32.0-45.0 mmHg Arterial Blood Partial Pressure O2 66.5 L 86.0 83.0-108.0 mmHg Arterial Blood HCO3 25.2 23.4 21.0-28.0 mmol/L Arterial Blood Oxygen Saturation 83.8 *L 93.2 L 94.0-98.0 % Arterial Blood Base Excess -5.1 L -5.9 L -2.0-3.0 mmol/L Arterial Blood Oxyhemoglobin 83.0 L 92.7 L 94.0-98.0 % Arterial Blood Carboxyhemoglobin 0.5 0.0 L 0.5-1.5 % Arterial Blood Methemoglobin 0.4 0.5 0.0-1.5 % Juan Test Modified Modified Blood Gas Total Hemoglobin 10.50 L 13.00 12.0-16.0 g/dL Blood Gas Set Respiration Rate 20.0 24.0 Blood Gas Modality Vent - p/c Vent - ac FiO2 % 60.0 80.0 Blood Gas Tidal Volume 400.0 450.0 Blood Gas Inspiratory Pressure 22.0 Blood Gas PEEP or CPAP 5.0 8.0 Specimen Drawn By Warren Kelley rcp Blood Gas Critical Value Read Back Yes Yes Blood Gas Notified Whom Dr. aixa kruse Blood Gas Notified Time [id number] Blood Gas Notified By Warren Kelley rcp Blood Gas Spontaneous Rate 24 Test 07/05/24 04:26 07/05/24 04:18 07/05/24 03:45 07/05/24 02:19 Range/Units POC Glucose 314 H 70-106 mg/dl Blood Gas Specimen Type Arterial Arterial Blood Gas Sample Site Right radial Right radial Blood Gas Patient Temperature 37.0 37.0 Arterial Blood Date Drawn [id number] Arterial Blood pH 7.215 *L 7.355 7.350-7.450 Arterial Blood Partial Pressure CO2 55.8 H 39.5 32.0-45.0 mmHg Arterial Blood Partial Pressure O2 111.8 H < 36.5 *L 83.0-108.0 mmHg Arterial Blood HCO3 22.1 21.6 21.0-28.0 mmol/L Arterial Blood Oxygen Saturation 96.5 56.8 *L 94.0-98.0 % Arterial Blood Base Excess -5.9 L -3.6 L -2.0-3.0 mmol/L Arterial Blood Oxyhemoglobin 95.6 56.2 L 94.0-98.0 % Arterial Blood Carboxyhemoglobin 0.5 0.7 0.5-1.5 % Arterial Blood Methemoglobin 0.4 0.4 0.0-1.5 % Juan Test Yes Yes Blood Gas Total Hemoglobin 10.50 L 11.20 L 12.0-16.0 g/dL Blood Gas Set Respiration Rate 20.0 12.0 Blood Gas Modality Vent - ac Mask - bipap Blood Gas Spontaneous Rate 20 FiO2 % 100.0 50.0 Blood Gas Tidal Volume 450.0 Blood Gas PEEP or CPAP 8.0 Blood Gas Critical Value Read Back Yes yes Blood Gas Notified Whom hayde johnson Blood Gas Notified Time [id number] Blood Gas Notified By [employer] Crew Supervisor shelbi saunders insulation power unit tender shelbi saunders White Blood Count 19.9 H 4.4-10.8 10^3/uL Red Blood Count 3.33 L 4.0-5.20 10^6/uL Hemoglobin 9.7 L 12.2-16.2 g/dL Hematocrit 29.8 L 36.0-46.0 % Mean Corpuscular Volume 89.7 80.0-100.0 fL Mean Corpuscular Hemoglobin 29.0 28.0-32.0 pg Mean Corpuscular Hemoglobin Concent 32.4 32.0-36.0 g/dL Red Cell Distribution Width 18.2 H 11.8-14.3 % Platelet Count 147 140-450 10^3/uL Mean Platelet Volume 7.8 6.9-10.8 fL Neutrophils (%) (Auto) 96.9 H 37.0-80.0 % Lymphocytes (%) (Auto) 0.6 L 10.0-50.0 % Monocytes (%) (Auto) 2.4 0.0-12.0 % Eosinophils (%) (Auto) 0.0 0.0-7.0 % Basophils (%) (Auto) 0.1 0.0-2.0 % Neutrophils # (Auto) 19.3 H 1.6-8.6 10 ^3/uL Lymphocytes # (Auto) 0.1 L 0.4-5.4 10 ^3/uL Monocytes # (Auto) 0.5 0-1.3 10 ^3/uL Eosinophils # (Auto) 0 0-0.8 10 ^3/uL Basophils # (Auto) 0 0-0.2 10 ^3/uL Nucleated Red Blood Cells 0.0 % Sodium Level 136 136-145 mmol/L Potassium Level 4.3 3.5-5.1 mmol/L Chloride Level 102 98-107 mmol/L Carbon Dioxide Level 22 20-31 mmol/L Anion Gap 12 5-15 Blood Urea Nitrogen 63 H 9-23 mg/dL Creatinine 2.33 H 0.550-1.02 mg/dL Glomerular Filtration Rate Calc 22 >90 mL/min BUN/Creatinine Ratio 27.0 H 10.0-20.0 Serum Glucose 292 H 74-106 mg/dL Calcium Level 8.8 8.7-10.4 mg/dL Random Vancomycin Level 20.9 H 5-10 ug/mL Blood Gas Spontaneous Tidal Volume 886 Blood Gas EPAP 5 Blood Gas IPAP 12 Test 07/04/24 19:46 07/04/24 11:46 07/04/24 05:54 07/04/24 05:51 Range/Units POC Glucose 190 H 135 H 83 70-106 mg/dl White Blood Count 23.6 H 4.4-10.8 10^3/uL Red Blood Count 3.43 L 4.0-5.20 10^6/uL Hemoglobin 10.1 L 12.2-16.2 g/dL Hematocrit 30.2 L 36.0-46.0 % Mean Corpuscular Volume 88.0 80.0-100.0 fL Mean Corpuscular Hemoglobin 29.5 28.0-32.0 pg Mean Corpuscular Hemoglobin Concent 33.5 32.0-36.0 g/dL Red Cell Distribution Width 17.9 H 11.8-14.3 % Platelet Count 165 140-450 10^3/uL Mean Platelet Volume 7.7 6.9-10.8 fL Neutrophils (%) (Auto) 94.1 H 37.0-80.0 % Lymphocytes (%) (Auto) 2.0 L 10.0-50.0 % Monocytes (%) (Auto) 3.7 0.0-12.0 % Eosinophils (%) (Auto) 0.0 0.0-7.0 % Basophils (%) (Auto) 0.2 0.0-2.0 % Neutrophils # (Auto) 22.2 H 1.6-8.6 10 ^3/uL Lymphocytes # (Auto) 0.5 0.4-5.4 10 ^3/uL Monocytes # (Auto) 0.9 0-1.3 10 ^3/uL Eosinophils # (Auto) 0 0-0.8 10 ^3/uL Basophils # (Auto) 0.1 0-0.2 10 ^3/uL Nucleated Red Blood Cells 0.0 % Sodium Level 138 136-145 mmol/L Potassium Level 4.4 3.5-5.1 mmol/L Chloride Level 102 98-107 mmol/L Carbon Dioxide Level 24 20-31 mmol/L Anion Gap 12 5-15 Blood Urea Nitrogen 57 H 9-23 mg/dL Creatinine 2.15 H 0.550-1.02 mg/dL Glomerular Filtration Rate Calc 24 >90 mL/min BUN/Creatinine Ratio 26.5 H 10.0-20.0 Serum Glucose 73 L 74-106 mg/dL Calcium Level 9.2 8.7-10.4 mg/dL Random Vancomycin Level 17.6 H 5-10 ug/mL Test 07/04/24 03:29 07/04/24 00:18 07/03/24 19:34 07/03/24 16:39 Range/Units POC Glucose 112 H 203 H 135 H 106 70-106 mg/dl Test 07/03/24 12:06 07/03/24 08:27 07/03/24 06:15 07/03/24 04:08 Range/Units POC Glucose 112 H 132 H 138 H 70-106 mg/dl White Blood Count 18.9 #H 4.4-10.8 10^3/uL Red Blood Count 3.47 L 4.0-5.20 10^6/uL Hemoglobin 9.9 L 12.2-16.2 g/dL Hematocrit 30.9 L 36.0-46.0 % Mean Corpuscular Volume 89.2 80.0-100.0 fL Mean Corpuscular Hemoglobin 28.5 28.0-32.0 pg Mean Corpuscular Hemoglobin Concent 32.0 32.0-36.0 g/dL Red Cell Distribution Width 17.6 H 11.8-14.3 % Platelet Count 154 140-450 10^3/uL Mean Platelet Volume 7.7 6.9-10.8 fL Neutrophils (%) (Auto) 37.0-80.0 % Lymphocytes (%) (Auto) 10.0-50.0 % Monocytes (%) (Auto) 0.0-12.0 % Basophils (%) (Auto) 0.0-2.0 % Neutrophils # (Auto) 1.6-8.6 10 ^3/uL Lymphocytes # (Auto) 0.4-5.4 10 ^3/uL Monocytes # (Auto) 0-1.3 10 ^3/uL Differential Total Cells Counted 100.0 100 Neutrophils % (Manual) 96 H 37.0-80.0 Band Neutrophils % (Manual) 0 Lymphocytes % (Manual) 2 L 10.0-50.0 Monocytes % (Manual) 2 0-12 Eosinophils % (Manual) 0 0-7 Basophils % (Manual) 0 0.0-2.0 Metamyelocytes % (manual) 0 Myelocytes % (Manual) 0 Promyelocytes % (Manual) 0 Blast Cells % (Manual) 0 Reactive Lymphocytes 0 Platelet Estimate Adequate Sodium Level 137 136-145 mmol/L Potassium Level 4.4 3.5-5.1 mmol/L Chloride Level 102 98-107 mmol/L Carbon Dioxide Level 24 20-31 mmol/L Anion Gap 11 5-15 Blood Urea Nitrogen 58 H 9-23 mg/dL Creatinine 1.82 H 0.550-1.02 mg/dL Glomerular Filtration Rate Calc 29 >90 mL/min BUN/Creatinine Ratio 31.9 H 10.0-20.0 Serum Glucose 105 74-106 mg/dL Calcium Level 8.9 8.7-10.4 mg/dL Random Vancomycin Level 21.2 H 5-10 ug/mL Test 07/02/24 20:22 07/02/24 12:10 07/02/24 11:23 07/02/24 08:28 Range/Units POC Glucose 181 H 93 127 H 70-106 mg/dl Creatinine 1.84 H 0.550-1.02 mg/dL Glomerular Filtration Rate Calc 29 >90 mL/min Random Vancomycin Level 18.1 H 5-10 ug/mL Test 07/02/24 06:50 07/02/24 05:53 07/02/24 04:10 07/01/24 23:09 Range/Units POC Glucose 128 H 143 H 142 H 70-106 mg/dl White Blood Count 25.6 H 4.4-10.8 10^3/uL Red Blood Count 3.64 L 4.0-5.20 10^6/uL Hemoglobin 10.4 L 12.2-16.2 g/dL Hematocrit 32.5 L 36.0-46.0 % Mean Corpuscular Volume 89.3 80.0-100.0 fL Mean Corpuscular Hemoglobin 28.6 28.0-32.0 pg Mean Corpuscular Hemoglobin Concent 32.0 32.0-36.0 g/dL Red Cell Distribution Width 17.5 H 11.8-14.3 % Platelet Count 197 140-450 10^3/uL Mean Platelet Volume 7.7 6.9-10.8 fL Neutrophils (%) (Auto) 37.0-80.0 % Lymphocytes (%) (Auto) 10.0-50.0 % Monocytes (%) (Auto) 0.0-12.0 % Basophils (%) (Auto) 0.0-2.0 % Neutrophils # (Auto) 1.6-8.6 10 ^3/uL Lymphocytes # (Auto) 0.4-5.4 10 ^3/uL Monocytes # (Auto) 0-1.3 10 ^3/uL Differential Total Cells Counted 100.0 100 Neutrophils % (Manual) 96 H 37.0-80.0 Band Neutrophils % (Manual) 1 Lymphocytes % (Manual) 3 L 10.0-50.0 Monocytes % (Manual) 0 0-12 Eosinophils % (Manual) 0 0-7 Basophils % (Manual) 0 0.0-2.0 Metamyelocytes % (manual) 0 Myelocytes % (Manual) 0 Promyelocytes % (Manual) 0 Blast Cells % (Manual) 0 Reactive Lymphocytes 0 Platelet Estimate Adequate Sodium Level 137 136-145 mmol/L Potassium Level 4.3 3.5-5.1 mmol/L Chloride Level 102 98-107 mmol/L Carbon Dioxide Level 23 20-31 mmol/L Anion Gap 12 5-15 Blood Urea Nitrogen 53 H 9-23 mg/dL Creatinine 1.76 H 0.550-1.02 mg/dL Glomerular Filtration Rate Calc 30 >90 mL/min BUN/Creatinine Ratio 30.1 H 10.0-20.0 Serum Glucose 126 H 74-106 mg/dL Calcium Level 8.9 8.7-10.4 mg/dL Test 07/01/24 19:44 07/01/24 17:35 07/01/24 11:13 07/01/24 06:03 Range/Units POC Glucose 149 H 153 H 177 H 180 H 70-106 mg/dl Test 07/01/24 05:53 07/01/24 03:43 06/30/24 23:40 06/30/24 19:41 Range/Units White Blood Count 22.7 #H 4.4-10.8 10^3/uL Red Blood Count 3.55 L 4.0-5.20 10^6/uL Hemoglobin 10.2 #L 12.2-16.2 g/dL Hematocrit 31.5 #L 36.0-46.0 % Mean Corpuscular Volume 88.9 80.0-100.0 fL Mean Corpuscular Hemoglobin 28.7 28.0-32.0 pg Mean Corpuscular Hemoglobin Concent 32.3 32.0-36.0 g/dL Red Cell Distribution Width 17.2 H 11.8-14.3 % Platelet Count 189 140-450 10^3/uL Mean Platelet Volume 7.7 6.9-10.8 fL Neutrophils (%) (Auto) 94.8 H 37.0-80.0 % Lymphocytes (%) (Auto) 3.1 L 10.0-50.0 % Monocytes (%) (Auto) 2.0 0.0-12.0 % Eosinophils (%) (Auto) 0.0 0.0-7.0 % Basophils (%) (Auto) 0.1 0.0-2.0 % Neutrophils # (Auto) 21.6 H 1.6-8.6 10 ^3/uL Lymphocytes # (Auto) 0.7 0.4-5.4 10 ^3/uL Monocytes # (Auto) 0.5 0-1.3 10 ^3/uL Eosinophils # (Auto) 0 0-0.8 10 ^3/uL Basophils # (Auto) 0 0-0.2 10 ^3/uL Nucleated Red Blood Cells 0.0 % Sodium Level 140 136-145 mmol/L Potassium Level 3.7 3.5-5.1 mmol/L Chloride Level 103 98-107 mmol/L Carbon Dioxide Level 23 20-31 mmol/L Anion Gap 14 5-15 Blood Urea Nitrogen 53 H 9-23 mg/dL Creatinine 1.77 H 0.550-1.02 mg/dL Glomerular Filtration Rate Calc 30 >90 mL/min BUN/Creatinine Ratio 29.9 H 10.0-20.0 Serum Glucose 177 H 74-106 mg/dL Calcium Level 9.0 8.7-10.4 mg/dL Random Vancomycin Level 14.6 H 5-10 ug/mL POC Glucose 191 H 282 H 270 H 70-106 mg/dl Test 06/30/24 16:10 06/30/24 11:23 06/30/24 08:40 06/30/24 07:54 Range/Units POC Glucose 316 H 308 H 337 H 70-106 mg/dl Ammonia < 10 L 11-32 umol/L Test 06/30/24 06:45 06/30/24 06:11 06/30/24 05:55 06/30/24 02:47 Range/Units Urine Color Colorless Yellow Urine Clarity Turbid H Clear Urine pH 5.5 5.0-9.0 Urine Specific [place] 1.021 1.001-1.035 Urine Protein 1+ H Negative Urine Ketones Negative Negative Urine Blood Trace H Negative /uL Urine Nitrite Negative Negative Urine Bilirubin Negative Negative Urine Urobilinogen Normal Negative mg/dL Urine Leukocyte Esterase 2+ Negative /uL Urine RBC 11 0 - 4 /hpf Urine Microscopic WBC 88 H 0-5 /HPF Urine Squamous Epithelial Cells Few <5 /hpf Urine Bacteria None seen None Seen /hpf Urine Yeast (Budding) Many None Seen /hpf Urine Glucose 4+ H Normal mg/dL Urine Opiates Screen Neg NEGATIVE Urine Fentanyl Screen Neg NEGATIVE Urine Barbiturates Screen Neg NEGATIVE Urine Phencyclidine Screen Neg NEGATIVE Urine Amphetamines Screen Neg NEGATIVE Urine Benzodiazepines Screen Neg NEGATIVE Urine Cocaine Screen Neg NEGATIVE Urine Cannabinoids Screen Neg NEGATIVE White Blood Count 8.8 # 4.4-10.8 10^3/uL Red Blood Count 2.66 L 4.0-5.20 10^6/uL Hemoglobin 8.0 #L 12.2-16.2 g/dL Hematocrit 23.9 #L 36.0-46.0 % Mean Corpuscular Volume 89.7 80.0-100.0 fL Mean Corpuscular Hemoglobin 30.0 28.0-32.0 pg Mean Corpuscular Hemoglobin Concent 33.4 32.0-36.0 g/dL Red Cell Distribution Width 17.3 H 11.8-14.3 % Platelet Count 181 140-450 10^3/uL Mean Platelet Volume 7.2 6.9-10.8 fL Neutrophils (%) (Auto) 85.6 H 37.0-80.0 % Lymphocytes (%) (Auto) 9.4 L 10.0-50.0 % Monocytes (%) (Auto) 3.7 0.0-12.0 % Eosinophils (%) (Auto) 0.0 0.0-7.0 % Basophils (%) (Auto) 1.3 0.0-2.0 % Neutrophils # (Auto) 7.6 1.6-8.6 10 ^3/uL Lymphocytes # (Auto) 0.8 0.4-5.4 10 ^3/uL Monocytes # (Auto) 0.3 0-1.3 10 ^3/uL Eosinophils # (Auto) 0 0-0.8 10 ^3/uL Basophils # (Auto) 0.1 0-0.2 10 ^3/uL Nucleated Red Blood Cells 0.1 % Prothrombin Time 11.1 9.3-11.8 sec Prothrombin Time INR 1.05 0.9-1.15 Activated Partial Thromboplast Time 29.0 24.5-34.5 SEC Sodium Level 138 136-145 mmol/L Potassium Level 3.8 3.5-5.1 mmol/L Chloride Level 103 98-107 mmol/L Carbon Dioxide Level 23 20-31 mmol/L Anion Gap 12 5-15 Blood Urea Nitrogen 44 H 9-23 mg/dL Creatinine 1.78 H 0.550-1.02 mg/dL Glomerular Filtration Rate Calc 30 >90 mL/min BUN/Creatinine Ratio 24.7 H 10.0-20.0 Serum Glucose 309 H 74-106 mg/dL Hemoglobin A1c 7.7 H <5.7 % A1C Calcium Level 9.0 8.7-10.4 mg/dL Phosphorus Level 2.3 L 2.4-5.1 mg/dL Magnesium Level 2.1 1.6-2.6 mg/dL Total Bilirubin 0.5 0.2-1.0 mg/dL Aspartate Amino Transferase (AST) 10 L 13-40 U/L Alanine Aminotransferase (ALT) 20 7-40 U/L Alkaline Phosphatase 71 46-116 U/L Total Protein 6.3 5.7-8.2 g/dL Albumin 3.5 3.2-4.8 g/dL Random Vancomycin Level 24.9 H 5-10 ug/mL POC Glucose 295 H 70-106 mg/dl Blood Gas Specimen Type Arterial Blood Gas Sample Site Right radial Blood Gas Patient Temperature 37.0 Arterial Blood Date Drawn [id number] Arterial Blood pH 7.463 H 7.350-7.450 Arterial Blood Partial Pressure CO2 32.9 32.0-45.0 mmHg Arterial Blood Partial Pressure O2 60.8 L 83.0-108.0 mmHg Arterial Blood HCO3 23.0 21.0-28.0 mmol/L Arterial Blood Oxygen Saturation 90.9 L 94.0-98.0 % Arterial Blood Base Excess -0.4 -2.0-3.0 mmol/L Arterial Blood Oxyhemoglobin 89.4 L 94.0-98.0 % Arterial Blood Carboxyhemoglobin 1.1 0.5-1.5 % Arterial Blood Methemoglobin 0.6 0.0-1.5 % Juan Test Yes Blood Gas Total Hemoglobin 9.10 L 12.0-16.0 g/dL Blood Gas Liter Flow 4.00 Blood Gas Modality Nasal cannula Blood Gas Spontaneous Rate 22 FiO2 % 36.0 Test 06/30/24 01:58 06/29/24 23:21 06/29/24 23:03 06/29/24 22:26 Range/Units POC Glucose 515 *H 545 *H 70-106 mg/dl D-Dimer, Quantitative 0.80 H 0.0-0.49 mg/L FEU Reticulocyte Count (auto) 3.37 H 0.5-1.5 % Serum Osmolality 330 H 278-298 mOsm/kg Lactic Acid Level 1.8 0.4-2.0 mmol/L Test 06/29/24 17:29 06/29/24 16:02 06/29/24 15:30 Range/Units Magnesium Level 2.0 1.6-2.6 mg/dL Troponin I High Sensitivity 34 27 </=34 ng/L Beta-Hydroxybutyric Acid 0.123 < 0.4 mmol/L Thyroid Stimulating Hormone (TSH) 0.28 L 0.55-4.78 uIU/mL White Blood Count 15.7 H 4.4-10.8 10^3/uL Red Blood Count 2.39 L 4.0-5.20 10^6/uL Hemoglobin 6.9 *L 12.2-16.2 g/dL Hematocrit 21.5 L 36.0-46.0 % Mean Corpuscular Volume 90.1 80.0-100.0 fL Mean Corpuscular Hemoglobin 28.7 28.0-32.0 pg Mean Corpuscular Hemoglobin Concent 31.9 L 32.0-36.0 g/dL Red Cell Distribution Width 18.7 H 11.8-14.3 % Platelet Count 213 140-450 10^3/uL Mean Platelet Volume 7.3 6.9-10.8 fL Neutrophils (%) (Auto) 77.7 37.0-80.0 % Lymphocytes (%) (Auto) 15.5 10.0-50.0 % Monocytes (%) (Auto) 3.5 0.0-12.0 % Eosinophils (%) (Auto) 2.5 0.0-7.0 % Basophils (%) (Auto) 0.8 0.0-2.0 % Neutrophils # (Auto) 12.2 H 1.6-8.6 10 ^3/uL Lymphocytes # (Auto) 2.4 0.4-5.4 10 ^3/uL Monocytes # (Auto) 0.6 0-1.3 10 ^3/uL Eosinophils # (Auto) 0.4 0-0.8 10 ^3/uL Basophils # (Auto) 0.1 0-0.2 10 ^3/uL Nucleated Red Blood Cells 0.0 % Sodium Level 140 136-145 mmol/L Potassium Level 4.0 3.5-5.1 mmol/L Chloride Level 104 98-107 mmol/L Carbon Dioxide Level 27 20-31 mmol/L Anion Gap 9 5-15 Blood Urea Nitrogen 53 H 9-23 mg/dL Creatinine 1.75 H 0.550-1.02 mg/dL Glomerular Filtration Rate Calc 31 >90 mL/min BUN/Creatinine Ratio 30.3 H 10.0-20.0 Serum Glucose 456 *H 74-106 mg/dL Lactic Acid Level 1.8 0.4-2.0 mmol/L Calcium Level 8.3 L 8.7-10.4 mg/dL Iron Level 17 L 50-170 ug/dL Total Iron Binding Capacity 170 L 250-425 ug/dL Percent Iron Saturation 10.0 L 15-50 % Ferritin 610.9 H 10-291 ng/mL Lactate Dehydrogenase 436 H 120-246 U/L B-Type Natriuretic Peptide 308.32 0-100 pg/mL Vitamin B12 Level 739 211-911 pg/mL Folic Acid 13.86 >5.38 ng/mL Influenza Type A Antigen Negative Negative Influenza Type B Antigen Negative Negative SARS-CoV-2 Antigen (Rapid) Negative NEGATIVE Microbiology Date/Time Source Procedure Growth Status 07/06/24 04:06 Nose MRSA Screen - Final Complete 06/29/24 16:02 Blood Blood Culture - Final NO GROWTH AFTER 5 DAYS OF INCUBATION. Complete Assessment Acute kidney injury likely acute necrosis in the setting of vancomycin toxicity plus shock Shock needing vasopressors Baseline Chronic kidney disease Morbid obesity Ventilator-dependent respiratory failure Pulmonary fibrosis Recommendations Patient had no response to diuretics IV Bumex Patient is oligo anuric We will recommend renal replacement therapy Blade catheter to be placed by primary team Diuretics IV as ordered We will follow closely Reviewed vital signs, lab work, imaging studies, medications, microbiology, other physician recommendations Total time spent 70 minutes More than 50% of the time spent providing direct [id number] care . Thank you for allowing me to participate in the care of your patient. Plan discussed with: ALOK Carroll MD Jul 07, 2024 16:25
--- NOTE | 2024-07-07 17:02 | DVHNC2 ---
TUSHAR AGUILERA RESIDENT 07/07/24 1702: Procedure - ARTERIAL LINE (A-Line) PLACEMENT PROCEDURE NOTE Consent: Yes.During the informed consent discussion regarding the procedure, or treatment, I explained the following to the patient/designee: Over the phone with POA Daughter in the presence of 2 RN collection coordinator. The signed document in file. a. Nature of the procedure or treatment and who will perform the procedure or treatment. b. Necessity for procedure and the possible benefits. c. Risks and complications (most common and serious). d. Alternative treatments and the risks, benefits and side effects of each (including no treatment). e. Likelihood of the patient achieving his/her goals without this procedure and surgery treatment. f. Problems that might occur during the recuperation. 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 Nunes. PROCEDURE SUMMARY: A time out was performed. My hands were washed immediately prior to the procedure. I wore a surgical cap, mask with protective eyewear, sterile gown and sterile gloves throughout the procedure. After an Juan test was performed to ensure adequate perfusion, the concerned wrist was prepped using chlorhexidine scrub and draped in sterile fashion using a three quarter sheet drape and sterile towels. The radial pulse was identified and the wrist was positioned in the usual fashion. Anesthesia was achieved using 1% lidocaine. Using the Radial Arterial Line Kit, a needle was inserted into the radial artery. Arterial blood was seen to pulsate in the flash chamber. The internal guidewire was advanced easily into the radial artery. The catheter was then advanced over the wire and the needle and wire were withdrawn. The catheter was sutured in place. A sterile opsite was placed over the catheter at the insertion site. The patient tolerated the procedure without any hemodynamic compromise. At the time of procedure completion, the catheter was connected to the patient monitor and calibrated. Appropriate waveform and blood pressure tracing was observed. Estimated blood loss is 5ml. Performed by Tushar Aguilera MD at bedside. Follow up blood gas to confirm. Supervised by the attending Dr. Teague. KARISSA TEAGUE MD 07/11/24 1923: Date of Service: Jul 07, 2024 Billing Provider: KARISSA TEAGUE MD Common Visit Codes: PROCEDURE ONLY Procedure Codes: 70134-HBCRALOS LINE TUSHAR AGUILERA Jul 07, 2024 17:02 KARISSA TEAGUE MD Jul 11, 2024 19:23
--- NOTE | 2024-07-07 17:11 | DVHNC2 ---
TUSHAR AGUILERA RESIDENT 07/07/24 1711: Procedure - ULTRASOUND-GUIDED RIGHT INTERNAL JUGULAR CENTRAL VENOUS CANNULATION for Blade (Large Bore) Catheter placement CPT Codes: 66552 (ultrasound guidance) 60628 (insertion of non-tunneled centrally inserted central venous catheter) 20641 (CXR interpretation) DATE: 07/07/2024 Time: 11:13 am. PHYSICIAN: Tushar Aguilera MD (Resident) under the visual supervision of Dr. Nunes. PREOPERATIVE DIAGNOSIS: Acute renal failure, requiring hemodialysis POSTOPERATIVE DIAGNOSIS: Acute renal failure, requiring hemodialysis PROCEDURE PERFORMED: Limited Ultrasound-guided Right internal jugular large-bore central line (Blade) placement. Fr13 ANESTHESIA: 2 mL of 1% lidocaine plain. ESTIMATED BLOOD LOSS: less than 5 mL. SPECIMENS: None. COMPLICATIONS: None. INDICATIONS FOR PROCEDURE: The patient is in need of large bore IV access for hemodialysis due to acute renal failure DESCRIPTION OF PROCEDURE IN DETAIL: The patient was lying in the Trendelenburg position with head turned 30 degrees away from the insertion site. The skin was thoroughly sponged with chlorhexidine and allowed to dry. All persons involved were shielded with hair nets, face masks and sterile gowns. With sterile-gloved hands the right neck area was draped with the large disposable sterile field provided in the pre-manufactured kit. The skin and subcutaneous tissues superficial to the RIGHT internal jugular vein were anesthetized with 2 mL of 1% lidocaine. The RIGHT internal jugular vein was identified on ultrasound from the angle of the mandible down into the supraclavicular fossa using the linear ultrasound probe in the transverse orientation. The carotid artery was identified and avoided utilizing color-flow. The internal jugular vein was then placed in the center of the ultrasound field and compressed for patency. A movement artifact was identified as the needle was advanced through the skin and advanced toward the vessel. A real time hyperechoic signal revealed visualization of vascular needle entry into the lumen as blood was noted to flashback in the syringe. The needle was then held in place while the guide wire was advanced. The needle was then removed. Direct visualization of guide wire location within the vein was noted on ultrasound indicating proper placement and was documented in the electronic medical record chart. A skin dilator was advanced over the guidewire and removed. A larger bore skin dilator was advanced over the guidewire and removed. The double-lumen Blade catheter was then advanced over the guide wire into proper position. The guide wire was removed and discarded. The ports were aspirated which showed good blood return and then carefully flushed with normal saline. Heparin 1.2 mL were placed into each port. The catheter was stabilized and sutured to the skin with 2-0 Prolene at 2 anchor points. A sterile bio-patch and dressing was placed over the catheter, including the insertion site. The patient tolerated the procedure well. A chest x-ray was ordered for position confirmation. I reviewed the image immediately after it was taken at bedside. Post-procedure chest x-ray demonstrates the Blade catheter line in the superior vena and no evidence of any pneumothorax. An image print out of the guidewire within the lumen of the right internal jugular vein accompanies the chart. Performed by Tushar Aguilera MD under the guidance of Dr. Teague. KARISSA TEAGUE MD 07/11/24 1923: Date of Service: Jul 07, 2024 Billing Provider: KARISSA TEAGUE MD Common Visit Codes: PROCEDURE ONLY Procedure Codes: 72510-FXHYII NON-TUNNEL CV CATH TUSHAR AGUILERA Jul 07, 2024 17:11 KARISSA TEAGUE MD Jul 11, 2024 19:23
[2024-07-07 18:34] LABS: Base Excess -8.7 mmol/L (-2.0-3.0)
[2024-07-07] MEDS: SODIUM CHL 0.9% 1000 ML BAG XX ONE (18:46)
[2024-07-07] MEDS ORDERED: EPOETIN ALFA-EPBX 4,000 UNIT/ML VIAL SC ONE (21:00)
[2024-07-07] MEDS: methylPREDNISolone SOD SUCC 40 MG/ML VL IV SCH (21:03)
[2024-07-07] MEDS: EPOETIN ALFA-EPBX 10,000 UNIT/1ML VIAL SC ONE (21:20)
[2024-07-08] VITALS (106 sets, daily range): BP systolic 87–154; BP diastolic 23–62; PULSE 71–103; RESP 0–34; TEMP 95.2–97.9; O2SAT 90–100
[2024-07-08 00:34] LABS: Eosinophils # (auto) 0 10 ^3/uL (0-0.8); Nucleated Red Blood Cells % 0.1 %; Red Cell Distribution Width 17.4 % (11.8-14.3)
[2024-07-08 00:36] LABS: Basophils # (auto) 5.5 10 ^3/uL (0-0.2); Basophils % (auto) 29.1 % (0.0-2.0); Hematocrit 23.3 % (36.0-46.0); Hemoglobin 7.9 g/dL (12.2-16.2); Lymphocytes # (auto) 0.2 10 ^3/uL (0.4-5.4); Lymphocytes % (auto) 1.1 % (10.0-50.0); Mean Corpuscular Hemoglobin 30.1 pg (28.0-32.0); Mean Corpuscular Hgb Conc. 33.8 g/dL (32.0-36.0); Mean Corpuscular Volume 89.3 fL (80.0-100.0); Monocytes # (auto) 0.2 10 ^3/uL (0-1.3); Monocytes % (auto) 1.3 % (0.0-12.0); Neutrophils # (auto) 12.9 10 ^3/uL (1.6-8.6); Neutrophils % (auto) 68.5 % (37.0-80.0); Platelet Count (auto) 119 10^3/uL (140-450); Red Blood Cells 2.61 10^6/uL (4.0-5.20); White Blood Cell 18.9 10^3/uL (4.4-10.8)
[2024-07-08 00:49] LABS: Alanine Aminotransferase 15 U/L (7-40); Alkaline Phosphatase 63 U/L (46-116); Anion Gap 11 (5-15); BUN/Creatinine Ratio 17.1 (10.0-20.0); Carbon Dioxide 24 mmol/L (20-31); Chloride 103 mmol/L (98-107); Glucose 104 mg/dL (74-106); Potassium 4.5 mmol/L (3.5-5.1); Sodium 138 mmol/L (136-145)
[2024-07-08 00:51] LABS: Aspartate Aminotransferase 11 U/L (13-40); Bilirubin, Total 0.3 mg/dL (0.2-1.0); Blood Urea Nitrogen 64 mg/dL (9-23); Calcium 8.1 mg/dL (8.7-10.4); Total Protein 5.5 g/dL (5.7-8.2)
--- NOTE | 2024-07-08 05:17 | DVH ---
EXAM: XR Chest, 1 View CLINICAL INDICATION: intubated TECHNIQUE: Frontal view of the chest. COMPARISON: XY CHEST PORTABLE on DOS: 07/07/24, XY CHEST XRAY 1 VIEW on DOS: 07/07/24, XY CHEST XRAY 1 VIEW on DOS: 07/05/24, XY CHEST PORTABLE on DOS: 07/05/24, XY CHEST PORTABLE on DOS: 07/05/24 FINDINGS: LUNGS AND PLEURAL SPACES: See below. HEART: Cardiomegaly with pulmonary congestion and edema. Superimposed pneumonia cannot be excluded. MEDIASTINUM: Unremarkable. Normal mediastinal contour. BONES/JOINTS: Unremarkable. No acute fracture. TUBES, LINES AND DEVICES: Right internal jugular central venous catheter tip in the superior vena c jaspreet. The endotracheal tube (ETT) is in satisfactory position. Enteric tube is in the stomach. OTHER FINDINGS: . IMPRESSION: Cardiomegaly with pulmonary congestion and edema. Superimposed pneumonia cannot be excluded.
[2024-07-08 07:16] LABS: Base Excess -4.3 mmol/L (-2.0-3.0)
--- NOTE | 2024-07-08 11:42 | DVHSR ---
APPROVED REPORT EXAM: Two-dimensional and M-mode echocardiogram with Doppler and color Doppler. Blood Pressure: 101/34 mmHg INDICATION known CHF RISK FACTORS Height: 66, Weight: 243 DIMENSIONS LVDd4.3 (3.8-5.7cm)LA (2D) (1.9-4.0cm)Aortic Root3.4 (2.0-3.7cm) LVDs2.9 (2.5-4.0cm)LA (MM) (1.9-4.0cm)Aortic Cusp Exc1.8 (1.5-2.0cm) EF (%) 60.0 (55-70%)Rt. Atrium (1.9-4.0cm)Asc. Aorta cm Mitral Valve MitralMitral Stenosis E wave0.62m/sMV Mean GR.mmHg A wave0.64m/sMV Peak GR.mmHg E/A ratio1.02D MVAcm2 DECEL [id number] 1/2 [id number] IVRTmsDop MVA4.27cm2 Aortic Valve Aortic ValveAortic Stenosis V11.24m/Drew Mean GR.8mmHg V22.02m/Drew Peak GR.16mmHg LVOT Diameter2.0 (1.8-2.4cm)Doppler AVA1.93cm2 Pulmonic Valve V21.12m/s Tricuspid Valve TR Velocity2.36m/s [id number] Other Information Technically limited study due to patient on a vent. Conclusion Technically difficult study. Difficult acoustic windows. Normal sinus rhythm. Chamber sizes appeared to be within normal limits. Valves are normal. EF of 65% with normal RV function. Doppler is unremarkable. No pericardial effusion masses or vegetations discernible.
--- NOTE | 2024-07-08 13:16 | DVH ---
INDICATION: ET PLACEMENT AFTER ADVANCEMENT TECHNIQUE: Frontal view of the chest. COMPARISON: XY CHEST PORTABLE on DOS: 07/08/24, XY CHEST PORTABLE on DOS: 07/07/24, XY CHEST XRAY 1 VIEW on DOS: 07/07/24, XY CHEST XRAY 1 VIEW on DOS: 07/05/24, XY CHEST PORTABLE on DOS: 07/05/24, XY CHEST CARLINE BLE on DOS: 07/08/24 FINDINGS: LUNGS AND PLEURAL SPACES: See below. HEART: Cardiomegaly with pulmonary congestion and edema. Superimposed pneumonia cannot be excluded. MEDIASTINUM: Unremarkable. Normal mediastinal contour. BONES/JOINTS: Unremarkable. No acute fracture. TUBES, LINES AND DEVICES: Right internal jugular central venous catheter tip in the superior vena c jaspreet. The endotracheal tube (ETT) is in satisfactory position. Enteric tube is in the stomach. IMPRESSION: Cardiomegaly with pulmonary congestion and edema. Superimposed pneumonia cannot be excluded.
--- NOTE | 2024-07-08 13:51 | DVHPNRES ---
Progress Note Date Seen: Jul 08, 2024 Resident Creating Document: TUSHAR AGUILERA RESIDENT Medical Necessity Reason Pt with a Central, PICC or Fol: Yes The following are medically ne: Stallworth Catheter Reason for stallworth catheter: Strict I&O, Total Immobilization Objective vital signs Vital Sign Date Time Temp Pulse Resp B/P (MAP) Pulse Ox O2 Delivery O2 Flow Rate FiO2 07/08/24 13:15 97.5 87 29 118/38 (64) 96 207.5 113/52 (72) 07/08/24 12:46 45 07/08/24 12:00 Mechanical Ventilator+ Total Intake and Output 07/07/24 07/07/24 07/08/24 15:00 23:00 07:00 Intake Total 453.95 ml 539.45 ml 433.8 ml Output Total 370 ml 250 ml Balance 453.95 ml 169.45 ml 183.8 ml medications Current Medications Medications Dose Ordered Sig/Theresa Route Start Time Stop Time Status Last Admin Dose Admin Sodium Chloride 10 ml Q8HR IV 06/29/24 22:00 07/08/24 05:36 10 ML Vancomycin HCl 0 ml @ 0 mls/hr UD IV 06/29/24 22:15 Ipratropium [place] 0.5 mg Q4HR NEB 06/30/24 14:00 07/08/24 10:04 0.5 MG Levalbuterol HCl 1.25 mg Q4H NEB 06/30/24 11:15 07/08/24 10:05 1.25 MG Pantoprazole Sodium 40 mg DAILY IV 07/01/24 10:00 07/08/24 09:38 40 MG Budesonide 0.5 mg BID NEB 06/30/24 22:00 07/08/24 06:13 0.5 MG Propofol 100 ml @ 3.6 mls/hr Q24H IV 07/05/24 03:30 07/08/24 11:35 14.4 MLS/HR Midazolam HCl 50 ml @ 1 mls/hr Q24H IV 07/05/24 03:30 07/08/24 09:13 6 MLS/HR Fentanyl Citrate 250 ml @ 2.5 mls/hr Q24H IV 07/05/24 03:30 07/08/24 09:14 20 MLS/HR Norepinephrine Bitartrate 250 ml @ 3.75 mls/hr Q24H IV 07/05/24 14:15 07/08/24 05:36 7.5 MLS/HR Diagnostic Test (Pha) 1 strip IQ4HR 07/06/24 20:00 07/08/24 11:39 1 STRIP Insulin Human Regular IQ4HR SC 07/06/24 20:00 07/07/24 16:47 2 UNITS Dextrose 50 ml UD PRN IV 07/06/24 16:30 Meropenem 50 ml @ 17 mls/hr Q12HR@0800,2000 IV 07/07/24 08:00 07/08/24 09:13 17 MLS/HR Lactulose 30 ml Q6HR PO 07/06/24 18:00 07/08/24 12:51 30 ML Methylprednisolone Sodium Succinate 20 mg BID IV 07/07/24 22:00 07/08/24 09:38 20 MG Bumetanide 25 mg/ Miscellaneous 100 ml @ 4 mls/hr Q24H IV 07/08/24 13:15 UNV Examination GENERAL:Normal (Overall looks sick), HEENT:Normal, NECK:Normal (On ET tube,), LUNGS:Normal, CVS:Normal, ABDOMEN:Normal, MSK:Normal, SKIN:Normal, NEURO:Normal, :Normal laboratory and microbiology Laboratory Tests 07/08/24 00:20 Test 07/08/24 00:20 Range/Units Serum Glucose 104 74-106 mg/dL Microbiology Date/Time Source Procedure Growth Status 07/06/24 04:06 Nose MRSA Screen - Final Complete 07/05/24 11:30 Bronchial Washings Gram Stain - Final Complete 07/05/24 11:30 Bronchial Washings Respiratory Culture - Final Complete 06/29/24 16:02 Blood Blood Culture - Final NO GROWTH AFTER 5 DAYS OF INCUBATION. Complete Labs and/or images reviewed: Labs reviewed by me, Image(s) reviewed by me Problem List/Assessment/Plan Problem List/Assessment/Plan ICU Course: A 74-year-old female with a complex medical history, including chronic AFIB, anemia, anxiety, CAD, HFpEF, COPD, chronic hypoxic respiratory failure, idiopathic pulmonary fibrosis, stroke, diabetes, diabetic nephropathy, hypothyroidism, dyslipidemia, hypertension, seizures, and breast cancer in remission, presented to the ED with malaise, cough, shortness of breath, weakness, and palpitations. She was diagnosed with acute on chronic hypoxic respiratory failure, COPD exacerbation, chronic interstitial pulmonary fibrosis, WESLY, and acute on chronic CHF, requiring intubation likely due to aspiration while eating rice. Recently discharged on 06/24/2024 for pneumonia, she lives with her family, has been wheelchair-bound since 1998, quit smoking in April 2024 after smoking two cigarettes per day for 60 years, and denies alcohol use. Her surgical history includes cholecystectomy, , tonsillectomy, lymph node dissection, lumpectomy, and mastectomy. Hospitalization day: 9 A. Neurology: # sedated for ventilation Synchronicity: Versed , fentanyl and propofol. RASS-2- 3 # history of seizures: Not on any antiseizure medications. # history of insomnia, anxiety disorder: Trazodone 50 mg at bedtime, not needed. # multimodal pain management: Follows with Dr. Dominguez at home patient is on morphine 50 mg tablet b.i.d., baclofen 10 mg b.i.d., [place] 10 mg t.i.d. Lyrica/pregabalin 50 mg p.o.. # previous history of stroke: Patient on aspirin 81 and atorvastatin 20 mg at home. Holding in hospital. B. Cardiology: # chronic atrial fibrillation: Patient on Eliquis 5 mg b.i.d. no beta mara? Or amiodarone in home medications noted. In-hospital metoprolol tartrate 25 mg p.o. b.i.d.. At home noted metoprolol 50 mg p.o. t.i.d. tartrate, held as patient is hypotensive and on vasopressor support. # history of primary hypertension: At home 5 mg daily of amlodipine, losartan 25 mg p.o. daily held as patient is still on Levophed. Hold losartan 25 mg and metoprolol tartrate # hypotension likely due to septic shock: Off of antihypertensives, continue Levophed titrated as needed to keep the map over 65. # dyslipidemia: Atorvastatin 20 mg daily, can be held # heart failure with preserved ejection fraction (HFpEF/HFrec EF): HFmrEF (40- 45%), last checked in 2022>>> improved to 50% ejection fraction in May 18 2024. 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 Respiratory: # known COPD: Recently got azithromycin 500 for 10 days, prednisone 20 for 10 days, at home takes Spiriva [place] cap 80 mcg b.i.d., tiotropium bromide, previous history of 60 years of smoking, more than 4 hospitalization in past 2 months # history of pulmonary fibrosis: Likely due to underlying COPD versus other secondary causes # COPD exacerbation, in-hospital patient on budesonide nebulization b.i.d., ipratropium 0.5 q.4 and levalbuterol q.4 nebs. Methylprednisolone 40 mg Q 8 t.i.d. # acute on chronic hypoxic respiratory failure: At home baseline is 2 L of nasal cannula oxygen round the clock. Now patient is intubated and and ventilated, with 60 FiO2, peep of 5, tidal volume of 450, SpO2 of 100, we will try to go down on FiO2 to 50 perhaps. At intubation PC mode: RR 20; I-Pressure 22; I-time 0.8, PEEP 5, FiO2 80%, this morning pH 7.279, pCO2 49, PO2 of 60.6, base excess-4.5, likely non anion gap metabolic acidosis, primary respiratory acidosis chronic with secondary metabolic acidosis # multifocal pneumonia: Likely aspiration pneumonia superimposed on community- acquired pneumonia, MRSA positive, blood culture unremarkable, bronch culture pending, diffuse pulmonary edema, status post IV Lasix urine output not improve. # seasonal allergy: On Claritin loaded in as needed. # history of tonsillectomy # history of lymph node dissection and lumpectomy # history of allergy to multiple medications and food products Lisinopril, penicillins, pentazocine, pineapple, strawberry, TMP SMX, Tyelonol, tomato # thick white secretions, hypoactive cough and gag, S/p bronchoscopy 3/2 with clearing of secretions from L1-L10, LLL BAL sent for gram stain and culture, viral culture, fungal culture, and AFB smear and culture: result pending. D. Gastrointestinal: # history of GERD/gastritis: IV PPI prophylaxis continue. At home patient takes Carafate q.i.d. # secondary constipation likely due to high dose of opioids: At home patient is on polyethylene glycol daily dose, and lactulose. # history of cholecystectomy # chronic constipation: Start the patient on lactulose 30 mg b.i.d. at home patient has Colace, MiraLax continue --ve for ileus or obstruction : KUB xray - ve # started tube feed: with reglan with nepro # upper dentures removed: continue oral hygiene E. Genitourinary: # distant history of # on Stallworth's catheter: Past 24 hour lower urine output 650 cc output 0.1 mL/kg per hour, increasing BUN with rising creatinine 3.30 with calculated GFR of 14. Nephrology consulted Dr. Bacon[facility] group called and updated as well waiting for input. F. Infectious Disease: # MRSA nares positive: Mupirocin ointment x5 days repeat MRSA, leukocytosis improving # aspiration pneumonia super sided on atypical community-acquired pneumonia: Multifocal pneumonia cefepime with vancomycin: Change to meropenem and vancomycin # intertrigo Nystatin powder in the groin added, clean and dry # Likely, UTI: +ve urinalysis , culture pending G. Hematology & Oncology: # anemia of chronic disease likely due to CKD # breast cancer in remission # possible UTI on presentation leukocyte esterase 2+, urine culture not present. # Thrombocytopenia, mild: pletlets dropping close monitoring as the patient is on heparin for HD H. Nephrology: # known CKD stage 3b # WESLY due to VMN # likely acute renal failure: Close input output to check, IV Lasix not improve, nephrology consulted waiting for input. 60 cc urine output in 24 hours despite lasix and acetazolamide. S/p Blade catheter in RIJ, needing urgent initiation of hemodialysis. -nephrology on board no HD today started on bumex drip. S/p initiation of HD did not tolerate for fluid removal, BUN elevated, improving cr. 3.75<<<4.47 I/O improved output 620 vs only 60 cc in last 24 hours # improving respiratory and metabolic combines acidosis slowly, improved ventilation : Follow ABG I. Endocrine: # diabetes mellitus HbA1c 7.7 well-controlled: At home glipizide 5 mg daily, metformin 850 p.o. b.i.d. in-hospital aggressive insulin protocol less insulin glargine Lantus daily. # elevated BG likely due to on board steroid: 4 SSI HS # grade 2 obesity 39.3 # previously known thyroid nodule J. MSK and skin: # chronic back pain, pain control with multiple opioids # osteoarthritis: No recent fracture # buttocks skin tear multiple POA : wound care consulted, no infection presently K. Prophylaxis: PPI: IV PPI DVT: scd off of Eliquis L. Lines & Drains (with insertion date): IV : Left forearm x2 Central : Right femoral 07/05/2024 will consider removal. Arterial line: 07/07/2024 Stallworth's catheter since 07/05/2024. ETT 07/23/2024 Blade RIJ: 07/07/2024 M. Drips: Propofol, fentanyl, Versed, Levophed N. Disposition: Remains in ICU O. Vent Settings: Pressure control, AC, respiratory rate change to , peep 528, I:E: 1: 2 The plan was discussed with the ICU attending Dr. Teague. The patient care consists of total 87 minutes of critical care time excluding the procedures. Updated Daughter Sandy over phone. I updated the daughter regarding the overall multiorgan failure and updates of the patient that needs urgent dialysis, blood transfusion, A-line and patient remains extremely sick. Daughter understands and also I mentioned like we will do aggressive management but if patient continues to decline then we have to have another goals of care discussion. Family updated by the team as well as caregiver during visitation Dictated by Tushar Aguilera MD with 3M MModal Fluency. Plan discussed with: Patient, Daughter, Other (Primary team, Rn ) My Orders My Orders Orders - TUSHAR AGUILERA RESIDENT Procedure Category Date Status Time Ventilator Orders RT 07/07/24 Transmitted 16:01 Abg W/ Co-Ox RT 07/07/24 Logged 18:00 Ng To Lis PHILLIP 07/07/24 In Process 19:03 Abg W/ Co-Ox RT 07/08/24 Logged 06:00 Respiratory Misc. RT 07/08/24 Transmitted Order 10:05 Chest Portable XY 07/08/24 Resulted 10:58 Kub Abdomen Single XY 07/08/24 Taken View 13:24 Dietary Evaluation Review Comments: 1) If patient remains NPO for more than 7 days, consider TPN to meet at least 75% of estimated needs. 2) If GI route is preferred, consider Glucerna 1.2 @ 45 mL/hr goal rate as tolerated. Flush with 200 mL Q6. Goal rate will provide 1296 kcals, 65g Pro, and 1669 mL free H2O (including flushes) per day. TF regimen will meet 100% of estimated daily energy and protein needs. 3) Advance patient diet to 60g [facility] cardiac diet when medically feasible, pending COPIER AND PRINTER FIELD TECHNICIAN approval. 4) Continue to monitor I&O, labs, weight, and skin integrity Expected Outcomes/Goals: 1) patient to receive nutrition within 7 days 2) diet to advance 3) labs to improve 4) f/u in 3 days Labs/Diagnostic Data Laboratory Tests Test 07/08/24 11:34 07/08/24 08:12 07/08/24 07:04 07/08/24 04:32 Range/Units POC Glucose 99 107 H 117 H 70-106 mg/dl Blood Gas Specimen Type Arterial Blood Gas Sample Site Arterial line Blood Gas Patient Temperature 37.0 Arterial Blood Date Drawn [id number] Arterial Blood pH 7.263 L 7.350-7.450 Arterial Blood Partial Pressure CO2 51.4 H 32.0-45.0 mmHg Arterial Blood Partial Pressure O2 73.1 L 83.0-108.0 mmHg Arterial Blood HCO3 22.7 21.0-28.0 mmol/L Arterial Blood Oxygen Saturation 92.2 L 94.0-98.0 % Arterial Blood Base Excess -4.3 L -2.0-3.0 mmol/L Arterial Blood Oxyhemoglobin 91.1 L 94.0-98.0 % Arterial Blood Carboxyhemoglobin 0.8 0.5-1.5 % Arterial Blood Methemoglobin 0.4 0.0-1.5 % Juan Test N/a Blood Gas Total Hemoglobin 9.30 L 12.0-16.0 g/dL Blood Gas Set Respiration Rate 30.0 Blood Gas Modality Vent - ac FiO2 % 55.0 Blood Gas Tidal Volume 450.0 Blood Gas PEEP or CPAP 10.0 Test 07/08/24 03:00 07/08/24 00:20 07/07/24 23:44 07/07/24 20:32 Range/Units Random Vancomycin Level 16.4 H 5-10 ug/mL White Blood Count 18.9 H 4.4-10.8 10^3/uL Red Blood Count 2.61 L 4.0-5.20 10^6/uL Hemoglobin 7.9 L 12.2-16.2 g/dL Hematocrit 23.3 #L 36.0-46.0 % Mean Corpuscular Volume 89.3 80.0-100.0 fL Mean Corpuscular Hemoglobin 30.1 28.0-32.0 pg Mean Corpuscular Hemoglobin Concent 33.8 32.0-36.0 g/dL Red Cell Distribution Width 17.4 H 11.8-14.3 % Platelet Count 119 L 140-450 10^3/uL Mean Platelet Volume 7.7 6.9-10.8 fL Neutrophils (%) (Auto) 68.5 37.0-80.0 % Lymphocytes (%) (Auto) 1.1 L 10.0-50.0 % Monocytes (%) (Auto) 1.3 0.0-12.0 % Eosinophils (%) (Auto) 0.0 0.0-7.0 % Basophils (%) (Auto) 29.1 H 0.0-2.0 % Neutrophils # (Auto) 12.9 H 1.6-8.6 10 ^3/uL Lymphocytes # (Auto) 0.2 L 0.4-5.4 10 ^3/uL Monocytes # (Auto) 0.2 0-1.3 10 ^3/uL Eosinophils # (Auto) 0 0-0.8 10 ^3/uL Basophils # (Auto) 5.5 H 0-0.2 10 ^3/uL Nucleated Red Blood Cells 0.1 % Sodium Level 138 136-145 mmol/L Potassium Level 4.5 3.5-5.1 mmol/L Chloride Level 103 98-107 mmol/L Carbon Dioxide Level 24 20-31 mmol/L Anion Gap 11 5-15 Blood Urea Nitrogen 64 #H 9-23 mg/dL Creatinine 3.75 H 0.550-1.02 mg/dL Glomerular Filtration Rate Calc 12 >90 mL/min BUN/Creatinine Ratio 17.1 10.0-20.0 Serum Glucose 104 74-106 mg/dL Calcium Level 8.1 L 8.7-10.4 mg/dL Total Bilirubin 0.3 0.2-1.0 mg/dL Aspartate Amino Transferase (AST) 11 L 13-40 U/L Alanine Aminotransferase (ALT) 15 7-40 U/L Alkaline Phosphatase 63 46-116 U/L Total Protein 5.5 L 5.7-8.2 g/dL Albumin 3.0 L 3.2-4.8 g/dL POC Glucose 115 H 114 H 70-106 mg/dl Test 07/07/24 19:01 07/07/24 18:15 07/07/24 16:42 07/07/24 15:47 Range/Units Blood Gas Specimen Type Arterial Arterial Blood Gas Sample Site Arterial line Arterial line Blood Gas Patient Temperature 37.0 37.0 Arterial Blood Date Drawn [id number] Arterial Blood pH 7.199 *L 7.157 *L 7.350-7.450 Arterial Blood Partial Pressure CO2 50.0 H 61.6 *H 32.0-45.0 mmHg Arterial Blood Partial Pressure O2 74.9 L 73.3 L 83.0-108.0 mmHg Arterial Blood HCO3 19.1 L 21.3 21.0-28.0 mmol/L Arterial Blood Oxygen Saturation 93.1 L 91.9 L 94.0-98.0 % Arterial Blood Base Excess -8.7 L -7.6 L -2.0-3.0 mmol/L Arterial Blood Oxyhemoglobin 92.4 L 91.0 L 94.0-98.0 % Arterial Blood Carboxyhemoglobin 0.3 L 0.3 L 0.5-1.5 % Arterial Blood Methemoglobin 0.4 0.7 0.0-1.5 % Juan Test N/a N/a Blood Gas Total Hemoglobin 9.70 L 10.10 L 12.0-16.0 g/dL Blood Gas Set Respiration Rate 30.0 26.0 Blood Gas Modality Vent - ac Vent - ac FiO2 % 55.0 55.0 Blood Gas Tidal Volume 450.0 450.0 Blood Gas PEEP or CPAP 10.0 10.0 Blood Gas Critical Value Read Back Yes yes Blood Gas Notified Whom Dr. sheyla aguilera md Blood Gas Notified Time [id number] Blood Gas Notified By Commercial Representative roslyn lim aircraft hydraulic equipment mechanic POC Glucose 136 H 70-106 mg/dl Microbiology Date/Time Source Procedure Growth Status 07/06/24 04:06 Nose MRSA Screen - Final Complete 07/05/24 11:30 Bronchial Washings Gram Stain - Final Complete 07/05/24 11:30 Bronchial Washings Respiratory Culture - Final Complete 06/29/24 16:02 Blood Blood Culture - Final NO GROWTH AFTER 5 DAYS OF INCUBATION. Complete vital signs Vital Sign Date Time Temp Pulse Resp B/P (MAP) Pulse Ox O2 Delivery O2 Flow Rate FiO2 07/08/24 13:15 97.5 87 29 118/38 (64) 96 207.5 113/52 (72) 07/08/24 12:46 45 07/08/24 12:00 Mechanical Ventilator+ Total Intake and Output 07/07/24 07/07/24 07/08/24 15:00 23:00 07:00 Intake Total 453.95 ml 539.45 ml 433.8 ml Output Total 370 ml 250 ml Balance 453.95 ml 169.45 ml 183.8 ml medications Current Medications Medications Dose Ordered Sig/Theresa Route Start Time Stop Time Status Last Admin Dose Admin Sodium Chloride 10 ml Q8HR IV 06/29/24 22:00 07/08/24 05:36 10 ML Vancomycin HCl 0 ml @ 0 mls/hr UD IV 06/29/24 22:15 Ipratropium [place] 0.5 mg Q4HR NEB 06/30/24 14:00 07/08/24 10:04 0.5 MG Levalbuterol HCl 1.25 mg Q4H NEB 06/30/24 11:15 07/08/24 10:05 1.25 MG Pantoprazole Sodium 40 mg DAILY IV 07/01/24 10:00 07/08/24 09:38 40 MG Budesonide 0.5 mg BID NEB 06/30/24 22:00 07/08/24 06:13 0.5 MG Propofol 100 ml @ 3.6 mls/hr Q24H IV 07/05/24 03:30 07/08/24 11:35 14.4 MLS/HR Midazolam HCl 50 ml @ 1 mls/hr Q24H IV 07/05/24 03:30 07/08/24 09:13 6 MLS/HR Fentanyl Citrate 250 ml @ 2.5 mls/hr Q24H IV 07/05/24 03:30 07/08/24 09:14 20 MLS/HR Norepinephrine Bitartrate 250 ml @ 3.75 mls/hr Q24H IV 07/05/24 14:15 07/08/24 05:36 7.5 MLS/HR Diagnostic Test (Pha) 1 strip IQ4HR 07/06/24 20:00 07/08/24 11:39 1 STRIP Insulin Human Regular IQ4HR SC 07/06/24 20:00 07/07/24 16:47 2 UNITS Dextrose 50 ml UD PRN IV 07/06/24 16:30 Meropenem 50 ml @ 17 mls/hr Q12HR@0800,2000 IV 07/07/24 08:00 07/08/24 09:13 17 MLS/HR Lactulose 30 ml Q6HR PO 07/06/24 18:00 07/08/24 12:51 30 ML Methylprednisolone Sodium Succinate 20 mg BID IV 07/07/24 22:00 07/08/24 09:38 20 MG Bumetanide 25 mg/ Miscellaneous 100 ml @ 4 mls/hr Q24H IV 07/08/24 13:15 UNV laboratory and microbiology Laboratory Tests 07/08/24 00:20 Test 07/08/24 00:20 Range/Units Serum Glucose 104 74-106 mg/dL CC Plasma Assessment Blood Product Administration S: 1400 Date of Service: Jul 08, 2024 Billing Provider: KARISSA TEAGUE MD Common Visit Codes: [id number] CARE 30-74 MIN, 04620-[id number] CARE-EACH +30MIN TUSHAR AGUILERA RESIDENT Jul 08, 2024 13:51 KARISSA TEAGUE MD Jul 09, 2024 11:24
--- NOTE | 2024-07-08 14:03 | DVH ---
Date: 07/08/2024 01:33 PM Examination: XY KUB ABDOMEN SINGLE VIEW History: constipation Comparison: None TECHNIQUE: Frontal views of the abdomen was obtained. FINDINGS: Paucity of bowel gas limits evaluation. Enteric tube tip projects over the expected region of the st omach. The lung bases are unremarkable. Right central venous catheter tip projects over the right pelvis. No acute osseous abnormality identified. IMPRESSION: Paucity of bowel gas limits evaluation. Enteric tube tip projects over the expected region of the st omach.
[2024-07-08] MEDS ORDERED: DEXTROSE (50%) 50ML SYRG IV PRN (15:15)
[2024-07-08] MEDS ORDERED: Nepro With Carb Steady 1 Liter Bottle GT SCH (15:15)
--- NOTE | 2024-07-08 15:30 | DVHPN2 ---
Progress Note Date Seen: Jul 08, 2024 Medical Necessity Reason Pt with a Central, PICC or Fol: Yes The following are medically ne: Stallworth Catheter Reason for stallworth catheter: Strict I&O, Total Immobilization Subjective Patient reports: Other (INTUBATED) Review of Systems: Deferred Objective vital signs Vital Sign Date Time Temp Pulse Resp B/P (MAP) Pulse Ox O2 Delivery O2 Flow Rate FiO2 07/08/24 14:45 97.7 86 30 117/39 (65) 97 207.9 112/55 (74) 07/08/24 14:00 Mechanical Ventilator+ 45 45 Total Intake and Output 07/07/24 07/07/24 07/08/24 15:00 23:00 07:00 Intake Total 453.95 ml 539.45 ml 441.3 ml Output Total 370 ml 250 ml Balance 453.95 ml 169.45 ml 191.3 ml medications Current Medications Medications Dose Ordered Sig/Theresa Route Start Time Stop Time Status Last Admin Dose Admin Sodium Chloride 10 ml Q8HR IV 06/29/24 22:00 07/08/24 15:13 10 ML Vancomycin HCl 0 ml @ 0 mls/hr UD IV 06/29/24 22:15 Ipratropium [place] 0.5 mg Q4HR NEB 06/30/24 14:00 07/08/24 13:54 0.5 MG Levalbuterol HCl 1.25 mg Q4H NEB 06/30/24 11:15 07/08/24 13:54 1.25 MG Pantoprazole Sodium 40 mg DAILY IV 07/01/24 10:00 07/08/24 09:38 40 MG Budesonide 0.5 mg BID NEB 06/30/24 22:00 07/08/24 06:13 0.5 MG Propofol 100 ml @ 3.6 mls/hr Q24H IV 07/05/24 03:30 07/08/24 11:35 14.4 MLS/HR Midazolam HCl 50 ml @ 1 mls/hr Q24H IV 07/05/24 03:30 07/08/24 09:13 6 MLS/HR Fentanyl Citrate 250 ml @ 2.5 mls/hr Q24H IV 07/05/24 03:30 07/08/24 09:14 20 MLS/HR Norepinephrine Bitartrate 250 ml @ 3.75 mls/hr Q24H IV 07/05/24 14:15 07/08/24 05:36 7.5 MLS/HR Dextrose 50 ml UD PRN IV 07/06/24 16:30 Meropenem 50 ml @ 17 mls/hr Q12HR@0800,2000 IV 07/07/24 08:00 07/08/24 09:13 17 MLS/HR Lactulose 30 ml Q6HR PO 07/06/24 18:00 07/08/24 12:51 30 ML Methylprednisolone Sodium Succinate 20 mg BID IV 07/07/24 22:00 07/08/24 09:38 20 MG Bumetanide 25 mg/ Miscellaneous 100 ml @ 4 mls/hr Q24H IV 07/08/24 13:15 UNV Diagnostic Test (Pha) 1 strip Q6HR 07/08/24 18:00 UNV Insulin Human Regular Q6HR SC 07/08/24 18:00 UNV Dextrose 50 ml UD PRN IV 07/08/24 15:15 UNV Enteral Nutritional Formula 1,000 ml 30ML/HR GT 07/08/24 15:15 UNV Metoclopramide HCl 5 mg Q8HR IV 07/08/24 22:00 UNV Examination: GENERAL:Abnormal, LUNGS:Abnormal, MSK:Abnormal, NEURO:Abnormal laboratory and microbiology Laboratory Tests 07/08/24 00:20 Test 07/08/24 00:20 Range/Units Serum Glucose 104 74-106 mg/dL Microbiology Date/Time Source Procedure Growth Status 07/06/24 04:06 Nose MRSA Screen - Final Complete 07/05/24 11:30 Bronchial Washings Gram Stain - Final Complete 07/05/24 11:30 Bronchial Washings Respiratory Culture - Final Complete 06/29/24 16:02 Blood Blood Culture - Final NO GROWTH AFTER 5 DAYS OF INCUBATION. Complete Problem List/Assessment/Plan Problem List/Assessment/Plan Acute kidney injury likely acute necrosis in the setting of vancomycin toxicity plus shock Shock needing vasopressors Baseline Chronic kidney disease Morbid obesity Ventilator-dependent respiratory failure Pulmonary fibrosis RECS Dialysis yesterday with no UF Next dialysis will be today versus tomorrow depending on staffing Bumex drip IV as ordered Remains on Levophed Plan discussed with: Other My Orders My Orders Orders - ALOK MILLAN MD Procedure Category Date Status Time Hepatitis B Surface LAB 07/07/24 In Process Antigen 18:19 Give Un-Diluted PHA 07/08/24 Logged (Gi... W/Bumetanide 13:15 Dietary Evaluation Review Comments: 1) If patient remains NPO for more than 7 days, consider TPN to meet at least 75% of estimated needs. 2) If GI route is preferred, consider Glucerna 1.2 @ 45 mL/hr goal rate as tolerated. Flush with 200 mL Q6. Goal rate will provide 1296 kcals, 65g Pro, and 1669 mL free H2O (including flushes) per day. TF regimen will meet 100% of estimated daily energy and protein needs. 3) Advance patient diet to 60g [facility] cardiac diet when medically feasible, pending ETHYL BLENDER approval. 4) Continue to monitor I&O, labs, weight, and skin integrity Expected Outcomes/Goals: 1) patient to receive nutrition within 7 days 2) diet to advance 3) labs to improve 4) f/u in 3 days Critical Care Time (mins): 38 CC Plasma Assessment Blood Product Administration S: 1400 ALOK MILLAN MD Jul 08, 2024 15:30
[2024-07-08] MEDS: METOCLOPRAMIDE HCL 5MG/ml INJ 2ml VIAL IV ONE (17:00)
[2024-07-08] MEDS: InsuLIN REG 1unit/0.01ml Soln (100units/ml) SC SCH (18:00)
[2024-07-08] MEDS: ACCU-CHEK COMFORT CURVE STRIP VI SCH (18:32)
[2024-07-08] MEDS: BUMETANIDE INJECTION 25 MG in GIVE UN-DILUTED 0 ML IV SCH (20:16)
[2024-07-08] MEDS: NYSTATIN TOPICAL POWDER 15GM TOP SCH (22:00)
[2024-07-08] MEDS: VANCOMYCIN 500mg/100mL 100 ML IV ONE (22:23)
[2024-07-08] MEDS: METOCLOPRAMIDE HCL 5MG/ml INJ 2ml VIAL IV SCH (22:23)
[2024-07-09] VITALS (114 sets, daily range): BP systolic 79–201; BP diastolic 36–75; PULSE 71–136; RESP 0–35; TEMP 96.6–98.8; O2SAT 90–100
[2024-07-09 05:00] LABS: Chloride 103 mmol/L (98-107); Potassium 4.9 mmol/L (3.5-5.1); Sodium 136 mmol/L (136-145)
[2024-07-09 05:01] LABS: Anion Gap 11 (5-15); Carbon Dioxide 22 mmol/L (20-31)
[2024-07-09 05:05] LABS: Calcium 8.1 mg/dL (8.7-10.4)
[2024-07-09 05:06] LABS: BUN/Creatinine Ratio 16.3 (10.0-20.0)
[2024-07-09 05:07] LABS: Blood Urea Nitrogen 78 mg/dL (9-23); Glucose 118 mg/dL (74-106)
[2024-07-09 06:48] LABS: Hematocrit 25.2 % (36.0-46.0); Hemoglobin 8.1 g/dL (12.2-16.2); Mean Corpuscular Hemoglobin 29.5 pg (28.0-32.0); Mean Corpuscular Hgb Conc. 32.3 g/dL (32.0-36.0); Red Blood Cells 2.76 10^6/uL (4.0-5.20); White Blood Cell 20.3 10^3/uL (4.4-10.8)
[2024-07-09 06:50] LABS: Mean Corpuscular Volume 91.4 fL (80.0-100.0); Platelet Count (auto) 118 10^3/uL (140-450); Red Cell Distribution Width 18.1 % (11.8-14.3)
[2024-07-09 07:02] LABS: Band Neutrophils % (manual) 0; Basophils % (manual) 0 (0.0-2.0); Blast Cells 0; Eosinophils % (manual) 0 (0-7); Metamyelocytes % 0; Monocytes % (manual) 0 (0-12); Myelocytes % 0; Promyelocytes % 0; Reactive Lymphocytes 0
[2024-07-09 07:29] LABS: Base Excess -7.3 mmol/L (-2.0-3.0)
[2024-07-09 09:11] LABS: Lymphocytes % (manual) 2 (10.0-50.0); Platelet Estimate Decreased
[2024-07-09 09:53] LABS: Base Excess -7.8 mmol/L (-2.0-3.0)
[2024-07-09 13:21] LABS: Base Excess -10.1 mmol/L (-2.0-3.0)
[2024-07-09] MEDS: ALBUMIN 25% 100 ML IV SCH (13:30)
--- NOTE | 2024-07-09 16:18 | DVHPN2 ---
Progress Note Date Seen: Jul 09, 2024 Medical Necessity Reason Pt with a Central, PICC or Fol: Yes The following are medically ne: Stallworth Catheter Reason for stallworth catheter: Strict I&O, Total Immobilization Subjective Patient reports: Other (intubated) Review of Systems: Deferred Objective vital signs Vital Sign Date Time Temp Pulse Resp B/P (MAP) Pulse Ox O2 Delivery O2 Flow Rate FiO2 07/09/24 15:57 108 32 156/61 (92) 100 80 07/09/24 14:03 Mechanical Ventilator+ 07/09/24 12:45 98.1 208.6 Total Intake and Output 07/08/24 07/08/24 07/09/24 15:00 23:00 07:00 Intake Total 434.2 ml 566.2 ml 558.80 ml Output Total 350 ml 350 ml Balance 434.2 ml 216.2 ml 208.80 ml medications Current Medications Medications Dose Ordered Sig/Theresa Route Start Time Stop Time Status Last Admin Dose Admin Sodium Chloride 10 ml Q8HR IV 06/29/24 22:00 07/09/24 14:00 10 ML Vancomycin HCl 0 ml @ 0 mls/hr UD IV 06/29/24 22:15 Ipratropium [place] 0.5 mg Q4HR NEB 06/30/24 14:00 07/09/24 13:57 0.5 MG Levalbuterol HCl 1.25 mg Q4H NEB 06/30/24 11:15 07/09/24 13:58 1.25 MG Pantoprazole Sodium 40 mg DAILY IV 07/01/24 10:00 07/09/24 09:57 40 MG Budesonide 0.5 mg BID NEB 06/30/24 22:00 07/09/24 06:11 0.5 MG Propofol 100 ml @ 3.6 mls/hr Q24H IV 07/05/24 03:30 07/09/24 13:23 14.4 MLS/HR Midazolam HCl 50 ml @ 1 mls/hr Q24H IV 07/05/24 03:30 07/09/24 13:24 6 MLS/HR Fentanyl Citrate 250 ml @ 2.5 mls/hr Q24H IV 07/05/24 03:30 07/09/24 09:39 20 MLS/HR Norepinephrine Bitartrate 250 ml @ 3.75 mls/hr Q24H IV 07/05/24 14:15 07/09/24 07:49 11.25 MLS/HR Lactulose 30 ml Q6HR PO 07/06/24 18:00 07/09/24 12:10 30 ML Methylprednisolone Sodium Succinate 20 mg BID IV 07/07/24 22:00 07/09/24 09:57 20 MG Bumetanide 25 mg/ Miscellaneous 100 ml @ 4 mls/hr Q24H IV 07/08/24 13:15 07/08/24 20:16 4 MLS/HR Diagnostic Test (Pha) 1 strip Q6HR 07/08/24 18:00 07/09/24 12:07 1 STRIP Insulin Human Regular Q6HR SC 07/08/24 18:00 07/09/24 12:09 2 UNITS Dextrose 50 ml UD PRN IV 07/08/24 15:15 Enteral Nutritional Formula 1,000 ml 30ML/HR GT 07/08/24 15:15 Metoclopramide HCl 5 mg Q8HR IV 07/08/24 22:00 07/09/24 05:43 5 MG Nystatin 1 applic BID TOP 07/08/24 22:00 07/09/24 10:24 1 APPLIC Meropenem 50 ml @ 17 mls/hr Q12H IV 07/10/24 08:00 Examination: GENERAL:Abnormal, MSK:Abnormal, NEURO:Abnormal laboratory and microbiology Laboratory Tests 07/09/24 06:08 07/09/24 03:25 Test 07/09/24 03:25 Range/Units Serum Glucose 118 H 74-106 mg/dL Microbiology Date/Time Source Procedure Growth Status 07/08/24 21:11 Voided Urine Urine Culture - Preliminary Resulted 07/06/24 04:06 Nose MRSA Screen - Final Complete 07/05/24 11:30 Bronchial Washings Gram Stain - Final Complete 07/05/24 11:30 Bronchial Washings Respiratory Culture - Final Complete 06/29/24 16:02 Blood Blood Culture - Final NO GROWTH AFTER 5 DAYS OF INCUBATION. Complete Problem List/Assessment/Plan Problem List/Assessment/Plan Acute kidney injury likely acute necrosis in the setting of vancomycin toxicity plus shock Shock needing vasopressors Baseline Chronic kidney disease Morbid obesity Ventilator-dependent respiratory failure Pulmonary fibrosis RECS Dialysis today Bumex drip IV as ordered--no response yet Remains on Levophed Plan discussed with: Other My Orders My Orders Orders - ALOK MILLAN MD Procedure Category Date Status Time Hemodialysis Orders ORDERS 07/09/24 Transmitted 15:40 Heparin Sodium PHA 07/09/24 Logged (Porcine) 16:00 Dietary Evaluation Review Comments: 1. Continue Nepro TF @30ml/hr providing 58g protein, 1274Kcal, meeting pt's needs at 70% protein and 105% enrgy. 2. Advance to CCHO-60g, Renal Standard Diet if Pt is excubated and passes speech eval. Expected Outcomes/Goals: gradual Wt loss, improved lab values Critical Care Time (mins): 39 CC Plasma Assessment Blood Product Administration S: 1400 ALOK MILLAN MD Jul 09, 2024 16:18
[2024-07-09] MEDS: HEPARIN 1,000 UNITS/ml 1ML VIAL IV ONE (16:54)
--- NOTE | 2024-07-09 17:18 | DVH ---
CHEST RADIOGRAPH Indication: interval changes with ETT Technique: Single frontal view of the chest was obtained Comparison: XY CHEST PORTABLE on DOS: 07/08/24, XY CHEST PORTABLE on DOS: 07/08/24, XY CHEST PORTABLE on DOS: 07/07/24 FINDINGS: Lines and Tubes: Endotracheal tube in place 2.9 cm above the daniel. MediPort in place from the rig t internal jugular vein with the tip in the superior vena cava. Enteric tube below the left diaphragm in the stomach Lungs: Unimproved bibasilar airspace disease Pleura: No effusion. No pneumothorax. Cardiomediastinal contours: Unremarkable Bones: No acute osseous abnormality. IMPRESSION: 1. Endotracheal tube 2.9 cm above the daniel. 2. MediPort in place with a right internal jugular vein proximally 2.9 cm above the daniel. 3. Enteric tube below the left diaphragm in the stomach 4. Unimproved bi basilar airspace.
--- NOTE | 2024-07-09 20:08 | DVHPNRES ---
Progress Note Date Seen: Jul 09, 2024 Resident Creating Document: TUSHAR AGUILERA RESIDENT Has the PT tested + for MRSA If YES, has PT been informed?: No Medical Necessity Reason Pt with a Central, PICC or Fol: Yes The following are medically ne: Stallworth Catheter Reason for stallworth catheter: Strict I&O, Total Immobilization Subjective Patient reports: No new complaints Objective vital signs Vital Sign Date Time Temp Pulse Resp B/P (MAP) Pulse Ox O2 Delivery O2 Flow Rate FiO2 07/09/24 18:43 114 32 137/58 (84) 100 60 07/09/24 18:20 Mechanical Ventilator+ 07/09/24 12:45 98.1 208.6 Total Intake and Output 07/08/24 07/08/24 07/09/24 15:00 23:00 07:00 Intake Total 434.2 ml 566.2 ml 558.80 ml Output Total 350 ml 350 ml Balance 434.2 ml 216.2 ml 208.80 ml medications Current Medications Medications Dose Ordered Sig/Theresa Route Start Time Stop Time Status Last Admin Dose Admin Sodium Chloride 10 ml Q8HR IV 06/29/24 22:00 07/09/24 14:00 10 ML Vancomycin HCl 0 ml @ 0 mls/hr UD IV 06/29/24 22:15 Ipratropium [place] 0.5 mg Q4HR NEB 06/30/24 14:00 07/09/24 18:43 0.5 MG Levalbuterol HCl 1.25 mg Q4H NEB 06/30/24 11:15 07/09/24 18:43 1.25 MG Pantoprazole Sodium 40 mg DAILY IV 07/01/24 10:00 07/09/24 09:57 40 MG Budesonide 0.5 mg BID NEB 06/30/24 22:00 07/09/24 18:43 0.5 MG Propofol 100 ml @ 3.6 mls/hr Q24H IV 07/05/24 03:30 07/09/24 18:26 14.4 MLS/HR Midazolam HCl 50 ml @ 1 mls/hr Q24H IV 07/05/24 03:30 07/09/24 13:24 6 MLS/HR Fentanyl Citrate 250 ml @ 2.5 mls/hr Q24H IV 07/05/24 03:30 07/09/24 09:39 20 MLS/HR Norepinephrine Bitartrate 250 ml @ 3.75 mls/hr Q24H IV 07/05/24 14:15 07/09/24 07:49 11.25 MLS/HR Methylprednisolone Sodium Succinate 20 mg BID IV 07/07/24 22:00 07/09/24 09:57 20 MG Bumetanide 25 mg/ Miscellaneous 100 ml @ 4 mls/hr Q24H IV 07/08/24 13:15 07/09/24 17:44 4 MLS/HR Diagnostic Test (Pha) 1 strip Q6HR 07/08/24 18:00 07/09/24 17:49 1 STRIP Insulin Human Regular Q6HR SC 07/08/24 18:00 07/09/24 17:52 2 UNITS Dextrose 50 ml UD PRN IV 07/08/24 15:15 Enteral Nutritional Formula 1,000 ml 30ML/HR GT 07/08/24 15:15 Metoclopramide HCl 5 mg Q8HR IV 07/08/24 22:00 07/09/24 05:43 5 MG Nystatin 1 applic BID TOP 07/08/24 22:00 07/09/24 10:24 1 APPLIC Meropenem 50 ml @ 17 mls/hr Q12H IV 07/10/24 08:00 Examination GENERAL:Normal (Overall looks sick), HEENT:Normal, NECK:Normal (On ET tube,), LUNGS:Normal, CVS:Normal, ABDOMEN:Normal, MSK:Normal, SKIN:Normal, NEURO:Normal, :Normal laboratory and microbiology Laboratory Tests 07/09/24 06:08 07/09/24 03:25 Test 07/09/24 03:25 Range/Units Serum Glucose 118 H 74-106 mg/dL Microbiology Date/Time Source Procedure Growth Status 07/08/24 21:11 Voided Urine Urine Culture - Preliminary Resulted 07/06/24 04:06 Nose MRSA Screen - Final Complete 07/05/24 11:30 Bronchial Washings Gram Stain - Final Complete 07/05/24 11:30 Bronchial Washings Respiratory Culture - Final Complete 06/29/24 16:02 Blood Blood Culture - Final NO GROWTH AFTER 5 DAYS OF INCUBATION. Complete Labs and/or images reviewed: Labs reviewed by me, Image(s) reviewed by me Problem List/Assessment/Plan Problem List/Assessment/Plan ICU Course: A 74-year-old female with a complex medical history, including chronic AFIB, anemia, anxiety, CAD, HFpEF, COPD, chronic hypoxic respiratory failure, idiopathic pulmonary fibrosis, stroke, diabetes, diabetic nephropathy, hypothyroidism, dyslipidemia, hypertension, seizures, and breast cancer in remission, presented to the ED with malaise, cough, shortness of breath, weakness, and palpitations. She was diagnosed with acute on chronic hypoxic respiratory failure, COPD exacerbation, chronic interstitial pulmonary fibrosis, WESLY, and acute on chronic CHF, requiring intubation likely due to aspiration while eating rice. Recently discharged on 06/24/2024 for pneumonia, she lives with her family, has been wheelchair-bound since 1998, quit smoking in April 2024 after smoking two cigarettes per day for 60 years, and denies alcohol use. Her surgical history includes cholecystectomy, , tonsillectomy, lymph node dissection, lumpectomy, and mastectomy. Hospitalization day: 10 A. Neurology: # sedated for ventilation Synchronicity: Versed , fentanyl and propofol. RASS-2- 3 # history of seizures: Not on any antiseizure medications. # history of insomnia, anxiety disorder: Trazodone 50 mg at bedtime, not needed. # multimodal pain management: Follows with Dr. Dominguez at home patient is on morphine 50 mg tablet b.i.d., baclofen 10 mg b.i.d., Bronson 10 mg t.i.d. Lyrica/pregabalin 50 mg p.o.. # previous history of stroke: Patient on aspirin 81 and atorvastatin 20 mg at home. Holding in hospital. B. Cardiology: # chronic atrial fibrillation: Patient on Eliquis 5 mg b.i.d. no beta mara? Or amiodarone in home medications noted. In-hospital metoprolol tartrate 25 mg p.o. b.i.d.. At home noted metoprolol 50 mg p.o. t.i.d. tartrate, held as patient is hypotensive and on vasopressor support. # history of primary hypertension: At home 5 mg daily of amlodipine, losartan 25 mg p.o. daily held as patient is still on Levophed. Hold losartan 25 mg and metoprolol tartrate # hypotension likely due to septic shock: Off of antihypertensives, continue Levophed titrated as needed to keep the map over 65. # dyslipidemia: Atorvastatin 20 mg daily, can be held # heart failure with preserved ejection fraction (HFpEF/HFrec EF): HFmrEF (40- 45%), last checked in 2022>>> improved to 50% ejection fraction in May 18 2024. 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 Respiratory: # known COPD: Recently got azithromycin 500 for 10 days, prednisone 20 for 10 days, at home takes Spiriva [place] cap 80 mcg b.i.d., tiotropium bromide, previous history of 60 years of smoking, more than 4 hospitalization in past 2 months # history of pulmonary fibrosis: Likely due to underlying COPD versus other secondary causes # COPD exacerbation, in-hospital patient on budesonide nebulization b.i.d., ipratropium 0.5 q.4 and levalbuterol q.4 nebs. Methylprednisolone 40 mg Q 8 t.i.d. # acute on chronic hypoxic respiratory failure: At home baseline is 2 L of nasal cannula oxygen round the clock. Now patient is intubated and and ventilated, with ACVC TV 450, Fio2 50, RR 32, target SPO2 92%, elevated baseline peak P due to low lung compliance. # multifocal pneumonia: Likely aspiration pneumonia superimposed on community- acquired pneumonia, MRSA positive, blood culture unremarkable, bronch culture pending, diffuse pulmonary edema, status post IV Lasix urine output not improve. # seasonal allergy: On Claritin loaded in as needed. # history of tonsillectomy # history of lymph node dissection and lumpectomy # history of allergy to multiple medications and food products Lisinopril, penicillins, pentazocine, pineapple, strawberry, TMP SMX, Tyelonol, tomato # thick white secretions, hypoactive cough and gag, S/p bronchoscopy 3/2 with clearing of secretions from L1-L10, LLL BAL sent for gram stain and culture, viral culture, fungal culture, and AFB smear and culture: result pending. Unimproved bi basilar airspace in CXR. D. Gastrointestinal: # history of GERD/gastritis: IV PPI prophylaxis continue. At home patient takes Carafate q.i.d. # secondary constipation likely due to high dose of opioids: At home patient is on polyethylene glycol daily dose, and lactulose. Post laxative, Last bowel large volume movement 07/09/2024 hold laxatives. # history of cholecystectomy # chronic constipation: Start the patient on lactulose 30 mg b.i.d. at home patient has Colace, MiraLax continue --ve for ileus or obstruction : KUB xray - ve # started tube feed: with reglan with nepro # upper dentures removed: continue oral hygiene # E. Genitourinary: # distant history of # on Stallworth's catheter: Past 24 hour lower urine output 650 cc output 0.1 mL/kg per hour, increasing BUN with rising creatinine 3.30 with calculated GFR of 14. Nephrology consulted Dr. Bacon'S group called and updated as well waiting for input. F. Infectious Disease: # MRSA nares positive: Mupirocin ointment x5 days repeat MRSA, leukocytosis improving # aspiration pneumonia super sided on atypical community-acquired pneumonia: Multifocal pneumonia cefepime with vancomycin: Change to meropenem and vancomycin # intertrigo Nystatin powder in the groin added, clean and dry # Likely, UTI: +ve urinalysis , culture pending G. Hematology & Oncology: # anemia of chronic disease likely due to CKD # breast cancer in remission # possible UTI on presentation leukocyte esterase 2+, urine culture not present. # Thrombocytopenia, mild: pletlets dropping close monitoring as the patient is on heparin for HD continue downtrending. H. Nephrology: # known CKD stage 3b # WESLY due to VMN # likely acute renal failure: Close input output to check, IV Lasix not improve, nephrology consulted waiting for input. 60 cc urine output in 24 hours despite lasix and acetazolamide. S/p Blade catheter in [facility], needing urgent initiation of hemodialysis. -nephrology on board no HD today started on bumex drip. S/p initiation of HD did not tolerate for fluid removal, BUN elevated, improving cr. 3.75<<<4.47 I/O improved output 620 vs only 60 cc in last 24 hours similar urine output s/p 2 L out in HD. # improving respiratory and metabolic combines acidosis slowly, improved ventilation : Follow ABG I. Endocrine: # diabetes mellitus HbA1c 7.7 well-controlled: At home glipizide 5 mg daily, metformin 850 p.o. b.i.d. in-hospital aggressive insulin protocol less insulin glargine Lantus daily. # elevated BG likely due to on board steroid: 4 SSI HS # grade 2 obesity 39.3 # previously known thyroid nodule J. MSK and skin: # chronic back pain, pain control with multiple opioids # osteoarthritis: No recent fracture # buttocks skin tear multiple POA : wound care consulted, no infection presently K. Prophylaxis: PPI: IV PPI DVT: scd off of Eliquis L. Lines & Drains (with insertion date): IV : Left forearm x2 Central : Right femoral 07/05/2024 will consider removal. Arterial line: 07/07/2024 Stallworth's catheter since 07/05/2024. ETT 07/23/2024 Blade RIJ: 07/07/2024 MYasemin Drips: Propofol, fentanyl, Versed, Levophed N. Disposition: Remains in ICU The plan was discussed with the ICU attending Dr. Teague. The patient care consists of total 93 minutes of critical care time excluding the procedures, reviewing, ABG, cxr, vent settings. Daughter Sandy called and updated her on plan of care. 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 Multi organ failure with frequent hospitalization in recent times with irreversible lung fibrosis with extremely poor outcome and quality of life. Dictated by Tushar Aguilera MD with 3M MModal Fluency. Plan discussed with: Patient, Daughter, Other (primary team, ) My Orders My Orders Orders - TUSHAR AGUILERA RESIDENT Procedure Category Date Status Time Urine Bacterial SEBASTIAN 07/08/24 In Process Culture 19:16 Nystatin Powder PHA 07/08/24 In Process (Mycostatin Powder) 22:00 Abg W/ Co-Ox RT 07/09/24 Logged 07:00 Abg W/ Co-Ox RT 07/09/24 Logged 09:30 Ventilator Orders RT 07/09/24 Transmitted 07:33 Chest Xray 1 View XY 07/09/24 Resulted 14:03 Dietary Evaluation Review Comments: 1. Continue Nepro TF @30ml/hr providing 58g protein, 1274Kcal, meeting pt's needs at 70% protein and 105% enrgy. 2. Advance to CCHO-60g, Renal Standard Diet if Pt is excubated and passes speech eval. Expected Outcomes/Goals: gradual Wt loss, improved lab values CC Plasma Assessment Blood Product Administration S: 1400 Date of Service: Jul 09, 2024 Billing Provider: KARISSA TEAGUE MD Common Visit Codes: 05915-[id number] CARE 30-74 MIN, 78273-POMIRSIN CARE-EACH +30MIN TUSHAR AGUILERA RESIDENT Jul 09, 2024 20:08 KARISSA TEAGUE MD Jul 11, 2024 19:41
[2024-07-10] VITALS (111 sets, daily range): BP systolic 68–162; BP diastolic 30–66; PULSE 89–131; RESP 0–34; TEMP 93.9–98.6; O2SAT 89–100
[2024-07-10 04:15] LABS: Hematocrit 25.1 % (36.0-46.0); Hemoglobin 8.1 g/dL (12.2-16.2); Mean Corpuscular Hemoglobin 29.3 pg (28.0-32.0); Mean Corpuscular Hgb Conc. 32.2 g/dL (32.0-36.0); Mean Corpuscular Volume 90.9 fL (80.0-100.0); Platelet Count (auto) 109 10^3/uL (140-450); Red Blood Cells 2.76 10^6/uL (4.0-5.20); Red Cell Distribution Width 17.5 % (11.8-14.3)
[2024-07-10 04:30] LABS: Alanine Aminotransferase 16 U/L (7-40); Albumin 3.8 g/dL (3.2-4.8); Alkaline Phosphatase 74 U/L (46-116); Anion Gap 13 (5-15); Aspartate Aminotransferase 18 U/L (13-40); BUN/Creatinine Ratio 14.9 (10.0-20.0); Bilirubin, Total 0.4 mg/dL (0.2-1.0); Calcium 8.7 mg/dL (8.7-10.4); Carbon Dioxide 23 mmol/L (20-31); Chloride 103 mmol/L (98-107); Potassium 4.2 mmol/L (3.5-5.1); Sodium 139 mmol/L (136-145)
[2024-07-10 04:59] LABS: Blood Urea Nitrogen 56 mg/dL (9-23); Glucose 163 mg/dL (74-106)
[2024-07-10 05:16] LABS: Band Neutrophils % (manual) 0; Basophils % (manual) 0 (0.0-2.0); Blast Cells 0; Eosinophils % (manual) 0 (0-7); Metamyelocytes % 0; Myelocytes % 0; Promyelocytes % 0; Reactive Lymphocytes 0
[2024-07-10 06:24] LABS: Lymphocytes % (manual) 5 (10.0-50.0); Monocytes % (manual) 3 (0-12); Platelet Estimate Decreased
[2024-07-10 06:53] LABS: Base Excess -6.1 mmol/L (-2.0-3.0)
--- NOTE | 2024-07-10 07:40 | ECG ---
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
[2024-07-10] MEDS ORDERED: MEROPENEM 1GM IVPB 50 ML IV SCH (08:00)
[2024-07-10] MEDS: MEROPENEM 500MG IVPB 50 ML IV SCH (08:33)
--- NOTE | 2024-07-10 10:54 | DVHPNRES ---
Progress Note Date Seen: Jul 10, 2024 Resident Creating Document: TUSHAR AGUILERA RESIDENT Has the PT tested + for MRSA If YES, has PT been informed?: No Medical Necessity Reason Pt with a Central, PICC or Fol: Yes The following are medically ne: Stallworth Catheter Reason for stallworth catheter: Strict I&O, Total Immobilization Objective vital signs Vital Sign Date Time Temp Pulse Resp B/P (MAP) Pulse Ox O2 Delivery O2 Flow Rate FiO2 07/10/24 10:17 109 32 118/55 (76) 100 50 07/10/24 08:00 Mechanical Ventilator+ 07/10/24 04:00 97.8 97.8 Total Intake and Output 07/09/24 07/09/24 07/10/24 15:00 23:00 07:00 Intake Total 776.50 ml 648.74 ml 679.92 ml Output Total 2020 ml 10 ml Balance 776.50 ml -1371.26 ml 669.92 ml medications Current Medications Medications Dose Ordered Sig/Theresa Route Start Time Stop Time Status Last Admin Dose Admin Sodium Chloride 10 ml Q8HR IV 06/29/24 22:00 07/10/24 05:38 10 ML Vancomycin HCl 0 ml @ 0 mls/hr UD IV 06/29/24 22:15 Ipratropium [place] 0.5 mg Q4HR NEB 06/30/24 14:00 07/10/24 10:16 0.5 MG Levalbuterol HCl 1.25 mg Q4H NEB 06/30/24 11:15 07/10/24 10:17 1.25 MG Pantoprazole Sodium 40 mg DAILY IV 07/01/24 10:00 07/10/24 10:11 40 MG Budesonide 0.5 mg BID NEB 06/30/24 22:00 07/10/24 06:05 0.5 MG Propofol 100 ml @ 3.6 mls/hr Q24H IV 07/05/24 03:30 07/10/24 09:46 28.8 MLS/HR Midazolam HCl 50 ml @ 1 mls/hr Q24H IV 07/05/24 03:30 07/10/24 05:32 6 MLS/HR Fentanyl Citrate 250 ml @ 2.5 mls/hr Q24H IV 07/05/24 03:30 07/10/24 06:56 25 MLS/HR Norepinephrine Bitartrate 250 ml @ 3.75 mls/hr Q24H IV 07/05/24 14:15 07/10/24 08:43 18.75 MLS/HR Methylprednisolone Sodium Succinate 20 mg BID IV 07/07/24 22:00 07/10/24 10:11 20 MG Bumetanide 25 mg/ Miscellaneous 100 ml @ 4 mls/hr Q24H IV 07/08/24 13:15 07/09/24 17:44 4 MLS/HR Diagnostic Test (Pha) 1 strip Q6HR 07/08/24 18:00 07/10/24 05:33 1 STRIP Insulin Human Regular Q6HR SC 07/08/24 18:00 07/10/24 05:33 3 UNITS Dextrose 50 ml UD PRN IV 07/08/24 15:15 Enteral Nutritional Formula 1,000 ml 30ML/HR GT 07/08/24 15:15 Metoclopramide HCl 5 mg Q8HR IV 07/08/24 22:00 07/10/24 05:32 5 MG Nystatin 1 applic BID TOP 07/08/24 22:00 07/10/24 10:21 1 APPLIC Meropenem 50 ml @ 17 mls/hr Q12H IV 07/10/24 08:00 07/10/24 08:33 17 MLS/HR laboratory and microbiology Laboratory Tests 07/10/24 03:14 Test 07/10/24 03:14 Range/Units Serum Glucose 163 H 74-106 mg/dL Microbiology Date/Time Source Procedure Growth Status 07/08/24 21:11 Voided Urine Urine Culture - Preliminary Resulted 07/06/24 04:06 Nose MRSA Screen - Final Complete 07/05/24 11:30 Bronchial Washings Gram Stain - Final Complete 07/05/24 11:30 Bronchial Washings Respiratory Culture - Final Complete 06/29/24 16:02 Blood Blood Culture - Final NO GROWTH AFTER 5 DAYS OF INCUBATION. Complete Labs and/or images reviewed: Labs reviewed by me, Image(s) reviewed by me Problem List/Assessment/Plan Problem List/Assessment/Plan ICU Course: A 74-year-old female with a complex medical history, including chronic AFIB, anemia, anxiety, CAD, HFpEF, COPD, chronic hypoxic respiratory failure, idiopathic pulmonary fibrosis, stroke, diabetes, diabetic nephropathy, hypothyroidism, dyslipidemia, hypertension, seizures, and breast cancer in remission, presented to the ED with malaise, cough, shortness of breath, weakness, and palpitations. She was diagnosed with acute on chronic hypoxic respiratory failure, COPD exacerbation, chronic interstitial pulmonary fibrosis, WESLY, and acute on chronic CHF, requiring intubation likely due to aspiration while eating rice. Recently discharged on 06/24/2024 for pneumonia, she lives with her family, has been wheelchair-bound since 1998, quit smoking in April 2024 after smoking two cigarettes per day for 60 years, and denies alcohol use. Her surgical history includes cholecystectomy, , tonsillectomy, lymph node dissection, lumpectomy, and mastectomy. Hospitalization day: 11 A. Neurology: # sedated for ventilation Synchronicity: Versed , fentanyl and propofol. RASS-2- 3 # history of seizures: Not on any antiseizure medications. # history of insomnia, anxiety disorder: Trazodone 50 mg at bedtime, not needed. # multimodal pain management: Follows with Dr. Dominguez at home patient is on morphine 50 mg tablet b.i.d., baclofen 10 mg b.i.d., [place] 10 mg t.i.d. Lyrica/pregabalin 50 mg p.o.. # previous history of stroke: Patient on aspirin 81 and atorvastatin 20 mg at home. Holding in hospital. B. Cardiology: # chronic atrial fibrillation: Patient on Eliquis 5 mg b.i.d. no beta mara? Or amiodarone in home medications noted. In-hospital metoprolol tartrate 25 mg p.o. b.i.d.. At home noted metoprolol 50 mg p.o. t.i.d. tartrate, held as patient is hypotensive and on vasopressor support. # history of primary hypertension: At home 5 mg daily of amlodipine, losartan 25 mg p.o. daily held as patient is still on Levophed. Hold losartan 25 mg and metoprolol tartrate # hypotension likely due to septic shock: Off of antihypertensives, continue Levophed titrated as needed to keep the map over 65. # dyslipidemia: Atorvastatin 20 mg daily, can be held # heart failure with preserved ejection fraction (HFpEF/HFrec EF): HFmrEF (40- 45%), last checked in 2022>>> improved to 50% ejection fraction in May 18 2024. 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 Respiratory: # known COPD: Recently got azithromycin 500 for 10 days, prednisone 20 for 10 days, at home takes Spiriva [place] cap 80 mcg b.i.d., tiotropium bromide, previous history of 60 years of smoking, more than 4 hospitalization in past 2 months # history of pulmonary fibrosis: Likely due to underlying COPD versus other secondary causes # COPD exacerbation, in-hospital patient on budesonide nebulization b.i.d., ipratropium 0.5 q.4 and levalbuterol q.4 nebs. Methylprednisolone 40 mg Q 8 t.i.d. # acute on chronic hypoxic respiratory failure: At home baseline is 2 L of nasal cannula oxygen round the clock. Now patient is intubated and and ventilated, with ACVC TV 450, Fio2 50, RR 32, target SPO2 92%, elevated baseline peak P due to low lung compliance. # multifocal pneumonia: Likely aspiration pneumonia superimposed on community- acquired pneumonia, MRSA positive, blood culture unremarkable, bronch culture pending, diffuse pulmonary edema, status post IV Lasix urine output not improve. # seasonal allergy: On Claritin loaded in as needed. # history of tonsillectomy # history of lymph node dissection and lumpectomy # history of allergy to multiple medications and food products Lisinopril, penicillins, pentazocine, pineapple, strawberry, TMP SMX, Tyelonol, tomato # thick white secretions, hypoactive cough and gag, S/p bronchoscopy 3/ with clearing of secretions from L1-L10, LLL BAL sent for gram stain and culture, viral culture, fungal culture, and AFB smear and culture: result pending. Unimproved bi basilar airspace in CXR. D. Gastrointestinal: # history of GERD/gastritis: IV PPI prophylaxis continue. At home patient takes Carafate q.i.d. # secondary constipation likely due to high dose of opioids: At home patient is on polyethylene glycol daily dose, and lactulose. Post laxative, Last bowel large volume movement 07/09/2024 hold laxatives. # history of cholecystectomy # chronic constipation: Start the patient on lactulose 30 mg b.i.d. at home patient has Colace, MiraLax continue --ve for ileus or obstruction : KUB xray - ve # started tube feed: with reglan with nepro # upper dentures removed: continue oral hygiene # E. Genitourinary: # distant history of # on Stallworth's catheter: Past 24 hour lower urine output 650 cc output 0.1 mL/kg per hour, increasing BUN with rising creatinine 3.30 with calculated GFR of 14. Nephrology consulted Dr. Bacon'S group called and updated as well waiting for input. F. Infectious Disease: # MRSA nares positive: Mupirocin ointment x5 days repeat MRSA, leukocytosis improving # aspiration pneumonia super sided on atypical community-acquired pneumonia: Multifocal pneumonia cefepime with vancomycin: Change to meropenem and vancomycin # intertrigo Nystatin powder in the groin added, clean and dry # Likely, UTI: +ve urinalysis , culture pending G. Hematology & Oncology: # anemia of chronic disease likely due to CKD # breast cancer in remission # possible UTI on presentation leukocyte esterase 2+, urine culture not present. # Thrombocytopenia, mild: pletlets dropping close monitoring as the patient is on heparin for HD continue downtrending. H. Nephrology: # known CKD stage 3b # WESLY due to VMN # likely acute renal failure: Close input output to check, IV Lasix not improve, nephrology consulted waiting for input. 60 cc urine output in 24 hours despite lasix and acetazolamide. S/p Blade catheter in RIJ, needing urgent initiation of hemodialysis. -nephrology on board no HD today started on bumex drip. S/p initiation of HD did not tolerate for fluid removal, BUN elevated, improving cr. 3.75<<<4.47 I/O improved output 620 vs only 60 cc in last 24 hours similar urine output s/p 2 L out in HD. # improving respiratory and metabolic combines acidosis slowly, improved ventilation : Follow ABG I. Endocrine: # diabetes mellitus HbA1c 7.7 well-controlled: At home glipizide 5 mg daily, metformin 850 p.o. b.i.d. in-hospital aggressive insulin protocol less insulin glargine Lantus daily. # elevated BG likely due to on board steroid: 4 SSI HS # grade 2 obesity 39.3 # previously known thyroid nodule J. MSK and skin: # chronic back pain, pain control with multiple opioids # osteoarthritis: No recent fracture # buttocks skin tear multiple POA : wound care consulted, no infection presently K. Prophylaxis: PPI: IV PPI DVT: scd off of Eliquis L. Lines & Drains (with insertion date): IV : Left forearm x2 Central : Right femoral 07/05/2024 will consider removal. Arterial line: 07/07/2024 Stallworth's catheter since 07/05/2024. ETT 07/23/2024 Blade RIJ: 07/07/2024 M. Drips: Propofol, fentanyl, Versed, Levophed N. Disposition: Remains in ICU The plan was discussed with the ICU attending Dr. Carter. The patient care consists of total 93 minutes of critical care time excluding the procedures, reviewing, ABG, cxr, vent settings. Daughter Sandy called and updated her on plan of care. Will be driving down from [place] tomorrow, for remote computer terminal operator goals of care discussion in a multiorgan failure. Multi organ failure with frequent hospitalization in recent times with irreversible lung fibrosis with extremely poor outcome and quality of life. Dictated by Tushar Aguilera MD with 3M MModal Fluency. Plan discussed with: Patient, Other My Orders My Orders Orders - TUSHAR AGUILERA RESIDENT Procedure Category Date Status Time Chest Xray 1 View XY 07/09/24 Resulted 14:03 Communication Order ORDERS 07/09/24 Transmitted 19:48 Abg W/ Co-Ox RT 07/10/24 Logged 05:14 Abg W/ Co-Ox RT 07/10/24 Logged 10:30 Fluconazole Ivpb PHA 07/11/24 Verified Diflucan 10:00 Fluconazole Ivpb PHA 07/10/24 Verified Diflucan 11:00 Dietary Evaluation Review Comments: 1. Continue Nepro TF @30ml/hr providing 58g protein, 1274Kcal, meeting pt's needs at 70% protein and 105% enrgy. 2. Advance to CCHO-60g, Renal Standard Diet if Pt is excubated and passes speech eval. Expected Outcomes/Goals: gradual Wt loss, improved lab values Labs/Diagnostic Data Laboratory Tests Test 07/10/24 10:41 07/10/24 06:46 07/10/24 05:26 07/10/24 03:14 Range/Units Blood Gas Specimen Type Arterial Arterial Blood Gas Sample Site Arterial line Arterial line Blood Gas Patient Temperature 37.0 37.0 Arterial Blood Date Drawn [id number] Arterial Blood pH 7.222 *L 7.201 *L 7.350-7.450 Arterial Blood Partial Pressure CO2 53.7 H 57.4 H 32.0-45.0 mmHg Arterial Blood Partial Pressure O2 68.2 L 52.6 *L 83.0-108.0 mmHg Arterial Blood HCO3 21.6 22.0 21.0-28.0 mmol/L Arterial Blood Oxygen Saturation 89.8 L 80.1 *L 94.0-98.0 % Arterial Blood Base Excess -6.0 L -6.1 L -2.0-3.0 mmol/L Arterial Blood Oxyhemoglobin 89.4 L 79.5 L 94.0-98.0 % Arterial Blood Carboxyhemoglobin 0.1 L 0.2 L 0.5-1.5 % Arterial Blood Methemoglobin 0.4 0.5 0.0-1.5 % Juan Test N/a N/a Blood Gas Total Hemoglobin 8.90 L 9.20 L 12.0-16.0 g/dL Blood Gas Set Respiration Rate 32.0 32.0 Blood Gas Modality Vent - ac Vent - ac FiO2 % 50.0 35.0 Blood Gas Tidal Volume 450.0 450.0 Blood Gas PEEP or CPAP 10.0 10.0 Blood Gas Critical Value Read Back Yes Yes Blood Gas Notified Whom S sheyla groves S sheyla groves Blood Gas Notified Time [id number] Blood Gas Notified By Oil Well Service Operator Helper t socorro [employer] Service Operator Helper t socorro POC Glucose 167 H 70-106 mg/dl White Blood Count 20.0 H 4.4-10.8 10^3/uL Red Blood Count 2.76 L 4.0-5.20 10^6/uL Hemoglobin 8.1 L 12.2-16.2 g/dL Hematocrit 25.1 L 36.0-46.0 % Mean Corpuscular Volume 90.9 80.0-100.0 fL Mean Corpuscular Hemoglobin 29.3 28.0-32.0 pg Mean Corpuscular Hemoglobin Concent 32.2 32.0-36.0 g/dL Red Cell Distribution Width 17.5 H 11.8-14.3 % Platelet Count 109 L 140-450 10^3/uL Mean Platelet Volume 8.2 6.9-10.8 fL Neutrophils (%) (Auto) 37.0-80.0 % Lymphocytes (%) (Auto) 10.0-50.0 % Monocytes (%) (Auto) 0.0-12.0 % Basophils (%) (Auto) 0.0-2.0 % Neutrophils # (Auto) 1.6-8.6 10 ^3/uL Lymphocytes # (Auto) 0.4-5.4 10 ^3/uL Monocytes # (Auto) 0-1.3 10 ^3/uL Differential Total Cells Counted 100.0 100 Neutrophils % (Manual) 92 H 37.0-80.0 Band Neutrophils % (Manual) 0 Lymphocytes % (Manual) 5 L 10.0-50.0 Monocytes % (Manual) 3 0-12 Eosinophils % (Manual) 0 0-7 Basophils % (Manual) 0 0.0-2.0 Metamyelocytes % (manual) 0 Myelocytes % (Manual) 0 Promyelocytes % (Manual) 0 Blast Cells % (Manual) 0 Reactive Lymphocytes 0 Platelet Estimate Decreased Sodium Level 139 136-145 mmol/L Potassium Level 4.2 3.5-5.1 mmol/L Chloride Level 103 98-107 mmol/L Carbon Dioxide Level 23 20-31 mmol/L Anion Gap 13 5-15 Blood Urea Nitrogen 56 #H 9-23 mg/dL Creatinine 3.75 H 0.550-1.02 mg/dL Glomerular Filtration Rate Calc 12 >90 mL/min BUN/Creatinine Ratio 14.9 10.0-20.0 Serum Glucose 163 H 74-106 mg/dL Calcium Level 8.7 8.7-10.4 mg/dL Magnesium Level 2.4 1.6-2.6 mg/dL Total Bilirubin 0.4 0.2-1.0 mg/dL Aspartate Amino Transferase (AST) 18 13-40 U/L Alanine Aminotransferase (ALT) 16 7-40 U/L Alkaline Phosphatase 74 46-116 U/L Total Protein 6.0 5.7-8.2 g/dL Albumin 3.8 3.2-4.8 g/dL Test 07/09/24 23:28 07/09/24 17:48 07/09/24 13:13 07/09/24 12:06 Range/Units POC Glucose 148 H 157 H 142 H 70-106 mg/dl Blood Gas Specimen Type Arterial Blood Gas Sample Site Arterial line Blood Gas Patient Temperature 37.0 Arterial Blood Date Drawn [id number] Arterial Blood pH 7.183 *L 7.350-7.450 Arterial Blood Partial Pressure CO2 48.3 H 32.0-45.0 mmHg Arterial Blood Partial Pressure O2 52.6 *L 83.0-108.0 mmHg Arterial Blood HCO3 17.7 L 21.0-28.0 mmol/L Arterial Blood Oxygen Saturation 79.9 *L 94.0-98.0 % Arterial Blood Base Excess -10.1 L -2.0-3.0 mmol/L Arterial Blood Oxyhemoglobin 78.8 L 94.0-98.0 % Arterial Blood Carboxyhemoglobin 0.9 0.5-1.5 % Arterial Blood Methemoglobin 0.5 0.0-1.5 % Juan Test N/a Blood Gas Total Hemoglobin 9.30 L 12.0-16.0 g/dL Blood Gas Set Respiration Rate 32.0 Blood Gas Modality Vent - ac FiO2 % 45.0 Blood Gas Tidal Volume 450.0 Blood Gas PEEP or CPAP 10.0 Blood Gas Critical Value Read Back Yes Blood Gas Notified Whom jolanta Álvarez Blood Gas Notified Time [id number] Blood Gas Notified By ney Arrieta Microbiology Date/Time Source Procedure Growth Status 07/08/24 21:11 Voided Urine Urine Culture - Preliminary Resulted 07/06/24 04:06 Nose MRSA Screen - Final Complete 07/05/24 11:30 Bronchial Washings Gram Stain - Final Complete 07/05/24 11:30 Bronchial Washings Respiratory Culture - Final Complete 06/29/24 16:02 Blood Blood Culture - Final NO GROWTH AFTER 5 DAYS OF INCUBATION. Complete vital signs Vital Sign Date Time Temp Pulse Resp B/P (MAP) Pulse Ox O2 Delivery O2 Flow Rate FiO2 07/10/24 10:17 109 32 118/55 (76) 100 50 07/10/24 08:00 Mechanical Ventilator+ 07/10/24 04:00 97.8 97.8 Total Intake and Output 07/09/24 07/09/24 07/10/24 15:00 23:00 07:00 Intake Total 776.50 ml 648.74 ml 679.92 ml Output Total 2020 ml 10 ml Balance 776.50 ml -1371.26 ml 669.92 ml medications Current Medications Medications Dose Ordered Sig/Theresa Route Start Time Stop Time Status Last Admin Dose Admin Sodium Chloride 10 ml Q8HR IV 06/29/24 22:00 07/10/24 05:38 10 ML Vancomycin HCl 0 ml @ 0 mls/hr UD IV 06/29/24 22:15 Ipratropium [place] 0.5 mg Q4HR NEB 06/30/24 14:00 07/10/24 10:16 0.5 MG Levalbuterol HCl 1.25 mg Q4H NEB 06/30/24 11:15 07/10/24 10:17 1.25 MG Pantoprazole Sodium 40 mg DAILY IV 07/01/24 10:00 07/10/24 10:11 40 MG Budesonide 0.5 mg BID NEB 06/30/24 22:00 07/10/24 06:05 0.5 MG Propofol 100 ml @ 3.6 mls/hr Q24H IV 07/05/24 03:30 07/10/24 09:46 28.8 MLS/HR Midazolam HCl 50 ml @ 1 mls/hr Q24H IV 07/05/24 03:30 07/10/24 05:32 6 MLS/HR Fentanyl Citrate 250 ml @ 2.5 mls/hr Q24H IV 07/05/24 03:30 07/10/24 06:56 25 MLS/HR Norepinephrine Bitartrate 250 ml @ 3.75 mls/hr Q24H IV 07/05/24 14:15 07/10/24 08:43 18.75 MLS/HR Methylprednisolone Sodium Succinate 20 mg BID IV 07/07/24 22:00 07/10/24 10:11 20 MG Bumetanide 25 mg/ Miscellaneous 100 ml @ 4 mls/hr Q24H IV 07/08/24 13:15 07/09/24 17:44 4 MLS/HR Diagnostic Test (Pha) 1 strip Q6HR 07/08/24 18:00 07/10/24 05:33 1 STRIP Insulin Human Regular Q6HR SC 07/08/24 18:00 07/10/24 05:33 3 UNITS Dextrose 50 ml UD PRN IV 07/08/24 15:15 Enteral Nutritional Formula 1,000 ml 30ML/HR GT 07/08/24 15:15 Metoclopramide HCl 5 mg Q8HR IV 07/08/24 22:00 07/10/24 05:32 5 MG Nystatin 1 applic BID TOP 07/08/24 22:00 07/10/24 10:21 1 APPLIC Meropenem 50 ml @ 17 mls/hr Q12H IV 07/10/24 08:00 07/10/24 08:33 17 MLS/HR laboratory and microbiology Laboratory Tests 07/10/24 03:14 Test 07/10/24 03:14 Range/Units Serum Glucose 163 H 74-106 mg/dL CC Plasma Assessment Blood Product Administration S: 1400 TUSHAR AGUILERA RESIDENT Jul 10, 2024 10:54
--- NOTE | 2024-07-10 11:30 | DVH ---
EXAM: XY CHEST PORTABLE HISTORY: ETT COMPARISON: XY CHEST XRAY 1 VIEW on DOS: 07/09/24, XY CHEST PORTABLE on DOS: 07/08/24, XY CHEST PORTABLE on DOS: 07/08/24, XY CHEST PORTABLE on DOS: 07/07/24, XY CHEST XRAY 1 VIEW on DOS: 07/07/24 TECHNIQUE: Portable AP view of the chest was performed. FINDINGS: Endotracheal tube is identified with its tip 4.7 cm above the daniel. OG tube, right IJ Cor dis sheath, right chest port-A-Cath, and postoperative changes of the cervical spine are re-identifie d. There are diffuse bilateral interstitial infiltrates, slightly increased versus that seen previous ly. No pneumothorax. The heart is enlarged. IMPRESSION: 1. Mechanical ventilation with tubes and lines as above. 2. Cardiomegaly with diffuse bilateral interstitial infiltrates which are mildly increased since the chest x-ray performed 1 day earlier. This appearance may be due to florid pulmonary edema and/or donna ateral pneumonia.
[2024-07-10] MEDS: FLUCONAZOLE 200MG/100ML 100 ML IV ONE (12:14)
--- NOTE | 2024-07-10 12:50 | DVHPN2 ---
Progress Note Date Seen: Jul 10, 2024 Has the PT tested + for MRSA If YES, has PT been informed?: No Medical Necessity Reason Pt with a Central, PICC or Fol: Yes The following are medically ne: Stallworth Catheter Reason for stallworth catheter: Strict I&O, Total Immobilization Subjective Patient reports: Other Review of Systems: Deferred Objective vital signs Vital Sign Date Time Temp Pulse Resp B/P (MAP) Pulse Ox O2 Delivery O2 Flow Rate FiO2 07/10/24 12:10 105/51 07/10/24 11:53 106 32 100 50 07/10/24 10:00 Mechanical Ventilator+ 07/10/24 04:00 97.8 97.8 Total Intake and Output 07/09/24 07/09/24 07/10/24 15:00 23:00 07:00 Intake Total 776.50 ml 648.74 ml 679.92 ml Output Total 2020 ml 10 ml Balance 776.50 ml -1371.26 ml 669.92 ml medications Current Medications Medications Dose Ordered Sig/Theresa Route Start Time Stop Time Status Last Admin Dose Admin Sodium Chloride 10 ml Q8HR IV 06/29/24 22:00 07/10/24 05:38 10 ML Vancomycin HCl 0 ml @ 0 mls/hr UD IV 06/29/24 22:15 Ipratropium [place] 0.5 mg Q4HR NEB 06/30/24 14:00 07/10/24 10:16 0.5 MG Levalbuterol HCl 1.25 mg Q4H NEB 06/30/24 11:15 07/10/24 10:17 1.25 MG Pantoprazole Sodium 40 mg DAILY IV 07/01/24 10:00 07/10/24 10:11 40 MG Budesonide 0.5 mg BID NEB 06/30/24 22:00 07/10/24 06:05 0.5 MG Propofol 100 ml @ 3.6 mls/hr Q24H IV 07/05/24 03:30 07/10/24 12:39 28.8 MLS/HR Midazolam HCl 50 ml @ 1 mls/hr Q24H IV 07/05/24 03:30 07/10/24 05:32 6 MLS/HR Fentanyl Citrate 250 ml @ 2.5 mls/hr Q24H IV 07/05/24 03:30 07/10/24 06:56 25 MLS/HR Norepinephrine Bitartrate 250 ml @ 3.75 mls/hr Q24H IV 07/05/24 14:15 07/10/24 08:43 18.75 MLS/HR Methylprednisolone Sodium Succinate 20 mg BID IV 07/07/24 22:00 07/10/24 10:11 20 MG Bumetanide 25 mg/ Miscellaneous 100 ml @ 4 mls/hr Q24H IV 07/08/24 13:15 07/09/24 17:44 4 MLS/HR Diagnostic Test (Pha) 1 strip Q6HR 07/08/24 18:00 07/10/24 12:00 1 STRIP Insulin Human Regular Q6HR SC 07/08/24 18:00 07/10/24 12:36 3 UNITS Dextrose 50 ml UD PRN IV 07/08/24 15:15 Enteral Nutritional Formula 1,000 ml 30ML/HR GT 07/08/24 15:15 Metoclopramide HCl 5 mg Q8HR IV 07/08/24 22:00 07/10/24 05:32 5 MG Nystatin 1 applic BID TOP 07/08/24 22:00 07/10/24 10:21 1 APPLIC Meropenem 50 ml @ 17 mls/hr Q12H IV 07/10/24 08:00 07/10/24 08:33 17 MLS/HR Fluconazole 100 ml @ 100 mls/hr DAILY IV 07/11/24 10:00 Examination: LUNGS:Abnormal, MSK:Abnormal, NEURO:Abnormal laboratory and microbiology Laboratory Tests 07/10/24 03:14 Test 07/10/24 03:14 Range/Units Serum Glucose 163 H 74-106 mg/dL Microbiology Date/Time Source Procedure Growth Status 07/08/24 21:11 Voided Urine Urine Culture - Preliminary Resulted 07/06/24 04:06 Nose MRSA Screen - Final Complete 07/05/24 11:30 Bronchial Washings Gram Stain - Final Complete 07/05/24 11:30 Bronchial Washings Respiratory Culture - Final Complete 06/29/24 16:02 Blood Blood Culture - Final NO GROWTH AFTER 5 DAYS OF INCUBATION. Complete Problem List/Assessment/Plan Problem List/Assessment/Plan Acute kidney injury likely acute necrosis in the setting of vancomycin toxicity plus shock Shock needing vasopressors Baseline Chronic kidney disease Morbid obesity Ventilator-dependent respiratory failure Pulmonary fibrosis RECS Dialysis tomorrow Bumex drip IV as ordered--no response --dc bumex drip after completing current bag Remains on Levophed Plan discussed with: Other My Orders My Orders Orders - ALOK MILLAN MD Procedure Category Date Status Time Hemodialysis Orders ORDERS 07/09/24 Transmitted 15:40 Communication Order ORDERS 07/09/24 Transmitted 16:47 Dietary Evaluation Review Comments: 1. Continue Nepro TF @30ml/hr providing 58g protein, 1274Kcal, meeting pt's needs at 70% protein and 105% enrgy. 2. Advance to CCHO-60g, Renal Standard Diet if Pt is excubated and passes speech eval. Expected Outcomes/Goals: gradual Wt loss, improved lab values CC Plasma Assessment Blood Product Administration S: 1400 ALOK MILLAN MD Jul 10, 2024 12:49
[2024-07-10] MEDS: VANCOMYCIN 500mg/100mL 100 ML IV ONE (17:42)
--- NOTE | 2024-07-10 20:44 | DVHPNRES ---
Progress Note Date Seen: Jul 10, 2024 Resident Creating Document: TUSHAR AGUILERA RESIDENT Has the PT tested + for MRSA If YES, has PT been informed?: No Medical Necessity Reason Pt with a Central, PICC or Fol: Yes The following are medically ne: Stallworth Catheter Reason for stallworth catheter: Strict I&O, Total Immobilization Objective vital signs Vital Sign Date Time Temp Pulse Resp B/P (MAP) Pulse Ox O2 Delivery O2 Flow Rate FiO2 07/10/24 19:58 93 32 106/47 (66) 98 50 07/10/24 19:00 96.6 205.9 07/10/24 18:00 Mechanical Ventilator+ Total Intake and Output 07/09/24 07/09/24 07/10/24 15:00 23:00 07:00 Intake Total 776.50 ml 648.74 ml 679.92 ml Output Total 2020 ml 10 ml Balance 776.50 ml -1371.26 ml 669.92 ml medications Current Medications Medications Dose Ordered Sig/Theresa Route Start Time Stop Time Status Last Admin Dose Admin Sodium Chloride 10 ml Q8HR IV 06/29/24 22:00 07/10/24 14:53 10 ML Vancomycin HCl 0 ml @ 0 mls/hr UD IV 06/29/24 22:15 Ipratropium [place] 0.5 mg Q4HR NEB 06/30/24 14:00 07/10/24 19:17 0.5 MG Levalbuterol HCl 1.25 mg Q4H NEB 06/30/24 11:15 07/10/24 13:35 1.25 MG Pantoprazole Sodium 40 mg DAILY IV 07/01/24 10:00 07/10/24 10:11 40 MG Budesonide 0.5 mg BID NEB 06/30/24 22:00 07/10/24 19:17 0.5 MG Propofol 100 ml @ 3.6 mls/hr Q24H IV 07/05/24 03:30 07/10/24 20:16 28.8 MLS/HR Midazolam HCl 50 ml @ 1 mls/hr Q24H IV 07/05/24 03:30 07/10/24 20:17 6 MLS/HR Fentanyl Citrate 250 ml @ 2.5 mls/hr Q24H IV 07/05/24 03:30 07/10/24 16:47 25 MLS/HR Norepinephrine Bitartrate 250 ml @ 3.75 mls/hr Q24H IV 07/05/24 14:15 07/10/24 08:43 18.75 MLS/HR Methylprednisolone Sodium Succinate 20 mg BID IV 07/07/24 22:00 07/10/24 10:11 20 MG Diagnostic Test (Pha) 1 strip Q6HR 07/08/24 18:00 07/10/24 17:30 1 STRIP Insulin Human Regular Q6HR SC 07/08/24 18:00 07/10/24 17:30 3 UNITS Dextrose 50 ml UD PRN IV 07/08/24 15:15 Enteral Nutritional Formula 1,000 ml 30ML/HR GT 07/08/24 15:15 Metoclopramide HCl 5 mg Q8HR IV 07/08/24 22:00 07/10/24 14:53 5 MG Nystatin 1 applic BID TOP 07/08/24 22:00 07/10/24 10:21 1 APPLIC Meropenem 50 ml @ 17 mls/hr Q12H IV 07/10/24 08:00 07/10/24 08:33 17 MLS/HR Fluconazole 100 ml @ 100 mls/hr DAILY IV 07/11/24 10:00 Examination GENERAL:Normal (Overall looks sick), HEENT:Normal, NECK:Normal (On ET tube,), LUNGS:Normal, CVS:Normal, ABDOMEN:Normal, MSK:Normal, SKIN:Normal, NEURO:Normal, :Normal laboratory and microbiology Laboratory Tests 07/10/24 03:14 Test 07/10/24 03:14 Range/Units Serum Glucose 163 H 74-106 mg/dL Microbiology Date/Time Source Procedure Growth Status 07/08/24 21:11 Voided Urine Urine Culture - Preliminary Resulted 07/06/24 04:06 Nose MRSA Screen - Final Complete 07/05/24 11:30 Bronchial Washings Gram Stain - Final Complete 07/05/24 11:30 Bronchial Washings Respiratory Culture - Final Complete 06/29/24 16:02 Blood Blood Culture - Final NO GROWTH AFTER 5 DAYS OF INCUBATION. Complete Labs and/or images reviewed: Labs reviewed by me, Image(s) reviewed by me Problem List/Assessment/Plan Problem List/Assessment/Plan ICU Course: A 74-year-old female with a complex medical history, including chronic AFIB, anemia, anxiety, CAD, HFpEF, COPD, chronic hypoxic respiratory failure, idiopathic pulmonary fibrosis, stroke, diabetes, diabetic nephropathy, hypothyroidism, dyslipidemia, hypertension, seizures, and breast cancer in remission, presented to the ED with malaise, cough, shortness of breath, weakness, and palpitations. She was diagnosed with acute on chronic hypoxic respiratory failure, COPD exacerbation, chronic interstitial pulmonary fibrosis, WESLY, and acute on chronic CHF, requiring intubation likely due to aspiration while eating rice. Recently discharged on 06/24/2024 for pneumonia, she lives with her family, has been wheelchair-bound since 1998, quit smoking in April 2024 after smoking two cigarettes per day for 60 years, and denies alcohol use. Her surgical history includes cholecystectomy, , tonsillectomy, lymph node dissection, lumpectomy, and mastectomy. Hospitalization day: 12 A. Neurology: # sedated for ventilation Synchronicity: Versed , fentanyl and propofol. RASS-2- 3 # history of seizures: Not on any antiseizure medications. # history of insomnia, anxiety disorder: Trazodone 50 mg at bedtime, not needed. # multimodal pain management: Follows with Dr. Dominguez at home patient is on morphine 50 mg tablet b.i.d., baclofen 10 mg b.i.d., [place] 10 mg t.i.d. Lyrica/pregabalin 50 mg p.o.. # previous history of stroke: Patient on aspirin 81 and atorvastatin 20 mg at home. Holding in hospital. B. Cardiology: # chronic atrial fibrillation: Patient on Eliquis 5 mg b.i.d. no beta mara? Or amiodarone in home medications noted. In-hospital metoprolol tartrate 25 mg p.o. b.i.d.. At home noted metoprolol 50 mg p.o. t.i.d. tartrate, held as patient is hypotensive and on vasopressor support. # history of primary hypertension: At home 5 mg daily of amlodipine, losartan 25 mg p.o. daily held as patient is still on Levophed. Hold losartan 25 mg and metoprolol tartrate # hypotension likely due to septic shock: Off of antihypertensives, continue Levophed titrated as needed to keep the map over 65. # dyslipidemia: Atorvastatin 20 mg daily, can be held # heart failure with preserved ejection fraction (HFpEF/HFrec EF): HFmrEF (40- 45%), last checked in 2022>>> improved to 50% ejection fraction in May 18 2024. 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 Respiratory: # known COPD: Recently got azithromycin 500 for 10 days, prednisone 20 for 10 days, at home takes Spiriva [place] cap 80 mcg b.i.d., tiotropium bromide, previous history of 60 years of smoking, more than 4 hospitalization in past 2 months # history of pulmonary fibrosis: Likely due to underlying COPD versus other secondary causes # COPD exacerbation, in-hospital patient on budesonide nebulization b.i.d., ipratropium 0.5 q.4 and levalbuterol q.4 nebs. Methylprednisolone 40 mg Q 8 t.i.d. # acute on chronic hypoxic respiratory failure: At home baseline is 2 L of nasal cannula oxygen round the clock. Now patient is intubated and and ventilated, with ACVC TV 450, Fio2 50, RR 32, target SPO2 92%, PEEP 8 elevated baseline peak P due to low lung compliance. # multifocal pneumonia: Likely aspiration pneumonia superimposed on community- acquired pneumonia, MRSA positive, blood culture unremarkable, bronch culture pending, diffuse pulmonary edema, status post IV Lasix urine output not improve. # seasonal allergy: On Claritin loaded in as needed. # history of tonsillectomy # history of lymph node dissection and lumpectomy # history of allergy to multiple medications and food products Lisinopril, penicillins, pentazocine, pineapple, strawberry, TMP SMX, Tyelonol, tomato # thick white secretions, hypoactive cough and gag, S/p bronchoscopy 3 with clearing of secretions from L1-L10, LLL BAL sent for gram stain and culture, viral culture, fungal culture, and AFB smear and culture: result pending. Unimproved bi basilar airspace in CXR. D. Gastrointestinal: # history of GERD/gastritis: IV PPI prophylaxis continue. At home patient takes Carafate q.i.d. # secondary constipation likely due to high dose of opioids: At home patient is on polyethylene glycol daily dose, and lactulose. Post laxative, Last bowel large volume movement 07/09/2024 hold laxatives. # history of cholecystectomy # chronic constipation: Start the patient on lactulose 30 mg b.i.d. at home patient has Colace, MiraLax continue --ve for ileus or obstruction : KUB xray - ve # started tube feed: with reglan with nepro # upper dentures removed: continue oral hygiene E. Genitourinary: # distant history of # on Stallworth's catheter: Past 24 hour lower urine output 650 cc output 0.1 mL/kg per hour, increasing BUN with rising creatinine 3.30 with calculated GFR of 14. Nephrology consulted Dr. Bacon[facility] group called and updated as well waiting for input. appreciate input. worsening output despite on bumex drip. dc shawn. FYasemin Infectious Disease: # MRSA nares positive: Mupirocin ointment x5 days repeat MRSA, leukocytosis improving # aspiration pneumonia super sided on atypical community-acquired pneumonia: Multifocal pneumonia cefepime with vancomycin: Change to meropenem and vancomycin # intertrigo Nystatin powder in the groin added, clean and dry # Likely, UTI: +ve urinalysis , culture pending G. Hematology & Oncology: # anemia of chronic disease likely due to CKD # breast cancer in remission # possible UTI on presentation leukocyte esterase 2+, urine culture not present. # Thrombocytopenia, mild: pletlets dropping close monitoring as the patient is on heparin for HD continue downtrending. H. Nephrology: # known CKD stage 3b # WESLY due to VMN # likely acute renal failure: Close input output to check, IV Lasix not improve, nephrology consulted waiting for input. 60 cc urine output in 24 hours despite lasix and acetazolamide. S/p Blade catheter in RIJ, needing urgent initiation of hemodialysis. -nephrology on board no HD today started on bumex drip. S/p initiation of HD did not tolerate for fluid removal, BUN elevated, improving cr. 3.75<<<4.47 I/O improved output 620 vs only 60 cc in last 24 hours similar urine output s/p 2 L out in HD. # improving respiratory and metabolic combines acidosis slowly, improved ventilation : Follow ABG I. Endocrine: # diabetes mellitus HbA1c 7.7 well-controlled: At home glipizide 5 mg daily, metformin 850 p.o. b.i.d. in-hospital aggressive insulin protocol less insulin glargine Lantus daily. # elevated BG likely due to on board steroid: 4 SSI HS # grade 2 obesity 39.3 # previously known thyroid nodule J. MSK and skin: # chronic back pain, pain control with multiple opioids # osteoarthritis: No recent fracture # buttocks skin tear multiple POA : wound care consulted, no infection presently K. Prophylaxis: PPI: IV PPI DVT: scd off of Eliquis L. Lines & Drains (with insertion date): IV : Left forearm x2 Central : Right femoral 07/05/2024 will consider removal. Arterial line: 07/07/2024 Stallworth's catheter since 07/05/2024. ETT 07/23/2024 Blade RIJ: 07/07/2024 M. Drips: Propofol, fentanyl, Versed, Levophed N. Disposition: Remains in ICU The plan was discussed with the ICU attending Dr. Adkins. The patient care consists of total 93 minutes of critical care time excluding the procedures, reviewing, ABG, cxr, vent settings. Daughter Sandy was discussed in details of her health status, Multi organ failure with frequent hospitalization in recent times with irreversible lung fibrosis with extremely poor outcome and quality of life. She understands and continues to discuss with family to come to a decision. Code status: remains full code for now. Family open to comfort care if aggressive treatment becomes futile or if she recovers possible hospice arrangement. Before intubation patient verbalized her reluctance to aggressive life prolonging care with daughter over phone. Dictated by Tushar Aguilera MD with 3M MModal Fluency. Plan discussed with: Patient, Other My Orders My Orders Orders - TUSHAR AGUILERA RESIDENT Procedure Category Date Status Time Abg W/ Co-Ox RT 07/10/24 Logged 05:14 Abg W/ Co-Ox RT 07/10/24 Logged 10:30 Fluconazole PHA 07/11/24 In Process 200mg/100ml (Diflucan 10:00 Chest Portable XY 07/10/24 Resulted 10:58 Communication Order ORDERS 07/10/24 Transmitted 11:10 Complete Blood Count LAB 07/11/24 Verified 04:00 Comprehensive LAB 07/11/24 Verified Metabolic Panel 04:00 Chest Portable XY 07/11/24 Logged 04:00 Abg W/ Co-Ox RT 07/11/24 Logged 04:00 Dietary Evaluation Review Comments: 1. Continue Nepro TF @30ml/hr providing 58g protein, 1274Kcal, meeting pt's needs at 70% protein and 105% enrgy. 2. Advance to CCHO-60g, Renal Standard Diet if Pt is excubated and passes speech eval. Expected Outcomes/Goals: gradual Wt loss, improved lab values CC Plasma Assessment Blood Product Administration S: 1400 TUSHAR AGUILERA RESIDENT Jul 10, 2024 20:44
[2024-07-11] VITALS (119 sets, daily range): BP systolic 76–182; BP diastolic 36–67; PULSE 84–109; RESP 10–33; TEMP 97.3–99.3; O2SAT 87–100
[2024-07-11 03:52] LABS: Basophils # (auto) 0.1 10 ^3/uL (0-0.2); Basophils % (auto) 0.3 % (0.0-2.0); Eosinophils # (auto) 0 10 ^3/uL (0-0.8); Eosinophils % (auto) 0.1 % (0.0-7.0); Hematocrit 25.9 % (36.0-46.0); Hemoglobin 8.3 g/dL (12.2-16.2); Lymphocytes # (auto) 0.3 10 ^3/uL (0.4-5.4); Lymphocytes % (auto) 1.5 % (10.0-50.0); Mean Corpuscular Hemoglobin 29.3 pg (28.0-32.0); Mean Corpuscular Hgb Conc. 31.9 g/dL (32.0-36.0); Mean Corpuscular Volume 91.8 fL (80.0-100.0); Monocytes # (auto) 0.1 10 ^3/uL (0-1.3); Monocytes % (auto) 0.5 % (0.0-12.0); Neutrophils # (auto) 20.6 10 ^3/uL (1.6-8.6); Neutrophils % (auto) 97.6 % (37.0-80.0); Nucleated Red Blood Cells % 0.5 %; Platelet Count (auto) 120 10^3/uL (140-450); Red Blood Cells 2.82 10^6/uL (4.0-5.20); Red Cell Distribution Width 17.8 % (11.8-14.3); White Blood Cell 21.1 10^3/uL (4.4-10.8)
[2024-07-11 04:03] LABS: Alkaline Phosphatase 69 U/L (46-116); Anion Gap 12 (5-15); Aspartate Aminotransferase 16 U/L (13-40); BUN/Creatinine Ratio 16.5 (10.0-20.0); Calcium 8.9 mg/dL (8.7-10.4); Carbon Dioxide 24 mmol/L (20-31); Chloride 100 mmol/L (98-107); Potassium 4.9 mmol/L (3.5-5.1); Sodium 136 mmol/L (136-145)
[2024-07-11 04:04] LABS: Total Protein 5.9 g/dL (5.7-8.2)
[2024-07-11 04:05] LABS: Albumin 3.6 g/dL (3.2-4.8)
[2024-07-11 04:16] LABS: Bilirubin, Total 0.3 mg/dL (0.2-1.0); Blood Urea Nitrogen 69 mg/dL (9-23); Glucose 189 mg/dL (74-106)
[2024-07-11 04:39] LABS: Alanine Aminotransferase 16 U/L (7-40)
--- NOTE | 2024-07-11 05:50 | DVH ---
CHEST RADIOGRAPH Indication: intubation Technique: Single frontal view of the chest was obtained Comparison: XY CHEST PORTABLE on DOS: 07/10/24, XY CHEST XRAY 1 VIEW on DOS: 07/09/24, XY CHEST PORTABLE on DOS: 07/08/24 IMPRESSION: The heart appears prominent in size. Bilateral airspace and interstitial opacities appear similar. No sizable effusion or pneumothorax. Support lines and tubes appear unchanged in position.
[2024-07-11 06:40] LABS: Base Excess -8.8 mmol/L (-2.0-3.0)
[2024-07-11] MEDS: fentaNYL Drip 2500mCg/250mlNS 250 ML IV SCH (06:45)
[2024-07-11] MEDS: PROPOFOL 100 ML IV SCH (06:45)
[2024-07-11] MEDS: MIDAZOLAM DRIP 50 mg/50mL 50 ML IV SCH (06:45)
[2024-07-11] MEDS: FLUCONAZOLE 200MG/100ML 100 ML IV SCH (12:07)
[2024-07-11 12:41] LABS: Base Excess -9.5 mmol/L (-2.0-3.0)
--- NOTE | 2024-07-11 12:44 | DVHPN2 ---
Progress Note Date Seen: Jul 11, 2024 Has the PT tested + for MRSA If YES, has PT been informed?: No Medical Necessity Reason Pt with a Central, PICC or Fol: Yes The following are medically ne: Stallworth Catheter Reason for stallworth catheter: Strict I&O, Total Immobilization Subjective Patient reports: Other (no events) Review of Systems: Deferred Objective vital signs Vital Sign Date Time Temp Pulse Resp B/P (MAP) Pulse Ox O2 Delivery O2 Flow Rate FiO2 07/11/24 12:30 101 32 128/50 (76) 96 65 07/11/24 11:45 Mechanical Ventilator+ 07/11/24 06:45 97.9 208.2 Total Intake and Output 07/10/24 07/10/24 07/11/24 15:00 23:00 07:00 Intake Total 611.405 ml 704.88 ml 649.6 ml Output Total 100 ml 25 ml Balance 611.405 ml 604.88 ml 624.6 ml medications Current Medications Medications Dose Ordered Sig/Theresa Route Start Time Stop Time Status Last Admin Dose Admin Sodium Chloride 10 ml Q8HR IV 06/29/24 22:00 07/11/24 05:51 10 ML Vancomycin HCl 0 ml @ 0 mls/hr UD IV 06/29/24 22:15 Ipratropium [place] 0.5 mg Q4HR NEB 06/30/24 14:00 07/11/24 10:20 0.5 MG Levalbuterol HCl 1.25 mg Q4H NEB 06/30/24 11:15 07/11/24 10:20 1.25 MG Pantoprazole Sodium 40 mg DAILY IV 07/01/24 10:00 07/11/24 09:46 40 MG Budesonide 0.5 mg BID NEB 06/30/24 22:00 07/11/24 10:20 0.5 MG Norepinephrine Bitartrate 250 ml @ 3.75 mls/hr Q24H IV 07/05/24 14:15 07/11/24 08:55 26.25 MLS/HR Methylprednisolone Sodium Succinate 20 mg BID IV 07/07/24 22:00 07/11/24 09:47 20 MG Diagnostic Test (Pha) 1 strip Q6HR 07/08/24 18:00 07/11/24 11:53 1 STRIP Insulin Human Regular Q6HR SC 07/08/24 18:00 07/11/24 12:01 3 UNITS Dextrose 50 ml UD PRN IV 07/08/24 15:15 Enteral Nutritional Formula 1,000 ml 30ML/HR GT 07/08/24 15:15 Metoclopramide HCl 5 mg Q8HR IV 07/08/24 22:00 07/11/24 05:50 5 MG Nystatin 1 applic BID TOP 07/08/24 22:00 07/11/24 11:54 1 APPLIC Meropenem 50 ml @ 17 mls/hr Q12H IV 07/10/24 08:00 07/11/24 08:52 17 MLS/HR Fluconazole 100 ml @ 100 mls/hr DAILY IV 07/11/24 10:00 07/11/24 12:07 100 MLS/HR Propofol 100 ml @ 3.417 mls/ hr Q24H IV 07/11/24 06:45 07/11/24 09:51 27.336 MLS/HR Midazolam HCl 50 ml @ 1 mls/hr Q24H IV 07/11/24 06:45 Fentanyl Citrate 250 ml @ 2.5 mls/hr Q24H IV 07/11/24 06:45 Examination: GENERAL:Abnormal, LUNGS:Abnormal, MSK:Abnormal, NEURO:Abnormal laboratory and microbiology Laboratory Tests 07/11/24 03:00 Test 07/11/24 03:00 Range/Units Serum Glucose 189 H 74-106 mg/dL Microbiology Date/Time Source Procedure Growth Status 07/08/24 21:11 Voided Urine Urine Culture - Preliminary Yeast, not Verónica albicans Resulted 07/06/24 04:06 Nose MRSA Screen - Final Complete 07/05/24 11:30 Bronchial Washings Gram Stain - Final Complete 07/05/24 11:30 Bronchial Washings Respiratory Culture - Final Complete 06/29/24 16:02 Blood Blood Culture - Final NO GROWTH AFTER 5 DAYS OF INCUBATION. Complete Problem List/Assessment/Plan Problem List/Assessment/Plan Acute kidney injury likely acute necrosis in the setting of vancomycin toxicity plus shock Shock needing vasopressors Baseline Chronic kidney disease Morbid obesity Ventilator-dependent respiratory failure Pulmonary fibrosis RECS Dialysis tomorrow ,,staffing issues today --dc bumex drip Remains on Levophed Plan discussed with: Other My Orders My Orders Orders - ALOK MILLAN MD Procedure Category Date Status Time Hemodialysis Orders ORDERS 07/11/24 Transmitted 04:00 Dietary Evaluation Review Comments: 1. Continue Nepro TF @30ml/hr providing 58g protein, 1274Kcal, meeting pt's needs at 70% protein and 105% enrgy. 2. Advance to CCHO-60g, Renal Standard Diet if Pt is excubated and passes speech eval. Expected Outcomes/Goals: gradual Wt loss, improved lab values CC Plasma Assessment Blood Product Administration S: 1400 ALOK MILLAN MD Jul 11, 2024 12:44
--- NOTE | 2024-07-11 16:39 | DVHPN2 ---
Subjective Sedated and intubated Reviewed: Care Plan, H&P, Labs, Medications, Previous Orders, Radiology, Other (Consultants) Changes from previous H/P or p: No Changes Objective Vitals Vital Signs Date Time Temp Pulse Resp B/P (MAP) Pulse Ox O2 Delivery O2 Flow Rate FiO2 07/11/24 16:26 60/40 07/11/24 16:21 86 32 97 65 07/11/24 13:45 Mechanical Ventilator+ 07/11/24 06:45 97.9 208.2 Intake/Output Intake and Output 07/11/24 07:00 Intake Total 1965.885 ml Output Total 125 ml Balance 1840.885 ml Intake Oral 103 ml IV Total 1862.885 ml Tube Feeding 0 ml Output Urine Total 125 ml General Appearance: Other (Intubated and sedated) HEENT: Other (Pupils small and symmetric) Lungs: Other (Few crackles bilateral lungs) Cardiovascular: Regular rate Abdomen: Soft Extremities: Other (With bilateral lower extremities edema) Medications Current Medications Medications Dose Ordered Sig/Theresa Route Start Time Stop Time Status Last Admin Dose Admin Sodium Chloride 10 ml Q8HR IV 06/29/24 22:00 07/11/24 14:11 10 ML Vancomycin HCl 0 ml @ 0 mls/hr UD IV 06/29/24 22:15 Ipratropium [place] 0.5 mg Q4HR NEB 06/30/24 14:00 07/11/24 14:21 0.5 MG Levalbuterol HCl 1.25 mg Q4H NEB 06/30/24 11:15 07/11/24 14:21 1.25 MG Pantoprazole Sodium 40 mg DAILY IV 07/01/24 10:00 07/11/24 09:46 40 MG Budesonide 0.5 mg BID NEB 06/30/24 22:00 07/11/24 10:20 0.5 MG Norepinephrine Bitartrate 250 ml @ 3.75 mls/hr Q24H IV 07/05/24 14:15 07/11/24 08:55 26.25 MLS/HR Methylprednisolone Sodium Succinate 20 mg BID IV 07/07/24 22:00 07/11/24 09:47 20 MG Diagnostic Test (Pha) 1 strip Q6HR 07/08/24 18:00 07/11/24 11:53 1 STRIP Insulin Human Regular Q6HR SC 07/08/24 18:00 07/11/24 12:01 3 UNITS Dextrose 50 ml UD PRN IV 07/08/24 15:15 Enteral Nutritional Formula 1,000 ml 30ML/HR GT 07/08/24 15:15 Metoclopramide HCl 5 mg Q8HR IV 07/08/24 22:00 07/11/24 14:11 5 MG Nystatin 1 applic BID TOP 07/08/24 22:00 07/11/24 11:54 1 APPLIC Meropenem 50 ml @ 17 mls/hr Q12H IV 07/10/24 08:00 07/11/24 08:52 17 MLS/HR Fluconazole 100 ml @ 100 mls/hr DAILY IV 07/11/24 10:00 07/11/24 12:07 100 MLS/HR Propofol 100 ml @ 3.417 mls/ hr Q24H IV 07/11/24 06:45 07/11/24 16:24 27.336 MLS/HR Midazolam HCl 50 ml @ 1 mls/hr Q24H IV 07/11/24 06:45 07/11/24 14:53 6 MLS/HR Fentanyl Citrate 250 ml @ 2.5 mls/hr Q24H IV 07/11/24 06:45 07/11/24 13:07 25 MLS/HR Laboratory Results Laboratory Tests 07/11/24 03:00 Chemistry Test 07/11/24 03:00 Albumin 3.6 g/dL (3.2-4.8) Calcium Level 8.9 mg/dL (8.7-10.4) Total Protein 5.9 g/dL (5.7-8.2) LFT Test 07/11/24 03:00 Alanine Aminotransferase (ALT) 16 U/L (7-40) Alkaline Phosphatase 69 U/L (46-116) Aspartate Amino Transferase (AST) 16 U/L (13-40) Total Bilirubin 0.3 mg/dL (0.2-1.0) Urinalysis Test 06/30/24 06:45 Urine Color Colorless (Yellow) Urine Clarity Turbid (Clear) H Urine pH 5.5 (5.0-9.0) Urine Specific [place] 1.021 (1.001-1.035) Urine Protein 1+ (Negative) H Urine Ketones Negative (Negative) Urine Blood Trace /uL (Negative) H Urine Nitrite Negative (Negative) Urine Bilirubin Negative (Negative) Urine Urobilinogen Normal mg/dL (Negative) Urine Leukocyte Esterase 2+ /uL (Negative) Urine RBC 11 /hpf (0 - 4) Urine Microscopic WBC 88 /HPF (0-5) H Urine Squamous Epithelial Cells Few /hpf (<5) Urine Bacteria None seen /hpf (None Seen) Urine Yeast (Budding) Many /hpf (None Seen) Urine Glucose 4+ mg/dL (Normal) H Blood Gas Results Test 07/11/24 06:34 07/11/24 12:33 Arterial Blood pH 7.149 (7.350-7.450) 7.128 (7.350-7.450) FiO2 % 60.0 65.0 Microbiology Microbiology Date/Time Source Procedure Growth Status 07/08/24 21:11 Voided Urine Urine Culture - Preliminary Yeast, not Verónica albicans Resulted 07/06/24 04:06 Nose MRSA Screen - Final Complete 07/05/24 11:30 Bronchial Washings Gram Stain - Final Complete 07/05/24 11:30 Bronchial Washings Respiratory Culture - Final Complete 06/29/24 16:02 Blood Blood Culture - Final NO GROWTH AFTER 5 DAYS OF INCUBATION. Complete Assessment/Plan Assessment/Plan Acute respiratory failure with pneumonia and pulmonary fibrosis AFib Heart failure COPD Coronary artery disease Anemia Diabetes History of CVA Hypothyroidism Dyslipidemia Hypertension Seizures History of breast cancer Acute kidney injury/chronic kidney disease/needing dialysis UTI with yeast that is not Verónica Thrombocytopenia Morbid obesity Plan: We will change Diflucan to micafungin. Monitor blood pressure that is dropping in very sensitive to vasopressors. Ventilator support. Repeat labs and x-ray. Poor prognosis. Family decided about comfort care only. Further plan per orders. Total critical care time 40 minutes Plan discussed with: Other (Nursing) My Orders Orders - SOFIE SCANLON MD Procedure Category Date Status Time Micafungin Sodium PHA 07/12/24 Logged (Mycamine) 10:00 Micafungin Sodium PHA 07/11/24 Logged (Mycamine) 16:45 B-Type Natriuretic LAB 07/12/24 Verified Peptide 06:00 Complete Blood Count LAB 07/12/24 Verified 06:00 Comprehensive LAB 07/12/24 Verified Metabolic Panel 06:00 Chest Portable XY 07/12/24 Transmitted 06:00 Abg W/ Co-Ox RT 07/12/24 Transmitted 06:00 Date of Service: Jul 11, 2024 Billing Provider: SOFIE SCANLON MD Common Visit Codes: [id number] CARE 30-74 MIN SOFIE SCANLON MD Jul 11, 2024 16:39
[2024-07-11] MEDS: MICAFUNGIN SODIUM 100 MG in SODIUM CHL 0.9% 100 ML IV ONE (18:27)
--- NOTE | 2024-07-11 20:52 | DVHPN2 ---
Progress Note - Dictate Date Seen: Jul 11, 2024 Has the PT tested + for MRSA If YES, has PT been informed?: No Medical Necessity Reason Pt with a Central, PICC or Fol: Yes The following are medically ne: PICC Line, Stallworth Catheter Reason for stallworth catheter: Strict I&O, Total Immobilization Subjective Patient seen and examined at bedside. Sedated, intubated on mechanical ventilator. Overnight events reviewed. vital signs Vital Sign Date Time Temp Pulse Resp B/P (MAP) Pulse Ox O2 Delivery O2 Flow Rate FiO2 07/11/24 20:35 101/53 07/11/24 19:55 91 32 98 65 07/11/24 19:35 98.6 209.5 07/11/24 17:45 Mechanical Ventilator+ Total Intake and Output 07/10/24 07/10/24 07/11/24 15:00 23:00 07:00 Intake Total 611.405 ml 704.88 ml 706.76 ml Output Total 100 ml 25 ml Balance 611.405 ml 604.88 ml 681.76 ml medications Current Medications Medications Dose Ordered Sig/Theresa Route Start Time Stop Time Status Last Admin Dose Admin Sodium Chloride 10 ml Q8HR IV 06/29/24 22:00 07/11/24 14:11 10 ML Vancomycin HCl 0 ml @ 0 mls/hr UD IV 06/29/24 22:15 Ipratropium [place] 0.5 mg Q4HR NEB 06/30/24 14:00 07/11/24 18:30 0.5 MG Levalbuterol HCl 1.25 mg Q4H NEB 06/30/24 11:15 07/11/24 18:30 1.25 MG Pantoprazole Sodium 40 mg DAILY IV 07/01/24 10:00 07/11/24 09:46 40 MG Budesonide 0.5 mg BID NEB 06/30/24 22:00 07/11/24 10:20 0.5 MG Norepinephrine Bitartrate 250 ml @ 3.75 mls/hr Q24H IV 07/05/24 14:15 07/11/24 20:35 3.75 MLS/HR Methylprednisolone Sodium Succinate 20 mg BID IV 07/07/24 22:00 07/11/24 09:47 20 MG Diagnostic Test (Pha) 1 strip Q6HR 07/08/24 18:00 07/11/24 17:50 1 STRIP Insulin Human Regular Q6HR SC 07/08/24 18:00 07/11/24 17:55 4 UNITS Dextrose 50 ml UD PRN IV 07/08/24 15:15 Enteral Nutritional Formula 1,000 ml 30ML/HR GT 07/08/24 15:15 Metoclopramide HCl 5 mg Q8HR IV 07/08/24 22:00 07/11/24 14:11 5 MG Nystatin 1 applic BID TOP 07/08/24 22:00 07/11/24 11:54 1 APPLIC Meropenem 50 ml @ 17 mls/hr Q12H IV 07/10/24 08:00 07/11/24 20:34 17 MLS/HR Propofol 100 ml @ 3.417 mls/ hr Q24H IV 07/11/24 06:45 07/11/24 20:35 23.919 MLS/HR Midazolam HCl 50 ml @ 1 mls/hr Q24H IV 07/11/24 06:45 07/11/24 19:35 5 MLS/HR Fentanyl Citrate 250 ml @ 2.5 mls/hr Q24H IV 07/11/24 06:45 07/11/24 19:36 25 MLS/HR Micafungin Sodium 100 mg/Sodium Chloride 100 ml @ 100 mls/hr DAILY IV 07/12/24 10:00 objective Gen.: Patient lying in bed in medical ICU. Sedated, intubated on mechanical ventilator. Head: Normocephalic, atraumatic. Eyes: PERRLA. Ears: Normal external anatomy. Throat: Endotracheal tube and orogastric tube in place. Neck: Supple, trachea midline. Chest: Transmitted breath sounds bilaterally. Decreased air entry bilaterally. No wheezing. Bibasilar crackles. Cardiovascular: Positive S1, positive S2. Regular rate and rhythm. Abdomen: Positive bowel sounds in all 4 quadrants. Soft, nontender, nondistended. : Stallworth in place. Normal external genitalia. Rectal: Deferred. Skin: Warm, dry. Intact. Extremities: 2+ radial pulses bilaterally. No lower extremity edema. Neuro: Sedated. laboratory and microbiology Laboratory Tests 07/11/24 03:00 Test 07/11/24 03:00 Range/Units Serum Glucose 189 H 74-106 mg/dL Assessment/Plan Impression: Acute on chronic hypoxic respiratory failure On mechanical ventilator Multifocal pneumonia, likely gram negative AE COPD Chronic interstitial lung disease Atrial fibrillation Anemia Morbid obesity Events: Remains on vent support On AC mode: RR 32; VT 450, PEEP 10, FiO2 65% Sedated on Propofol/Versed On pressors for hemodynamic support Levophed 14 mcg/min Titrate to keep mean arterial pressure greater than 65 mmHg. Elevated peak pressures Patient desaturates with turns, stimulation. ABG reviewed, notable for acidemia d/t CO2 retention. Continue bronchodilators Continue IV steroids Continue antibiotics Continue antifungals Urine culture grew yeast. Pleural fluid cultures showed no growth Tube feeds for nutritional support WBC trending up, 21.1 K Accu-Cheks, ISS PRN DVT prophylaxis S/p bronchoscopy on 07/05/24 with clearing of secretions from L1-L10 LLL BAL sent for gram stain and culture, viral culture, fungal culture, and AFB smear and culture Labs and imaging reviewed. Rest of plan as noted below. Plan: S/p intubation, placement on mechanical ventilator Vent settings: PC mode: RR 20; I-Pressure 22; I-time 0.8, PEEP 5, FiO2 80% Titrate FIO2 to keep O2 saturation above 90%. VAP bundle. Daily ABG and CXR while intubated Sedate for ventilator synchrony On pressors (Levophed) for hemodynamic support Titrate to keep mean arterial pressure greater than 65 mmHg. Continue bronchodilators. Continue IV steroids Continue antibiotics MRSA positive Monitor hemoglobin Transfuse if less than 7.0 g/dL. Monitor renal function. Monitor electrolytes. Supplement as necessary. Monitor ins and outs. Diet and lifestyle modifications for weight reduction Morbid obesity - complicates all care DVT prophylaxis. Prognosis: Guarded given patient's multiple co-morbidities. Condition: Critical Rest of plan per hospitalist and other consultants. A total of 35 minutes of critical care time was spent reviewing the patient record, examining the patient, making a diagnostic and therapeutic plan, discussing this plan with the medical personnel, following up on diagnostic studies and following the patient for clinical stability excluding any and all procedures. At least 50% of this time was spent in direct, [id number] contact. Thank you Dr. Nick for allowing me to participate in this patient's care. Further recommendations will depend on the patient's clinical course. Please do not hesitate to contact me if you have any questions or concerns. This medical document was created using an electronic medical record system with [employer] dictation system. Although these documentations are being carefully reviewed, there may still be some phonetic and typographical changes. The errors are purely typographical, due to imperfection on the software program, and do not reflect any compromise in the patient's medical care. Dietary Evaluation Review Comments: 1. Continue Nepro TF @30ml/hr providing 58g protein, 1274Kcal, meeting pt's needs at 70% protein and 105% enrgy. 2. Advance to CCHO-60g, Renal Standard Diet if Pt is excubated and passes speech eval. Expected Outcomes/Goals: gradual Wt loss, improved lab values Plan discussed with: Other (JAN Lynn) Critical Care Time(min): 35 CC Plasma Assessment Blood Product Administration S: NICOLE ALVARENGA MD Jul 11, 2024 20:52
[2024-07-12] VITALS (109 sets, daily range): BP systolic 93–163; BP diastolic 24–72; PULSE 71–175; RESP 6–33; TEMP 97–99.3; O2SAT 89–100
[2024-07-12 04:18] LABS: Basophils # (auto) 0.2 10 ^3/uL (0-0.2); Basophils % (auto) 0.9 % (0.0-2.0); Eosinophils # (auto) 0 10 ^3/uL (0-0.8); Hematocrit 24.5 % (36.0-46.0); Hemoglobin 7.9 g/dL (12.2-16.2); Lymphocytes # (auto) 0.4 10 ^3/uL (0.4-5.4); Lymphocytes % (auto) 1.7 % (10.0-50.0); Mean Corpuscular Hemoglobin 29.7 pg (28.0-32.0); Mean Corpuscular Hgb Conc. 32.5 g/dL (32.0-36.0); Mean Corpuscular Volume 91.6 fL (80.0-100.0); Monocytes # (auto) 0.2 10 ^3/uL (0-1.3); Monocytes % (auto) 0.8 % (0.0-12.0); Neutrophils # (auto) 20.9 10 ^3/uL (1.6-8.6); Neutrophils % (auto) 96.6 % (37.0-80.0); Nucleated Red Blood Cells % 0.4 %; Platelet Count (auto) 113 10^3/uL (140-450); Red Blood Cells 2.67 10^6/uL (4.0-5.20); Red Cell Distribution Width 17.8 % (11.8-14.3); White Blood Cell 21.6 10^3/uL (4.4-10.8)
[2024-07-12 04:21] LABS: Alanine Aminotransferase 17 U/L (7-40); Alkaline Phosphatase 70 U/L (46-116); Anion Gap 16 (5-15); BUN/Creatinine Ratio 18.3 (10.0-20.0); Calcium 8.9 mg/dL (8.7-10.4); Chloride 99 mmol/L (98-107); Total Protein 5.9 g/dL (5.7-8.2)
[2024-07-12 04:22] LABS: Albumin 3.6 g/dL (3.2-4.8); Aspartate Aminotransferase 16 U/L (13-40)
[2024-07-12 05:25] LABS: Bilirubin, Total 0.2 mg/dL (0.2-1.0); Blood Urea Nitrogen 86 mg/dL (9-23); Carbon Dioxide 19 mmol/L (20-31); Glucose 233 mg/dL (74-106); Potassium 6.2 mmol/L (3.5-5.1); Sodium 134 mmol/L (136-145)
--- NOTE | 2024-07-12 05:53 | DVH ---
CHEST RADIOGRAPH Indication: fu Technique: Single frontal view of the chest was obtained Comparison: XY CHEST PORTABLE on DOS: 07/11/24, XY CHEST PORTABLE on DOS: 07/10/24, XY CHEST XRAY 1 VIEW on DOS: 07/09/24 IMPRESSION: The cardiac silhouette appears enlarged. Bilateral interstitial and alveolar airspace opacities appea r similar. No sizable effusion or pneumothorax. Support lines and tubes appear unchanged in position .
[2024-07-12] MEDS: SODIUM BICARB 8.4% 50Meq/50ml SYR INJ IV ONE (08:55)
[2024-07-12] MEDS: SODIUM ZIRCONIUM CYCL 10 GM PAK GT ONE (08:56)
[2024-07-12] MEDS: DEXTROSE (50%) 50ML SYRG IV ONE (09:05)
[2024-07-12] MEDS: InsuLIN REG 1unit/0.01ml Soln (100units/ml) IV ONE (09:07)
[2024-07-12] MEDS: FUROSEMIDE 40 MG/4 ML VIAL IV ONE (09:35)
[2024-07-12] MEDS: SODIUM BICARB 8.4% 50Meq/50ml SYR Vial IV ONE (09:36)
[2024-07-12] MEDS: AMIODARONE BOLUS KIT 100 ML IV ONE ×2 (10:45→11:56)
[2024-07-12] MEDS: ALBUTEROL SULF 2.5 MG/0.5ML(0.5%) NEB SOLN NEB ONE (11:07)
[2024-07-12] MEDS ORDERED: ALBUMIN 25% 100 ML IV PRN (11:45)
[2024-07-12] MEDS: ADENOSINE 6 MG/2 ML INJ IV ONE (11:55)
[2024-07-12] MEDS: AMIODARONE 360mg/200mL PREMIX 200 ML IV ONE (11:56)
--- NOTE | 2024-07-12 14:02 | DVHPN2 ---
Subjective Patient developed SVT 20 minutes into her dialysis today. Sedated and intubated Reviewed: Care Plan, H&P, Labs, Medications, Previous Orders, Radiology, Other (Consultants) Changes from previous H/P or p: No Changes Objective Vitals Vital Signs Date Time Temp Pulse Resp B/P (MAP) Pulse Ox O2 Delivery O2 Flow Rate FiO2 07/12/24 13:07 129/63 07/12/24 12:35 97.8 131 33 96 97.8 07/12/24 12:05 75 07/12/24 12:00 Mechanical Ventilator+ Intake/Output Intake and Output 07/12/24 07:00 Intake Total 2305.677 ml Output Total 55 ml Balance 2250.677 ml Intake Oral 50 ml IV Total 2035.677 ml Tube Feeding 220 ml Output Urine Total 55 ml Stool Total 0 ml General Appearance: Other (Intubated and sedated) HEENT: Other (Pupils small and symmetric) Lungs: Other (Few crackles bilateral lungs) Cardiovascular: Other (Initially it was borderline tachycardia. Then later the patient developed SVT with around 175 heart rate) Abdomen: Soft Extremities: Other (With bilateral lower extremities edema) Medications Current Medications Medications Dose Ordered Sig/Theresa Route Start Time Stop Time Status Last Admin Dose Admin Sodium Chloride 10 ml Q8HR IV 06/29/24 22:00 07/12/24 05:35 10 ML Vancomycin HCl 0 ml @ 0 mls/hr UD IV 06/29/24 22:15 Ipratropium [place] 0.5 mg Q4HR NEB 06/30/24 14:00 07/12/24 10:20 0.5 MG Levalbuterol HCl 1.25 mg Q4H NEB 06/30/24 11:15 07/12/24 10:20 1.25 MG Pantoprazole Sodium 40 mg DAILY IV 07/01/24 10:00 07/12/24 09:15 40 MG Budesonide 0.5 mg BID NEB 06/30/24 22:00 07/12/24 06:31 0.5 MG Norepinephrine Bitartrate 250 ml @ 3.75 mls/hr Q24H IV 07/05/24 14:15 07/12/24 06:56 22.5 MLS/HR Methylprednisolone Sodium Succinate 20 mg BID IV 07/07/24 22:00 07/12/24 09:15 20 MG Diagnostic Test (Pha) 1 strip Q6HR 07/08/24 18:00 07/12/24 12:25 1 STRIP Insulin Human Regular Q6HR SC 07/08/24 18:00 07/12/24 12:27 3 UNITS Dextrose 50 ml UD PRN IV 07/08/24 15:15 Enteral Nutritional Formula 1,000 ml 30ML/HR GT 07/08/24 15:15 Metoclopramide HCl 5 mg Q8HR IV 07/08/24 22:00 07/12/24 05:33 5 MG Nystatin 1 applic BID TOP 07/08/24 22:00 07/12/24 09:52 1 APPLIC Meropenem 50 ml @ 17 mls/hr Q12H IV 07/10/24 08:00 07/12/24 09:00 17 MLS/HR Propofol 100 ml @ 3.417 mls/ hr Q24H IV 07/11/24 06:45 07/12/24 13:07 17.085 MLS/HR Midazolam HCl 50 ml @ 1 mls/hr Q24H IV 07/11/24 06:45 07/12/24 05:33 5 MLS/HR Fentanyl Citrate 250 ml @ 2.5 mls/hr Q24H IV 07/11/24 06:45 07/12/24 09:19 25 MLS/HR Micafungin Sodium 100 mg/Sodium Chloride 100 ml @ 100 mls/hr DAILY IV 07/12/24 10:00 Albumin Human 100 ml @ 100 mls/hr Q1HR PRN IV 07/12/24 11:45 07/12/24 13:59 Laboratory Results Laboratory Tests 07/12/24 03:30 Chemistry Test 07/12/24 03:30 Albumin 3.6 g/dL (3.2-4.8) Calcium Level 8.9 mg/dL (8.7-10.4) Total Protein 5.9 g/dL (5.7-8.2) Cardiac Markers Test 07/12/24 03:30 B-Type Natriuretic Peptide 927.43 pg/mL (0-100) LFT Test 07/12/24 03:30 Alanine Aminotransferase (ALT) 17 U/L (7-40) Alkaline Phosphatase 70 U/L (46-116) Aspartate Amino Transferase (AST) 16 U/L (13-40) Total Bilirubin 0.2 mg/dL (0.2-1.0) Urinalysis Test 06/30/24 06:45 Urine Color Colorless (Yellow) Urine Clarity Turbid (Clear) H Urine pH 5.5 (5.0-9.0) Urine Specific [place] 1.021 (1.001-1.035) Urine Protein 1+ (Negative) H Urine Ketones Negative (Negative) Urine Blood Trace /uL (Negative) H Urine Nitrite Negative (Negative) Urine Bilirubin Negative (Negative) Urine Urobilinogen Normal mg/dL (Negative) Urine Leukocyte Esterase 2+ /uL (Negative) Urine RBC 11 /hpf (0 - 4) Urine Microscopic WBC 88 /HPF (0-5) H Urine Squamous Epithelial Cells Few /hpf (<5) Urine Bacteria None seen /hpf (None Seen) Urine Yeast (Budding) Many /hpf (None Seen) Urine Glucose 4+ mg/dL (Normal) H Blood Gas Results Test 07/12/24 07:01 Arterial Blood pH 7.127 (7.350-7.450) FiO2 % 60.0 Microbiology Microbiology Date/Time Source Procedure Growth Status 07/08/24 21:11 Voided Urine Urine Culture - Final Yeast, not Verónica albicans Complete 07/06/24 04:06 Nose MRSA Screen - Final Complete 07/05/24 11:30 Bronchial Washings Gram Stain - Final Complete 07/05/24 11:30 Bronchial Washings Respiratory Culture - Final Complete 06/29/24 16:02 Blood Blood Culture - Final NO GROWTH AFTER 5 DAYS OF INCUBATION. Complete Assessment/Plan Assessment/Plan SVT/adenosine 6 mg given which lower the heart rate down to around 100 but then went back up again. The patient was started on amiodarone drip because the SVT kept coming back Acute respiratory failure with pneumonia and pulmonary fibrosis AFib Heart failure COPD Coronary artery disease Anemia Diabetes History of CVA Hypothyroidism Dyslipidemia Hypertension Seizures History of breast cancer Acute kidney injury/chronic kidney disease/needing dialysis UTI with yeast that is not Verónica Thrombocytopenia Morbid obesity Plan: Amiodarone drip. Once heart rate more stable can be stopped. Repeat labs and x-rays. Monitor blood pressure and oxygenation. Total critical care time 55 minutes Plan discussed with: Other (Nursing) My Orders Orders - SOFIE SCANLON MD Procedure Category Date Status Time Micafungin Sodium PHA 07/12/24 In Process (Mycamine) 10:00 Chest Portable XY 07/12/24 Resulted 06:00 Abg W/ Co-Ox RT 07/12/24 Logged 06:00 Amiodarone PHA 07/12/24 In Process 360mg/200ml Premix 12:00 Amiodarone PHA 07/12/24 In Process 360mg/200ml Premix 18:00 Electrocardigram EKG 07/12/24 Logged 12:55 Date of Service: Jul 12, 2024 Billing Provider: SOFIE SCANLON MD Common Visit Codes: [id number] CARE 30-74 MIN SOFIE SCANLON MD Jul 12, 2024 14:01
[2024-07-12] MEDS: MICAFUNGIN SODIUM 100 MG in SODIUM CHL 0.9% 100 ML IV SCH (14:11)
--- NOTE | 2024-07-12 15:44 | DVHPN2 ---
Progress Note Date Seen: Jul 12, 2024 Has the PT tested + for MRSA If YES, has PT been informed?: No Medical Necessity Reason Pt with a Central, PICC or Fol: Yes The following are medically ne: PICC Line, Stallworth Catheter Reason for stallworth catheter: Strict I&O, Total Immobilization Subjective Patient reports: Other Review of Systems: Deferred Objective vital signs Vital Sign Date Time Temp Pulse Resp B/P (MAP) Pulse Ox O2 Delivery O2 Flow Rate FiO2 07/12/24 15:24 124/53 07/12/24 15:16 97.3 94 24 96 207.1 07/12/24 14:19 75 07/12/24 14:00 Mechanical Ventilator+ Total Intake and Output 07/11/24 07/11/24 07/12/24 15:00 23:00 07:00 Intake Total 785.965 ml 812.110 ml 707.602 ml Output Total 0 ml 25 ml 30 ml Balance 785.965 ml 787.110 ml 677.602 ml medications Current Medications Medications Dose Ordered Sig/Theresa Route Start Time Stop Time Status Last Admin Dose Admin Sodium Chloride 10 ml Q8HR IV 06/29/24 22:00 07/12/24 14:13 10 ML Vancomycin HCl 0 ml @ 0 mls/hr UD IV 06/29/24 22:15 Ipratropium [place] 0.5 mg Q4HR NEB 06/30/24 14:00 07/12/24 10:20 0.5 MG Levalbuterol HCl 1.25 mg Q4H NEB 06/30/24 11:15 07/12/24 14:19 1.25 MG Pantoprazole Sodium 40 mg DAILY IV 07/01/24 10:00 07/12/24 09:15 40 MG Budesonide 0.5 mg BID NEB 06/30/24 22:00 07/12/24 06:31 0.5 MG Norepinephrine Bitartrate 250 ml @ 3.75 mls/hr Q24H IV 07/05/24 14:15 07/12/24 15:24 26.25 MLS/HR Methylprednisolone Sodium Succinate 20 mg BID IV 07/07/24 22:00 07/12/24 09:15 20 MG Diagnostic Test (Pha) 1 strip Q6HR 07/08/24 18:00 07/12/24 12:25 1 STRIP Insulin Human Regular Q6HR SC 07/08/24 18:00 07/12/24 12:27 3 UNITS Dextrose 50 ml UD PRN IV 07/08/24 15:15 Enteral Nutritional Formula 1,000 ml 30ML/HR GT 07/08/24 15:15 Metoclopramide HCl 5 mg Q8HR IV 07/08/24 22:00 07/12/24 14:09 5 MG Nystatin 1 applic BID TOP 07/08/24 22:00 07/12/24 09:52 1 APPLIC Meropenem 50 ml @ 17 mls/hr Q12H IV 07/10/24 08:00 07/12/24 09:00 17 MLS/HR Propofol 100 ml @ 3.417 mls/ hr Q24H IV 07/11/24 06:45 07/12/24 13:07 17.085 MLS/HR Midazolam HCl 50 ml @ 1 mls/hr Q24H IV 07/11/24 06:45 07/12/24 05:33 5 MLS/HR Fentanyl Citrate 250 ml @ 2.5 mls/hr Q24H IV 07/11/24 06:45 07/12/24 09:19 25 MLS/HR Micafungin Sodium 100 mg/Sodium Chloride 100 ml @ 100 mls/hr DAILY IV 07/12/24 10:00 07/12/24 14:11 100 MLS/HR Examination: GENERAL:Abnormal, LUNGS:Abnormal, CVS:Abnormal, MSK:Abnormal laboratory and microbiology Laboratory Tests 07/12/24 03:30 Test 07/12/24 03:30 Range/Units Serum Glucose 233 H 74-106 mg/dL Microbiology Date/Time Source Procedure Growth Status 07/08/24 21:11 Voided Urine Urine Culture - Final Yeast, not Verónica albicans Complete 07/06/24 04:06 Nose MRSA Screen - Final Complete 07/05/24 11:30 Bronchial Washings Gram Stain - Final Complete 07/05/24 11:30 Bronchial Washings Respiratory Culture - Final Complete 06/29/24 16:02 Blood Blood Culture - Final NO GROWTH AFTER 5 DAYS OF INCUBATION. Complete Problem List/Assessment/Plan Problem List/Assessment/Plan Acute kidney injury likely acute necrosis in the setting of vancomycin toxicity plus shock Shock needing vasopressors Baseline Chronic kidney disease Morbid obesity Ventilator-dependent respiratory failure Pulmonary fibrosis RECS Dialysis today bumex iv bid Patient did not tolerate any UF today heart rate went to 160- 170 range even with trying for minimal UF and became hypotensive needing escalation of pressors however finished 3 hours of dialysis without UF Might benefit from sled however has severe staffing shortage Remains on Levophed Remains oligo anuric Plan discussed with: Other My Orders My Orders Orders - ALOK MILLAN MD Procedure Category Date Status Time Hemodialysis Orders ORDERS 07/12/24 Transmitted 08:42 Potassium LAB 07/12/24 Logged 17:00 Bumetanide Injection PHA 07/12/24 Verified (Bumex Injection) 18:00 Dietary Evaluation Review Comments: 1. Continue Nepro TF @30ml/hr providing 58g protein, 1274Kcal, meeting pt's needs at 70% protein and 105% enrgy. 2. Advance to CCHO-60g, Renal Standard Diet if Pt is excubated and passes speech eval. Expected Outcomes/Goals: gradual Wt loss, improved lab values Critical Care Time (mins): 45 CC Plasma Assessment Blood Product Administration S: 1400 ALOK MILLAN MD Jul 12, 2024 15:44
[2024-07-12] MEDS: BUMETANIDE 2.5mg/10ml (0.25 mg/ml) INJ IV SCH (17:22)
[2024-07-12] MEDS: AMIODARONE 360mg/200mL PREMIX 200 ML IV SCH (17:28)
--- NOTE | 2024-07-12 17:35 | DVHINCON2 ---
BRYSON JACKMAN [facility] 07/12/24 1735: Date Seen: Jul 12, 2024 Referring Physician MD Nicole Reason for Consultation NSTEMI History of Present Illness This is a 74-year-old female patient who initially presented to the emergency room with chief complaint of shortness of breath. At the time of assessment, the patient was chemically sedated and mechanically ventilated. History obtained from medical records and bedside RN. The patient was initially admitted to the telemetry floor on 06/30/24 and was subsequently intubated on 07/05/24 after patient went into respiratory distress. Cardiology has been consulted at this time for elevated troponin level. Initial troponin level upon admission was 27ng/L, and now is 1444ng/L. According to bedside RN, the patient was being dialyzed today when suddenly it was noted that her heart rate reached 170s. At that time, the nurse obtained a twelve lead electrocardiogram which revealed a narrow complex supraventricular tachycardia. The patient was given adenosine 6 mg followed by an amiodarone bolus and amiodarone drip per protocol. At the time of assessment, a repeat twelve lead electrocardiogram was obtained by the bedside RN and now reveals normal sinus rhythm with PACs and nonspecific ST segment changes to lateral leads. Significant past medical history includes congestive heart failure, atrial fibrillation (on Eliquis), type 2 diabetes mellitus, COPD, pulmonary fibrosis, chronic kidney disease, breast cancer, and obesity. Past Medical History Past medical history reviewed. No other significant than mentioned above. Past Surgical History Family History: Cardiovascular disease G8 MOTHER G8 FATHER Diabetes mellitus G8 MOTHER G8 FATHER G8 FATHER G8 MOTHER G8 FATHER Diabetes mellitus G8 MOTHER G8 FATHER G8 FATHER G8 MOTHER G8 FATHER Diabetes mellitus G8 MOTHER G8 FATHER G8 FATHER G8 MOTHER G8 FATHER FH: Hodgkin's disease G8 FATHER FH: Hodgkins disease G8 FATHER G8 FATHER FH: Hodgkins disease G8 FATHER G8 FATHER FH: heart disease G8 MOTHER G8 FATHER FHx: Hodgkin's disease G8 FATHER Family history: Cardiovascular disease G8 MOTHER G8 FATHER Family history: Diabetes mellitus G8 MOTHER G8 FATHER Seizure disorder (situation) G8 SISTER Family History Family history reviewed. Social History Unable to obtain Allergies: Coded Allergies: Penicillins (Verified Allergy, Intermediate, HIVES, 04/22/23) Pineapple (Verified Allergy, Intermediate, 04/22/23) Hingham (Verified Allergy, Intermediate, 04/22/23) Tomato (Verified Allergy, Intermediate, 04/22/23) Lisinopril (Verified Allergy, Unknown, 04/22/23) Pentazocine (Verified Allergy, Unknown, 04/22/23) FROM TALWIN Sulfamethoxazole w/Trimethoprim (Verified Allergy, Unknown, 04/22/23) Uncoded Allergies: TALWIN (Allergy, Unknown, 03/06/23) Home Meds Active Scripts Ferrous Sulfate (Iron) 325 Mg Tab, 325 MG PO BID, #60 TAB Prov:MARA SHAH MD 06/24/24 Fluconazole (Diflucan) 200 Mg Tab, 1 TAB PO DAILY, #10 TAB Prov:MARA SHAH MD 06/24/24 Prednisone (Prednisone) 20 Mg Tab, 20 MG PO DAILY, #10 MG Prov:MARA SHAH MD 06/24/24 Azithromycin (Azithromycin) 500 Mg Tab, 1 TAB PO DAILY, #10 TAB Prov:MARA SHAH MD 06/24/24 Sucralfate (CARAFATE SUSP) 1 Gm/10 Ml Ss, 10 ML PO QID for 30 Days, #1200 ML 3 Refills Prov:AURORA WILL RESIDENT 05/26/24 Polyethylene Glycol 3350 (Miralax) 17 Gm Pow, 17 GM PO DAILY for 30 Days, #1 POW Prov:AURORA WILL RESIDENT 05/26/24 Dextromethorphan-Guaifenesin (Robitussin-Dm) 10 Ml Sr, 10 ML PO Q4HP PRN for 30 Days, #1 SYP Prov:AURORA WILL RESIDENT 05/26/24 Amlodipine Besylate (NORVASC TABLET) 5 Mg Tb, 5 MG PO DAILY for 30 Days, #30 TAB Prov:AURORA WILL RESIDENT 05/26/24 Cefpodoxime Proxetil (Cefpodoxime Proxetil) 200 Mg Tab, 1 TAB PO BID for 5 Days, #10 TAB Prov:DRE HILL RESIDENT 03/18/24 Levofloxacin Hemihydrate (LEVAQUIN 500 MG) 500 Mg Tab, 1 TAB PO DAILY, #7 TAB Prov:MARA SHAH MD 04/26/23 Apixaban Base (ELIQUIS) 5 Mg Tab, 5 MG PO BID, #180 TAB Prov:MARA SHAH MD 04/26/23 Metoprolol Tartrate (Metoprolol Tartrate) 50 Mg Tab, 50 MG PO TID, #180 TAB Prov:MARA SHAH MD 04/26/23 Sucralfate (CARAFATE) 1 Gm Tab, 1 GM PO QID, #120 TAB 5 Refills Prov:CARINA HDEZ MD 01/30/23 Pantoprazole Sodium Sesquihydr (Protonix) 40 Mg Tab, 40 MG PO DAILY, #30 TAB 5 Refills Prov:CARINA HDEZ MD 01/30/23 Metoprolol Tartrate (LOPRESSOR TABLET) 50 Mg Tb, 50 MG PO TID, #90 TAB 5 Refills Prov:CARINA HDEZ MD 08/06/22 Aspirin (CLIF ASPIRIN EC LOW DOSE) 81 Mg Tab, 1 TAB PO DAILY, #30 TAB Prov:HOMER SAMUELS MD 05/25/20 Reported Medications Netarsudil Dimesylate (Rhopressa) 0.02 % Rosaura, 1 DROP EACHEYE QPM for 22 Days, #2.5 06/22/24 Trazodone Hcl (Trazodone Hcl) 50 Mg Tab, 1 TAB PO HS for 30 Days, #30 06/22/24 Brimonidine Tartrate (Brimonidine Tartrate) 0.2 % Rosaura, 1 DROP EACHEYE TID for 67 Days, #20 06/22/24 Furosemide (Furosemide) 40 Mg Tab, 1 TAB PO BID for 30 Days, #60 06/22/24 Lactulose (Lactulose) 10 Gm/15 Ml Rsoaura, 1 TBS PO DAILY for 30 Days, #450 03/18/24 Apixaban Base (ELIQUIS) 5 Mg Tab, 5 MG PO BID for 30 Days, #60 03/18/24 Flecainide Acetate (Flecainide Acetate) 100 Mg Tab, 1 TAB PO BID, #60 TAB 5 Refills 03/18/24 Atorvastatin Calcium (Lipitor) 40 Mg Tab, 1 TAB PO QPM, #90 TAB 1 Refill 03/18/24 Albuterol Sulfate (VENTOLIN MDI) 90 Mcg Ih, 90 MCG IN, INH 03/18/24 Albuterol Sulfate (Albuterol Sulfate) 0.083 % Neb, 1 VIAL NEB Q4HPRN, #50 VIAL 03/18/24 Metoprolol Tartrate (Lopressor) 50 Mg Tab, 1 TAB PO BID, #60 TAB 5 Refills 03/18/24 Travoprost (Travatan Z) 0.004 % Pelon, 1 DROP EACHEYE QPM for 40 Days, #5 03/18/24 Tiotropium [place] Monohydrate (Spiriva Handihaler) 18 Mcg Cap, 1 CAP INH DAILY for 30 Days, #30 03/18/24 Hydrocodone-Acetaminophen (Hydrocodone Bitartrate/AC 10-325 mg) 1 Tab Tab, 1 TAB PO Q8HR for 90 Days, #90 11/28/23 Glipizide (Glipizide) 5 Mg Tab, 1 TAB PO DAILY for 90 Days, #90 11/28/23 Naloxegol Oxalate (Movantik) 12.5 Mg Tab, 1 TAB PO DAILY 11/28/23 Baclofen (Baclofen) 10 Mg Tab, 1 TAB PO Q12HR for 30 Days, #60 11/28/23 Morphine Sulfate (Morphine Sulfate) 15 Mg Tab, 1 TAB PO Q12HR for 30 Days, #60 11/28/23 Metformin Hydrochloride (Metformin Hcl) 850 Mg Tab, 850 MG PO BID 04/22/23 Furosemide (Furosemide) 20 Mg Tab, 20 MG PO DAILY, TAB 04/22/23 Atorvastatin Calcium (ATORVASTATIN CALCIUM) 20 Mg Tab, 20 MG PO DAILY, TAB 04/22/23 Hydrocodone-Acetaminophen (Hydrocodone Bitartrate/AC 10-325 mg) 1 Tab Tab, 1 TAB PO Q8HPRN 01/25/23 Insulin Lispro (Human) (Humalog) 100 Unit/Ml Inj, 10 UNIT SC DAILY, INJ Inject 10 units max subcutaneously daily per sliding scale 01/24/23 Ferrous Sulfate (FERROUS SULFATE) 325 Mg Tb, 325 MG PO DAILY, TAB 01/24/23 Brimonidine Tartrate (Brimonidine Tartrate) 0.2 % Rosaura, 1 DROP OP BID, ML 01/24/23 Albuterol Sulfate (Albuterol Sulfate) 0.083 % Neb, 0.083 % IN TID, INH 01/24/23 Pregabalin (Lyrica) 50 Mg Cap, 50 MG PO, CAP 01/24/23 Insulin Degludec (Tresiba Flextouch) 100 Unit/Ml Inj, 50 UNITS SC QPM 01/24/23 Travoprost (Travatan Z) 0.004 % Pelon, 0.004 % OP QPM, DROP Instill 1 drop to both eyes every evening 01/24/23 Tiotropium [place] Monohydrate (Spiriva Handihaler) 18 Mcg Cap, 18 MCG IN BID, CAP 01/24/23 Morphine Sulfate (Ms Contin) 15 Mg Tab, 1 TAB PO BID, #60 TAB 01/24/23 Colchicine (Colchicine) 0.6 Mg Cap, 1 CAP PO DAILY 05/12/22 Ezetimibe (Ezetimibe) 10 Mg Tab, 1 TAB PO DAILY 05/12/22 Losartan Potassium (Losartan Potassium) 25 Mg Tab, 0.5 TAB PO DAILY 05/12/22 Loratadine (Claritin) 10 Mg Tab, 1 TAB PO DAILY, #30 TAB 5 Refills 12/10/18 Home Meds Home medications reviewed. Current Medications Current Medications Medications (Trade) Dose Ordered Sig/Theresa Route PRN Reason Start Time Stop Time Status Last Admin Micafungin Sodium 100 mg/Sodium Chloride 100 ml @ 100 mls/hr DAILY IV 07/12/24 10:00 07/12/24 14:11 Albumin Human 100 ml @ 100 mls/hr Q1HR PRN IV DIZZINESS 07/12/24 11:45 07/12/24 13:59 DC Bumetanide (Bumex Injection) 2.5 mg BIDD IV 07/12/24 18:00 07/12/24 17:22 Review of Systems Constitutional: No symptom reported Ears, Nose, & Throat: No symptom reported Eyes: No symptom reported Neurological: No symptoms reported Pulmonary/Respiratory: Shortness of breath Cardiovascular: No symptom reported Gastrointestinal: No symptom reported Genitourinary: No symptom reported Musculoskeletal: No symptom reported Skin: No symptom reported Psychiatric: No symptom reported Endocrine: No symptom reported Hematologic/Lymphatic: No symptom reported Vital Signs Vital Signs Date Time Temp Pulse Resp B/P (MAP) Pulse Ox O2 Delivery O2 Flow Rate FiO2 07/12/24 17:22 141/58 07/12/24 16:32 97.3 88 32 93 207.1 07/12/24 16:23 75 07/12/24 16:00 Mechanical Ventilator+ Physical Exam General Appearance: Calm, relaxed Pulmonary/Respiratory: Mechanically ventilated, clear bilateral upper lobe sounds Cardiovascular/Chest: Regular rate and rhythm. Peripheral Pulses: 2+ Radial (R). 2+ Radial (L). 2+ Pedal (R). 2+ Pedal (L) Abdominal Exam: Normal bowel sounds. Ankle Exam: Negative ankle edema Lower extremities: Negative lower extremity edema Neuro/Mental Status: Chemically sedated Thoughts/Psych: Deferred Appearance: No acute distress. Skin Exam: Normal inspection. Normal color. Warm and dry. Labs/Diagnostic Data Labs Test 07/12/24 17:00 07/12/24 15:20 07/12/24 12:22 07/12/24 07:01 Range/Units Potassium Level 4.8 3.5-5.1 mmol/L Troponin I High Sensitivity 1444 *H </=34 ng/L POC Glucose 190 H 70-106 mg/dl Blood Gas Specimen Type Arterial Blood Gas Sample Site Arterial line Blood Gas Patient Temperature 37.0 Arterial Blood Date Drawn [id number] Arterial Blood pH 7.127 *L 7.350-7.450 Arterial Blood Partial Pressure CO2 58.8 H 32.0-45.0 mmHg Arterial Blood Partial Pressure O2 64.6 L 83.0-108.0 mmHg Arterial Blood HCO3 19.0 L 21.0-28.0 mmol/L Arterial Blood Oxygen Saturation 86.2 L 94.0-98.0 % Arterial Blood Base Excess -10.0 L -2.0-3.0 mmol/L Arterial Blood Oxyhemoglobin 85.5 L 94.0-98.0 % Arterial Blood Carboxyhemoglobin 0.3 L 0.5-1.5 % Arterial Blood Methemoglobin 0.5 0.0-1.5 % Juan Test N/a Blood Gas Total Hemoglobin 9.00 L 12.0-16.0 g/dL Blood Gas Set Respiration Rate 32.0 Blood Gas Modality Vent - ac FiO2 % 60.0 Blood Gas Tidal Volume 450.0 Blood Gas PEEP or CPAP 10.0 Blood Gas Critical Value Read Back Yes Blood Gas Notified Whom Laurita carrion md Blood Gas Notified Time [id number] Blood Gas Notified By Kelsey graham manufactured buildings supervisor Test 07/12/24 03:30 07/11/24 06:34 07/10/24 03:14 07/07/24 19:01 Range/Units White Blood Count 21.6 H 4.4-10.8 10^3/uL Red Blood Count 2.67 L 4.0-5.20 10^6/uL Hemoglobin 7.9 L 12.2-16.2 g/dL Hematocrit 24.5 L 36.0-46.0 % Mean Corpuscular Volume 91.6 80.0-100.0 fL Mean Corpuscular Hemoglobin 29.7 28.0-32.0 pg Mean Corpuscular Hemoglobin Concent 32.5 32.0-36.0 g/dL Red Cell Distribution Width 17.8 H 11.8-14.3 % Platelet Count 113 L 140-450 10^3/uL Mean Platelet Volume 8.3 6.9-10.8 fL Neutrophils (%) (Auto) 96.6 H 37.0-80.0 % Lymphocytes (%) (Auto) 1.7 L 10.0-50.0 % Monocytes (%) (Auto) 0.8 0.0-12.0 % Eosinophils (%) (Auto) 0.0 0.0-7.0 % Basophils (%) (Auto) 0.9 0.0-2.0 % Neutrophils # (Auto) 20.9 H 1.6-8.6 10 ^3/uL Lymphocytes # (Auto) 0.4 0.4-5.4 10 ^3/uL Monocytes # (Auto) 0.2 0-1.3 10 ^3/uL Eosinophils # (Auto) 0 0-0.8 10 ^3/uL Basophils # (Auto) 0.2 0-0.2 10 ^3/uL Nucleated Red Blood Cells 0.4 % Sodium Level 134 L 136-145 mmol/L Chloride Level 99 98-107 mmol/L Carbon Dioxide Level 19 L 20-31 mmol/L Anion Gap 16 H 5-15 Blood Urea Nitrogen 86 #*H 9-23 mg/dL Creatinine 4.74 H 0.550-1.02 mg/dL Glomerular Filtration Rate Calc 9 >90 mL/min BUN/Creatinine Ratio 18.3 10.0-20.0 Serum Glucose 233 H 74-106 mg/dL Calcium Level 8.9 8.7-10.4 mg/dL Total Bilirubin 0.2 0.2-1.0 mg/dL Aspartate Amino Transferase (AST) 16 13-40 U/L Alanine Aminotransferase (ALT) 17 7-40 U/L Alkaline Phosphatase 70 46-116 U/L B-Type Natriuretic Peptide 927.43 0-100 pg/mL Total Protein 5.9 5.7-8.2 g/dL Albumin 3.6 3.2-4.8 g/dL Random Vancomycin Level 18.2 H 5-10 ug/mL Specimen Drawn By Kelsey graham manufactured buildings supervisor Differential Total Cells Counted 100.0 100 Neutrophils % (Manual) 92 H 37.0-80.0 Band Neutrophils % (Manual) 0 Lymphocytes % (Manual) 5 L 10.0-50.0 Monocytes % (Manual) 3 0-12 Eosinophils % (Manual) 0 0-7 Basophils % (Manual) 0 0.0-2.0 Metamyelocytes % (manual) 0 Myelocytes % (Manual) 0 Promyelocytes % (Manual) 0 Blast Cells % (Manual) 0 Reactive Lymphocytes 0 Platelet Estimate Decreased Magnesium Level 2.4 1.6-2.6 mg/dL Hepatitis B Surface Antigen Negative Negative Test 07/06/24 19:20 07/06/24 03:24 07/05/24 16:20 07/05/24 13:21 Range/Units Blood Gas Inspiratory Pressure 28.0 Phosphorus Level 6.6 H 2.4-5.1 mg/dL Direct Bilirubin 0.1 <0.3 mg/dL Blood Gas Comments Prothrombin Time 10.9 9.3-11.8 sec Prothrombin Time INR 1.03 0.9-1.15 Activated Partial Thromboplast Time 30.2 24.5-34.5 SEC Test 07/05/24 08:26 07/05/24 02:19 06/30/24 08:40 06/30/24 06:45 Range/Units Blood Gas Spontaneous Rate 24 Blood Gas Spontaneous Tidal Volume 886 Blood Gas EPAP 5 Blood Gas IPAP 12 Ammonia < 10 L 11-32 umol/L Urine Color Colorless Yellow Urine Clarity Turbid H Clear Urine pH 5.5 5.0-9.0 Urine Specific [place] 1.021 1.001-1.035 Urine Protein 1+ H Negative Urine Ketones Negative Negative Urine Blood Trace H Negative /uL Urine Nitrite Negative Negative Urine Bilirubin Negative Negative Urine Urobilinogen Normal Negative mg/dL Urine Leukocyte Esterase 2+ Negative /uL Urine RBC 11 0 - 4 /hpf Urine Microscopic WBC 88 H 0-5 /HPF Urine Squamous Epithelial Cells Few <5 /hpf Urine Bacteria None seen None Seen /hpf Urine Yeast (Budding) Many None Seen /hpf Urine Glucose 4+ H Normal mg/dL Urine Opiates Screen Neg NEGATIVE Urine Fentanyl Screen Neg NEGATIVE Urine Barbiturates Screen Neg NEGATIVE Urine Phencyclidine Screen Neg NEGATIVE Urine Amphetamines Screen Neg NEGATIVE Urine Benzodiazepines Screen Neg NEGATIVE Urine Cocaine Screen Neg NEGATIVE Urine Cannabinoids Screen Neg NEGATIVE Test 06/30/24 06:11 06/30/24 02:47 06/29/24 23:21 06/29/24 22:26 Range/Units Hemoglobin A1c 7.7 H <5.7 % A1C Blood Gas Liter Flow 4.00 D-Dimer, Quantitative 0.80 H 0.0-0.49 mg/L FEU Reticulocyte Count (auto) 3.37 H 0.5-1.5 % Serum Osmolality 330 H 278-298 mOsm/kg Lactic Acid Level 1.8 0.4-2.0 mmol/L Test 06/29/24 17:29 06/29/24 16:02 06/29/24 15:30 Range/Units Beta-Hydroxybutyric Acid 0.123 < 0.4 mmol/L Thyroid Stimulating Hormone (TSH) 0.28 L 0.55-4.78 uIU/mL Iron Level 17 L 50-170 ug/dL Total Iron Binding Capacity 170 L 250-425 ug/dL Percent Iron Saturation 10.0 L 15-50 % Ferritin 610.9 H 10-291 ng/mL Lactate Dehydrogenase 436 H 120-246 U/L Vitamin B12 Level 739 211-911 pg/mL Folic Acid 13.86 >5.38 ng/mL Influenza Type A Antigen Negative Negative Influenza Type B Antigen Negative Negative SARS-CoV-2 Antigen (Rapid) Negative NEGATIVE Microbiology Date/Time Source Procedure Growth Status 07/08/24 21:11 Voided Urine Urine Culture - Final Yeast, not Verónica albicans Complete 07/06/24 04:06 Nose MRSA Screen - Final Complete 07/05/24 11:30 Bronchial Washings Gram Stain - Final Complete 07/05/24 11:30 Bronchial Washings Respiratory Culture - Final Complete 06/29/24 16:02 Blood Blood Culture - Final NO GROWTH AFTER 5 DAYS OF INCUBATION. Complete Assessment NSTEMI Narrow complex supraventricular tachycardia Paroxysmal Atrial fibrillation (on Eliquis) Acute on chronic HFpEF, NYHA class III Acute hypoxic respiratory failure secondary to pneumonia COPD Pulmonary fibrosis Chronic kidney disease, now requiring hemodialysis Acute on chronic anemia requiring PRBC transfusion Obesity Plan/Recommendation We will continue with the following plan/recommendations (Dr. Morris): * Transthoracic echocardiogram reveals EF 65% * Continue vasopressors for hemodynamic support * Unable to start beta blockers at this time * [id number] VASc score: 6, HAS-BLED: 3 points * Hold anticoagulation given anemia. Resume NOAC when feasible with stable hemoglobin * Unable to initiate beta-mara for rate control given vasopressors * Consider antiarrhythmic agent if needed for Afib; consider flecainide given preserved ejection fraction * SCDs * Close Cardiac surveillance Case discussed with . According to bedside RN, the patient was being dialyzed today when suddenly it was noted that her heart rate reached 170s. At that time, the nurse obtained a twelve lead electrocardiogram which revealed a narrow complex supraventricular tachycardia. The patient was given adenosine 6 mg followed by an amiodarone bolus and amiodarone drip per protocol. At the time of assessment, a repeat twelve lead electrocardiogram was obtained by the bedside RN and now reveals normal sinus rhythm with PACs and nonspecific ST segment changes to lateral leads. A troponin level was drawn and noted to be significantly elevated with level 1444ng/L. This was discussed with . This is likely a type 2 secondary to demand mismatch ischemia when the patient went into a narrow complex supraventricular tachycardia. At this time we will recommend to continue with medical management. Thank you for allowing us to care for this patient. Please call with any questions or concerns. Critical care time spent: 44 minutes This medical document was created using an electronic medical record system with voice recognition software and computerized dictation system. Although this document has been carefully reviewed, there might still be some phonetic and typographical errors. Occasional wrong-word or ``sound-alike substitutions may have occurred due to the inherent limitations of voice recognition software. These areas are purely typographical due to imperfections of the software programs and do not reflect any compromise in the patient's medical care. Please read the chart carefully and recognize, using context, where these substitutions have occurred. Plan discussed with: Other (Bedside RN) NYHA Physical activity limitations: Class3(Marked) ordinary (activity causes symtoms) Date of Service: Jul 12, 2024 Billing Provider: BRYSON JACKMAN Cardiology Common Codes: 81094-[id number] INP/OBS CARE (High) Cardiology Consultation Codes: [id number] CONSULT <45MIN LUIS CARLOS MORRIS MD 07/13/24 0842: Family History: Cardiovascular disease G8 MOTHER G8 FATHER Diabetes mellitus G8 MOTHER G8 FATHER G8 FATHER G8 MOTHER G8 FATHER Diabetes mellitus G8 MOTHER G8 FATHER G8 FATHER G8 MOTHER G8 FATHER Diabetes mellitus G8 MOTHER G8 FATHER G8 FATHER G8 MOTHER G8 FATHER FH: Hodgkin's disease G8 FATHER FH: Hodgkins disease G8 FATHER G8 FATHER FH: Hodgkins disease G8 FATHER G8 FATHER FH: heart disease G8 MOTHER G8 FATHER FHx: Hodgkin's disease G8 FATHER Family history: Cardiovascular disease G8 MOTHER G8 FATHER Family history: Diabetes mellitus G8 MOTHER G8 FATHER Seizure disorder (situation) G8 SISTER Allergies: Coded Allergies: Penicillins (Verified Allergy, Intermediate, HIVES, 04/22/23) Pineapple (Verified Allergy, Intermediate, 04/22/23) Hingham (Verified Allergy, Intermediate, 04/22/23) Tomato (Verified Allergy, Intermediate, 04/22/23) Lisinopril (Verified Allergy, Unknown, 04/22/23) Pentazocine (Verified Allergy, Unknown, 04/22/23) FROM TALWIN Sulfamethoxazole w/Trimethoprim (Verified Allergy, Unknown, 04/22/23) Uncoded Allergies: TALWIN (Allergy, Unknown, 03/06/23) Home Meds Active Scripts Ferrous Sulfate (Iron) 325 Mg Tab, 325 MG PO BID, #60 TAB Prov:MARA SHAH MD 06/24/24 Fluconazole (Diflucan) 200 Mg Tab, 1 TAB PO DAILY, #10 TAB Prov:MARA SAHH MD 06/24/24 Prednisone (Prednisone) 20 Mg Tab, 20 MG PO DAILY, #10 MG Prov:MARA SHAH MD 06/24/24 Azithromycin (Azithromycin) 500 Mg Tab, 1 TAB PO DAILY, #10 TAB Prov:MARA SHAH MD 06/24/24 Sucralfate (CARAFATE SUSP) 1 Gm/10 Ml Ss, 10 ML PO QID for 30 Days, #1200 ML 3 Refills Prov:AURORA WILL 05/26/24 Polyethylene Glycol 3350 (Miralax) 17 Gm Pow, 17 GM PO DAILY for 30 Days, #1 POW Prov:AURORA WILL [facility] 05/26/24 Dextromethorphan-Guaifenesin (Robitussin-Dm) 10 Ml Sr, 10 ML PO Q4HP PRN for 30 Days, #1 SYP Prov:AURORA WILL [facility] 05/26/24 Amlodipine Besylate (NORVASC TABLET) 5 Mg Tb, 5 MG PO DAILY for 30 Days, #30 TAB Prov:AURORA WILL RESIDENT 05/26/24 Cefpodoxime Proxetil (Cefpodoxime Proxetil) 200 Mg Tab, 1 TAB PO BID for 5 Days, #10 TAB Prov:DRE HILL [facility] 03/18/24 Levofloxacin Hemihydrate (LEVAQUIN 500 MG) 500 Mg Tab, 1 TAB PO DAILY, #7 TAB Prov:MARA SHAH MD 04/26/23 Apixaban Base (ELIQUIS) 5 Mg Tab, 5 MG PO BID, #180 TAB Prov:MARA SHAH MD 04/26/23 Metoprolol Tartrate (Metoprolol Tartrate) 50 Mg Tab, 50 MG PO TID, #180 TAB Prov:MARA SHAH MD 04/26/23 Sucralfate (CARAFATE) 1 Gm Tab, 1 GM PO QID, #120 TAB 5 Refills Prov:CARINA HDEZ MD 01/30/23 Pantoprazole Sodium Sesquihydr (Protonix) 40 Mg Tab, 40 MG PO DAILY, #30 TAB 5 Refills Prov:CARINA HDEZ MD 01/30/23 Metoprolol Tartrate (LOPRESSOR TABLET) 50 Mg Tb, 50 MG PO TID, #90 TAB 5 Refills Prov:CARINA HDEZ MD 08/06/22 Aspirin (CLIF ASPIRIN EC LOW DOSE) 81 Mg Tab, 1 TAB PO DAILY, #30 TAB Prov:HOMER SAMUELS MD 05/25/20 Reported Medications Netarsudil Dimesylate (Rhopressa) 0.02 % Rosaura, 1 DROP EACHEYE QPM for 22 Days, #2.5 06/22/24 Trazodone Hcl (Trazodone Hcl) 50 Mg Tab, 1 TAB PO HS for 30 Days, #30 06/22/24 Brimonidine Tartrate (Brimonidine Tartrate) 0.2 % Rosaura, 1 DROP EACHEYE TID for 67 Days, #20 06/22/24 Furosemide (Furosemide) 40 Mg Tab, 1 TAB PO BID for 30 Days, #60 06/22/24 Lactulose (Lactulose) 10 Gm/15 Ml Rosaura, 1 TBS PO DAILY for 30 Days, #450 03/18/24 Apixaban Base (ELIQUIS) 5 Mg Tab, 5 MG PO BID for 30 Days, #60 03/18/24 Flecainide Acetate (Flecainide Acetate) 100 Mg Tab, 1 TAB PO BID, #60 TAB 5 Refi lls 03/18/24 Atorvastatin Calcium (Lipitor) 40 Mg Tab, 1 TAB PO QPM, #90 TAB 1 Refill 03/18/24 Albuterol Sulfate (VENTOLIN MDI) 90 Mcg Ih, 90 MCG IN, INH 03/18/24 Albuterol Sulfate (Albuterol Sulfate) 0.083 % Neb, 1 VIAL NEB Q4HPRN, #50 VIAL 03/18/24 Metoprolol Tartrate (Lopressor) 50 Mg Tab, 1 TAB PO BID, #60 TAB 5 Refills 03/18/24 Travoprost (Travatan Z) 0.004 % Pelon, 1 DROP EACHEYE QPM for 40 Days, #5 03/18/24 Tiotropium [place] Monohydrate (Spiriva Handihaler) 18 Mcg Cap, 1 CAP INH DAILY for 30 Days, #30 03/18/24 Hydrocodone-Acetaminophen (Hydrocodone Bitartrate/AC 10-325 mg) 1 Tab Tab, 1 TAB PO Q8HR for 90 Days, #90 11/28/23 Glipizide (Glipizide) 5 Mg Tab, 1 TAB PO DAILY for 90 Days, #90 11/28/23 Naloxegol Oxalate (Movantik) 12.5 Mg Tab, 1 TAB PO DAILY 11/28/23 Baclofen (Baclofen) 10 Mg Tab, 1 TAB PO Q12HR for 30 Days, #60 11/28/23 Morphine Sulfate (Morphine Sulfate) 15 Mg Tab, 1 TAB PO Q12HR for 30 Days, #60 11/28/23 Metformin Hydrochloride (Metformin Hcl) 850 Mg Tab, 850 MG PO BID 04/22/23 Furosemide (Furosemide) 20 Mg Tab, 20 MG PO DAILY, TAB 04/22/23 Atorvastatin Calcium (ATORVASTATIN CALCIUM) 20 Mg Tab, 20 MG PO DAILY, TAB 04/22/23 Hydrocodone-Acetaminophen (Hydrocodone Bitartrate/AC 10-325 mg) 1 Tab Tab, 1 TAB PO Q8HPRN 01/25/23 Insulin Lispro (Human) (Humalog) 100 Unit/Ml Inj, 10 UNIT SC DAILY, INJ Inject 10 units max subcutaneously daily per sliding scale 01/24/23 Ferrous Sulfate (FERROUS SULFATE) 325 Mg Tb, 325 MG PO DAILY, TAB 01/24/23 Brimonidine Tartrate (Brimonidine Tartrate) 0.2 % Rosaura, 1 DROP OP BID, ML 01/24/23 Albuterol Sulfate (Albuterol Sulfate) 0.083 % Neb, 0.083 % IN TID, INH 01/24/23 Pregabalin (Lyrica) 50 Mg Cap, 50 MG PO, CAP 01/24/23 Insulin Degludec (Tresiba Flextouch) 100 Unit/Ml Inj, 50 UNITS SC QPM 01/24/23 Travoprost (Travatan Z) 0.004 % Pelon, 0.004 % OP QPM, DROP Instill 1 drop to both eyes every evening 01/24/23 Tiotropium [place] Monohydrate (Spiriva Handihaler) 18 Mcg Cap, 18 MCG IN BID, CAP 01/24/23 Morphine Sulfate (Ms Contin) 15 Mg Tab, 1 TAB PO BID, #60 TAB 01/24/23 Colchicine (Colchicine) 0.6 Mg Cap, 1 CAP PO DAILY 05/12/22 Ezetimibe (Ezetimibe) 10 Mg Tab, 1 TAB PO DAILY 05/12/22 Losartan Potassium (Losartan Potassium) 25 Mg Tab, 0.5 TAB PO DAILY 05/12/22 Loratadine (Claritin) 10 Mg Tab, 1 TAB PO DAILY, #30 TAB 5 Refills 12/10/18 Plan/Recommendation very fast SVT noted pt has poor prognosis consider avn agents during HD but pt is on pressors no anticoag 2/2 to severe anemia on admit consider goals of care Plan discussed with: Other (rn) BRYSON JACKMAN Jul 12, 2024 17:35 LUIS CARLOS MORRIS MD Jul 13, 2024 08:42
--- NOTE | 2024-07-12 23:18 | DVHPN2 ---
Progress Note - Dictate Date Seen: Jul 12, 2024 Has the PT tested + for MRSA If YES, has PT been informed?: No Medical Necessity Reason Pt with a Central, PICC or Fol: Yes The following are medically ne: PICC Line, Stallworth Catheter Reason for stallworth catheter: Strict I&O, Total Immobilization Subjective Patient seen and examined at bedside. Sedated, intubated on mechanical ventilator. Overnight events reviewed. vital signs Vital Sign Date Time Temp Pulse Resp B/P (MAP) Pulse Ox O2 Delivery O2 Flow Rate FiO2 07/12/24 22:25 83 32 100/39 (59) 95 65 07/12/24 22:00 Mechanical Ventilator+ 07/12/24 22:00 97.0 206.6 Total Intake and Output 07/11/24 07/11/24 07/12/24 15:00 23:00 07:00 Intake Total 785.965 ml 812.110 ml 707.602 ml Output Total 0 ml 25 ml 30 ml Balance 785.965 ml 787.110 ml 677.602 ml medications Current Medications Medications Dose Ordered Sig/Theresa Route Start Time Stop Time Status Last Admin Dose Admin Sodium Chloride 10 ml Q8HR IV 06/29/24 22:00 07/12/24 21:41 10 ML Vancomycin HCl 0 ml @ 0 mls/hr UD IV 06/29/24 22:15 Ipratropium [place] 0.5 mg Q4HR NEB 06/30/24 14:00 07/12/24 22:25 0.5 MG Levalbuterol HCl 1.25 mg Q4H NEB 06/30/24 11:15 07/12/24 22:25 1.25 MG Pantoprazole Sodium 40 mg DAILY IV 07/01/24 10:00 07/12/24 09:15 40 MG Budesonide 0.5 mg BID NEB 06/30/24 22:00 07/12/24 22:25 0.5 MG Norepinephrine Bitartrate 250 ml @ 3.75 mls/hr Q24H IV 07/05/24 14:15 07/12/24 15:24 26.25 MLS/HR Methylprednisolone Sodium Succinate 20 mg BID IV 07/07/24 22:00 07/12/24 21:41 20 MG Diagnostic Test (Pha) 1 strip Q6HR 07/08/24 18:00 07/12/24 17:25 1 STRIP Insulin Human Regular Q6HR SC 07/08/24 18:00 07/12/24 17:26 4 UNITS Dextrose 50 ml UD PRN IV 07/08/24 15:15 Enteral Nutritional Formula 1,000 ml 30ML/HR GT 07/08/24 15:15 Metoclopramide HCl 5 mg Q8HR IV 07/08/24 22:00 07/12/24 21:41 5 MG Nystatin 1 applic BID TOP 07/08/24 22:00 07/12/24 21:41 1 APPLIC Meropenem 50 ml @ 17 mls/hr Q12H IV 07/10/24 08:00 07/12/24 19:29 17 MLS/HR Propofol 100 ml @ 3.417 mls/ hr Q24H IV 07/11/24 06:45 07/12/24 19:25 13.668 MLS/HR Midazolam HCl 50 ml @ 1 mls/hr Q24H IV 07/11/24 06:45 07/12/24 15:35 4 MLS/HR Fentanyl Citrate 250 ml @ 2.5 mls/hr Q24H IV 07/11/24 06:45 07/12/24 18:51 22.5 MLS/HR Micafungin Sodium 100 mg/Sodium Chloride 100 ml @ 100 mls/hr DAILY IV 07/12/24 10:00 07/12/24 14:11 100 MLS/HR Bumetanide 2.5 mg BIDD IV 07/12/24 18:00 07/12/24 17:22 2.5 MG objective Gen.: Patient lying in bed in medical ICU. Sedated, intubated on mechanical ventilator. Head: Normocephalic, atraumatic. Eyes: PERRLA. Ears: Normal external anatomy. Throat: Endotracheal tube and orogastric tube in place. Neck: Supple, trachea midline. Chest: Transmitted breath sounds bilaterally. Decreased air entry bilaterally. No wheezing. Bibasilar crackles. Cardiovascular: Positive S1, positive S2. Regular rate and rhythm. Abdomen: Positive bowel sounds in all 4 quadrants. Soft, nontender, nondistended. : Stallworth in place. Normal external genitalia. Rectal: Deferred. Skin: Warm, dry. Intact. Extremities: 2+ radial pulses bilaterally. No lower extremity edema. Neuro: Sedated. laboratory and microbiology Laboratory Tests 07/12/24 17:00 07/12/24 03:30 Test 07/12/24 03:30 Range/Units Serum Glucose 233 H 74-106 mg/dL Assessment/Plan Impression: Acute on chronic hypoxic respiratory failure On mechanical ventilator Multifocal pneumonia, likely gram negative AE COPD Chronic interstitial lung disease Atrial fibrillation Anemia Morbid obesity Events: Remains on vent support On AC mode: RR 32; VT 450, PEEP 10, FiO2 65% Increased FiO2 requirements. Hemodialysis today Sedated on Propofol/Versed/Fentanyl On pressors for hemodynamic support Levophed 10 mcg/min Titrate to keep mean arterial pressure greater than 65 mmHg. Improved pressor requirements Off amiodarone. Elevated peak pressures Patient desaturates with turns, stimulation. Unable to make further vent changes d/t elevated peak pressures. Plan for Bumex drip Monitor renal function Continue bronchodilators Continue IV steroids Continue antibiotics Continue antifungals Urine culture grew yeast. Pleural fluid cultures showed no growth Tube feeds for nutritional support Monitor WBC - 21.6 K Accu-Cheks, ISS PRN DVT prophylaxis ABG reviewed, notable for severe acidemia d/t CO2 retention. Poor prognosis, high likelihood of demise. S/p bronchoscopy on 07/05/24 with clearing of secretions from L1-L10 LLL BAL sent for gram stain and culture, viral culture, fungal culture, and AFB smear and culture Labs and imaging reviewed. Rest of plan as noted below. Plan: S/p intubation, placement on mechanical ventilator Vent settings: PC mode: RR 20; I-Pressure 22; I-time 0.8, PEEP 5, FiO2 80% Titrate FIO2 to keep O2 saturation above 90%. VAP bundle. Daily ABG and CXR while intubated Sedate for ventilator synchrony On pressors (Levophed) for hemodynamic support Titrate to keep mean arterial pressure greater than 65 mmHg. Continue bronchodilators. Continue IV steroids Continue antibiotics MRSA positive Monitor hemoglobin Transfuse if less than 7.0 g/dL. Monitor renal function. Monitor electrolytes. Supplement as necessary. Monitor ins and outs. Diet and lifestyle modifications for weight reduction Morbid obesity - complicates all care DVT prophylaxis. Prognosis: Poor given patient's multiple co-morbidities. Condition: Critical Rest of plan per hospitalist and other consultants. A total of 35 minutes of critical care time was spent reviewing the patient record, examining the patient, making a diagnostic and therapeutic plan, discussing this plan with the medical personnel, following up on diagnostic studies and following the patient for clinical stability excluding any and all procedures. At least 50% of this time was spent in direct, [id number] contact. Thank you Dr. Nick for allowing me to participate in this patient's care. Further recommendations will depend on the patient's clinical course. Please do not hesitate to contact me if you have any questions or concerns. This medical document was created using an electronic medical record system with [employer] dictation system. Although these documentations are being carefully reviewed, there may still be some phonetic and typographical changes. The errors are purely typographical, due to imperfection on the software program, and do not reflect any compromise in the patient's medical care. Dietary Evaluation Review Comments: 1. Continue Nepro TF @30ml/hr providing 58g protein, 1274Kcal, meeting pt's needs at 70% protein and 105% enrgy. 2. Advance to CCHO-60g, Renal Standard Diet if Pt is excubated and passes speech eval. Expected Outcomes/Goals: gradual Wt loss, improved lab values Plan discussed with: Other (JAN Blankenship) Critical Care Time(min): 35 CC Plasma Assessment Blood Product Administration S: 1400 NICOLE EVANS MD Jul 12, 2024 23:18
[2024-07-13] VITALS (43 sets, daily range): BP systolic 88–147; BP diastolic 33–57; PULSE 74–85; RESP 22–33; TEMP 97–98.1; O2SAT 88–100
--- NOTE | 2024-07-13 04:53 | DVH ---
CHEST RADIOGRAPH Indication: fu Technique: Single frontal view of the chest was obtained Comparison: XY CHEST PORTABLE on DOS: 07/12/24 FINDINGS: Lines and Tubes: Support lines and tubes are unchanged. Lungs: Bilateral airspace and interstitial opacities are similar to prior study. Pleura: No effusion. No pneumothorax. Cardiomediastinal contours: Stable. Bones: No acute osseous abnormality. IMPRESSION: 1. No significant interval change.
[2024-07-13 07:00] LABS: Base Excess -2.1 mmol/L (-2.0-3.0)
[2024-07-13 07:29] LABS: Alanine Aminotransferase 17 U/L (7-40); Alkaline Phosphatase 66 U/L (46-116); Anion Gap 10 (5-15); Aspartate Aminotransferase 19 U/L (13-40); BUN/Creatinine Ratio 17.3 (10.0-20.0); Carbon Dioxide 25 mmol/L (20-31); Chloride 103 mmol/L (98-107); Potassium 4.9 mmol/L (3.5-5.1); Sodium 138 mmol/L (136-145)
[2024-07-13 07:30] LABS: Hematocrit 21.5 % (36.0-46.0); Mean Corpuscular Hemoglobin 29.5 pg (28.0-32.0); Mean Corpuscular Hgb Conc. 32.5 g/dL (32.0-36.0); Mean Corpuscular Volume 90.5 fL (80.0-100.0); Platelet Count (auto) 88 10^3/uL (140-450); Red Blood Cells 2.37 10^6/uL (4.0-5.20); Red Cell Distribution Width 17.8 % (11.8-14.3); White Blood Cell 13.3 10^3/uL (4.4-10.8)
[2024-07-13 07:34] LABS: Basophils % (manual) 0 (0.0-2.0); Blast Cells 0; Metamyelocytes % 0; Myelocytes % 0; Promyelocytes % 0; Reactive Lymphocytes 0
[2024-07-13 07:35] LABS: Bilirubin, Total 0.2 mg/dL (0.2-1.0); Blood Urea Nitrogen 67 mg/dL (9-23); Calcium 8.5 mg/dL (8.7-10.4); Glucose 171 mg/dL (74-106)
[2024-07-13 08:28] LABS: Anisocytosis Slight; Band Neutrophils % (manual) 1; Eosinophils % (manual) 1 (0-7); Lymphocytes % (manual) 8 (10.0-50.0); Monocytes % (manual) 3 (0-12); Platelet Estimate Decreased
--- NOTE | 2024-07-13 09:35 | DVHPN2 ---
Progress Note Date Seen: Jul 13, 2024 Has the PT tested + for MRSA If YES, has PT been informed?: No Medical Necessity Reason Pt with a Central, PICC or Fol: Yes The following are medically ne: PICC Line, Stallworth Catheter Reason for stallworth catheter: Strict I&O, Total Immobilization Subjective Other Systems: HD yesterday no tele events today Objective vital signs Vital Sign Date Time Temp Pulse Resp B/P (MAP) Pulse Ox O2 Delivery O2 Flow Rate FiO2 07/13/24 09:30 82 07/13/24 09:30 32 95 Mechanical Ventilator+ 65 65 07/13/24 07:40 112/46 (68) 07/13/24 07:18 98.1 208.6 Total Intake and Output 07/12/24 07/12/24 07/13/24 15:00 23:00 07:00 Intake Total 887.419 ml 973.424 ml 427.844 ml Output Total 50 ml 10 ml Balance 887.419 ml 923.424 ml 417.844 ml medications Current Medications Medications Dose Ordered Sig/Theresa Route Start Time Stop Time Status Last Admin Dose Admin Sodium Chloride 10 ml Q8HR IV 06/29/24 22:00 07/13/24 06:19 10 ML Vancomycin HCl 0 ml @ 0 mls/hr UD IV 06/29/24 22:15 Ipratropium [place] 0.5 mg Q4HR NEB 06/30/24 14:00 07/13/24 05:50 0.5 MG Levalbuterol HCl 1.25 mg Q4H NEB 06/30/24 11:15 07/13/24 05:50 1.25 MG Pantoprazole Sodium 40 mg DAILY IV 07/01/24 10:00 07/13/24 08:34 40 MG Budesonide 0.5 mg BID NEB 06/30/24 22:00 07/13/24 05:50 0.5 MG Norepinephrine Bitartrate 250 ml @ 3.75 mls/hr Q24H IV 07/05/24 14:15 07/12/24 15:24 26.25 MLS/HR Methylprednisolone Sodium Succinate 20 mg BID IV 07/07/24 22:00 07/13/24 08:45 20 MG Diagnostic Test (Pha) 1 strip Q6HR 07/08/24 18:00 07/12/24 23:30 1 STRIP Insulin Human Regular Q6HR SC 07/08/24 18:00 07/12/24 23:32 3 UNITS Dextrose 50 ml UD PRN IV 07/08/24 15:15 Enteral Nutritional Formula 1,000 ml 30ML/HR GT 07/08/24 15:15 Metoclopramide HCl 5 mg Q8HR IV 07/08/24 22:00 07/12/24 21:41 5 MG Nystatin 1 applic BID TOP 07/08/24 22:00 07/13/24 08:41 1 APPLIC Meropenem 50 ml @ 17 mls/hr Q12H IV 07/10/24 08:00 07/13/24 07:17 17 MLS/HR Propofol 100 ml @ 3.417 mls/ hr Q24H IV 07/11/24 06:45 07/13/24 02:14 13.668 MLS/HR Midazolam HCl 50 ml @ 1 mls/hr Q24H IV 07/11/24 06:45 07/13/24 06:16 4 MLS/HR Fentanyl Citrate 250 ml @ 2.5 mls/hr Q24H IV 07/11/24 06:45 07/13/24 06:12 22.5 MLS/HR Micafungin Sodium 100 mg/Sodium Chloride 100 ml @ 100 mls/hr DAILY IV 07/12/24 10:00 07/12/24 14:11 100 MLS/HR Bumetanide 2.5 mg BIDD IV 07/12/24 18:00 07/12/24 17:22 2.5 MG Examination: GENERAL:Abnormal, HEENT:Abnormal, LUNGS:Abnormal, CVS:Abnormal, ABDOMEN:Abnormal laboratory and microbiology Laboratory Tests 07/13/24 05:00 Test 07/13/24 05:00 Range/Units Serum Glucose 171 H 74-106 mg/dL Microbiology Date/Time Source Procedure Growth Status 07/08/24 21:11 Voided Urine Urine Culture - Final Yeast, not Verónica albicans Complete 07/06/24 04:06 Nose MRSA Screen - Final Complete 07/05/24 11:30 Bronchial Washings Gram Stain - Final Complete 07/05/24 11:30 Bronchial Washings Respiratory Culture - Final Complete 06/29/24 16:02 Blood Blood Culture - Final NO GROWTH AFTER 5 DAYS OF INCUBATION. Complete Problem List/Assessment/Plan Problem List/Assessment/Plan NSTEMI Narrow complex supraventricular tachycardia Paroxysmal Atrial fibrillation (on Eliquis) Acute on chronic HFpEF, NYHA class III Acute hypoxic respiratory failure secondary to pneumonia COPD Pulmonary fibrosis Chronic kidney disease, now requiring hemodialysis Acute on chronic anemia requiring PRBC transfusion Obesity Plan/Recommendation We will continue with the following plan/recommendations (Dr. Morris): * Transthoracic echocardiogram reveals EF 65% * Continue vasopressors for hemodynamic support * Unable to start beta blockers at this time * consider BB during HD if indicated, on low dose pressors, consider po amiodarone 200 mg bid * [id number] VASc score: 6, HAS-BLED: 3 points * Hold anticoagulation given anemia. Resume NOAC when feasible with stable hemoglobin * Unable to initiate beta-mara for rate control given vasopressors * Consider antiarrhythmic agent if needed for Afib; consider flecainide given preserved ejection fraction * SCDs * Close Cardiac surveillance will sign off Plan discussed with: Other (rn) Dietary Evaluation Review Comments: 1. Continue Nepro TF @30ml/hr providing 58g protein, 1274Kcal, meeting pt's needs at 70% protein and 105% enrgy. 2. Advance to CCHO-60g, Renal Standard Diet if Pt is excubated and passes speech eval. Expected Outcomes/Goals: gradual Wt loss, improved lab values Date of Service: Jul 13, 2024 Billing Provider: LUIS CARLOS MORRIS MD Common Visit Codes: NOT BILLABLE CC Plasma Assessment Blood Product Administration S: 1400 LUIS CARLOS MORRIS MD Jul 13, 2024 09:34
[2024-07-13] MEDS ORDERED: LORazepam 2MG/ML-1ML VIAL IV PRN (10:15)
[2024-07-13] MEDS: MORPHINE SULFATE INJ 2 MG/ml SYRG IV PRN (11:10)
--- NOTE | 2024-07-13 11:53 | DVHPN2 ---
Progress Note Date Seen: Jul 13, 2024 Has the PT tested + for MRSA If YES, has PT been informed?: No Medical Necessity Reason Pt with a Central, PICC or Fol: Yes The following are medically ne: PICC Line, Stallworth Catheter Reason for stallworth catheter: Strict I&O, Total Immobilization Subjective Patient reports: No new complaints Review of Systems: HEENT:Normal, CVS:Normal, RESPIRATORY:Normal, GI:Normal, :Normal, MSK:Normal, NEURO:Normal Objective vital signs Vital Sign Date Time Temp Pulse Resp B/P (MAP) Pulse Ox O2 Delivery O2 Flow Rate FiO2 07/13/24 11:10 82 32 117/44 07/13/24 10:06 95 65 07/13/24 09:30 Mechanical Ventilator+ 07/13/24 07:18 98.1 208.6 Total Intake and Output 07/12/24 07/12/24 07/13/24 15:00 23:00 07:00 Intake Total 887.419 ml 973.424 ml 427.844 ml Output Total 50 ml 10 ml Balance 887.419 ml 923.424 ml 417.844 ml medications Current Medications Medications Dose Ordered Sig/Theresa Route Start Time Stop Time Status Last Admin Dose Admin Sodium Chloride 10 ml Q8HR IV 06/29/24 22:00 07/13/24 06:19 10 ML Morphine Sulfate 2 mg Q1HP PRN IV 07/13/24 10:15 07/13/24 11:10 2 MG Lorazepam 1 mg Q2HP PRN IV 07/13/24 10:15 Examination: GENERAL:Normal, HEENT:Normal, NECK:Normal, LUNGS:Normal, LUNGS:Abnormal (intubated), CVS:Normal, ABDOMEN:Normal, MSK:Normal, SKIN:Normal, NEURO:Normal, NEURO:Abnormal (sedated), :Normal laboratory and microbiology Laboratory Tests 07/13/24 05:00 Test 07/13/24 05:00 Range/Units Serum Glucose 171 H 74-106 mg/dL Microbiology Date/Time Source Procedure Growth Status 07/08/24 21:11 Voided Urine Urine Culture - Final Yeast, not Verónica albicans Complete 07/06/24 04:06 Nose MRSA Screen - Final Complete 07/05/24 11:30 Bronchial Washings Gram Stain - Final Complete 07/05/24 11:30 Bronchial Washings Respiratory Culture - Final Complete 06/29/24 16:02 Blood Blood Culture - Final NO GROWTH AFTER 5 DAYS OF INCUBATION. Complete Problem List/Assessment/Plan Problem List/Assessment/Plan ICU Course: A 74-year-old female with a complex medical history, including chronic AFIB, anemia, anxiety, CAD, HFpEF, COPD, chronic hypoxic respiratory failure, idiopathic pulmonary fibrosis, stroke, diabetes, diabetic nephropathy, hypothyroidism, dyslipidemia, hypertension, seizures, and breast cancer in remission, presented to the ED with malaise, cough, shortness of breath, weakness, and palpitations. She was found to have acute on chronic hypoxic respiratory failure, COPD exacerbation, chronic interstitial pulmonary fibrosis, WESLY, and acute on chronic CHF, requiring intubation likely due to aspiration while eating rice. She was recently discharged on 06/24/2024 for pneumonia. She lives with her family, has been wheelchair-bound since 1998, quit smoking in April 2024 after smoking two cigarettes per day for 60 years, and denies alcohol use. Her surgical history includes cholecystectomy, , tonsillectomy, lymph node dissection, lumpectomy, and mastectomy. Hospitalization day: 8 A. Neurology: # sedated for ventilation Synchronicity: Versed , fentanyl and propofol. RASS-2- 3 # history of seizures: Not on any antiseizure medications. # history of insomnia, anxiety disorder: Trazodone 50 mg at bedtime, not needed. # multimodal pain management: Follows with Dr. Dominguez at home patient is on morphine 50 mg tablet b.i.d., baclofen 10 mg b.i.d., [place] 10 mg t.i.d. Lyrica/pregabalin 50 mg p.o.. # previous history of stroke: Patient on aspirin 81 and atorvastatin 20 mg at home. Holding presumably B. Cardiology: # chronic atrial fibrillation: Patient on Eliquis 5 mg b.i.d. no beta mara? Or amiodarone in home medications noted. In-hospital metoprolol tartrate 25 mg p.o. b.i.d.. At home noted metoprolol 50 mg p.o. t.i.d. tartrate, held as patient is hypotensive and on vasopressor support. # H/O primary hypertension: At home 5 mg daily of amlodipine, losartan 25 mg p.o. daily held as patient is still on Levophed. Hold losartan 25 mg and metoprolol tartrate # hypotension likely due to septic shock: Off of antihypertensives, continue Levophed titrated as needed to keep the map over 65. # dyslipidemia: Atorvastatin 20 mg daily, can be held presumably # heart failure with preserved ejection fraction (HFpEF/HFrec EF): HFmrEF (40- 45%), last checked in 2022>>> improved to 50% ejection fraction in May 18 2024. 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 Respiratory: # known COPD: Recently got azithromycin 500 for 10 days, prednisone 20 for 10 days, at home takes Spiriva Rota cap 80 mcg b.i.d., tiotropium bromide, previous history of 60 years of smoking, more than 4 hospitalization in past 2 months # history of pulmonary fibrosis: Likely due to underlying COPD versus other secondary causes # COPD exacerbation, in-hospital patient on budesonide nebulization b.i.d., ipratropium 0.5 q.4 and levalbuterol q.4 nebs. Methylprednisolone 40 mg Q 8 t.i.d. # acute on chronic hypoxic respiratory failure: At home baseline is 2 L of nasal cannula oxygen round the clock. Now patient is intubated and and ventilated, with 60 FiO2, peep of 5, tidal volume of 450, SpO2 of 100, we will try to go down on FiO2 to 50 perhaps. At intubation PC mode: RR 20; I-Pressure 22; I-time 0.8, PEEP 5, FiO2 80%, this morning pH 7.279, pCO2 49, PO2 of 60.6, base excess-4.5, likely non anion gap metabolic acidosis, primary respiratory acidosis chronic with secondary metabolic acidosis # multifocal pneumonia: Likely aspiration pneumonia superimposed on community- acquired pneumonia, MRSA positive, blood culture unremarkable, bronch culture pending, diffuse pulmonary edema, status post IV Lasix urine output not improve. # seasonal allergy: On Claritin loaded in as needed. # history of tonsillectomy # history of lymph node dissection and lumpectomy # history of allergy to multiple medications and food products Lisinopril, penicillins, pentazocine, pineapple, strawberry, TMP SMX, Tyelonol, tomato # thick white secretions, hypoactive cough and gag, S/p bronchoscopy 3/2 with clearing of secretions from L1-L10, LLL BAL sent for gram stain and culture, viral culture, fungal culture, and AFB smear and culture. D. Gastrointestinal: # history of GERD/gastritis: IV PPI prophylaxis continue. At home patient takes Carafate q.i.d. # secondary constipation likely due to high dose of opioids: At home patient is on polyethylene glycol daily dose, and lactulose. # history of cholecystectomy # chronic constipation: Start the patient on lactulose 30 mg b.i.d. at home patient has Colace, MiraLax E. Genitourinary: # distant history of # on Stallworth's catheter: Past 24 hour lower urine output 650 cc output 0.1 mL/kg per hour, increasing BUN with rising creatinine 3.30 with calculated GFR of 14. Nephrology consulted Dr. Bacon[facility] group called and updated as well waiting for input. F. Infectious Disease: # MRSA nares positive: Mupirocin ointment x5 days repeat MRSA # aspiration pneumonia super sided on atypical community-acquired pneumonia: Multifocal pneumonia cefepime with vancomycin: Change to meropenem and vancomycin G. Hematology & Oncology: # anemia of chronic disease likely due to CKD # breast cancer in remission # possible UTI on presentation leukocyte esterase 2+, urine culture not present. H. Nephrology: # known CKD stage 3b # WESLY due to VMN # likely acute renal failure: Close input output to check, IV Lasix not improve, nephrology consulted waiting for input. 60 cc urine output in 24 hours despite lasix and acetazolamide. S/p Blade catheter in AZJ, needing urgent initiation of hemodialysis. I. Endocrine: # diabetes mellitus HbA1c 7.7 well-controlled: At home glipizide 5 mg daily, metformin 850 p.o. b.i.d. in-hospital aggressive insulin protocol less insulin glargine Lantus daily. # elevated BG likely due to on board steroid: 4 SSI HS # grade 2 obesity 39.3 # previously known thyroid nodule J. MSK: # chronic back pain, pain control with multiple opioids # osteoarthritis: No recent fracture K. Prophylaxis: PPI: IV PPI DVT: scd off of Eliquis L. Lines & Drains (with insertion date): IV : Left forearm x2 Central : Right femoral 07/05/2024 Arterial line: 07/07/2024 Stallworth's catheter since 07/05/2024. ETT 07/23/2024 Blade RIJ: 07/07/2024 M. Drips: Propofol, fentanyl, Versed, Levophed N. Disposition: Remains in ICU O. Vent Settings: Pressure control, AC, respiratory rate change to , peep 528, I:E: 1: 2 family wishes comfort measures and terminal wean Plan discussed with: Other (rn) My Orders My Orders Orders - KARISSA TEAGUE MD Procedure Category Date Status Time Morphine Sulfate PHA 07/13/24 In Process Injection 10:15 Lorazepam 2mg/Ml Inj PHA 07/13/24 In Process (Ativan Inj) 10:15 Extubate PHILLIP 07/13/24 In Process 10:12 Code Status CODE 07/13/24 Transmitted 10:25 Dietary Evaluation Review Comments: 1. Continue Nepro TF @30ml/hr providing 58g protein, 1274Kcal, meeting pt's needs at 70% protein and 105% enrgy. 2. Advance to CCHO-60g, Renal Standard Diet if Pt is excubated and passes speech eval. Expected Outcomes/Goals: gradual Wt loss, improved lab values Critical Care Time (mins): 41 (critical care time 41 mins) Date of Service: Jul 13, 2024 Billing Provider: KARISSA TEAGUE MD Common Visit Codes: 69046-[id number] CARE 30-74 MIN CC Plasma Assessment Blood Product Administration S: 1400 KARISSA TEAGUE MD Jul 13, 2024 11:53
--- NOTE | 2024-07-13 11:55 | ECG ---
[facility] Test Date: 2024-07-12 Test Time: 11:26:06 Pat Name: ELZBIETA TAYLOR Department: ICU Room: [address] [place] [address] A Gender: F Management Assistant: JAN : [id number] Requested By: SOFIE SCANLON Order Number: [id number] Reading MD: Henok Alonso Measurements Intervals [place] Rate: 173 P: 0 IL: 72 QRS: -8 QRSD: 83 T: 158 QT: 267 QTc: 453 Interpretive Statements Supraventricular tachycardia Low voltage, precordial leads Repolarization abnormality, prob rate related Electronically Signed On 07-15-2024 16:28:27 PDT by Henok Alonso Please click the below link to view image of tracing.
--- NOTE | 2024-07-13 12:16 | DVHPN2 ---
Progress Note Date Seen: Jul 13, 2024 Has the PT tested + for MRSA If YES, has PT been informed?: No Medical Necessity Reason Pt with a Central, PICC or Fol: Yes The following are medically ne: PICC Line, Stallworth Catheter Reason for stallworth catheter: Strict I&O, Total Immobilization Subjective Review of Systems: RESPIRATORY:Abnormal Other Systems: Patient seen and examined by myself today in follow-up The patient remained intubated on ventilator Objective vital signs Vital Sign Date Time Temp Pulse Resp B/P (MAP) Pulse Ox O2 Delivery O2 Flow Rate FiO2 07/13/24 11:10 82 32 117/44 07/13/24 10:06 95 65 07/13/24 09:30 Mechanical Ventilator+ 07/13/24 07:18 98.1 208.6 Total Intake and Output 07/12/24 07/12/24 07/13/24 15:00 23:00 07:00 Intake Total 887.419 ml 973.424 ml 427.844 ml Output Total 50 ml 10 ml Balance 887.419 ml 923.424 ml 417.844 ml medications Current Medications Medications Dose Ordered Sig/Theresa Route Start Time Stop Time Status Last Admin Dose Admin Sodium Chloride 10 ml Q8HR IV 06/29/24 22:00 07/13/24 06:19 10 ML Morphine Sulfate 2 mg Q1HP PRN IV 07/13/24 10:15 07/13/24 11:10 2 MG Lorazepam 1 mg Q2HP PRN IV 07/13/24 10:15 Examination: LUNGS:Normal, CVS:Normal, MSK:Normal laboratory and microbiology Laboratory Tests 07/13/24 05:00 Test 07/13/24 05:00 Range/Units Serum Glucose 171 H 74-106 mg/dL Microbiology Date/Time Source Procedure Growth Status 07/08/24 21:11 Voided Urine Urine Culture - Final Yeast, not Verónica albicans Complete 07/06/24 04:06 Nose MRSA Screen - Final Complete 07/05/24 11:30 Bronchial Washings Gram Stain - Final Complete 07/05/24 11:30 Bronchial Washings Respiratory Culture - Final Complete 06/29/24 16:02 Blood Blood Culture - Final NO GROWTH AFTER 5 DAYS OF INCUBATION. Complete Problem List/Assessment/Plan Problem List/Assessment/Plan Acute kidney injury likely acute necrosis in the setting of vancomycin toxicity plus shock Shock needing vasopressors Baseline Chronic kidney disease Morbid obesity Ventilator-dependent respiratory failure Pulmonary fibrosis RECS Family decided on compassionate extubation Poor prognosis I will sign off this case, please reconsult as needed Thank you for the kind Plan discussed with: Other (Nurse) Dietary Evaluation Review Comments: 1. Continue Nepro TF @30ml/hr providing 58g protein, 1274Kcal, meeting pt's needs at 70% protein and 105% enrgy. 2. Advance to CCHO-60g, Renal Standard Diet if Pt is excubated and passes speech eval. Expected Outcomes/Goals: gradual Wt loss, improved lab values CC Plasma Assessment Blood Product Administration S: 1400 IBRAHIMA SEQUEIRA MD Jul 13, 2024 12:16
--- NOTE | 2024-07-13 13:02 | DVHDSRES ---
Discharge Summary Date of Admission Resident Creating Document: GAMALIEL CARRION RESIDENT Jun 29, 2024 at 21:25 Date of Discharge: Jul 13, 2024 Admitting Diagnosis COPD exacerbation, respiratory failure needing incubation, septic shock and acute renal failure Wounds: dependent part of back present on admission. details as per wound care note. Labs/Diagnostic Data: Laboratory Results Test 07/13/24 06:11 07/13/24 05:00 07/13/24 03:00 07/12/24 23:23 Blood Gas Specimen Type Arterial Blood Gas Sample Site Arterial line Blood Gas Patient Temperature 37.0 Arterial Blood Date Drawn [id number] Arterial Blood pH 7.261 (7.350-7.450) Arterial Blood Partial Pressure CO2 57.0 mmHg (32.0-45.0) Arterial Blood Partial Pressure O2 63.7 mmHg (83.0-108.0) Arterial Blood HCO3 25.1 mmol/L (21.0-28.0) Arterial Blood Oxygen Saturation 88.4 % (94.0-98.0) Arterial Blood Base Excess -2.1 mmol/L (-2.0-3.0) Arterial Blood Oxyhemoglobin 87.9 % (94.0-98.0) Arterial Blood Carboxyhemoglobin 0.1 % (0.5-1.5) Arterial Blood Methemoglobin 0.5 % (0.0-1.5) Juan Test N/a Blood Gas Total Hemoglobin 7.50 g/dL (12.0-16.0) Blood Gas Set Respiration Rate 32.0 Blood Gas Modality Vent - ac FiO2 % 65.0 Blood Gas Tidal Volume 450.0 Blood Gas PEEP or CPAP 10.0 White Blood Count 13.3 10^3/uL (4.4-10.8) Red Blood Count 2.37 10^6/uL (4.0-5.20) Hemoglobin 7.0 g/dL (12.2-16.2) Hematocrit 21.5 % (36.0-46.0) Mean Corpuscular Volume 90.5 fL (80.0-100.0) Mean Corpuscular Hemoglobin 29.5 pg (28.0-32.0) Mean Corpuscular Hemoglobin Concent 32.5 g/dL (32.0-36.0) Red Cell Distribution Width 17.8 % (11.8-14.3) Platelet Count 88 10^3/uL (140-450) Mean Platelet Volume 8.5 fL (6.9-10.8) Neutrophils (%) (Auto) % (37.0-80.0) Lymphocytes (%) (Auto) % (10.0-50.0) Monocytes (%) (Auto) % (0.0-12.0) Basophils (%) (Auto) % (0.0-2.0) Neutrophils # (Auto) 10 ^3/uL (1.6-8.6) Lymphocytes # (Auto) 10 ^3/uL (0.4-5.4) Monocytes # (Auto) 10 ^3/uL (0-1.3) Differential Total Cells Counted 100.0 (100) Neutrophils % (Manual) 87 (37.0-80.0) Band Neutrophils % (Manual) 1 Lymphocytes % (Manual) 8 (10.0-50.0) Monocytes % (Manual) 3 (0-12) Eosinophils % (Manual) 1 (0-7) Basophils % (Manual) 0 (0.0-2.0) Metamyelocytes % (manual) 0 Myelocytes % (Manual) 0 Promyelocytes % (Manual) 0 Blast Cells % (Manual) 0 Reactive Lymphocytes 0 Platelet Estimate Decreased Anisocytosis (manual) Slight Sodium Level 138 mmol/L (136-145) Potassium Level 4.9 mmol/L (3.5-5.1) Chloride Level 103 mmol/L (98-107) Carbon Dioxide Level 25 mmol/L (20-31) Anion Gap 10 (5-15) Blood Urea Nitrogen 67 mg/dL (9-23) Creatinine 3.87 mg/dL (0.550-1.02) Glomerular Filtration Rate Calc 12 mL/min (>90) BUN/Creatinine Ratio 17.3 (10.0-20.0) Serum Glucose 171 mg/dL (74-106) Calcium Level 8.5 mg/dL (8.7-10.4) Total Bilirubin 0.2 mg/dL (0.2-1.0) Aspartate Amino Transferase (AST) 19 U/L (13-40) Alanine Aminotransferase (ALT) 17 U/L (7-40) Alkaline Phosphatase 66 U/L (46-116) Troponin I High Sensitivity 873 ng/L (</=34) Total Protein 5.0 g/dL (5.7-8.2) Albumin 3.0 g/dL (3.2-4.8) Random Vancomycin Level 14.4 ug/mL (5-10) POC Glucose 194 mg/dl (70-106) Test 07/12/24 07:01 07/12/24 03:30 07/11/24 06:34 07/10/24 03:14 Blood Gas Critical Value Read Back Yes Blood Gas Notified Whom Laurita carrion md Blood Gas Notified Time [id number] Blood Gas Notified By Kelsey graham accounting systems analyst Eosinophils (%) (Auto) 0.0 % (0.0-7.0) Eosinophils # (Auto) 0 10 ^3/uL (0-0.8) Basophils # (Auto) 0.2 10 ^3/uL (0-0.2) Nucleated Red Blood Cells 0.4 % B-Type Natriuretic Peptide 927.43 pg/mL (0-100) Specimen Drawn By Kelsey graham accounting systems analyst Magnesium Level 2.4 mg/dL (1.6-2.6) Test 07/07/24 19:01 07/06/24 19:20 07/06/24 03:24 07/05/24 16:20 Hepatitis B Surface Antigen Negative (Negative) Blood Gas Inspiratory Pressure 28.0 Phosphorus Level 6.6 mg/dL (2.4-5.1) Direct Bilirubin 0.1 mg/dL (<0.3) Blood Gas Comments Test 07/05/24 13:21 07/05/24 08:26 07/05/24 02:19 06/30/24 08:40 Prothrombin Time 10.9 sec (9.3-11.8) Prothrombin Time INR 1.03 (0.9-1.15) Activated Partial Thromboplast Time 30.2 SEC (24.5-34.5) Blood Gas Spontaneous Rate 24 Blood Gas Spontaneous Tidal Volume 886 Blood Gas EPAP 5 Blood Gas IPAP 12 Ammonia < 10 umol/L (11-32) Test 06/30/24 06:45 06/30/24 06:11 06/30/24 02:47 06/29/24 23:21 Urine Color Colorless (Yellow) Urine Clarity Turbid (Clear) Urine pH 5.5 (5.0-9.0) Urine Specific [place] 1.021 (1.001-1.035) Urine Protein 1+ (Negative) Urine Ketones Negative (Negative) Urine Blood Trace /uL (Negative) Urine Nitrite Negative (Negative) Urine Bilirubin Negative (Negative) Urine Urobilinogen Normal mg/dL (Negative) Urine Leukocyte Esterase 2+ /uL (Negative) Urine RBC 11 /hpf (0 - 4) Urine Microscopic WBC 88 /HPF (0-5) Urine Squamous Epithelial Cells Few /hpf (<5) Urine Bacteria None seen /hpf (None Seen) Urine Yeast (Budding) Many /hpf (None Seen) Urine Glucose 4+ mg/dL (Normal) Urine Opiates Screen Neg (NEGATIVE) Urine Fentanyl Screen Neg (NEGATIVE) Urine Barbiturates Screen Neg (NEGATIVE) Urine Phencyclidine Screen Neg (NEGATIVE) Urine Amphetamines Screen Neg (NEGATIVE) Urine Benzodiazepines Screen Neg (NEGATIVE) Urine Cocaine Screen Neg (NEGATIVE) Urine Cannabinoids Screen Neg (NEGATIVE) Hemoglobin A1c 7.7 % A1C (<5.7) Blood Gas Liter Flow 4.00 D-Dimer, Quantitative 0.80 mg/L FEU (0.0-0.49) Test 06/29/24 22:26 06/29/24 17:29 06/29/24 16:02 06/29/24 15:30 Reticulocyte Count (auto) 3.37 % (0.5-1.5) Serum Osmolality 330 mOsm/kg (278-298) Lactic Acid Level 1.8 mmol/L (0.4-2.0) Beta-Hydroxybutyric Acid 0.123 mmol/L (< 0.4) Thyroid Stimulating Hormone (TSH) 0.28 uIU/mL (0.55-4.78) Iron Level 17 ug/dL (50-170) Total Iron Binding Capacity 170 ug/dL (250-425) Percent Iron Saturation 10.0 % (15-50) Ferritin 610.9 ng/mL (10-291) Lactate Dehydrogenase 436 U/L (120-246) Vitamin B12 Level 739 pg/mL (211-911) Folic Acid 13.86 ng/mL (>5.38) Influenza Type A Antigen Negative (Negative) Influenza Type B Antigen Negative (Negative) SARS-CoV-2 Antigen (Rapid) Negative (NEGATIVE) Other Laboratory Tests 07/13/24 05:00 Brief Hx & Hospital Course: summary : Hospital course: A 74-year-old female with a complex medical history, including chronic AFIB, anemia, anxiety, CAD, HFpEF, COPD, chronic hypoxic respiratory failure, idiopathic pulmonary fibrosis, stroke, diabetes, diabetic nephropathy, hypothyroidism, dyslipidemia, hypertension, seizures, and breast cancer in remission, presented to the ED with malaise, cough, shortness of breath, weakness, and palpitations. She was diagnosed with acute on chronic hypoxic respiratory failure, COPD exacerbation, chronic interstitial pulmonary fibrosis, WESLY, and acute on chronic CHF, requiring intubation likely due to aspiration while eating rice. Recently discharged on 06/24/2024 for pneumonia, she lives with her family, has been wheelchair-bound since 1998, quit smoking in April 2024 after smoking two cigarettes per day for 60 years, and denies alcohol use. Her surgical history includes cholecystectomy, , tonsillectomy, lymph node dissection, lumpectomy, and mastectomy. Daughter Sandy was discussed in details of her health status, Multi organ failure with frequent hospitalization in recent times with irreversible lung fibrosis with extremely poor outcome and quality of life. She understands and continues to discuss with family to come to a decision. Despite aggressive treatment the health status did not improve and the patient's code status was changed to comfort measures only. With comfort measures on board the patient was found clinically in this AM. Family and hedis manager updated appropriately by the primary team. Medical conditions treated in hospital: # Intubated and sedated for ventilation Synchronicity: Versed , fentanyl and propofol. RASS-2- 3 # history of seizures # history of insomnia, anxiety disorder at home Trazodone 50 mg at bedtime # multimodal pain management: Follows with Dr. Dominguez at home patient is on morphine 50 mg tablet b.i.d., baclofen 10 mg b.i.d., Pray 10 mg t.i.d. Lyrica/pregabalin 50 mg p.o.. # previous history of stroke # chronic atrial fibrillation was on Patient on Eliquis 5 mg b.i.d # history of primary hypertension # hypotension likely due to septic shock: Off of antihypertensives, needed vasopressor support. # dyslipidemia # heart failure with preserved ejection fraction (HFpEF/HFrec EF): HFmrEF (40- 45%), last checked in 2022>>> improved to 50% ejection fraction in May 18 2024. # hypertensive heart disease with LVH # mild mitral regurgitation # mild tricuspid regurgitation # moderate pulmonary hypertension: RVH systolic pressure 49 mm of moderate likely WHO type 2 # known COPD, follows pulmonology # history of pulmonary fibrosis: Likely due to underlying COPD versus other secondary causes # recurrent COPD exacerbation approximately 5 times hospitalization within past 2 months. # acute on chronic hypoxic respiratory failure: At home baseline is 2 L of nasal cannula oxygen round the clock # Likely aspiration pneumonia superimposed on community-acquired pneumonia, MRSA positive # seasonal allergy: On Claritin loaded in as needed. # history of tonsillectomy # history of lymph node dissection and lumpectomy of left breast. # history of allergy to multiple medications and food products Lisinopril, penicillins, pentazocine, pineapple, strawberry, TMP SMX, Talwin, tomato # thick white secretions, hypoactive cough and gag, S/p bronchoscopy 3/2 with clearing of secretions from L1-L10, LLL BAL sent for gram stain and culture, viral culture, fungal culture, and AFB smear and culture: result pending. Unimproved bi basilar airspace in CXR. # Unable to protect airways. # history of GERD/gastritis on PPI. # chronic constipation, secondary constipation likely due to high dose of opioids # history of cholecystectomy # distant history of # MRSA nares positive: Mupirocin ointment x5 days repeat MRSA, leukocytosis improving # intertrigo Nystatin powder in the groin # Likely, UTI: +ve urinalysis # anemia of chronic disease likely due to CKD # breast cancer in remission # Thrombocytopenia # known CKD stage 3b # WESLY due to VMN # likely acute renal failure needing urgent initiation of hemodialysis. # improving respiratory and metabolic combines acidosis slowly. # diabetes mellitus HbA1c 7.7 well-controlled # grade 3 obesity 42.6 # previously known thyroid nodule # chronic back pain, pain control with multiple opioids # osteoarthritis: No recent fracture # buttocks skin tear multiple. present on admission. Discharge planning needed 39 minutes of detailed discussion. Discussed with Dr. Carter. Consults/Reason for consult Cardiology, pulmonology, critical care and nephrology. Operations or Procedures [facility] [id number] [place] [id number] Ph: [phone] DIAGNOSTIC IMAGING Diagnostic Imaging Report : [id number] Signed PATIENT: ELZBIETA TAYLOR ACCT: [id number] UNIT: [id number] : 1950 LOC: ICU [facility] ROOM / BED: [address] [place] [address] AGE / SEX: 74 / F ADM STATUS: ADM IN SERVICE 0600 ORDERING PHYSICIAN: SOFIE SCANLON MD PROCEDURE(s): CXRP - CHEST PORTABLE REASON: fu ORDER NUMBER(s): [id number], ACCESSION NUMBER(s): [id number] CHEST RADIOGRAPH Indication: fu Technique: Single frontal view of the chest was obtained Comparison: XY CHEST PORTABLE on DOS: 07/12/24 FINDINGS: Lines and Tubes: Support lines and tubes are unchanged. Lungs: Bilateral airspace and interstitial opacities are similar to prior study. Pleura: No effusion. No pneumothorax. Cardiomediastinal contours: Stable. Bones: No acute osseous abnormality. IMPRESSION: 1. No significant interval change. ATED BY: KENNA NORTON MD DICTATED DATE/TIME: 07/13/24449 SIGNED BY: KENNA NORTON MD SIGNED DATE/TIME: 07/13/24449 CC: [place] [id number] Ph: [phone] DIAGNOSTIC IMAGING Diagnostic Imaging Report : [id number] Signed PATIENT: ELZBIETA TAYLOR ACCT: [id number] UNIT: [id number] : 1950 LOC: ICU [facility] ROOM / BED: [address] [place] [address] AGE / SEX: 74 / F ADM STATUS: ADM IN SERVICE 1324 ORDERING PHYSICIAN: GAMALIEL CARRION PROCEDURE(s): KUB - KUB ABDOMEN SINGLE VIEW REASON: constipation ORDER NUMBER(s): [id number], ACCESSION NUMBER(s): [id number] Date: 07/08/2024 01:33 PM Examination: XY KUB ABDOMEN SINGLE VIEW History: constipation Comparison: None TECHNIQUE: Frontal views of the abdomen was obtained. FINDINGS: Paucity of bowel gas limits evaluation. Enteric tube tip projects over the expected region of the stomach. The lung bases are unremarkable. Right central venous catheter tip projects over the right pelvis. No acute osseous abnormality identified. IMPRESSION: Paucity of bowel gas limits evaluation. Enteric tube tip projects over the expected region of the stomach. ATED BY: PAUL ERICKSON MD DICTATED DATE/TIME: 07/08/241402 SIGNED BY: PAUL ERICKSON MD SIGNED DATE/TIME: 07/08/241402 CC: [place] [id number] Ph: [phone] DIAGNOSTIC IMAGING Diagnostic Imaging Report : [id number] Signed PATIENT: ELZBIETA TAYLOR ACCT: [id number] UNIT: [id number] : 1950 LOC: [facility] ROOM / [facility] AGE / SEX: 74 / F ADM STATUS: ADM IN SERVICE 144 ORDERING PHYSICIAN: DRE HILL RESIDENT PROCEDURE(s): ABPL - CT AB PEL WO CON-NO ORAL OR IV REASON: right sided abdominal pain ORDER NUMBER(s): [id number], ACCESSION NUMBER(s): [id number] Exam: CT CT AB PEL WO CON-NO ORAL OR IV History: right sided abdominal pain Comparison Study: CT CT AB PEL WO CON-NO ORAL OR IV on DOS: 08/03/22, ECIDC on DOS: 05/21/22, CT ABD PELVIS WO CONTRAST on DOS: 02/22/22 TECHNIQUE: Multidetector CT of the abdomen and pelvis was performed from lung bases to pubic symphysis. Imaging was performed without IV contrast. Axial, coronal, and sagittal multiplanar reformats were obtained from the axial data set by the technologist. RADIATION DOSE: DLP 1256.11 mGy.cm; CTDI vol 25.44 mGy. Findings: Limited evaluation given noncontrast technique. Lungs: Centrilobular emphysema with multifocal consolidations. Heart: No cardiomegaly or pericardial effusion. Liver: Unremarkable. Gallbladder: Unremarkable. Spleen: Unremarkable Pancreas: Unremarkable Adrenals: Unremarkable Kidneys: Unremarkable GI tract: Unremarkable : The urinary bladder is decompressed via Acevedo catheter. Vasculature: Moderate aortoiliac atherosclerosis. Lymphadenopathy: Absent Peritoneum: No ascites Musculoskeletal: Severe multilevel degenerative changes of the thoracolumbar spine. Posterior fusion of L4 and L5. Soft tissues: Mild anasarca Impression: 1. Limited evaluation given noncontrast technique. 2. No definite acute abdominopelvic abnormalities. 3. Centrilobular emphysema with multifocal consolidations, favored an infectious/inflammatory etiology. ATED BY: PHILLY TEIXEIRA DO DICTATED DATE/TIME: 07/02/241712 SIGNED BY: PHILLY TEIXEIRA DO SIGNED DATE/TIME: 07/02/241712 CC: [place] [id number] Ph: [phone] DIAGNOSTIC IMAGING Diagnostic Imaging Report : [id number] Signed PATIENT: ELZBIETA TAYLOR ACCT: [id number] UNIT: [id number] : 1950 LOC: [facility] ROOM / [facility]: [facility] AGE / SEX: 74 / F ADM STATUS: ADM IN SERVICE 42 ORDERING PHYSICIAN: DRE HILL RESIDENT PROCEDURE(s): ABPL - CT AB PEL WO CON-NO ORAL OR IV REASON: right sided abdominal pain ORDER NUMBER(s): [id number], ACCESSION NUMBER(s): [id number] Exam: CT CT AB PEL WO CON-NO ORAL OR IV History: right sided abdominal pain Comparison Study: CT CT AB PEL WO CON-NO ORAL OR IV on DOS: 08/03/22, ECIDC on DOS: 05/21/22, CT ABD PELVIS WO CONTRAST on DOS: 02/22/22 TECHNIQUE: Multidetector CT of the abdomen and pelvis was performed from lung bases to pubic symphysis. Imaging was performed without IV contrast. Axial, coronal, and sagittal multiplanar reformats were obtained from the axial data set by the technologist. RADIATION DOSE: DLP 1256.11 mGy.cm; CTDI vol 25.44 mGy. Findings: Limited evaluation given noncontrast technique. Lungs: Centrilobular emphysema with multifocal consolidations. Heart: No cardiomegaly or pericardial effusion. Liver: Unremarkable. Gallbladder: Unremarkable. Spleen: Unremarkable Pancreas: Unremarkable Adrenals: Unremarkable Kidneys: Unremarkable GI tract: Unremarkable : The urinary bladder is decompressed via Acevedo catheter. Vasculature: Moderate aortoiliac atherosclerosis. Lymphadenopathy: Absent Peritoneum: No ascites Musculoskeletal: Severe multilevel degenerative changes of the thoracolumbar spine. Posterior fusion of L4 and L5. Soft tissues: Mild anasarca Impression: 1. Limited evaluation given noncontrast technique. 2. No definite acute abdominopelvic abnormalities. 3. Centrilobular emphysema with multifocal consolidations, favored an infectious/inflammatory etiology. ATED BY: PHILLY TEIXEIRA DO DICTATED DATE/TIME: 07/02/241712 SIGNED BY: PHILLY TEIXEIRA DO SIGNED DATE/TIME: 07/02/241712 CC: [place] [address] Ph: [phone] DIAGNOSTIC IMAGING Diagnostic Imaging Report : [id number] Signed PATIENT: ELZBIETA TAYLOR ACCT: [id number] UNIT: [id number] : 1950 LOC: [facility] ROOM / BED: [address] [place] [address] AGE / SEX: 74 / F ADM STATUS: ADM IN SERVICE 1114 ORDERING PHYSICIAN: DRE HILL RESIDENT PROCEDURE(s): ABDL - ABDOMEN LIMITED REASON: ruq tenderness ORDER NUMBER(s): [id number], ACCESSION NUMBER(s): [id number] INDICATION: ruq tenderness TECHNIQUE: Multiple real-time sonographic images were obtained of the right upper quadrant. COMPARISON: None FINDINGS: The liver demonstrates homogenous echotexture without focal mass lesions. The liver measures 13 cm. There is no intrahepatic or extrahepatic ductal dilatation. The common duct measures 4 mm. Gallbladder is surgically absent. The right kidney measures 10 cm. The right kidney is normal in contour, size, and shape. The echogenicity is normal. There is no hydronephrosis. The pancreas is not well visualized due to overlying bowel gas. IMPRESSION: Gallbladder is surgically absent. ATED BY: PAUL ERICKSON MD DICTATED DATE/TIME: 06/30/24 1210 SIGNED BY: PAUL ERICKSON MD SIGNED DATE/TIME: 06/30/24 1210 CC: [place] [address] Ph: [phone] DIAGNOSTIC IMAGING Diagnostic Imaging Report : [id number] Signed PATIENT: ELZBIETA TAYLOR ACCT: [id number] UNIT: [id number] : 1950 LOC: [facility] ROOM / BED: [address] [place] [address] AGE / SEX: 74 / F ADM STATUS: ADM IN SERVICE ORDERING PHYSICIAN: SAAD MARTINEZ RESIDENT PROCEDURE(s): BLDVT - BiLat Lower DVT REASON: VTE r/o ORDER NUMBER(s): [id number], ACCESSION NUMBER(s): [id number] Bilateral lower extremity venous duplex Clinical History: VTE r/o Comparison: US BILAT LOWER DVT on DOS: 04/23/23, US BILAT LOWER DVT on DOS: 08/05/22 Technique: Duplex Doppler evaluation of the deep venous systems of both lower extremities from the common femoral veins to the popliteal veins including color Doppler and spectral/pulsed waveform analysis was performed. Findings: RIGHT SIDE: The common femoral vein demonstrates appropriate compressibility and waveform variability. There is compressibility/patency of the great saphenous vein at the proximal thigh. The femoral vein demonstrates appropriate compressibility and waveform variability. The deep femoral vein demonstrates appropriate compressibility and waveform variability. The popliteal vein demonstrates appropriate compressibility and waveform variability. There is normal compressibility at the tibioperoneal trunk. LEFT SIDE: The common femoral vein demonstrates appropriate compressibility and waveform variability. There is compressibility/patency of the great saphenous vein at the proximal thigh. The femoral vein demonstrates appropriate compressibility and waveform variability. The deep femoral vein demonstrates appropriate compressibility and waveform variability. The popliteal vein demonstrates appropriate compressibility and waveform variability. There is normal compressibility at the tibioperoneal trunk. Impression: 1. No right or left femoropopliteal venous thrombosis. ATED BY: COLIN BEE MD DICTATED DATE/TIME: 06/30/24346 SIGNED BY: COLIN BEE MD SIGNED DATE/TIME: 06/30/24346 CC: [address] [id number] Ph: [phone] DIAGNOSTIC IMAGING Diagnostic Imaging Report : [id number] Signed PATIENT: ELZBIETA TAYLOR ACCT: [id number] UNIT: [id number] : 1950 LOC: ER ROOM / BED: / AGE / SEX: 74 / F ADM STATUS: REG ER SERVICE 12 ORDERING PHYSICIAN: MELINDA LAYNE MD PROCEDURE(s): CX2CT - CHEST WITHOUT CONTRAST REASON: sob ORDER NUMBER(s): [id number], ACCESSION NUMBER(s): [id number] Procedure: CT CHEST WITHOUT CONTRAST Reason for study/Clinical History: sob Comparison Study: August 05, 2022 Exam Date: 06/29/2024 08:53 PM TECHNIQUE: Multidetector CT of the chest was performed from the lung apices to the upper abdomen without the use of intravenous contract. Axial, coronal and sagittal multiplanar reformats were performed. Radiation Dose Information: CT Dose: CTDI volume is 27.7 mGy. Dose-length product is 1125.46 mGy*cm The dose indicators for CT are the volume Computed Tomography (CT) Dose Index (CTDIvol) and the Dose Length Product (DLP), and are measured in units of mGy and mGy-cm, respectively. These indicators are not patient dose, but values generated from the CT scanner acquisition factors. The report includes radiation exposure data for exposures received during this examination. FINDINGS: Lower neck: Normal thyroid. Lungs: Multifocal pneumonia throughout both lungs, most prominent in the right upper lobe. Diffuse peripheral reticulation , traction bronchiectasis, and honeycombing in the bilateral upper lobes, suggestive of chronic interstitial pulmonary fibrosis Heart/Vascular Structures: Normal heart size. No pericardial effusion. Lymph Nodes: Mediastinal lymphadenopathy, for example a right paratracheal lymph node measuring up to 2 cm in short dimension. Pleura: No pleural effusion or significant pneumothorax. Musculoskeletal: No acute osseous abnormality. Soft tissues: Normal. Upper abdomen: Limited portions of the upper abdomen are unremarkable. IMPRESSION: Multifocal pneumonia superimposed on chronic interstitial pulmonary fibrosis. Mediastinal lymphadenopathy, likely reactive Radiation optimization: All CT scans at this facility use at least one of these dose optimization techniques: automated exposure control mA and/or kV adjustment per patient size (includes targeted exams where dose is matched to clinical indication) or iterative reconstruction. ATED BY: RAMIRO RUBIN MD DICTATED DATE/TIME: 06/29/242123 SIGNED BY: RAMIRO RUBIN MD SIGNED DATE/TIME: 06/29/242123 CC: [place] [address] Ph: [phone] DIAGNOSTIC IMAGING Diagnostic Imaging Report : [id number] Signed PATIENT: ELZBIETA TAYLOR ACCT: [id number] UNIT: [id number] : 1950 LOC: ER ROOM / BED: / AGE / SEX: 74 / F ADM STATUS: REG ER SERVICE 152 ORDERING PHYSICIAN: MELINDA LAYNE MD PROCEDURE(s): CXRP - CHEST PORTABLE REASON: sob ORDER NUMBER(s): [id number], ACCESSION NUMBER(s): [id number] CHEST RADIOGRAPH Indication: sob Technique: Single frontal view of the chest was obtained Comparison: XY CHEST PORTABLE on DOS: 04/22/23, XY CHEST PORTABLE on DOS: 08/03/22, CXR1 on DOS: 05/19/22, CHEST XRAY 1 VIEW on DOS: 05/19/22, CXRP on DOS: 05/11/22 FINDINGS: Lines and Tubes: Right chest port tip in the cavoatrial junction Lungs: Extensive multifocal airspace disease. Metastases can not be excluded. CT recommended. Pleura: No effusion. No pneumothorax. Cardiomediastinal contours: Unremarkable Bones: No acute osseous abnormality. IMPRESSION: Extensive multifocal airspace disease. Metastases can not be excluded. CT recommended. ATED BY: YUMIKO BOLANOS MD DICTATED DATE/TIME: 06/29/241645 SIGNED BY: YUMIKO BOLANOS MD SIGNED DATE/TIME: 06/29/241645 CC: Condition at Discharge: Undetermined Final Diagnosis/Problems List Terminal extubation, cardiorespiratory failure. Discharge Disposition: at Hospital Discharge Statement: "Patient was advised to return to the ER or call 911 if any headaches, dizziness, shortness of breath, chest pain, abdominal pain, bleeding, fevers, or worsening of medical condition. Patient was counseled about treatment plan, medications, possible side effects, patientverbalized understanding. All questions were answered to the best of my ability. This discharge took greater then 30 minutes in planning, reviewing documentation, counseling the patient, and discussing with other team members." ASSESSMENT ASSESSMENT Assessment GAMALIEL CARRION RESIDENT Jul 13, 2024 13:02
--- NOTE | 2024-07-13 16:50 | ECG ---
[facility] Test Date: 2024-07-12 Test Time: 16:07:00 Pat Name: ELZBIETA TAYLOR Department: ICU Room: [address] [place] [address] A Gender: F Clinical Product Manager: JAN : 1950 Requested By: SOFIE SCANLON Order Number: [id number] Reading MD: Henok Alonso Measurements Intervals [place] Rate: 85 P: 72 MN: 133 QRS: -13 QRSD: 79 T: 177 QT: 334 QTc: 398 Interpretive Statements Sinus rhythm Supraventricular bigeminy Low voltage, precordial leads Nonspecific T abnormalities, lateral leads Electronically Signed On 07-15-2024 16:28:55 PDT by Henok Alonso Please click the below link to view image of tracing.
== END 2024-07-13 15:00 | DRG 870 ==
LOC: ER 15:16 → EDBD 15:16 → OVERFLOW 21:25 → TELE-WESTW 06-30 10:52 → ICU WEST 07-05 02:57
PROVIDERS: ADMIT Student in an Organized Health Care Education/Training Program; ATTEND Student in an Organized Health Care Education/Training Program
PROC: 30233N1 Transfusion of Nonautologous Red Blood Cells into Peripheral Vein, Percutaneous Approach (ICD-10-PCS; principal; 2024-06-30)
PROC: 5A09357 Assistance with Respiratory Ventilation, Less than 24 Consecutive Hours, Continuous Positive Airway Pressure (ICD-10-PCS; 2024-06-30)
PROC: 5A1955Z Respiratory Ventilation, Greater than 96 Consecutive Hours (ICD-10-PCS; 2024-07-05)
PROC: 0BH17EZ Insertion of Endotracheal Airway into Trachea, Via Natural or Artificial Opening (ICD-10-PCS; 2024-07-05)
PROC: 0B9J8ZX Drainage of Left Lower Lung Lobe, Via Natural or Artificial Opening Endoscopic, Diagnostic (ICD-10-PCS; 2024-07-05)
PROC: 0BC78ZZ Extirpation of Matter from Left Main Bronchus, Via Natural or Artificial Opening Endoscopic (ICD-10-PCS; 2024-07-05)
PROC: 03HY32Z Insertion of Monitoring Device into Upper Artery, Percutaneous Approach (ICD-10-PCS; 2024-07-07)
PROC: 02HV33Z Insertion of Infusion Device into Superior Vena Cava, Percutaneous Approach (ICD-10-PCS; 2024-07-07)
PROC: B548ZZA Ultrasonography of Superior Vena Cava, Guidance (ICD-10-PCS; 2024-07-07)
PROC: 5A1D70Z Performance of Urinary Filtration, Intermittent, Less than 6 Hours Per Day (ICD-10-PCS; 2024-07-07)
PROC: 5A1D70Z Performance of Urinary Filtration, Intermittent, Less than 6 Hours Per Day (ICD-10-PCS; 2024-07-09)
PROC: 5A1D70Z Performance of Urinary Filtration, Intermittent, Less than 6 Hours Per Day (ICD-10-PCS; 2024-07-12)
DX: A41.9 Sepsis, unspecified organism (principal); J15.212 Pneumonia due to Methicillin resistant Staphylococcus aureus; I50.43 Acute on chronic combined systolic (congestive) and diastolic (congestive) heart failure; N17.0 Acute kidney failure with tubular necrosis; J96.21 Acute and chronic respiratory failure with hypoxia; J96.22 Acute and chronic respiratory failure with hypercapnia; R65.21 Severe sepsis with septic shock; I21.4 Non-ST elevation (NSTEMI) myocardial infarction; J69.0 Pneumonitis due to inhalation of food and vomit; I13.0 Hypertensive heart and chronic kidney disease with heart failure and stage 1 through stage 4 chronic kidney disease, or unspecified chronic kidney disease; D68.59 Other primary thrombophilia; J44.1 Chronic obstructive pulmonary disease with (acute) exacerbation; J45.901 Unspecified asthma with (acute) exacerbation; Z99.11 Dependence on respirator [ventilator] status; I47.10 Supraventricular tachycardia, unspecified; Z68.41 Body mass index [BMI] 40.0-44.9, adult; N39.0 Urinary tract infection, site not specified; E87.4 Mixed disorder of acid-base balance; E03.9 Hypothyroidism, unspecified; Z20.822 Contact with and (suspected) exposure to COVID-19; E11.22 Type 2 diabetes mellitus with diabetic chronic kidney disease; E11.65 Type 2 diabetes mellitus with hyperglycemia; E66.01 Morbid (severe) obesity due to excess calories; G47.33 Obstructive sleep apnea (adult) (pediatric); G89.29 Other chronic pain; I48.0 Paroxysmal atrial fibrillation; J84.112 Idiopathic pulmonary fibrosis; K29.70 Gastritis, unspecified, without bleeding; N18.32 Chronic kidney disease, stage 3b; I25.10 Atherosclerotic heart disease of native coronary artery without angina pectoris; D50.9 Iron deficiency anemia, unspecified; E78.5 Hyperlipidemia, unspecified; R59.0 Localized enlarged lymph nodes; I08.1 Rheumatic disorders of both mitral and tricuspid valves; F41.9 Anxiety disorder, unspecified; I27.20 Pulmonary hypertension, unspecified; K21.9 Gastro-esophageal reflux disease without esophagitis; D63.1 Anemia in chronic kidney disease; S31.821A Laceration without foreign body of left buttock, initial encounter; S31.811A Laceration without foreign body of right buttock, initial encounter; K59.03 Drug induced constipation; T40.2X5A Adverse effect of other opioids, initial encounter; T36.8X5A Adverse effect of other systemic antibiotics, initial encounter; D69.6 Thrombocytopenia, unspecified; R56.9 Unspecified convulsions; Z88.5 Allergy status to narcotic agent; Z88.1 Allergy status to other antibiotic agents; Z99.81 Dependence on supplemental oxygen; Z90.49 Acquired absence of other specified parts of digestive tract; Z86.73 Personal history of transient ischemic attack (TIA), and cerebral infarction without residual deficits; Z91.02 Food additives allergy status; Z88.0 Allergy status to penicillin; Z88.8 Allergy status to other drugs, medicaments and biological substances; Z85.3 Personal history of malignant neoplasm of breast; Z90.12 Acquired absence of left breast and nipple; Z87.891 Personal history of nicotine dependence; Z82.49 Family history of ischemic heart disease and other diseases of the circulatory system; Z83.3 Family history of diabetes mellitus; Z82.0 Family history of epilepsy and other diseases of the nervous system; Z80.7 Family history of other malignant neoplasms of lymphoid, hematopoietic and related tissues; Z79.84 Long term (current) use of oral hypoglycemic drugs; Z79.01 Long term (current) use of anticoagulants; Z79.82 Long term (current) use of aspirin; Z79.02 Long term (current) use of antithrombotics/antiplatelets; Z79.4 Long term (current) use of insulin; Z79.899 Other long term (current) drug therapy; Y92.89 Other specified places as the place of occurrence of the external cause; X58.XXXA Exposure to other specified factors, initial encounter; Y93.89 Activity, other specified; Y99.8 Other external cause status
CPT/HCPCS: 36415; 36556; 36600; 36620; 71045; 71250; 74018; 74176; 76705; 80048; 80053; 80076; 80202; 80307; 81001; 82010; 82140; 82565; 82607; 82728; 82746; 82805; 82962; 83036; 83540; 83550; 83605; 83615; 83735; 83880; 83930; 84100; 84132; 84443; 84484; 85007; 85025; 85027; 85045; 85379; 85610; 85730; 86850; 86900; 86901; 86920; 87040; 87070; 87081; 87086; 87088; 87205; 87340; 87426; 87804; 90935; 93005; 93306; 93970; 94002; 94003; 94640; 94660; 96365; 96372; 96375; 99291; G0378; J0153; J1450; J1642; J1815; J2185; J2248; J2470; J2704; P9047